=== PATIENT | female | born 1950 | race Caucasian/White ===

== ENCOUNTER 2023-12-16 08:09 | Emergency (ER) | payer OTHER, SELFPAY ==
[2023-12-16 08:20] VITALS: BP 137/61; PULSE 62; RESP 18; TEMP 36.6; O2SAT 98
[2023-12-16] MEDS: TETANUS,DIPHTHERIA,AC PERTUSSIS ADULT (0.5 ML) BOOSTRIX IM (08:31)
--- NOTE | 2023-12-16 08:37 | ED.SKABFB ---
HPI - Skin/Abscess/Foreign Bdy General Chief complaint: Wound/Laceration Stated complaint: Head Injury Time Seen by Provider: 12/16/23 08:28 Source: patient and RN notes reviewed Mode of arrival: ambulatory Limitations: no limitations History of Present Illness HPI narrative: Presents today with a laceration to her scalp that was sustained just prior to arrival while working at [employer]. States a leaf blower fall on her head. Denies loss of consciousness, neck pain, dizziness, lightheadedness. Reports that she does have a headache, concentrated in the area of her wound that she currently rates 5/10. She takes a baby aspirin daily but no additional anticoagulants. Patient not up-to-date on her tetanus vaccine Related Data Home Medications Medication Instructions Recorded Confirmed albuterol sulfate 90 mcg/actuation 2 inh inhalation DIRECTED 12/16/23 12/16/23 aerosol inhaler aspirin 81 mg tablet 81 mg PO DAILY 12/16/23 12/16/23 atorvastatin 20 mg tablet 20 mg PO DAILY 12/16/23 12/16/23 irbesartan 150 mg tablet 150 mg PO DAILY 12/16/23 12/16/23 lorazepam 1 mg tablet 1 mg PO DIRECTED 12/16/23 12/16/23 metoprolol tartrate 50 mg tablet 50 mg PO DAILY 12/16/23 12/16/23 pantoprazole 40 mg tablet,delayed 40 mg PO DAILY 12/16/23 12/16/23 release rizatriptan 10 mg tablet 10 mg PO DIRECTED 12/16/23 12/16/23 Allergies Allergy/AdvReac Type Severity Reaction Status Date / Time No Known Allergies Allergy Verified 12/16/23 08:13 Review of Systems Review of Systems: CONSTITUTIONAL: Denies body aches, fever, chills, or sweats. EYES: Denies visual changes, redness, or discharge. ENT: Denies rhinorrhea, congestion, sore throat, or otalgia. CARDIOVASCULAR: Denies chest pain, palpitations, or edema. RESPIRATORY: Denies cough or dyspnea. GASTROINTESTINAL: Denies abdominal pain, nausea, vomiting, or diarrhea. GENITOURINARY: Denies dysuria or hematuria. SKIN: Denies rash, itching.+ scalp laceration MUSCULOSKELETAL: Denies back pain, joint pain, or myalgia. NEUROLOGIC: Denies numbness, tingling, or weakness.+ headache PSYCH: Denies depression or anxiety. [facility] Past Medical History Medical History (Updated 12/16/23 @ 08:45 by Mis Dias, [facility], ) GERD (gastroesophageal reflux disease) High cholesterol Hypertension Migraine Comments At time of signature, I have reviewed and agree with nursing past medical, surgical, social and family history unless otherwise noted. Please see nursing chart for further information. There is no relevant family history pertinent to the presenting complaint Exam Narrative: GENERAL: Well-appearing, well-nourished, and in no acute distress. HEAD: Normocephalic, atraumatic. EYES: EOMI. PERRL. No redness or drainage. Conjunctivae normal. ENT: Mucous membranes pink and moist. NECK: Normal AROM without pain. Supple. No lymphadenopathy. Neck is nontender. CHEST: No respiratory distress. EXTREMITIES: Normal range of motion. No edema. SKIN: Warm, dry, no rash. Capillary refill normal. Normal skin turgor. 1cm partial thickness linear laceration with scant active bleeding to the midline frontal scalp area into the hairline approximately 4-5 cm NEURO: No focal deficits. Alert and oriented x3. Gait steady. PSYCH: Normal affect. No signs of depression or anxiety. Course Course Level of Care: Express Care Visit Vital Signs Vital signs: Vital Signs Temperature 97.9 F 12/16/23 08:20 Pulse Rate 62 12/16/23 08:20 Respiratory Rate 18 12/16/23 08:20 Blood Pressure 137/61 12/16/23 08:20 Pulse Oximetry 98 12/16/23 08:20 Oxygen Delivery Room Air 12/16/23 08:20 Temperature 97.9 F 12/16/23 08:20 Pulse Rate 62 12/16/23 08:20 Respiratory Rate 18 12/16/23 08:20 Blood Pressure 137/61 12/16/23 08:20 Pulse Oximetry 98 12/16/23 08:20 Oxygen Delivery Room Air 12/16/23 08:20 Reviewed Procedures Laceration Laceration 1: D
== END 2023-12-16 08:50 | disposition home or self-care (01) ==
PROVIDERS: Emergency Provider Nurse Practitioner
DX: S01.01XA Laceration without foreign body of scalp, initial encounter (principal); W22.8XXA Striking against or struck by other objects, initial encounter; Z79.82 Long term (current) use of aspirin; K21.9 Gastro-esophageal reflux disease without esophagitis; I10 Essential (primary) hypertension; E78.00 Pure hypercholesterolemia, unspecified; Z23 Encounter for immunization
CPT/HCPCS: 12001; 90471; 90715; 99212; G0463

== ENCOUNTER 2023-12-22 08:24 | Emergency (ER) | payer OTHER, SELFPAY ==
[2023-12-22 08:33] VITALS: BP 136/66; PULSE 64; RESP 16; TEMP 36.4; O2SAT 99
--- NOTE | 2023-12-22 08:49 | ED.SKABFB ---
HPI - Skin/Abscess/Foreign Bdy General Stated complaint: staple removal Time Seen by Provider: 12/22/23 08:49 Source: patient Mode of arrival: ambulatory Limitations: no limitations History of Present Illness HPI narrative: 73-year-old female here for staple removal. Had 2 barbara paste to laceration of scalp. Healing well, no signs of infection. All systems reviewed and negative except as noted above. Related Data Home Medications Medication Instructions Recorded Confirmed albuterol sulfate 90 mcg/actuation 2 inh inhalation DIRECTED 12/16/23 12/22/23 aerosol inhaler aspirin 81 mg tablet 81 mg PO DAILY 12/16/23 12/22/23 atorvastatin 20 mg tablet 20 mg PO DAILY 12/16/23 12/22/23 irbesartan 150 mg tablet 150 mg PO DAILY 12/16/23 12/22/23 lorazepam 1 mg tablet 1 mg PO DIRECTED 12/16/23 12/22/23 metoprolol tartrate 50 mg tablet 50 mg PO DAILY 12/16/23 12/22/23 pantoprazole 40 mg tablet,delayed 40 mg PO DAILY 12/16/23 12/22/23 release rizatriptan 10 mg tablet 10 mg PO DIRECTED 12/16/23 12/22/23 Allergies Allergy/AdvReac Type Severity Reaction Status Date / Time No Known Allergies Allergy Verified 12/22/23 08:49 Review of Systems Review of Systems: CONSTITUTIONAL: Denies fever, chills, or sweats. EYES: Denies visual changes, redness, or discharge. ENT: Denies rhinorrhea, congestion, sore throat, or otalgia. CARDIOVASCULAR: Denies chest pain, palpitations, or edema. RESPIRATORY: Denies cough or dyspnea. GASTROINTESTINAL: Denies abdominal pain, nausea, vomiting, or diarrhea. GENITOURINARY: Denies dysuria or hematuria. SKIN: Denies rash or itching. Here for staple removal. MUSCULOSKELETAL: Denies back pain, joint pain, or myalgia. NEUROLOGIC: Denies headache, numbness, or weakness. PSYCHIATRIC: Denies anxiety or depression. All other systems reviewed are negative, except as documented in HPI. [facility] Past Medical History Medical History (Updated 12/22/23 @ 08:53 by Aislinn Parra NP) GERD (gastroesophageal reflux disease) High cholesterol Hypertension Migraine Comments At time of signature, agree with nursing past medical, surgical, social and family history. There is no relevant family history pertinent to the presenting complaint. Exam Narrative: GENERAL: This is a well-nourished, well-developed patient, in no apparent distress. HEAD: normocephalic. healed wound to top of scalp. Two barbara in place. No signs of infection. EYES: PERRL. Sclera clear/white. Vision is grossly intact. EARS: External ears normal NOSE: External nose normal NECK: Neck supple, non-tender without lymphadenopathy, masses or thyromegaly. CARDIOVASCULAR: Regular rate and rhythm without murmurs, gallops, or rubs. RESPIRATORY: Clear to auscultation. Breath sounds equal bilaterally. No wheezes, rales, or rhonchi. SKIN: warm, Dry, intact with no suspicious lesions or rash, good texture and turgor. NEURO: awake, alert, and oriented to person, place and time. There were no obvious focal neurologic abnormalities. EXTREMITIES: No joint tenderness, effusion, or edema noted. Course Course Level of Care: Express Care Visit Vital Signs Vital signs: Vital Signs Temperature 36.4 C L 12/22/23 08:33 Pulse Rate 64 12/22/23 08:33 Respiratory Rate 16 12/22/23 08:33 Blood Pressure 136/66 12/22/23 08:33 Pulse Oximetry 99 12/22/23 08:33 Oxygen Delivery Room Air 12/22/23 08:33 Temperature 36.4 C L 12/22/23 08:33 Pulse Rate 64 12/22/23 08:33 Respiratory Rate 16 12/22/23 08:33 Blood Pressure 136/66 12/22/23 08:33 Pulse Oximetry 99 12/22/23 08:33 Oxygen Delivery Room Air 12/22/23 08:33 Reviewed Procedures Other Procedure Procedure 1: Other Procedure: Two barbara removed from top of scalp usin staple removal MDM - Skin/Abscess/Foreign Bdy MDM Narrative Medical decision making narrative: Patient is aware of diagnosis, understands and agrees to
== END 2023-12-22 08:56 | disposition home or self-care (01) ==
PROVIDERS: Emergency Provider Nurse Practitioner Family
DX: S01.01XD Laceration without foreign body of scalp, subsequent encounter (principal); X58.XXXD Exposure to other specified factors, subsequent encounter; E78.00 Pure hypercholesterolemia, unspecified; I10 Essential (primary) hypertension; K21.9 Gastro-esophageal reflux disease without esophagitis; Z79.82 Long term (current) use of aspirin
CPT/HCPCS: 99211; G0463

== ENCOUNTER 2024-03-17 14:18 | Outpatient (CLI) | payer MEDICARE, SELFPAY ==
--- NOTE | ~2024-03-17 | MR_ITS ---
MRI of the right knee Clinical history: Pain, arthritis Technique: Coronal proton density and proton density-weighted images, sagittal proton-density and T2 fat-sat images, and axial proton-density fat-saturated images were acquired. Findings: Anterior and posterior cruciate ligaments are intact. Medial collateral ligament and the la teral collateral ligament complex are intact. Popliteus tendon is intact. There is complex tearing of the posterior horn and body of the medial meniscus. No lateral meniscal t ear seen. There is mild chondromalacia patella at the patellar apex. There is extensive high-grade chondral mal acia on both sides of the medial compartment. Articular cartilage in the lateral compartment is well preserved. There is mild amorphous reactive marrow edema in the medial tibial plateau and medial femo ral condyle. Extensor mechanism is intact. Small joint effusion present. No Hylton's cyst. Impression: Complex tearing of the posterior horn and body medial meniscus. 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 Mild chondromalacia patella. Small joint effusion. Reviewed, dictated and finalized at location . [employer] Impression: Complex tearing of the posterior horn and body medial meniscus. 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 Mild chondromalacia patella. Small joint effusion.
== END 2024-03-17 14:19 | disposition home or self-care (01) ==
LOC: GOSHIMG 14:19
PROVIDERS: PCP Internal Medicine; Visit Provider Orthopaedic Surgery
DX: S83.231A Complex tear of medial meniscus, current injury, right knee, initial encounter (principal); X58.XXXA Exposure to other specified factors, initial encounter; M25.461 Effusion, right knee
CPT/HCPCS: 73721

== ENCOUNTER 2024-04-27 11:34 | Outpatient (CLI) | payer MEDICARE, SELFPAY ==
[2024-04-27 13:32] LABS: Basophils Absolute Auto 0.1 K/mm3 (0.0-0.1); Basophils Percent Auto 1.2 % (0.2-1.2); Eosinophils Absolute Auto 0.3 K/mm3 (0-0.3); Eosinophils Percent Auto 4.8 % (0-4.4); Hematocrit 39.2 % (37.0-47.0); Hemoglobin 12.6 g/dL (12.0-15.0); Immature Granulocyte Absolute 0.01 K/mm3 (0.00-0.031); Immature Granulocyte Percent A 0.2 % (0-0.5); Lymphocytes Absolute Auto 1.85 K/mm3 (0.9-3.2); Lymphocytes Percent Auto 30.5 % (18.3-44.2); Mean Corpuscular HGB Conc 32.1 g/dl (32-36); Mean Corpuscular Volume 93.3 fl (80-100); Mean Platelet Volume 11.6 fl (7.4-10.4); Monocytes Absolute Auto 0.5 K/mm3 (0.1-0.6); Monocytes Percent Auto 8.4 % (2.6-8.5); Neutrophils Absolute Auto 3.3 K/mm3 (1.3-6.7); Neutrophils Percent Auto 54.9 % (45.5-73.1); Platelet Count Result 220 k/mm3 (150-375); Red Cell Distribution Width 12.9 % (11.5-14.5); White Blood Count 6.1 K/mm3 (4.5-10.0)
[2024-04-27 13:45] LABS: Albumin Level 4.4 g/dL (3.5-5.1); Anion Gap 11 mmol/L (4-12); Blood Urea Nitrogen 11 mg/dL (7-17); Calcium 9.6 mg/dL (8.4-10.2); Carbon Dioxide 28 mmol/L (22-30); Chloride 102 mmol/L (98-107); Estimated Glomerular Filt Rate > 60; Glucose 97 mg/dL (65-110); Potassium 4.1 mmol/L (3.4-5.0); Sodium 141 mmol/L (137-145)
[2024-04-27 13:50] LABS: Hemoglobin A1C 5.6 % (<5.7)
[2024-04-27 17:00] LABS: Urine Cotinine NEGATIVE
== END 2024-04-27 11:35 | disposition home or self-care (01) ==
LOC: ANHSURGERY 11:45
PROVIDERS: PCP Internal Medicine; Visit Provider Orthopaedic Surgery
DX: Z01.812 Encounter for preprocedural laboratory examination (principal); M17.11 Unilateral primary osteoarthritis, right knee
CPT/HCPCS: 80048; 80307; 82040; 83036; 85025; 87081; 87181

== ENCOUNTER 2024-05-10 08:18 | Outpatient (CLI) | payer MEDICARE, SELFPAY ==
--- NOTE | ~2024-05-10 | NM_ITS ---
EXAMINATION: NM david stress w perfusion DATE: 05/10/2024 11:03 INDICATION: Abnormal electrocardiogram. Encounter for preprocedural cardiovascular exam. TECHNIQUE: Rest images were obtained following intravenous administration of 10.21 mCi Tc99m tetrofos min (Myoview). The patient was infused intravenously with Lexiscan (regadenoson). Then, 34.5 mCi Tc99 m tetrofosmin (Myoview) was administered intravenously, and stress images were obtained. Data was rec onstructed into short axis and horizontal and vertical long axis SPECT images. Gated SPECT images wer e also obtained. COMPARISON: None. FINDINGS: There is no definite reversible or fixed perfusion abnormality to suggest ischemia or infar ction. There is no segmental wall motion abnormality. Left ventricular ejection fraction measures > 70%. IMPRESSION: 1. No definite ischemia or infarct. 2. Normal left ventricular ejection fraction measuring >70%. Reviewed, dictated and finalized at location A. AN PROFESSOR
--- OUTSIDE RECORDS SUMMARY | 2024-05-10 08:32 | XMS_ITS | Patient Health Summary ---
Author Organization [facility] Address [address] [place] [address] Care Team Providers Care On Site Soil Evaluator Name Role Phone Romero Negrete MD Primary Care Provider [phone] Note from [facility],non-owned Affiliates and Associated Physician Practices is amultiple site organization consisting of ambulatory clinics and hospital sitesin [place], [place], [place] and [place]. This disclosure is being madepursuant to the Care Everywhere program and may not contain all information available regarding this patient. Last updated 17.[facility] Allergies * Pitavastatin Calcium(Myalgias) * Simvastatin(Myalgias) Medications * Be aware that medications may not be up to date on this document. Alwaysverify current medications with the patient. * aspirin EC (ECOTRIN) 81 MG tablet Take 1 (one) tablet by mouth once daily * cetirizine (ZYRTEC) 10 MG tablet(Started 08/15/2010) Take 1 Tab by mouth daily. 4 refills left * albuterol HFA (PROVENTIL;VENTOLIN;PROAIR) 108 (90 BASE) MCG/ACT inhaler (Started 02/16/2014) 2 Puffs every 4 hours as needed. For shortness of breath. 3 refills left * albuterol (PROVENTIL;VENTOLIN) (5 MG/ML) 0.5% nebulizer solution(Started 07/09/2014) 1 vial every 6 hours as needed with nebulizer machine 3 refills left * metoprolol tartrate (LOPRESSOR) 25 MG tablet(Started 10/01/2014) 1 Tab 2 times daily 3 refills left * omeprazole (PRILOSEC) 40 MG capsule(Started 10/01/2014) 1 Cap daily before breakfast 3 refills left * traMADol (ULTRAM) 50 MG tablet(Started 10/05/2014) TAKE 1 TABLET BY MOUTH EVERY 6 HOURS NEEDED FOR PAIN * multivitamin daily (THERAGRAN) tablet Take 1 (one) tablet by mouth daily with food * LORazepam (ATIVAN) 0.5 MG tablet Take 1 (one) tablet by mouth at bedtime * fluticasone-salmeterol (ADVAIR) 250-50 MCG/DOSE inhaler Inhale 1 (one) puff by mouth 2 times daily * acetaminophen CR (Tylenol Arthritis Pain) 650 MG tablet TAKE 1 TABLET BY MOUTH FOUR TIMES A DAY WITH TRAMADOL * celecoxib (CeleBREX) 200 MG capsule(Started 06/21/2023) Take 1 (one) capsule by mouth 2 times daily as needed * ciprofloxacin (Cipro) 500 MG tablet * rizatriptan (Maxalt) 10 MG tablet(Started 08/16/2023) * Creon 6000-61451 units capsule(Started 06/25/2023) * methylPREDNISolone (Medrol Dosepak) 4 MG tablet(Started 10/08/2022) * irbesartan (Avapro) 150 MG tablet(Started 07/02/2023) Take 1 (one) tablet by mouth * HYDROcodone-acetaminophen (Henderson) 5-325 MG tablet(Started 05/04/2023) * etodolac (Lodine) 400 MG tablet(Started 06/30/2023) * diphenoxylate-atropine (Lomotil) 2.5-0.025 MG tablet(Started 09/29/2022) Take 1 (one) tablet by mouth 4 times daily as needed * cyclobenzaprine (Flexeril) 10 MG tablet(Started 01/07/2023) Take 1 (one) tablet by mouth 3 times daily as needed for Muscle Spasms * atorvastatin (Lipitor) 20 MG tablet(Started 06/12/2023) Take 1 (one) tablet by mouth once daily * valACYclovir (Valtrex) 1 GM tablet Take 2 (two) tablets by mouth 2 times daily Active Problems Problem Noted Date Diagnosed Date Gastroesophageal reflux disease 08/16/2023 Osteoarthritis of knee 08/16/2023 Atrial arrhythmia 08/16/2023 Pain in joint of left shoulder 08/20/2022 Arthralgia of right knee 12/29/2021 Epigastric abdominal pain 09/17/2021 Tendinitis of wrist 09/17/2021 Right wrist pain 06/10/2021 Extensor carpi ulnaris tendinitis 06/10/2021 Anxiety 03/01/2015 Atopic rhinitis 03/01/2015 Post-menopausal bleeding 01/17/2015 DAVID (generalized anxiety disorder) 09/03/2011 Pure hypercholesterolemia 10/11/2009 S/P cholecystectomy 09/26/2009 Asthma 09/26/2009 Arrhythmia 01/19/2009 Supraventricular tachycardia 01/19/2009 Resolved Problems Problem Noted Date Diagnosed Date Resolved Date Diarrhea 09/17/2021 09/13/2023 Essential hypertension, benign 01/19/2009 01/19/2009 Immunizations * INFLUENZA VACCINE, TRIV. (AFLURIA, FLUZONE TRIVALENT; 6MO+) (IIV3)(Given 11/10/2011) * FLU VACCINE QUAD IIV4 PF ID(Given 01/01/2016, 01/07/2015) * FLU VACCINE QUAD IIV4 SPLIT 0.25 ML IM(Given 12/13/2022) * INFLUENZA VACCINE(Given 12/13/2020, 11/24/2019, 12/15/2014, 11/10/2013, 11/10/2012, 11/10/2011) * INFLUENZA VACCINE, HIGH-DOSE, QUADR. (FLUZONE HIGH-DOSE QUADRIVALENT; 65Y+), 0.7 ML (HD-IIV4)(Given 12/30/2018, 12/31/2017) * INFLUENZA VACCINE, QUADR. (FLUZONE; FLULAVAL; FLUARIX; AFLURIA QUADRIVALENT; 6MO+), 0.5 ML (IIV4)(Given 12/04/2016) * PNEUMOCOCCAL PPSV23(Given 12/13/2022, 06/30/2017, 10/14/2011) * Pneumococcal Pcv13 Conj(Given 09/14/2014) * TDAP (7yrs+)(Given 11/02/2013) * ZOSTER VACCINE, LIVE(Given 01/02/2016) * Zoster Hzv Vacc Recombinant Inj Im(Given 08/29/2018, 08/16/2017) Social History Tobacco Use Types Packs/Day Years Used Date Smoking Tobacco: Former Cigarettes Q uit: 02/16/1993 Smokeless Tobacco: Never Tobacco Cessation:Counseling Given: Not Answered Alcohol Use Standard Drinks/Week Comments No 0 (1 standard drink = 0.6 oz pur e alcohol) PHQ-2 Answer Date Recorded Patient Health Questionnaire-2 Score 2 12/22/2023 Sex and Gender Information Value Date Recorded Sex Assigned at Not on file Gender Identity Not on file Sexual Orientation Not on file Last Filed Vital Signs Vital Sign Reading Time Taken Comments Blood Pressure 152/84 05/19/2015 2:51 PM GLASSWARE DEFECT REPAIRER Pulse 85 05/19/2015 2:51 PM GLASSWARE DEFECT REPAIRER Temperature 36.8 C (98.3 F) 05/19/2015 2:51 PM GLASSWARE DEFECT REPAIRER Respiratory Rate 18 05/19/2015 2:51 PM GLASSWARE DEFECT REPAIRER Oxygen Saturation 96% 05/19/2015 2:51 PM GLASSWARE DEFECT REPAIRER Inhaled Oxygen Concentration - - Weight 64.9 kg (143 lb) 03/29/2024 10:59 AM GLASSWARE DEFECT REPAIRER Height 160 cm (5' 3 ) 03/29/2024 10:59 AM GLASSWARE DEFECT REPAIRER Body Mass Index 25.33 03/29/2024 10:59 AM GLASSWARE DEFECT REPAIRER Procedures * NE DRAIN/INJECT LARGE JOINT/BURSA(Performed 12/27/2023) Performed for Tear of left rotator cuff, unspecified tear extent, unspecified whether traumatic * NE DRAIN/INJECT LARGE JOINT/BURSA(Performed 09/27/2023) Performed for Left shoulder tendinitis * XR SHOULDER LEFT 2VW OR MORE(Performed 08/18/2023) Performed for Left shoulder pain, unspecified chronicity * DEXA BONE DENSITY AXIAL SKELETON(Performed 10/22/2020) Performed for Encounter for screening for osteoporosis, Asymptomatic age-related postmenopausal state * MAMMO BILAT SCREENING(Performed 10/22/2020) Performed for Visit for screening mammogram * MAMMO BILAT SCREENING(Performed 10/21/2019) Performed for Visit for screening mammogram * MAMMO BILAT SCREENING(Performed 09/10/2018) Performed for Visit for screening mammogram * MAMMO BILAT SCREENING(Performed 11/29/2015) Performed for Visit for screening mammogram * PULMONARY/RESPIRATORY REPORT ORDER(Performed 05/23/2015) * XR CHEST 1VW PORTABLE(Performed 05/19/2015) Performed for Pneumonia of left lower lobe due to infectious organism * COMPREHENSIVE METABOLIC PANEL(Performed 05/18/2015) * CULTURE SPUTUM+GRAM STAIN(Performed 05/17/2015) * DIFFERENTIAL MANUAL(Performed 05/17/2015) * CBC W AUTO DIFFERENTIAL(Performed 05/17/2015) * COMPREHENSIVE METABOLIC PANEL(Performed 05/17/2015) * STREP PNEUMONIAE ANTIGEN URINE(Performed 05/17/2015) * LEGIONELLA ANTIGEN URINE(Performed 05/17/2015) * RESPIRATORY PATHOGEN PANEL BY PCR(Performed 05/16/2015) * INITIATE RT BRONCHODILATOR PROTOCOL(Performed 05/16/2015) * CULTURE URINE(Performed 05/16/2015) * URINALYSIS REFLEX TO MICROSCOPIC NO CULTURE(Performed 05/16/2015) * START ED RT BRONCHODILATOR PROTOCOL(Performed 05/16/2015) * START ED RT BRONCHODILATOR PROTOCOL(Performed 05/16/2015) * XR CHEST 2VW(Performed 05/16/2015) Performed for Productive cough * LACTIC ACID BLOOD POC VENOUS(Performed 05/16/2015) * CULTURE STREP GROUP A(Performed 05/16/2015) * CULTURE BLOOD(Performed 05/16/2015) * CULTURE BLOOD(Performed 05/16/2015) * STREP A SCREEN DIRECT W RFLX STREP A CULTURE(Performed 05/16/2015) * ACETAMINOPHEN LEVEL(Performed 05/16/2015) * LIPASE BLOOD(Performed 05/16/2015) * DIFFERENTIAL MANUAL(Performed 05/16/2015) * B-TYPE NATRIURETIC PEPTIDE(Performed 05/16/2015) * PT-INR(Performed 05/16/2015) * MONONUCLEOSIS SCREEN(Performed 05/16/2015) * COMPREHENSIVE METABOLIC PANEL(Performed 05/16/2015) * CBC W AUTO DIFFERENTIAL(Performed 05/16/2015) * INFLUENZA A+B ANTIGEN RAPID(Performed 05/16/2015) * CARDIAC RHYTHM STRIP ORDER(Performed 01/23/2015) * PATHOLOGY TISSUE EXAM (STL)(Performed 01/18/2015) Performed for Uterine leiomyoma, unspecified location * DILATION AND CURETTAGE INCOMPLETE , ANY TRIMESTER(Performed 01/18/2015) Performed for Uterine leiomyoma, unspecified location * HYSTEROSCOPY ABLATION WITH MYOSURE(Performed 01/18/2015) Performed for Uterine leiomyoma, unspecified location * MAMMO BILAT SCREENING(Performed 11/15/2014) Performed for Other screening mammogram * ENDOSCOPY, COLON, SCREENING(Performed 05/30/2014) * VITAMIN D 25-HYDROXY(Performed 05/14/2014) Performed for Screening for unspecified condition * LIPID PROFILE W LDL/HDL RATIO(Performed 05/14/2014) Performed for Pure hypercholesterolemia * THYROID PANEL W TSH (TSH,T4,T3 UPTAKE,FTI)(Performed 05/14/2014) Performed for Arrhythmia * COMPREHENSIVE METABOLIC PANEL(Performed 05/14/2014) Performed for Arrhythmia * CBC W AUTO DIFFERENTIAL(Performed 05/14/2014) Performed for Arrhythmia * XR WRIST LEFT 3VW OR MORE(Performed 11/02/2013) Performed for Left wrist pain * MAMMO BILAT SCREENING(Performed 11/02/2013) Performed for Other screening mammogram * XR WRIST LEFT 3VW OR MORE(Performed 10/26/2013) * HEPATITIS C ANTIBODY(Performed 12/06/2012) Performed for Need for hepatitis C screening test * LIPID PROFILE(Performed 12/06/2012) Performed for Pure hypercholesterolemia * THYROID PANEL W TSH (TSH,T4,T3 UPTAKE,FTI)(Performed 12/06/2012) Performed for Arrhythmia * COMPREHENSIVE METABOLIC PANEL(Performed 12/06/2012) Performed for Arrhythmia * CBC W AUTO DIFFERENTIAL(Performed 12/06/2012) Performed for Arrhythmia * MAMMO BILAT SCREENING(Performed 12/05/2012) Performed for Other screening mammogram * CT ABDOMEN PELVIS WO CONTRAST(Performed 11/04/2012) Performed for Right flank pain * URINALYSIS AUTO - POINT OF CARE(Performed 11/03/2012) Performed for Right flank pain * CARDIAC EKG ORDER(Performed 07/11/2012) * LIPID PROFILE(Performed 06/08/2012) Performed for Pure hypercholesterolemia * LAB RESULTS ORDER(Performed 01/14/2012) * VITAMIN D 25-HYDROXY(Performed 01/08/2012) Performed for Screening for unspecified condition * LIPID PROFILE(Performed 01/08/2012) Performed for Pure hypercholesterolemia * THYROID PANEL W TSH (TSH,T4,T3 UPTAKE,FTI)(Performed 01/08/2012) Performed for Screening for unspecified condition * COMPREHENSIVE METABOLIC PANEL(Performed 01/08/2012) Performed for Screening for unspecified condition * CBC W AUTO DIFFERENTIAL(Performed 01/08/2012) Performed for Screening for unspecified condition * MAMMO BILAT SCREENING(Performed 01/04/2012) Performed for Other screening mammogram * CARDIAC HOLTER MONITOR ORDER(Performed 08/24/2011) * HOLTER MONITOR(Performed 08/15/2011) Performed for Palpitations * VITAMIN D 25-HYDROXY(Performed 11/04/2010) Performed for Arrhythmia * LIPID PROFILE(Performed 11/04/2010) Performed for Pure hypercholesterolemia * THYROID PANEL W TSH (TSH,T4,T3 UPTAKE,FTI)(Performed 11/04/2010) Performed for Arrhythmia * COMPREHENSIVE METABOLIC PANEL(Performed 11/04/2010) Performed for Arrhythmia * CBC W AUTO DIFFERENTIAL(Performed 11/04/2010) Performed for Arrhythmia * MAMMO BILAT SCREENING(Performed 10/18/2010) Performed for Other screening mammogram * LIPID PROFILE(Performed 02/26/2010) Performed for Pure hypercholesterolemia * ECHOCARDIOGRAM STRESS(Performed 10/01/2009) Performed for Atypical Chest Pain * MAMMO BILAT SCREENING(Performed 09/28/2009) Performed for Other Screening Mammogram * HELICOBACTER PYLORI ANTIBODY IGG(Performed 09/27/2009) Performed for Atypical Chest Pain * LIPID PROFILE(Performed 09/27/2009) Performed for Atypical Chest Pain * THYROID PANEL W TSH (TSH,T4,T3 UPTAKE,FTI)(Performed 09/27/2009) Performed for Atypical Chest Pain * COMPREHENSIVE METABOLIC PANEL(Performed 09/27/2009) Performed for Atypical Chest Pain * CBC W AUTO DIFFERENTIAL(Performed 09/27/2009) Performed for Atypical Chest Pain * CULTURE STOOL PANEL(Performed 01/22/2009) Performed for Diarrhea * C DIFFICILE TOXIN A+B(Performed 01/22/2009) Performed for Diarrhea * HYDROXYINDOLACETIC ACID 5 URINE RANDOM(Performed 01/21/2009) Performed for Diarrhea * CBC W AUTO DIFFERENTIAL(Performed 01/21/2009) Performed for Diarrhea * COMPREHENSIVE METABOLIC PANEL(Performed 01/21/2009) Performed for Diarrhea * US BREAST LEFT COMPLETE(Performed 09/05/2008) Performed for Abnormal Mammogram, Unspecified * MAMMO LEFT DIAGNOSTIC(Performed 09/05/2008) Performed for Abnormal Mammogram, Unspecified * MAMMO BILAT SCREENING(Performed 08/25/2008) Performed for Other Screening Mammogram * TSH(Performed 04/05/2008) * T4 TOTAL(Performed 04/05/2008) * CBC W AUTO DIFFERENTIAL(Performed 04/05/2008) * COMPREHENSIVE METABOLIC PANEL(Performed 04/05/2008) * LIPID PROFILE(Performed 04/05/2008) * GROSS + MICRO EXAM(Performed 11/05/2003) * GROSS + MICRO EXAM(Performed 12/05/2001) Results * NE DRAIN/INJECT LARGE JOINT/BURSA (12/27/2023 8:45 AM CDT) Stephon Brown MD - 12/27/2023 8:45 AM CDT Stephon Mix MD 12/27/2023 9:56 AM The site was marked and consent signed. A time-out was called to confirm the appropriate site. Under sterile conditions using ChloraPrep, the left shoulder was injected using a mixture of 4 mL lidocaine, 4 mL marcaine, and 2mL (80mg) Kenalog. This was injected into the subacromial space through a standard posterior approach with a 22g needle. The patient tolerated the procedure well. No complications occurred. A bandaid was applied. Appropriate post-injection instructions were given and questions answered. Stephon Mix MD PROCEDURE/MINOR ES GICAL ORDERABLES * NE DRAIN/INJECT LARGE JOINT/BURSA (09/27/2023 9:21 AM CDT) Stephon Brown MD - 09/27/2023 9:21 AM CDT Stephon Mix MD 09/27/2023 10:17 AM The site was marked and consent signed. A time-out was called to confirm the appropriate site. Under sterile conditions using ChloraPrep, the left shoulder was injected using a mixture of 4 mL lidocaine, 4 mL marcaine, and 2mL (80mg) Kenalog. This was injected into the subacromial space through a standard posterior approach with a 22g needle. The patient tolerated the procedure well. No complications occurred. A bandaid was applied. Appropriate post-injection instructions were given and questions answered. Stephon Mix MD PROCEDURE/MINOR ES GICAL ORDERABLES * XR SHOULDER LEFT 2VW OR MORE (08/18/2023 1:16 PM CDT) Anatomical Region Laterality Modality Upper Extremity Computed Radiogr aphy 08/18/2023 2:17 PM CDT Impressions 08/18/2023 2:38 PM CDT IMPRESSION: Degenerative changes. Edited by Radha Issa on 08/18/2023 2:18 PM > Interpreting Provider: Rashid Velasquez MD on 08/18/2023 2:38 PM Narrative 08/18/2023 2:38 PM CDT PROCEDURE: XR SHOULDER LEFT 2VW OR MORE DATE/TIME OF EXAM: 08/18/2023 1:16 PM CLINICAL INFORMATION: None relevant/not provided if blank. Indication: M25.512: Pain in left shoulder Additional History: COMPARISON: None. FINDINGS: Four views of the left shoulder show glenohumeral joint space narrowing. There are degenerative changes of the acromioclavicular joint. No displaced fracture is present. Procedure Note Rashid Velasquez MD - 08/18/2023 PROCEDURE: XR SHOULDER LEFT 2VW OR MORE DATE/TIME OF EXAM: 08/18/2023 1:16 PM CLINICAL INFORMATION: None relevant/not provided if blank. Indication: M25.512: Pain in left shoulder Additional History: COMPARISON: None. FINDINGS: Four views of the left shoulder show glenohumeral joint space narrowing. There are degenerative changes of the acromioclavicular joint. Nodisplaced fracture is present. IMPRESSION: Degenerative changes. Edited by Radha Issa on 08/18/2023 2:18 PM > Interpreting Provider: Rashid Velasquez MD on 08/18/2023 2:38 PM Stephon Mix MD DIAGNOSTIC IMAGING ORDERABLES * DEXA BONE DENSITY AXIAL SKELETON (10/22/2020 1:59 PM CDT) Anatomical Region Laterality Modality Nuclear Medicine 10/22/2020 4:25 PM CDT Impressions 10/22/2020 4:25 PM CDT Normal bone mineral density of the lumbar spine and hips. WORLD HEALTH ORGANIZATION DEFINITIONS NORMAL= T-Score at or above -1.0 SD OSTEOPENIA = T-Score between -1 and -2.5 SD OSTEOPOROSIS = T-Score at or below -2.5 SD *Reading Radiologist: Harry Hernandez on 10/22/2020 at 4:25 PM Narrative 10/22/2020 4:25 PM CDT BONE MINERAL DENSITY STUDY: INDICATION: 70-year-old for osteoporosis screening. FINDINGS: The mean bone mineral content of the lumbar spine is 1.538 g/cm2. The T-score is 3.0 consistent with normal bone mineral density. The mean bone mineral content of the left femoral neck is 1.237 g/cm2. The T-score is 1.4 consistent with normal bone mineral density. The mean bone mineral content of the left total hip is 1.369 g/cm2. The T-score is 2.9 consistent with normal bone mineral density. The mean bone mineral content of the right femoral neck is 1.224 g/cm2. The T-score is 1.3 consistent with normal bone mineral density. The mean bone mineral content of the right total hip is 1.363 g/cm2. The T-score is 2.8 consistent with normal bone mineral density. FRAX 10 year fracture risk Major osteoporotic fracture: 5.2% Hip fracture: 0.1% Procedure Note Harry Hernandez DO - 10/22/2020 BONE MINERAL DENSITY STUDY: INDICATION: 70-year-old for osteoporosis screening. FINDINGS: The mean bone mineral content of the lumbar spine is 1.538 g/cm2. The T-score is 3.0 consistent with normal bone mineral density. The mean bone mineral content of the left femoral neck is 1.237 g/cm2. The T-score is 1.4 consistent with normal bone mineral density. The mean bone mineral content of the left total hip is 1.369 g/cm2. The T-score is 2.9 consistent with normal bone mineral density. The mean bone mineral content of the right femoral neck is 1.224 g/cm2. The T-score is 1.3 consistent with normal bone mineral density. The mean bone mineral content of the right total hip is 1.363 g/cm2. The T-score is 2.8 consistent with normal bone mineral density. FRAX 10 year fracture risk Major osteoporotic fracture: 5.2% Hip fracture: 0.1% IMPRESSION Normal bone mineral density of the lumbar spine and hips. WORLD HEALTH ORGANIZATION DEFINITIONS NORMAL= T-Score at or above -1.0 SD OSTEOPENIA = T-Score between -1 and -2.5 SD OSTEOPOROSIS = T-Score at or below -2.5 SD *Reading Radiologist: Harry Hernandez on 10/22/2020 at 4:25 PM Romero Negrete MD DEXA ORDERABLES * MAMMO BILAT SCREENING (10/22/2020 1:12 PM CDT) Only the most recent of11 resultswithin the time period is included. Anatomical Region Laterality Modality Breast Bilateral Mammography 10/22/2020 2:47 PM CDT Impressions 10/22/2020 2:48 PM CDT There is no mammographic evidence of malignancy. OVERALL FINAL ASSESSMENT: BI-RADS CATEGORY 1: NEGATIVE. Annual screening mammography is recommended. *Reading Radiologist: Isabel Ramos on 10/22/2020 at 2:48 PM Narrative 10/22/2020 2:48 PM CDT EXAMINATION: BILATERAL DIGITAL SCREENING MAMMOGRAM AND BILATERAL BREAST TOMOSYNTHESIS HISTORY: Screening. COMPARISON: Serial examinations dating back to 11/29/2015. TECHNIQUE: BILATERAL digital breast tomosynthesis (DBT) and synthetic 2D digital mammogram images were obtained (bilateral craniocaudal and mediolateral oblique projections) including computer aided detection (CAD.) BREAST PARENCHYMAL COMPOSITION:Category B: There are scattered areas of fibroglandular density. MAMMOGRAM FINDINGS: There is no suspicious finding in either breast. Romero Negrete MD MAMMO ORDERABLES * PULMONARY/RESPIRATORY REPORT ORDER (05/23/2015 11:12 AM GLASSWARE DEFECT REPAIRER) Narrative 05/23/2015 11:12 AM GLASSWARE DEFECT REPAIRER Ordered by an unspecified provider. Scanned Document RESPIRATORY THERAPY ORDERABLES * XR CHEST 1VW PORTABLE (05/19/2015 9:35 AM GLASSWARE DEFECT REPAIRER) Anatomical Region Laterality Modality Chest Radiographic Marbella ging 05/19/2015 9:40 AM GLASSWARE DEFECT REPAIRER Impressions 05/19/2015 9:41 AM GLASSWARE DEFECT REPAIRER No acute disease. Narrative 05/19/2015 9:41 AM GLASSWARE DEFECT REPAIRER AP Portable Chest Indication: Pneumonia shortness of breath Findings: A single portable view of the chest shows the lungs are clear. Mediastinal contour and heart size are within normal limits. Pulmonary vascularity is unremarkable. Procedure Note Mis Mathew MD - 05/19/2015 AP Portable Chest Indication: Pneumonia shortness of breath Findings: A single portable view of the chest shows the lungs are clear. Mediastinal contour and heart size are within normal limits. Pulmonary vascularity is unremarkable. IMPRESSION No acute disease. Melina Rodriguez DO DIAGNOSTIC IMAGING O RDERABLES * (ABNORMAL) COMPREHENSIVE METABOLIC PANEL (05/18/2015 6:52 AM [facility]) Only the most recent of10 resultswithin the time period is included. Glucose 104 74 - 106 mg/dL 05/18/2015 7:31 AM [facility] Sodium 141 136 - 145 mmol/L 05/18/2015 7:31 AM [facility] Potassium 3.5 3.5 - 5.1 mmol/L 05/18/2015 7:31 AM [facility] Chloride 110(H) 98 - 107 mmol/L 05/18/2015 7:31 AM [facility] CO2 24 22 - 31 mmol/L 05/18/2015 7:31 AM [facility] Calcium 8.0(L) 8.5 - 10.1 mg/dL 05/18/2015 7:31 AM [facility] Anion Gap 7 5 - 20 mmol/L 05/18/2015 7:31 AM [facility] BUN 5(L) 7 - 21 mg/dL 05/18/2015 7:31 AM [facility] Creatinine 0.50 0.50 - 1.30 mg/dL 05/18/2015 7:31 AM [facility] Alkaline Phosphatase 116 38 - 126 U/L 05/18/2015 7:31 AM [facility] ALT 142(H) 12 - 78 U/L 05/18/2015 7:31 AM [facility] AST 70(H) 5 - 40 U/L 05/18/2015 7:31 AM [facility] Protein Total 6.5 6.4 - 8.2 gm/dL 05/18/2015 7:31 AM [facility] Albumin 2.6(L) 3.4 - 5.0 gm/dL 05/18/2015 7:31 AM [facility] Bilirubin Total 0.8 0.2 - 1.0 mg/dL 05/18/2015 7:31 AM [facility] eGFR by MDRD >60 >60 mL/min/1.7 3m2 05/18/2015 7:31 AM [facility] eGFR by MDRD >60 >60 mL/min/1.7 3m2 05/18/2015 7:31 AM [facility] Blood BLOOD SPECIMEN / Unknown Lab Venipuncture / Unknown 05/18/2015 6:52 AM GLASSWARE DEFECT REPAIRER 05/18/2015 7:07 AM GLASSWARE DEFECT REPAIRER Melina Rodriguez DO LAB - CHEMISTRY [facility] [address] [place] [address] * CULTURE SPUTUM+GRAM STAIN (05/17/2015 8:32 PM GLASSWARE DEFECT REPAIRER) Culture Moderate Growth normal oropharyngeal tej NATALI 05/20/2015 10:10 AM GLASSWARE DEFECT REPAIRER [facility] MICROBIOLOGY Gram Stain <10 per low power field Squamous epithelial cells 05/20/2015 10:10 AM [facility] Gram Stain >=100 per low power field White blood cells 05/20/2015 10:10 AM [facility] Gram Stain Light Red blood cells 05/20/2015 10:10 AM [facility] Gram Stain Moderate Gram positive cocci 05/20/2015 10:10 AM [facility] Microbiology SPUTUM / Unknown 05/17/2015 8:32 PM GLASSWARE DEFECT REPAIRER 05/17/2015 8:56 PM GLASSWARE DEFECT REPAIRER Oriana Orlando MD LAB - MICROBIOLOGY O RDERABLES [facility]CRO[facility] [address] [place] [address] [phone] * (ABNORMAL) DIFFERENTIAL MANUAL (05/17/2015 8:05 AM GLASSWARE DEFECT REPAIRER) Only the most recent of2 resultswithin the time period is included. WBC Auto 10.1 x10^9/L 05/17/2015 10:11 AM GLASSWARE DEFECT REPAIRER [facility] WBC Corrected 4.4 - 10.7 x10^9/L 05/17/2015 10:11 AM [facility] nRBC /100 WBC 05/17/2015 10:11 AM [facility] Neutrophil % Manual 69 44 - 73 % 05/17/2015 10:11 AM [facility] Lymphocytes % Manual 10(L) 20 - 43 % 05/17/2015 10:11 AM [facility] Band % Manual 21(H) 0 - 11 % 05/17/2015 10:11 AM [facility] Cells Counted 100 # cells 05/17/2015 10:11 AM [facility] RBC Morphology Normal 05/17/2015 10:11 AM [facility] WBC Morph Normal 05/17/2015 10:11 AM [facility] Platelet Estimation Normal 05/17/2015 10:11 AM [facility] Blood BLOOD SPECIMEN / Unknown Lab Venipuncture / Unknown 05/17/2015 8:05 AM [facility] 05/17/2015 8:24 AM [employer] DEFECT REPAIRER Zohra Cruz MD LAB - HEMATOLOGY ORDERABLES [facility] [address] [place] [address] * (ABNORMAL) CBC W AUTO DIFFERENTIAL (05/17/2015 8:05 AM [facility]) Only the most recent of9 resultswithin the time period is included. WBC 10.1 4.4 - 10.7 x10^9/L 05/17/2015 8:45 AM [facility] WBC Corrected x10^9/L 05/17/2015 8:45 AM [facility] RBC 3.97 3.80 - 5.20 x10^12/L 05/17/2015 8:45 AM [facility] Hemoglobin 11.8(L) 12.0 - 15.6 gm/dL 05/17/2015 8:45 AM [facility] Hematocrit 34.5(L) 35.9 - 45.5 % 05/17/2015 8:45 AM [facility] MCV 86.9 80.7 - 98.3 fl 05/17/2015 8:45 AM [facility] MCH 29.7 26.7 - 34.0 pg 05/17/2015 8:45 AM [facility] MCHC 34.2 30.8 - 35.9 gm/dL 05/17/2015 8:45 AM [facility] Platelet Count 141(L) 153 - 416 x10^9/L 05/17/2015 8:45 AM [facility] RDW-CV 12.7 12.1 - 14.9 % 05/17/2015 8:45 AM [facility] MPV 11.8 9.4 - 12.9 fl 05/17/2015 8:45 AM [facility] nRBC Auto 0 /100 WBC 05/17/2015 8:45 AM [facility] Hematology Reflex Status Manual Diff to follow 05/17/2015 8:45 AM [facility] Blood BLOOD SPECIMEN / Unknown Lab Venipuncture / Unknown 05/17/2015 8:05 AM [facility] [employer] REPAIR[facility] 05/17/2015 8:24 AM [employer] DEFECT REPAIRER Zohra Cruz MD LAB - HEMATOLOGY ORDERABLES [facility] [address] [address] * STREP PNEUMO ANTIGEN URINE (05/17/2015 7:50 AM GLASS[employer] DEFECT REPAIRER) Streptococcus pneumoniae Antigen Urine Negative Negative 05/18/2015 10:52 AM [facility] Urine URINE / Unknown 05/17/2015 7 :50 AM [employer] DEFECT REPAIRER 05/17/2015 8:11 AM [employer] DEFECT REPAIRER Narrative [facility] - 05/18/2015 10:52 AM [employer] DEFECT REPAIRER Patients who have received the Streptococcus pneumoniae vaccines may test positive in the 48 hours following vaccination. It is recommended to avoid testing within five days of receiving vaccination. Testing pediatric patients is discouraged because of their high rates of nasal colonization with Streptococcus pneumoniae leading to false positive results. Samples from patients taking antibiotics for more than 24 hours may cause false negatives. Zohra Cruz MD LAB - MICROBIOLO GY ORDERABLES [facility] [address] [place] [address] [phone] * LEGIONELLA ANTIGEN URINE (05/17/2015 7:50 AM GLASS[employer] DEFECT REPAIRER) Legionella Antigen Urine Negative Negative 05/18/2015 10:51 AM [facility] Urine URINE / Unknown 05/17/2015 7 :50 AM [employer] DEFECT REPAIRER 05/17/2015 8:11 AM [employer] DEFECT REPAIRER Narrative [facility] - 05/18/2015 10:51 AM [employer] DEFECT REPAIRER This assay detects Legionella pneumophila serogroup one (1) antigen. A negative test result does not rule out the possibility of Legionella infection due to other serogroups or species of Legionella. A positive result may indicate a recent or remote infection with serogroup 1. Zohra Cruz MD LAB - MICROBIOLO GY ORDERABLES [facility] [address] [place] [address], [facility] [phone] * (ABNORMAL) RESPIRATORY PATHOGEN PANEL BY PCR (05/16/2015 6:29 PM [employer]ASS[employer] DEFECT REPAIRER) Adenovirus PCR Not detected Not detected, Invalid, Indeterminate 05/16/2015 11:29 PM [facility] Human Metapneumovirus PCR Detected(A ) Not detected, Invalid, Indeterminate 05/16/2015 11:29 PM [facility] Human Rhinovirus/Entero virus PCR Not detected Not detected, Invalid, Indeterminate 05/16/2015 11:29 PM [facility] Influenza A Non Subtyped PCR Not detected Not detected, Invalid, Indeterminate 05/16/2015 11:29 PM [facility] Influenza A H1 PCR Not detected Not detected, Invalid, Indeterminate 05/16/2015 11:29 PM [facility] Influenza A H3 PCR Not detected Not detected, Invalid, Indeterminate 05/16/2015 11:29 PM [facility] Influenza A H1 2009 PCR Not detected Not detected, Invalid, Indeterminate 05/16/2015 11:29 PM [facility] Influenza B PCR Not detected Not detected, Invalid, Indeterminate 05/16/2015 11:29 PM [facility] Mycoplasma pneumoniae PCR Not detected Not detected, Invalid, Indeterminate 05/16/2015 11:29 PM [facility] Parainfluenza Virus 1 PCR Not detected Not detected, Invalid, Indeterminate 05/16/2015 11:29 PM [facility] Parainfluenza Virus 2 PCR Not detected Not detected, Invalid, Indeterminate 05/16/2015 11:29 PM [facility] Parainfluenza Virus 3 PCR Not detected Not detected, Invalid, Indeterminate 05/16/2015 11:29 PM [facility] Parainfluenza Virus 4 PCR Not detected Not detected, Invalid, Indeterminate 05/16/2015 11:29 PM [facility] Respiratory Syncytial Virus PCR Not detected Not detected, Invalid, Indeterminate 05/16/2015 11:29 PM [facility] Bordetella pertussis PCR Not detected Not detected, Invalid 05/16/2015 11:29 PM [facility] Microbiology NASOPHARYNGEAL SWAB / Unknown Collection / Unknown 05/16/2015 6:29 PM [employer] DEFECT REPAIRER 05/16/2015 6:36 PM [employer] DEFECT REPAIRER Zohra Cruz MD LAB - MICROBIOLO GY ORDERABLES Performing Organization Address [facility]/ZIP Co de Phone Number [facility] [address] [place] [address], [facility] [phone] * CULTURE URINE (05/16/2015 4:39 PM GLASS[employer] DEFECT REPAIRER) Culture 10,000-50,000 CFU/mL urogenital tej NATALI 05/18/2015 9:44 AM [facility] Urine URINE SPECIMEN OBTAINED BY CLEAN CATCH PROCEDURE / Unknown 05/16/2015 4:39 PM [employer]ASS[employer] DEFECT REPAIRER 05/16/2015 4:43 PM [employer]ASS[employer] DEFECT REPAIRER Oriana Orlando MD LAB - MICROBIOLOGY O RDERABLES Performing Organization Address [facility] Co de Phone Number [facility] [address] [place] [address], [facility] [phone] * (ABNORMAL) URINALYSIS ROUTINE AUTO (05/16/2015 4:38 PM [employer]ASS[employer] DEFECT REPAIRER) Color UA Yellow Straw, Yellow, Dark Yellow 05/16/2015 4:52 PM [facility] Clarity UA Clear 05/16/2015 4:52 PM [facility] Specific [place] UA 1.018 1.005 - 1.030 05/16/2015 4:52 PM [facility] pH UA 6.0 5.0 - 8.0 pH 05/16/2015 4:52 PM [facility] Protein UA Negative Negative 05/16/2015 4:52 PM [facility] Blood UA Negative Negative 05/16/2015 4:52 PM [facility] Leukocyte UA 1+(A) Negative 05/16/2015 4:52 PM [facility] Nitrite UA Negative Negative 05/16/2015 4:52 PM [facility] Glucose UA Negative Negative 05/16/2015 4:52 PM [facility] Ketone UA 2+(A) Negative 05/16/2015 4:52 PM [facility] Bilirubin UA Negative Negative 05/16/2015 4:52 PM [facility] Urobilinogen UA 1.0 0.1 - 1.0 EU/dL 05/16/2015 4:52 PM [facility] WBC UA Auto 0-2 0-2, 2-5 # /hpf 05/16/2015 4:52 PM [facility] RBC UA Auto 2-5 0-2, 2-5 # /hpf 05/16/2015 4:52 PM [facility] Epithelial Cell UA Auto 0-2 0-2, 2-5 # /hpf 05/16/2015 4:52 PM [facility] Urine URINE SPECIMEN OBTAINED BY CLEAN CATCH PROCEDURE / Unknown 05/16/2015 4:38 PM [employer] DEFECT REPAIRER 05/16/2015 4:43 PM [employer] DEFECT REPAIRER Oriana Orlando MD LAB - URINALYSIS ORD ERABLES [facility] [address] [place] [address] * XR CHEST PA AND LATERAL (05/16/2015 3:18 PM [employer] DEFECT REPAIRER) Anatomical Region Laterality Modality Chest Radiographic Marbella ging 05/16/2015 3:23 PM [employer] DEFECT REPAIRER Narrative 05/16/2015 3:24 PM [employer] DEFECT REPAIRER 2 views chest Indication: Shortness of breath and fever Comparison: Chest x-ray 07/26/2006 Findings: There is a consolidative infiltrate within the posterior left lower lobe. This is consistent with pneumonia. The right lung is clear. Heart size is normal. There is no pneumothorax. Recommend radiographic followup until clear. Procedure Note Maria Alejandra Riggs MD - 05/16/2015 2 views chest Indication: Shortness of breath and fever Comparison: Chest x-ray 07/26/2006 Findings: There is a consolidative infiltrate within the posterior left lower lobe. This is consistent with pneumonia. The right lung is clear. Heart size is normal. There is no pneumothorax. Recommend radiographic followup until clear. Oriana Orlando MD DIAGNOSTIC IMAGING O RDTOMA * LACTIC ACID BLOOD POC VENOUS (05/16/2015 2:51 PM [employer]ASS[employer] DEFECT REPAIRER) Pathologist [facility] Lactate iSTAT Venous POCT 1.14 0.90 - 1.70 mmol/L 05/16/2015 2:58 PM [employer] DEFECT REPAIRER [facility] Sample iSTAT VENOUS 05/16/2015 2:58 PM [employer] DEFECT REPAIRER [facility] Blood BLOOD SPECIMEN / Unknown 05/16/2015 2:51 PM [employer] DEFECT REPAIRER 05/16/2015 2:58 PM [employer] DEFECT REPAIRER Oriana Orlando MD LAB - POINT OF CARE ORDERABLES Performing Organization Address City/[facility] Co de Phone Number [facility] [address] [place] [address] * STREP A SCREEN DIRECT W RFLX STREP A CULTURE (05/16/2015 2:44 PM GLASS[employer] DEFECT REPAIRER) [facility] Strep A Rapid Negative Negative 05/16/2015 3:20 PM [employer] DEFECT REPAIRER [facility] Microbiology ENTIRE THROAT (SURFACE REGION OF NECK) / Unknown Collection / Unknown 05/16/2015 2:44 PM GL[employer] DEFECT REPAIRER 05/16/2015 3:00 PM [employer] DEFECT REPAIRER Narrative [facility] - 05/16/2015 3:20 PM [employer] DEFECT REPAIRER Test has reflexed to a Strep A culture. Oriana Orlando MD LAB - MICROBIOLOGY O JENNIFER Performing Organization Address City/[facility]/ZIP Co de Phone Number [facility] [address], [place] [id number] * CULTURE BLOOD (05/16/2015 2:44 PM [employer]ASSWARE DEFECT REPAIRER) Only the most recent of2 resultswithin the time period is included. Pathologist [facility] Culture No Growth Day 5 NATALI 05/21/2015 6:00 PM [employer] DEFECT REPAIRER [facility] Blood PERIPHERAL BLOOD / Unknown 05/16/2015 2:44 PM GLASSWARE DEFECT REPAIRER 05/16/2015 2:59 PM [employer] DEFECT REPAIRER Oriana Orlando MD LAB - MICROBIOLOGY O JENNIFER Performing Organization Address [facility] Co de Phone Number [facility] [address] [place] [address], [facility] [phone] * CULTURE STREP GROUP A (05/16/2015 2:44 PM GLASSWARE DEFECT REPAIRER) Culture Negative for Beta Hemolytic Streptococcus Group A NATALI 05/18/2015 6:53 AM [employer] DEFECT REPAIRER [facility] Microbiology ENTIRE THROAT (SURFACE REGION OF NECK) / Unknown Collection / Unknown 05/16/2015 2:44 PM GLASSWARE DEFECT REPAIRER 05/16/2015 3:00 PM [employer] DEFECT REPAIRER Oriana Orlando MD LAB - MICROBIOLOGY O JENNIFER Performing Organization Address [facility] Co de Phone Number [facility] [address] [place] [address], [facility] [phone] * INFLUENZA A+B ANTIGEN RAPID (05/16/2015 2:43 PM GLASSWARE DEFECT REPAIRER) Influenza A Antigen Negative Negative 05/16/2015 3:13 PM [employer]WARE DEFECT REPAIRER [facility] Influenza B Antigen Negative Negative 05/16/2015 3:13 PM [employer] DEFECT REPAIRER [facility] Microbiology NASOPHARYNGEAL SWAB / Unknown Collection / Unknown 05/16/2015 2:43 PM GLASSWARE DEFECT REPAIRER 05/16/2015 3:00 PM GLASSWARE DEFECT REPAIRER Narrative [facility] - 05/16/2015 3:13 PM GLASSWARE DEFECT REPAIRER The sensitivity of rapid tests for influenza A and B antigens, according to the published reports , ranges from 30-70% when compared to PCR and viral culture. For H1N1 influenza A, the sensitivity varies from 30-50%. For other influenza A strains, the sensitivity ranges from 50-70%. For influenza B virus, the sensitivity is approximately 30%. A negative result does not exclude influenza infection. False-positive (and true-negative) influenza test results are more likely to occur when disease prevalence is low, which is generally at the beginning and end of the influenza season. False-negative (and true-positive) influenza test results are more likely to occur when disease prevalence is high, which is typically at the height of the influenza season. Oriana Orlando MD LAB - MICROBIOLOGY O RDERABLES Performing Organization Address City/[facility]/ZIP Co de Phone Number [facility] [address] [place] [phone] * (ABNORMAL) MONONUCLEOSIS SCREEN (05/16/2015 2:43 PM GLASSWARE DEFECT REPAIRER) Pathologist [facility] Mononucleosis Screen Positive( A) Negative 05/16/2015 3:19 PM [employer] DEFECT REPAIRER [facility] Blood BLOOD SPECIMEN / Unknown Venipuncture / Unknown 05/16/2015 2:43 PM GLASSWARE DEFECT REPAIRER 05/16/2015 2:58 PM GL[employer] DEFECT REPAIRER Oriana Orlando MD LAB - CHEMISTRY ORDE RABLES Performing Organization Address [facility] Co de Phone Number [facility] [address] [place] [address] * (ABNORMAL) PT-INR (05/16/2015 2:43 PM GLASSWARE DEFECT REPAIRER) Pathologist [facility] PT 11.9(H) 9.5 - 11.6 sec 05/16/2015 3:12 PM [employer] DEFECT REPAIRER [facility] INR 1.2(H) 0.9 - 1.1 05/16/2015 3:12 PM [employer]WARE DEFECT REPAIRER [facility] Blood BLOOD SPECIMEN / Unknown Venipuncture / Unknown 05/16/2015 2:43 PM GLASSWARE DEFECT REPAIRER 05/16/2015 2:58 PM GLASSWARE DEFECT REPAIRER Narrative [facility] - 05/16/2015 3:12 PM GLASSWARE DEFECT REPAIRER Conventional Warfarin Anticoagulant Therapy: INR Reference Range: 2.0-3.0 Intensive Warfarin Anticoagulant Therapy: INR Reference Range: 2.5-3.5 Oriana Orlando MD LAB - COAGULATION OR DERABLES Performing Organization Address City/[facility]/ZIP Co de Phone Number [facility] [address] [place] [address] * B-TYPE NATRIURETIC PEPTIDE (05/16/2015 2:43 PM GLASSWARE DEFECT REPAIRER) Pathologist [facility] BNP 45 0 - 100 pg/mL 05/16/2015 3:25 PM GLASSWARE DEFECT REPAIRER [facility] Blood BLOOD SPECIMEN / Unknown Venipuncture / Unknown 05/16/2015 2:43 PM GLASSWARE DEFECT REPAIRER 05/16/2015 2:58 PM GLASSWARE DEFECT REPAIRER Narrative [facility] - 05/16/2015 3:25 PM GLASSWARE DEFECT REPAIRER A cutoff of 100 pg/mL has been demonstrated to provide the maximal combination of sensitivity, specificity, and negative predictive value for contributing to the diagnosis of congestive heart failure (CHF) only. A B-Type Natriuretic Peptide (BNP) value greater than or equal to 100 pg/mL is consistent with a diagnosis of CHF in the appropriate clinical setting. False positive results are more common in females greater than 75 years of age. Blood concentrations of natriuretic peptides may also be elevated in patients with myocardial infarction and in patients who are candidates for or are undergoing renal dialysis. Oriana Orlando MD LAB - CHEMISTRY FEDERICO ADAME Performing Organization Address City/[facility]/ZIP Co de Phone Number [facility] [address] [place] [phone] * LIPASE BLOOD (05/16/2015 2:43 PM GLASSWARE DEFECT REPAIRER) Lipase 61 10 - 220 U/L 05/16/2015 3:32 PM GLASSWARE DEFECT REPAIRER [facility] Blood BLOOD SPECIMEN / Unknown Venipuncture / Unknown 05/16/2015 2:43 PM GLASSWARE DEFECT REPAIRER 05/16/2015 2:58 PM GLASSWARE DEFECT REPAIRER Oriana Orlando MD LAB - CHEMISTRY FEDERICO ADAME Performing Organization Address [facility]/ZIP Co de Phone Number [facility] [address] [phone] * ACETAMINOPHEN LEVEL (05/16/2015 2:43 PM GLASSWARE DEFECT REPAIRER) Acetaminophen 12.3 10.0 - 30.0 ug/mL 05/16/2015 4:16 PM GLASSWARE DEFECT REPAIRER [facility] Blood BLOOD SPECIMEN / Unknown Venipuncture / Unknown 05/16/2015 2:43 PM GLASSWARE DEFECT REPAIRER 05/16/2015 2:58 PM GLASSWARE DEFECT REPAIRER Narrative [facility] - 05/16/2015 4:16 PM GLASSWARE DEFECT REPAIRER [facility] ACETAMINOPHEN COMMENT Critical values: 4 Hours Post Ingestion: Critical value > 200 g/mL 12 Hours Post Ingestion: Critical value > 50 g/mL For acute ingestion, please refer to Acetaminophen nomogram to determine the risk of toxicity based on time since ingestion and acetaminophen level (see link provided). Note the nomogram disclaimer. WARNING: Assessing the potential toxicity of an acetaminophen level on a standard risk nomogram must take into consideration many factors including any uncertainty of the time since ingestion or the possibility of other medications that may alter the peak level. Contact the [facility] at or reserved for healthcare professionals to assist you in evaluating potentially toxic acetaminophen levels. Oriana Orlando MD LAB - CHEMISTRY FEDER[place] ADAME [facility] [address] [place] [id number] * CARDIAC RHYTHM STRIP ORDER (01/23/2015 1:48 PM GLASSWARE DEFECT REPAIRER) Narrative 01/23/2015 1:48 PM GLASSWARE DEFECT REPAIRER Ordered by an unspecified provider. Scanned Document CARDIAC SERVICES ORD ERABLES * GROSS + MICRO EXAM (STL) (01/18/2015 11:16 AM GLASSWARE DEFECT REPAIRER) Case Report Surgical Pathology Report Case: [id number] Authorizing Provider: Bernie Rod MD Collected: 01/18/2015 11:16 AM Ordering Location: [facility] Received: 01/18/2015 12:19 PM Pathologist: Asiya Jansen MD Specimens: A) - Mass, uterine mass B) - Endometrium Curettings C) - Endocervix Curettings 01/21/2015 11:58 AM GLASSWARE DEFECT REPAIRER [facility] Final Diagnosis 1. Mass, uterine, biopsy: -- Negative for malignancy -- Endocervical nabothian cysts -- Proliferative endometrium -- Fragments of myometrium, small 2. Endometrium, curettings: -- Proliferative pattern 3. Endocervix, curettings: -- No pathologic changes GM/rajesh 01/21/2015 11:58 AM GLASSWARE DEFECT REPAIRER [facility] Gross Description Received are three containers each labeled Santos, Andria E. Container one is labeled uterine mass. The container holds a white cloth suction device containing multiple pink-terrell and red tissue fragments measuring 3 x 2.5 x 0.4 cm in aggregate. The specimen is placed in a tea bag and entirely submitted in cassette labeled A1. Container two is labeled endometrium curettings. The container holds multiple pink-terrell tissue fragments measuring 1.5 x 1 x 0.2 cm in aggregate. The specimen is entirely submitted in a cassette labeled B1. Container three is labeled endocervix curettings. The container holds multiple pink-terrell and red tissue fragments measuring 2 x 1 x ,0.1 cm in aggregate. The specimen is placed in a tea bag and entirely submitted in a cassette labeled C1. DYT/lv 01/21/2015 11:58 AM GLASSWARE DEFECT REPAIRER [facility] Microscopic Description Section A shows multiple fragments of benign endometrial and endocervical tissue. The endocervical tissue contains numerous cystically dilated, benign ducts but no evidence of atypia or malignancy. There is no evidence of polyp formation. Separate fragments of proliferative endometrium are noted, as well. Small area with underlying myometrium is present, as well. Section B reveals small fragments of proliferative endometrium and no evidence of atypia or malignancy. Section C reveals a minute fragment of endocervical tissue with no pathologic changes. GM/rajesh 01/21/2015 11:[address] [facility] Pathology/Cytology MASS / Unknown 015 11:16 AM GLASSWARE DEFECT REPAIRER 01/18/2015 12:19 PM GLASSWARE DEFECT REPAIRER Miscellaneous samples (specimen) SPECIMEN FROM ENDOMETRIUM OBTAINED BY CURETTAGE / Unknown 01/18/2015 11:17 AM GLASSWARE DEFECT REPAIRER 01/18/2015 12:19 PM GLASSWARE DEFECT REPAIRER Miscellaneous samples (specimen) CURETTINGS / Unknown 01/18/2015 11:17 AM GLASSWARE DEFECT REPAIRER 01/18/2015 12:19 PM GLASSWARE DEFECT REPAIRER Bernie Rod MD LAB - PATHOLOGY/CYTO LOGY ORDERABLES [facility] [address] [place] [address] * ENDOSCOPY, COLON, SCREENING (05/30/2014) Provider Unknown GI PROCEDURE ORDERAB LES * (ABNORMAL) LIPID PROFILE W LDL/HDL (PO REF LAB) (05/14/2014 10:25 AM GLASSWARE DEFECT REPAIRER) Cholesterol 214(H) 125 - 200 mg/dL [facility] Comment: Test Performed at: [facility] [address] [place] [address] RICO DELVALLE DO,MPH HDL Cholesterol 49 > OR = 46 mg/dL [facility] Triglycerides 142 <150 mg/dL [facility] LDL Direct 138(H) <130 mg/dL [facility] Comment: Desirable range <100 mg/dL for patients with CHD or diabetes and <70 mg/dL for diabetic patients with known heart disease. CHOL/HDLC RATIO 4.4 < OR = 5.0 (calc) [facility] Non HDL Cholesterol 165(H) mg/dL (calc) [facility] Comment: Target for non-HDL cholesterol is 30 mg/dL higher than LDL cholesterol target. Blood specimen (specimen) BLOOD SPECIMEN / Unknown 05/14/2014 10:25 AM GLASSWARE DEFECT REPAIRER 05/14/2014 10:26 AM GLASSWARE DEFECT REPAIRER Romero Negrete MD LAB - CHEMISTRY O JENNIFER Performing Organization Address [facility] [place] [address] * THYROID PANEL W TSH (05/14/2014 10:25 AM GLASSWARE DEFECT REPAIRER) Only the most recent of5 resultswithin the time period is included. T3 Uptake 27 22 - 35 % [facility] T4 Total 6.4 4.5 - 12.0 mcg/dL [facility] Thyroxine Free Index 1.7 1.4 - 3.8 [facility] Comment: Test Performed at: [facility] [address] [place] [address] RICO DELVALLE DO,MPH TSH 2.69 0.40 - 4.50 mIU/L [facility] Blood specimen (specimen) BLOOD SPECIMEN / Unknown 05/14/2014 10:25 AM GLASSWARE DEFECT REPAIRER 05/14/2014 10:26 AM GLASSWARE DEFECT REPAIRER Romero Negrete MD LAB - CHEMISTRY O JENNIFER Performing Organization Address [facility] [place] [address] * VITAMIN D 25-HYDROXY (05/14/2014 10:25 AM GLASSWARE DEFECT REPAIRER) Only the most recent of3 resultswithin the time period is included. Vitamin D, 25 Hydroxy 37 30 - 100 ng/mL [facility] Comment: 25-OHD3 indicates both endogenous production and supplementation. 25-OHD2 is an indicator of exogenous sources, such as diet or supplementation. Therapy is based on measurement of Total 25-OHD, with levels <20 ng/mL indicative of Vitamin D deficiency, while levels between 20 ng/mL and 30 ng/mL suggest insufficiency. Optimal levels are > or = 30 ng/mL. Vitamin D, 25 Hydroxy D3 37 See Below ng/mL [facility] Comment:Reference Range: Not established Vitamin D, 25 Hydroxy D2 <4 See Below ng/mL [facility] Comment: Reference Range: Not established REPORT COMMENT: FASTING:YES Test Performed at: [facility] [address] [address] SEUN STEWART MD,FCAP Blood specimen (specimen) BLOOD SPECIMEN / Unknown 05/14/2014 10:25 AM GLASSWARE DEFECT REPAIRER 05/14/2014 10:26 AM GLASSWARE DEFECT REPAIRER Romero Negrete MD LAB - CHEMISTRY O RDERABLES [facility] [address] [place] [address] * XR WRIST 3+ VW LEFT (11/02/2013 3:09 PM CDT) Only the most recent of2 resultswithin the time period is included. Anatomical Region Laterality Modality Wrist / Hand Radiographic [place] ging 11/02/2013 3:37 PM CDT Impressions 11/02/2013 4:26 PM CDT Unremarkable study. Edited by Crista Brower on 11/02/2013 3:47 PM Narrative 11/02/2013 4:26 PM CDT Left wrist multiple views. HISTORY: Wrist pain. Four views of the wrist demonstrate no fracture or dislocation or lytic or blastic lesion. Procedure Note Sal Estrada MD - 11/02/2013 Left wrist multiple views. HISTORY: Wrist pain. Four views of the wrist demonstrate no fracture or dislocation or lytic or blastic lesion. IMPRESSION Unremarkable study. Edited by Crista Brower on 11/02/2013 3:47 PM Romero Negrete MD DIAGNOSTIC IMAGIN G ORDERABLES * HEPATITIS C ANTIBODY (12/06/2012 10:06 AM CDT) [facility] Hepatitis C Antibody NON-REACTI VE NON-REACT ELIOT [facility] Signal to Cut-Off 0.02 <1.00 [facility] Comment: REPORT COMMENT: FASTING Test Performed at: [facility] [address] [place] [address] RICO DELVALLE DO,MPH Blood specimen (specimen) BLOOD SPECIMEN / Unknown 12/06/2012 10:06 AM CDT 12/06/2012 10:07 AM CDT Romero Negrete MD LAB - CHEMISTRY O JENNIFER Performing Organization Address [facility] de Phone Number [facility] [address] [place] [address] * (ABNORMAL) LIPID PROFILE (12/06/2012 10:06 AM CDT) Only the most recent of7 resultswithin the time period is included. [facility] Cholesterol 221(H) 125 - 200 mg/dL [facility] Comment: Test Performed at: [place] [address] RICO DELVALLE DO,MPH HDL Cholesterol 51 > OR = 46 mg/dL [facility] Triglycerides 98 <150 mg/dL [facility] LDL Calculated 150(H) <130 mg/dL (calc) [facility] Comment: Desirable range <100 mg/dL for patients with CHD or diabetes and <70 mg/dL for diabetic patients with known heart disease. CHOL/HDLC RATIO 4.3 < OR = 5.0 (calc) [facility] Non HDL Cholesterol 170(H) mg/dL (calc) [facility] Comment: Target for non-HDL cholesterol is 30 mg/dL higher than LDL cholesterol target. Blood specimen (specimen) BLOOD SPECIMEN / Unknown 12/06/2012 10:06 AM CDT 12/06/2012 10:07 AM CDT Romero Negrete MD LAB - CHEMISTRY O JENNIFER Performing Organization Address [facility] Co de Phone Number [facility] [address] [place] [address] * CT ABDOMEN AND PELVIS NON IV CONTRAST (11/04/2012 1:23 PM CDT) Anatomical Region Laterality Modality Abdomen, Pelvis Computed Tomogra phy 11/04/2012 1:41 PM CDT Impressions 11/04/2012 1:[address] evidence of obstructive uropathy although right kidney is mildly enlarged. Narrative 11/04/2012 1:[address] abdomen and pelvis without contrast INDICATION: Right flank pain. COMPARISON:None Technique: Multidetector CT images were obtained through the abdomen and pelvis with axial and coronal reformations without contrast. FINDINGS: Lung bases are clear. Patient is status post cholecystectomy. The liver, adrenal glands, spleen, pancreas and intra-abdominal bowel are normal. The right kidney is asymmetrically enlarged in comparison to the left. There is no hydronephrosis or hydroureter. There is no visualized stones within either kidney. No stone within the bladder or at the ureteral mound. The bowel within the pelvis demonstrates scattered diverticuli of the sigmoid colon without signs of diverticulitis. The appendix is normal in appearance. Uterus demonstrates a calcified fundal fibroid. There is no free air, free fluid or lymphadenopathy. The osseous structures are unremarkable. Procedure Note Clarence Murray MD - 11/04/2012 CT abdomen and pelvis without contrast INDICATION: Right flank pain. COMPARISON:None Technique: Multidetector CT images were obtained through the abdomen and pelvis with axial and coronal reformations without contrast. FINDINGS: Lung bases are clear. Patient is status post cholecystectomy. The liver, adrenal glands, spleen, pancreas and intra-abdominal bowel are normal. The right kidney is asymmetrically enlarged in comparison to the left. There is no hydronephrosis or hydroureter. There is no visualized stones within either kidney. No stone within the bladder or at the ureteral mound. The bowel within the pelvis demonstrates scattered diverticuli of the sigmoid colon without signs of diverticulitis. The appendix is normal in appearance. Uterus demonstrates a calcified fundal fibroid. There is no free air, free fluid or lymphadenopathy. The osseous structures are unremarkable. IMPRESSION No CT evidence of obstructive uropathy although right kidney is mildly enlarged. Romero Negrete MD CT ORDERABLES * URINALYSIS AUTO - POINT OF CARE (11/03/2012 4:17 PM CDT) Clarity UA POCT clear Color UA POCT light yellow Leukocyte UA neg Negative Nitrite UA POCT neg Negative Urobilinogen UA POCT 0.1 - 1.0 EU/dL Protein UA POCT neg Negative pH UA 6.0 5.0 - 8.0 pH units Blood UA neg Negative Specific [place] UA POCT 1.010 1.002 - 1.030 Ketone UA neg Negative Bilirubin UA POCT Negative Glucose UA neg Negative Urine specimen (specimen) URINE / Unknown Romero Negrete MD LAB - POINT OF CA RE ORDERABLES * CARDIAC EKG ORDER (07/11/2012) Provider Unknown CARDIAC SERVICES ORD ERABLES * LAB RESULTS ORDER (01/14/2012 7:19 AM CDT) Narrative Transcriptions Document, Scanned - 01/14/2012 7:19 AM CDT Scanned Document LAB - THERAPEUTIC DR UG MONITORING ORDERABLES * CARDIAC HOLTER MONITOR ORDER (08/24/2011 6:21 AM CDT) Narrative Transcriptions Document, Scanned - 08/24/2011 6:21 AM CDT Scanned Document CARDIAC SERVICES ORD ERABLES * HOLTER MONITOR (08/15/2011) 08/15/2011 Narrative Transcriptions Chace Morales MD - 08/16/2011 4:47 PM CDT [facility] Department of Cardiology [address] [place] [address] 24 Hour Holter Monitor PATIENT NAME: ANDRIA SANTOS MR#: [id number] AGE: : 1950 DATE OF ADMISSION: 08/15/2011 ROOM#: CLINICAL HISTORY: A 61-year-old woman with palpitations. A 24-hour Holter was placed onAugust 15, 2011. FINDINGS: 1. A 24-hour Holter demonstrates sinus rhythm with an average rate of 68bpm. Minimum heart rate was 45 bpm at 4 a.m. and the maximum was 112 bpmat 4:03 p.m. 2. There were rare isolated atrial and ventricular premature complexes. 3. There were no significant tachycardic or bradycardic episodes. 4. There were no episodes of atrial fibrillation. 5. The patient did not record any symptomatic episodes. NAME: ANDRIA SANTOS DICTATOR: CHACE MORALES M.D. DICTATED FOR: <USERINITIALS:>/[id number] JOB ID: [id number] 24 Hour Holter Monitor Romero Negrete MD CARDIAC SERVICES ORDERABLES [facility] * ECHOCARDIOGRAM STRESS (10/01/2009 9:45 AM CDT) 10/01/2009 9:45 AM CDT Narrative [facility] CARDIOLOGY - 10/01/2009 11:42 AM CDT [address] [id number] Exercise Stress Echocardiography Name: ANDRIA SANTOS MR #: [id number] Study date: 01-Oct-2009 : 1950 Age: 59 years Gender: Female Height: Weight: BSA: Allergies: NKA Referring Physician: Romero Negrete MD Superintendent Operations Division: Megan Cordova RDCS Nurse Practitioner: Matteo Kemp RN, ANP- Reading Physician: Chace Morales MD Clinical question: Detection of coronary artery disease. History: The patient is a 59 year old female. Rest ECG: Normal baseline ECG. Procedure: Treadmill exercise testing was performed, using the Holger protocol. Stress and rest echocardiographic evaluation with 2D imaging was performed from multiple acoustic windows for evaluation of ventricular function. Holger protocol: Symptoms ST change Rhythm/conduct Baseline none none NSR, no ectopy No medications or fluids given. Stress summary: Duration of exercise was 4 min. Functional capacity was decreased (greater than 40%). Maximal heart rate during stress was 157 bpm ( 96 % of maximal predicted heart rate). The heart rate response to stress was normal. There was normal resting blood pressure with an appropriate response to stress. There was no chest pain during stress. The stress test was terminated due to achievement of target heart rate and severe fatigue. The stress ECG was normal. There were no stress arrhythmias or conduction abnormalities. Stress 2D echocardiographic results: Baseline: There were no regional wall motion abnormalities. Left ventricular size was normal. Overall left ventricular systolic function was normal. Estimated left ventricular ejection fraction was in the range of 55 % to 65 %. Peak stress: There were no regional wall motion abnormalities. There was an appropriate reduction in left ventricular size. There was an appropriate augmentation in LV function. Summary: - Stress results: Duration of exercise was 4 min. Functional capacity was decreased (greater than 40%). Target heart rate was achieved. There was no chest pain during stress. - ECG conclusions: The stress ECG was normal. - Baseline: There were no regional wall motion abnormalities. Estimated left ventricular ejection fraction was in the range of 55 % to 65 %. - Peak stress: There were no regional wall motion abnormalities. Impressions: Normal study after maximal exercise. Left ventricular systolic function was normal. Prepared and signed by Chace Morales MD Signed 01-Oct-2009 11:49:39 Procedure Note 10/01/2009 [place] [id number] Exercise Stress Echocardiography Name: ANDRIA SANTOS MR #: [id number] Study date: 01-Oct-2009 : 1950 Age: 59 years Gender: Female Height: Weight: BSA: Allergies: NKA Referring Physician: Romero Negrete MD Superintendent Operations Division: Megan Cordova MAR Nurse Practitioner: Matteo Kemp RN, ANP-BC Reading Physician: Chace Morales MD Clinical question: Detection of coronary artery disease. History: The patient is a 59 year old female. Rest ECG: Normal baseline ECG. Procedure: Treadmill exercise testing was performed, using the Holger protocol. Stress and rest echocardiographic evaluation with 2D imaging was performed from multiple acoustic windows for evaluation of ventricular function. Holger protocol: Symptoms ST change Rhythm/conduct Baseline none none NSR, no ectopy No medications or fluids given. Stress summary: Duration of exercise was 4 min. Functional capacity was decreased (greater than 40%). Maximal heart rate during stress was 157 bpm ( 96 % of maximal predicted heart rate). The heart rate response to stress was normal. There was normal resting blood pressure with an appropriate response to stress. There was no chest pain during stress. The stress test was terminated due to achievement of target heart rate and severe fatigue. The stress ECG was normal. There were no stress arrhythmias or conduction abnormalities. Stress 2D echocardiographic results: Baseline: There were no regional wall motion abnormalities. Left ventricular size was normal. Overall left ventricular systolic function was normal. Estimated left ventricular ejection fraction was in the range of 55 % to 65 %. Peak stress: There were no regional wall motion abnormalities. There was an appropriate reduction in left ventricular size. There was an appropriate augmentation in LV function. Summary: - Stress results: Duration of exercise was 4 min. Functional capacity was decreased (greater than 40%). Target heart rate was achieved. There was no chest pain during stress. - ECG conclusions: The stress ECG was normal. - Baseline: There were no regional wall motion abnormalities. Estimated left ventricular ejection fraction was in the range of 55 % to 65 %. - Peak stress: There were no regional wall motion abnormalities. Impressions: Normal study after maximal exercise. Left ventricular systolic function was normal. Prepared and signed by Chace Morales MD Signed 01-Oct-2009 11:49:39 Romero Negrete MD ECHO ORDERABLES [facility] [address] [place] [address] * HELICOBACTER PYLORI ANTIBODY IGG (09/27/2009 7:17 AM CDT) Helicobacter pylori Antibody IgG NEGATIVE NEGATIVE [facility] Comment: H. pylori serology testing measures antibodies to H. pylori and is not recommended for the diagnosis of active infection. The [employer] and the [place] [employer] recommend either the Urea Breath Test (test code #84783) or Helicobacter pylori Antigen, EIA, Stool (test code #10466) for diagnosis and confirmation of eradication in cases of suspected or proven H. pylori infection. Test Performed at: [facility] [address] [place] [address] RICO DELVALLE DO,MPH BLOOD SPECIMEN / Unknown 09/27/2009 7:17 AM CDT 09/27/2009 9:58 PM CDT Romero Negrete MD LAB - CHEMISTRY O RDERABLES Performing Organization Address [facility] [place] [address] * CLOSTRIDIUM DIFFICILE TOXIN (01/22/2009 7:00 AM GLASSWARE DEFECT REPAIRER) Result [facility] Comment: CLOSTRIDIUM DIFFICILE TOXIN A AND B, EIA MICRO NUMBER: [id number] TEST STATUS: FINAL SPECIMEN SOURCE: STOOL SPECIMEN COMMENTS: ADEQUATE RESULT: NOT DETECTED Test Performed at: [employer] [facility] [address] [place] [address] STEPHON TESFAYE MD STOOL SPECIMEN / Unknown 01/22/2009 7:00 AM GLASSWARE DEFECT REPAIRER 01/23/2009 2:53 AM GLASSWARE DEFECT REPAIRER Romero Negrete MD LAB - MICROBIOLOG Y ORDERABLES Performing Organization Address [facility] [place] [address] * CULTURE STOOL PANEL (01/22/2009 7:00 AM GLASSWARE DEFECT REPAIRER) Culture [facility] Comment: CULTURE, CAMPYLOBACTER MICRO NUMBER: [id number] TEST STATUS: FINAL SPECIMEN SOURCE: STOOL SPECIMEN COMMENTS: ADEQUATE RESULT: NO ENTERIC CAMPYLOBACTER ISOLATED Test Performed at: [employer] [facility] [address] [place] [address] STEPHON TESFAYE MD Culture [facility] Comment: CULTURE, SALMONELLA AND SHIGELLA MICRO NUMBER: [id number] TEST STATUS: FINAL SPECIMEN SOURCE: STOOL SPECIMEN COMMENTS: ADEQUATE RESULT: NO SALMONELLA OR SHIGELLA ISOLATED STOOL SPECIMEN / Unknown 01/22/2009 7:00 AM GLASSWARE DEFECT REPAIRER 01/22/2009 3:44 PM GLASSWARE DEFECT REPAIRER Romero Negrete MD LAB - MICROBIOLOG Y ORDERABLES Performing Organization Address [facility] de Phone Number [address] [address] * HYDROXYINDOLACETIC ACID URINE RANDOM (01/21/2009 7:00 AM GLASSWARE DEFECT REPAIRER) 5-HIAA Urine 2.7 <=10.0 mg/g creat [facility] Creatinine Urine 145.8 20 - 320 mg/dL [facility] Comment: Test Performed at: [facility]/[address] [address] KELY BEAR MD URINE / Unknown 01/21/2009 7 :00 AM GLASSWARE DEFECT REPAIRER 01/21/2009 10:20 PM GLASSWARE DEFECT REPAIRER Romero Negrete MD LAB - URINE CHEMI STRY ORDERABLES [facility] [address] [place] [address] * US BREAST UNILATERAL LEFT (09/05/2008 8:18 AM CDT) Anatomical Region Laterality Modality Breast Left Other 09/05/2008 8:18 AM CDT Narrative 09/05/2008 8:12 PM CDT EXAMINATION- Left digital diagnostic mammogram and ultrasound on 09/05/2008 INDICATION- Questionable nodule [facility]- May Driscoll RT, RM FINDINGS- Computer assisted detection was not utilized. The tissue density is average. Spot compression views of the left breast demonstrate no persistent abnormality. Ultrasound of the left breast demonstrates mildly dilated ducts behind the nipple. There is a septated 7 mm cyst in the 12-00 position. A 5 mm simple cyst lies above the nipple. ASSESSMENT- BIRADS Category 2- Benign finding(s).. RECOMMENDATION- Followup mammogram in one year [facility] staff will contact and schedule patients with BIRADS categories 0, 4, and 5. Reading Radiologist- ALISA SENA M.D. Releasing Radiologist- ALISA SENA M.D. Released Date Time- 09/05/08903 Weight Recorder- POLLY Roberts BERNIE SCHULTZ,BERNIE REFKaila ROD,BERNIE CHAVEZ- ROMERO NEGRETE DEBORAH Procedure Note StaciekristineAlisa hagan - 10/25/2008 EXAMINATION- Left digital diagnostic mammogram and ultrasound on 09/05/2008 INDICATION- Questionable nodule [facility]- May Driscoll RT, RM FINDINGS- Computer assisted detection was not utilized. The tissue density is average. Spot compression views of the left breast demonstrate no persistent abnormality. Ultrasound of the left breast demonstrates mildly dilated ducts behind the nipple. There is a septated 7 mm cyst in the 12-00 position. A 5 mm simple cyst lies above the nipple. ASSESSMENT- BIRADS Category 2- Benign finding(s).. RECOMMENDATION- Followup mammogram in one year [facility] staff will contact and schedule patients with BIRADS categories 0, 4, and 5. Reading Radiologist- ALISA SENA M.D. Releasing Radiologist- ALISA SENA M.D. Released Date Time- 09/05/08 0904 Weight Recorder- POLLY Roberts BERNIE SCHULTZ,BERNIE ROD,BERNIE CHAVEZ- ROMERO NEGRETE DEBORAH Bernie Rod MD ORDERABLES * MAMMO DIAG DIRECT DIGITAL IMAGE UNIL LEFT (09/05/2008 7:40 AM CDT) Anatomical Region Laterality Modality Left Other 09/05/2008 7:40 AM CDT Narrative 09/05/2008 8:12 PM CDT EXAMINATION- Left digital diagnostic mammogram and ultrasound on 09/05/2008 INDICATION- Questionable nodule [facility]- RT Trotter RM FINDINGS- Computer assisted detection was not utilized. The tissue density is average. Spot compression views of the left breast demonstrate no persistent abnormality. Ultrasound of the left breast demonstrates mildly dilated ducts behind the nipple. There is a septated 7 mm cyst in the 12-00 position. A 5 mm simple cyst lies above the nipple. ASSESSMENT- BIRADS Category 2- Benign finding(s).. RECOMMENDATION- Followup mammogram in one year [facility] staff will contact and schedule patients with BIRADS categories 0, 4, and 5. Reading Radiologist- ALISA SENA M.D. Releasing Radiologist- ALISA SENA M.D. Released Date Time- 09/05/08 0904 Weight Recorder- POLLY Roberts ADM- BERNIE ROD ATT- BERNIE ROD REF- BERNIE ROD CON- PCP- ROMERO NEGRETE- BERNIE ROD Procedure Note Alisa Sena - 09/05/2008 EXAMINATION- Left digital diagnostic mammogram and ultrasound on 09/05/2008 INDICATION- Questionable nodule [facility]- RT Trotter RM FINDINGS- Computer assisted detection was not utilized. The tissue density is average. Spot compression views of the left breast demonstrate no persistent abnormality. Ultrasound of the left breast demonstrates mildly dilated ducts behind the nipple. There is a septated 7 mm cyst in the 12-00 position. A 5 mm simple cyst lies above the nipple. ASSESSMENT- BIRADS Category 2- Benign finding(s).. RECOMMENDATION- Followup mammogram in one year [facility] staff will contact and schedule patients with BIRADS categories 0, 4, and 5. Reading Yesenia SENA M.D. Releasing Yesenia SENA M.D. Released Date Time- 09/05/08903 Weight RecorderKaila MATIAS M.D. - BERNIE ROD- PAOLA,BERNIE REF- PAOLA,BERNIE NEGRETE,ROMERO ROD,BERNIE Bernie Rod MD MAMMO ORDERABLES * TSH (04/05/2008 7:16 AM GLASSWARE DEFECT REPAIRER) TSH 1.79 mIU/L [facility] Comment: REFERENCE RANGE: > OR = 20 YEARS: 0.40-4.50 RANGES FIRST TRIMESTER 0.20-4.70 SECOND TRIMESTER 0.30-4.10 THIRD TRIMESTER 0.40-2.70 Test Performed at: [facility] [address] [place] [address] RICO SCHWARTZ MD 04/05/2008 7:16 AM GLASSWARE DEFECT REPAIRER 04/05/2008 10:08 AM GLASSWARE DEFECT REPAIRER Romero Negrete MD LAB - CHEMISTRY O RDERABLES [facility] [address] [place] [address] * T4 TOTAL (04/05/2008 7:16 AM GLASSWARE DEFECT REPAIRER) T4 Total 7.4 4.5 - 12.5 mcg/dL [facility] Comment: Test Performed at: [facility] [address] [place] [address] RICO SCHWARTZ MD 04/05/2008 7:16 AM GLASSWARE DEFECT REPAIRER 04/05/2008 10:08 AM GLASSWARE DEFECT REPAIRER Romero Negrete MD LAB - CHEMISTRY O RDERABLES [facility] [address] [place] [address] * GROSS + MICRO EXAM (11/05/2003 2:38 PM CDT) Only the most recent of2 resultswithin the time period is included. Result CASE NUMBER [id number] Comment: ORDERING PHYSICIAN OG MEJIA SPECIMEN TYPE Colon Biopsy-random Date 11/05/2003 Physician Kenia Gross Description 2 specimens are received labeled with the patient's name. 1-specimen is identified as 'random colon biopsy' and consists of four yellow soft tissue fragments ranging in size from .2 x .1 x .1 cm to .6 x .2 x .2 cm. The specimen is submitted entirely in cassette A. 2-specimen is identified as 'duodenum biopsy' and consists of four terrell soft tissue fragments ranging in size from .2 x .2 x .2 cm to .3 x .2 x .2 cm. The specimen is submitted entirely in cassette B. tk/c Microscopic Exam Micro section A reveals multiple fragments of colonic mucosa with normal columnar lining epithelium and unremarkable subepithelial layer. The pits show no pathologic changes. Section B reveals multiple fragments of duodenum with tall, thin, delicate villous projections and underlying unremarkable crypts. The lamina propria shows a slight degree of edema and mild increase in lymphocytes. Active inflammation is not identified. GM/bk Diagnosis I. Random colon, biopsy -- No pathologic diagnosis. II. Duodenum, biopsy -- Chronic inflammation and edema, mild. GM/bk Weight Recorder bk Pathologist Asiya Jansen M.D. [place]. 11/06/2003 0936 <3> CPT code 73908 x2 MISCELLANEOUS SAMPLES / Unknown 11/05/2003 2:38 PM CDT 11/05/2003 2:38 PM CDT Historical Provider LAB - PATHOLOGY/C YTOLOGY ORDERABLES Care Teams On Site Soil Evaluator Relationship Specialty Start Date End Date Romero Negrete MD [address] [facility] [address] [address] PCP - General Internal Medicine 08/18/23
--- OUTSIDE RECORDS SUMMARY | 2024-05-10 08:32 | XMS_ITS | CONTINUITY OF CARE DOCUMENT ---
Author Name odalys morrow Address Unknown Organization [facility] Address [address] [place] [address] Phone [phone] Care Team Providers Care Hand Bender Name Role Phone Celestino Harrington MD Unavailable [phone] LISA SALAS DPM Unavailable INSURANCE PROVIDERS Payer name Policy type / Coverage type [place] [employer] party ID [facility] health [facility] [id number]
--- OUTSIDE RECORDS SUMMARY | 2024-05-10 08:32 | XMS_ITS | Referral Summary ---
[facility] Organization [facility] Building C Address [address] [place] [id number] Care Team Providers Care Pharmacy Retail Support Specialist Name Role Phone Romero Meier MD Primary Care Provider + Encounters Date Type Department Care Team Description 05/08/2024 Telephone [facility] Primary Care at [address] [phone] Romero Meier MD 04/25/2024 9:30 AM DAYLIGHT DRILLER Office Visit [facility] Medical [facility] Primary Care at [address] [phone] Sayra Edwards NP Rash (Primary Dx) 04/24/2024 Nurse Triage [facility] Medical [facility] Primary Care at [address] [phone] Romero Meier MD 04/03/2024 Telephone [facility] Medical [facility] Primary Care at [address] [phone] Romero Meier MD Recommendation Request 03/29/2024 9:45 AM DAYLIGHT DRILLER Office Visit [facility] Medical [facility] Primary Care at [address] [phone] Romero Meier MD Essential hypertension (Primary Dx); Supraventricular tachycardia (HCC) 03/27/2024 Telephone [facility] Primary Care at [address] [place] [phone] Romero Meier MD Appointment Request 03/21/2024 Telephone [facility] Primary Care at [address] [place] [phone] Romero Meier MD 02/24/2024 1:00 PM DAYLIGHT DRILLER Office Visit [facility] Primary Care at [address] [place] [phone] Romero Meier MD Essential hypertension (Primary Dx); Pure hypercholesterolemia; Chronic pain of right knee from Last 3 Months Allergies Active Allergy Reactions Criticality Noted Date Comments Pitavastatin Calcium Muscle pain Medium 10/12/2012 Medications aspirin (ASPIRIN LOW DOSE) 81 mg tablet take 1 tablet by oral route every day 0 0 015 Active multivitamin with minerals tablet Take 1 tablet by mouth Active ipratropium-albu teroL (DUO-NEB) 0.5-2.5 mg/3 mL nebulizer solutionIndicati ons:Chronic Obstructive Pulmonary Disease with Bronchospasms Take 3 mL by nebulization 4 (four) times a day as needed for wheezing or shortness of breath 90 mL 11 022 Active calcium citrate malate-vit D3 250 mg-2.5 mcg (100 unit) tablet Take by mouth Active coenzyme Q10 100 mg capsule Take 1 capsule (100 mg total) by mouth daily Active cetirizine (ZyrTEC) 10 mg tablet Take 1 tablet (10 mg total) by mouth daily Active dicyclomine (BENTYL) 10 mg capsule Take 1 capsule (10 mg total) by mouth 2 (two) times a day before breakfast and dinner 60 capsule 11 022 Active diphenoxylate-at ropine (LOMOTIL) 2.5-0.025 mg per tablet TAKE 1 TABLET BY MOUTH 4 TIMES A DAY NEEDED FOR DIARRHEA. 30 tablet 3 023 Active traMADoL (ULTRAM) 50 mg tablet Take 1 tablet (50 mg total) by mouth every 6 (six) hours as needed Active rizatriptan (MAXALT) 10 mg tablet Take 1 tablet (10 mg total) by mouth once as needed for migraine for up to 1 dose May repeat in 2 hours if unresolved. Do not exceed 30 mg in 24 hours. 12 tablet 11 Active irbesartan (AVAPRO) 150 mg tablet Take 1 tablet (150 mg total) by mouth nightly 90 tablet 3 Active metoprolol tartrate (LOPRESSOR) 50 mg immediate release tablet TAKE 1 TABLET BY MOUTH TWICE DAILY 200 [address] (PROTONIX) 40 mg EC tablet Take 1 tablet (40 mg total) by mouth daily 30 tablet 11 024 2024 Active albuterol HFA (PROVENTIL HFA,VENTOLIN HFA,PROAIR HFA) 90 mcg/actuation inhaler Inhale 2 puffs every 6 (six) hours as needed for wheezing 8.5 g 4 024 2024 Active atorvastatin (LIPITOR) 20 mg tablet TAKE 1 TABLET BY MOUTH EVERY DAY 100 tablet 1 Active valACYclovir (VALTREX) 1 gram tablet TAKE 2 TABLETS BY MOUTH TWICE A DAY 4 tablet 3 Active LORazepam (ATIVAN) 1 mg tablet Take 1 tablet (1 mg total) by mouth every 6 (six) hours as needed for anxiety 60 tablet Active ALPRAZolam (XANAX) 0.5 mg tablet Take 1 tablet (0.5 mg total) by mouth nightly as needed for anxiety 30 tablet 025 2024 Active valACYclovir (VALTREX) 1 gram tablet TAKE 2 TABLETS BY MOUTH TWICE A DAY 4 tablet 1 024 2024 Discontinued LORazepam (ATIVAN) 1 mg tablet TAKE 1 TABLET BY MOUTH EVERY 6 HOURS NEEDED FOR ANXIETY. 60 tablet 025 2024 Discontinued(R eorder) valACYclovir (VALTREX) 1 gram tablet Take 1 tablet (1,000 mg total) by mouth 3 (three) times a day for 7 days 21 tablet 025 2024 Active Problems Problem Noted Date Diagnosed Date Rash 04/25/2024 Assessment & Plan (04/25/2024 9:23 AM DAYLIGHT DRILLER): New onset rash on the arm with vesicles, pain, and pruritus. No spread or systemic symptoms. Patient has a history of recurrent herpes simplex virus (HSV) infections and is on intermittent Valtrex therapy. -Prescribe Valtrex 1g TID for 7 days to cover both HSV and zoster. -Follow up if symptoms worsen or fail to improve Chronic pain of right knee 01/12/2024 Rectal bleeding 11/02/2023 Assessment & Plan (11/02/2023 2:33 PM CDT): Will check her labs. Discussed this is likely from a hemorrhoid. Follow up/next steps pending results. Osteoarthritis of right knee 08/03/202203/2022 Diarrhea 09/17/2021 Overview (09/17/2021): Added automatically from request for surgery [id number] Epigastric abdominal pain 09/17/2021 Overview (09/17/2021): Added automatically from request for surgery [id number] Essential hypertension 03/01/2015 Overview (06/18/2016): Essential hypertension Atopic rhinitis 03/01/2015 Overview (06/18/2016): Allergic rhinitis Asthma 03/01/2015 Overview (06/18/2016): Asthma Anxiety 03/01/2015 Overview (06/18/2016): Anxiety Pure hypercholesterolemia 10/11/2009 S/P cholecystectomy 09/26/2009 Supraventricular tachycardia 01/19/2009 Immunizations Immunization Administration Dates Next Due COVID-19 mRNA (Cylex) 0.3 m L (30 mcg) vaccine (12 years and up) 12/05/2022 Influenza, Quad, Adjuvantate d, Intramuscular 12/05/2022 Influenza, Quadrivalent, Hig h Dose, Preservative Free, Intrr 12/05/2021,12/13/2020,11/24/2019 Influenza, Quadrivalent, Rec ombinant, Egg Free, Preservative Free, Intramuscular 01/01/2016,01/07/2015 Influenza, Quadrivalent, Spl it, Intramuscular 12/13/2022 Influenza, Quadrivalent, Spl it, Preservative Free, Intradermal 01/01/2016,01/07/2015 Influenza, Quadrivalent, Spl it, Preservative Free, Intramuscular 12/04/2016 Influenza, Trivalent, High D ose, Split, Preservative Free, Intramuscular 11/12/2023,12/30/2018,12/31/2017 Influenza, Trivalent, IM (MDV) 11/10/2011 Influenza, Unspecified 12/13/2020,2019,12/30/2018,12/31 Pfizer SARS-CoV-2 Monovalent Vaccination (12+ Yrs) ARORA-READY TO USE 09/24/2021 Pfizer SARS-CoV-2 Monovalent Vaccination (12+ Yrs) PURPLE 07/15/2022,06/15/2022,12/23/2020,05/18,04/25/2020 Pfizer Sars-Cov-2 Bivalent V accination (12+ YRS) 07/15/2022,12/05/2021,12/04/2021 Pneumococcal Conjugate PCV 13 09/14/2014 Pneumococcal Conjugate Pcv20 06/12/2023,06/12/19 24 Pneumococcal Polysaccharide PPV23 12/13/2022,,10/14/2011 RSV Vaccine, Pref, Recombina nt, Subunit, Adjuvanted, PF, IM (Arexvy) 12/05/2022 Tdap 11/02/2013 ZOSTER LIVE 01/02/2016 ZOSTER Recombinant 08/29/2018,08/16/2017 Social History Tobacco Use Types Packs/Day Years Used Date Smoking Tobacco: Former Cigarettes Q uit: 02/13/1979 Smokeless Tobacco: Never Tobacco Cessation:Counseling Given: Not Answered Alcohol Use Standard Drinks/Week Comments Yes 0 (1 standard drink = 0.6 oz pur e alcohol) very rarely AUDIT-C Answer Date Recorded Q1: How often do you have a drink containing alcohol? Never 12/09/2023 Q2: How many drinks containi ng alcohol do you have on a typical day when you are drinking? Patient does not drink Q3: How often do you have si x or more drinks on one occasion? 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 Not on file Last Filed Vital Signs Vital Sign Reading Time Taken Comments Blood Pressure 142/70 04/25/2024 9:07 AM DAYLIGHT DRILLER Pulse 78 04/25/2024 9:07 AM DAYLIGHT DRILLER Temperature 36.8 C (98.3 F) 11/02/2023 2:00 PM CDT Respiratory Rate 16 12/09/2023 12:20 PM CDT Oxygen Saturation 98% 04/25/2024 9:07 AM DAYLIGHT DRILLER Inhaled Oxygen Concentration - - Weight 70.3 kg (155 lb) 04/25/2024 9:07 AM DAYLIGHT DRILLER Height 160 cm (5' 3 ) 04/25/2024 9:07 AM DAYLIGHT DRILLER Body Mass Index 27.46 04/25/2024 9:07 AM DAYLIGHT DRILLER Plan of Treatment Not on file Procedures Procedure Name Priority Date/Time Associated Diagnosis Comments MRI HIP RIGHT WO CONTRAST Schedule Routine, Read Routine (OP Routine) 03/17/2024 8:06 AM DAYLIGHT DRILLER SCREENING MAMMOGRAM 2D BILATERAL Schedule Routine, Read Routine (OP Routine) 12/31/2022 DEXA AXIAL SKELETON BONE DENSITY 1 OR MORE SITES Schedule Routine, Read Routine (OP Routine) 08/25/2022 COLONOSCOPY 11/06/2021 1:15 PM CDT HEPATITIS C ANTIBODY Routine 07/01/2017 11:16 AM CDT from Last 3 Months or Most Recently Relevant to Health Maintenance Results * MRI Hip Right WO Contrast (03/17/2024 8:06 AM DAYLIGHT DRILLER) Anatomical Region Laterality Modality Lower Extremities Right Magnetic Reson ance Historical Provider MD [facility] MRI PROCEDURES Final Result * Screening Mammogram 2D Bilateral (12/31/2022) Anatomical Region Laterality Modality Breast Bilateral Mammography Historical Provider MD [facility] MAMMO PROCEDURES Jenn l Result * Dexa Axial Skeleton Bone Density 1 or 2 Site (08/25/2022) SCRIBED DXA T-SCORE 2.4 Anatomical Region Laterality Modality Body N/A Radiographic Marbella ging Historical Provider MD [facility] DXA PROCEDURES Final Result * COLONOSCOPY (11/06/2021 1:15 PM CDT) Anatomical Region Laterality Modality Other Narrative Procedure Note RootEduard MD - 11/06/2021 1:15 PM CDT ENDOSCOPY LAB Patient Name: Andria Combs Procedure Date: 11/06/2021 1:15 PM Admit Type: Outpatient Room: [facility] 3 Date of : 1950 Instrument Name: [id number] Gender: Female Note Status: Finalized Procedure: Colonoscopy Indications: Clinically significant diarrhea of unexplainedorigin, Weight loss Providers: Eduard Godfrey M.D. Referring MD: Romero Meier M.D. Medicines: Propofol per Anesthesia Complications: No immediate complications. Estimated Blood Loss: Estimated blood loss: none. Procedure: Pre-Anesthesia Assessment: - Prior to the procedure, a History and Physicalwas performed, and patient medications and allergieswere reviewed. The patient's tolerance of previous anesthesia was also reviewed. The risks andbenefits of the procedure and the sedation options and risks were discussed with the patient. All questions were answered, and informed consent was obtained. Prior Anticoagulants: The patient has taken noanticoagulant or antiplatelet agents except for aspirin. ASAGrade Assessment: II - A patient with mild systemicdisease. After reviewing the risks and benefits, the patient was deemed in satisfactory condition to undergo the procedure. - The risks and benefits of the procedure and the sedation options and risks were discussed with the patient. All questions were answered and informed consent was obtained. The benefits, risks and alternatives of theprocedure and sedation were discussed and informed consentwas obtained. All questions were answered. Please referto the signed informed consent document in the medical record. The scope was passed under direct vision.The Colonoscope was introduced through the anus and advanced to the the terminal ileum. The colonoscopy was performed without difficulty. The patient tolerated the procedure well. The quality of thebowel preparation was evaluated using the BBPS (BostonBowel Preparation Scale) with scores of: Right Colon = 2 (minor amount of residual staining, small fragmentsof stool and/or opaque liquid, but mucosa seen well), Transverse Colon = 3 (entire mucosa seen well withno residual staining, small fragments of stool oropaque liquid) and Left Colon = 2 (minor amount ofresidual staining, small fragments of stool and/or opaque liquid, but mucosa seen well). The total BBPS score equals 7. The quality of the bowel preparation was good. The bowel preparation used was Plenvu viasplit dose instruction. Findings: The perianal and digital rectal examinations were normal. The terminal ileum appeared normal. A 4 mm polyp was found in the cecum. The polyp was sessile. The polyp was removed with a cold snare. Resection and retrieval werecomplete. A 3 mm polyp was found in the transverse colon. The polyp wassessile. The polyp was removed with a cold snare. Resection and retrieval were complete. Internal hemorrhoids were found during retroflexion. The hemorrhoids were medium-sized and Grade I (internal hemorrhoids that do not prolapse). The exam was otherwise without abnormality on direct and retroflexion views. Biopsies for histology were taken with a cold forceps from the right colon, left colon and transverse colon for evaluation of microscopic colitis. Impression: - The examined portion of the ileum was normal. - One 4 mm polyp in the cecum, removed with a cold snare. Resected and retrieved. - One 3 mm polyp in the transverse colon, removedwith a cold snare. Resected and retrieved. - Internal hemorrhoids. - The examination was otherwise normal on directand retroflexion views. - Biopsies were taken with a cold forceps from the right colon, left colon and transverse colon for evaluation of microscopic colitis. Recommendation: - Patient has a contact number available for emergencies. The signs and symptoms of potential delayed complications were discussed with thepatient. Return to normal activities tomorrow. Written discharge instructions were provided to thepatient. - High fiber diet. - Await pathology results. - Repeat colonoscopy in 5 years for surveillancebased on pathology results. Attending Participation: I personally performed the entire procedure. Eduard Godfrey M.D. 11/06/2021 1:59:06 PM Number of Addenda: 0 Note Initiated On: 11/06/2021 1:15 PM Scope In: Scope Out: Eduard Godfrey MD ENDOSCOPY PROCEDURES Final Result * Hepatitis C antibody (07/01/2017 11:16 AM CDT) Hep C Ab <0.1 0.0 - 0.9 s/co ratio [facility] - 01 Comment: Negative: < 0.8 Indeterminate: 0.8 - 0.9 Positive: > 0.9 The CDC recommends that a positive HCV antibody result be followed up with a HCV Nucleic Acid Amplification test ([id number]). 07/01/2017 11:1 6 AM CDT 07/01/2017 Narrative [facility] - 07/02/2017 10:14 AM CDT Performed at: - [address] [id number] Enterprise Integration Developer: Wes Taylor PhD, Phone: [phone] us Romero Meier MD LAB MICROBIOLOGY - GENER AL ORDERABLES Final Result [facility] - from Last 3 Months or Most Recently Relevant to Health Maintenance Insurance MED[employer] [facility] MEDICARE Address: [facility] [address] [place] [address] MEDICARE SOLUTIONS MEDICARE SOLUTIONS Advance Directives For more information, please contact: [phone] * Full Code (Latest Code Status on File) Date Activated Date Inactivated Comments 11/06/2021 12:19 PM 11/06/2021 6:36 PM Care Teams Pharmacy Retail Support Specialist Relationship Specialty Start Date End Date Romero Meier MD [address] [address] PCP - General 06/12/16
--- OUTSIDE RECORDS SUMMARY | 2024-05-10 08:32 | XMS_ITS | Referral Summary ---
Author Organization [facility] Address [address] [place] [address] Care Team Providers Care Communications Attendant Name Role Phone Romero Meier MD Primary Care Provider [phone] Source Comments [facility],non-owned Affiliates and Associated Physician Practices is amultiple site organization consisting of ambulatory clinics and hospital sitesin [place], [place], [place] and [place]. This disclosure is being madepursuant to the Care Everywhere program and may not contain all information available regarding this patient. Last updated 17.[facility] Encounters Date Type Department Care Team Description 04/11/2024 Orders Only [facility] - Orthopedic Surgery [address] [phone] Stephon Mix MD 04/11/2024 Orders Only [facility] - Orthopedic Surgery [address] [phone] Stephon Mix MD Tear of left rotator cuff, unspecified tear extent, unspecified whether traumatic ; Bicipital tendinitis of left shoulder 03/29/2024 Travel 03/29/2024 11:45 AM VEHICLE WASHER Office Visit [facility] - [facility] Surgery [address] [phone] Stephon Mix MD Tear of left rotator cuff, unspecified tear extent, unspecified whether traumatic (Primary Dx); Bicipital tendinitis of left shoulder from Last 3 Months Allergies Active Allergy Reactions Criticality Noted Date Comments Pitavastatin Calcium Myalgias 10/12/2012 Simvastatin Myalgias 10/12/2012 Medications * Be aware that medications may not be up to date on this document. Alwaysverify current medications with the patient. Medication Sig Dispensed Refills Start Date End Date Status aspirin EC (ECOTRIN) 81 MG tablet Take 1 (one) tablet by mouth once daily Active cetirizine (ZYRTEC) 10 MG tablet Take 1 Tab by mouth daily. 30 Tab 4 08/15/2010 Active albuterol HFA (PROVENTIL;VENTOLIN; PROAIR) 108 (90 BASE) MCG/ACT inhaler 2 Puffs every 4 hours as needed. For shortness of breath. 3 Inhaler 3 02/16/2014 Active albuterol (PROVENTIL;VENTOLIN) (5 MG/ML) 0.5% nebulizer solution 1 vial every 6 hours as needed with nebulizer machine 120 Vial 3 07/09/2014 Active metoprolol tartrate (LOPRESSOR) 25 MG tabletIndications:Sapp praventricular tachycardia (HCC) 1 Tab 2 times daily 180 Tab 3 10/01/2014 Active omeprazole (PRILOSEC) 40 MG capsuleIndications:G astroesophageal reflux disease without esophagitis 1 Cap daily before breakfast 90 Cap 3 10/01/2014 Active traMADol (ULTRAM) 50 MG tablet TAKE 1 TABLET BY MOUTH EVERY 6 HOURS NEEDED FOR PAIN 50 Tab 0 10/05/2014 Active multivitamin daily (THERAGRAN) tablet Take 1 (one) tablet by mouth daily with food Active LORazepam (ATIVAN) 0.5 MG tablet Take 1 (one) tablet by mouth at bedtime Active fluticasone-salmeter ol (ADVAIR) 250-50 MCG/DOSE inhaler Inhale 1 (one) puff by mouth 2 times daily Active acetaminophen CR (Tylenol Arthritis Pain) 650 MG tablet TAKE 1 TABLET BY MOUTH FOUR TIMES A DAY WITH TRAMADOL Active celecoxib (CeleBREX) 200 MG capsule Take 1 (one) capsule by mouth 2 times daily as needed 06/21/2023 Active ciprofloxacin (Cipro) 500 MG tablet Active rizatriptan (Maxalt) 10 MG tablet 08/16/2023 Active Creon 6000-25265 units capsule 06/25/2023 Active methylPREDNISolone (Medrol Dosepak) 4 MG tablet 10/08/2022 Active irbesartan (Avapro) 150 MG tablet Take 1 (one) tablet by mouth 07/02/2023 Active HYDROcodone-acetamin ophen ([place]) 5-325 MG tablet 05/04/2023 Active etodolac (Lodine) 400 MG tablet 06/30/2023 Active diphenoxylate-atropi ne (Lomotil) 2.5-0.025 MG tablet Take 1 (one) tablet by mouth 4 times daily as needed 09/29/2022 Active cyclobenzaprine (Flexeril) 10 MG tablet Take 1 (one) tablet by mouth 3 times daily as needed for Muscle Spasms 01/07/2023 Active atorvastatin (Lipitor) 20 MG tablet Take 1 (one) tablet by mouth once daily 06/12/2023 Active valACYclovir (Valtrex) 1 GM tablet Take 2 (two) tablets by mouth 2 times daily Active Active Problems Problem Noted Date Diagnosed Date Gastroesophageal reflux disease 08/16/2023 Osteoarthritis of knee 08/16/2023 Atrial arrhythmia 08/16/2023 Pain in joint of left shoulder 08/20/2022 Arthralgia of right knee 12/29/2021 Epigastric abdominal pain 09/17/2021 Overview (08/16/2023): Added automatically from request for surgery [id number] Tendinitis of wrist 09/17/2021 Right wrist pain 06/10/2021 Extensor carpi ulnaris tendinitis 06/10/2021 Anxiety 03/01/2015 Overview (08/16/2023): Anxiety Anxiety Atopic rhinitis 03/01/2015 Overview (08/16/2023): Allergic rhinitis Allergic rhinitis Post-menopausal bleeding 01/17/2015 DAVID (generalized anxiety disorder) 09/03/2011 Pure hypercholesterolemia 10/11/2009 S/P cholecystectomy 09/26/2009 Asthma 09/26/2009 Arrhythmia 01/19/2009 Supraventricular tachycardia 01/19/2009 Resolved Problems Problem Noted Date Diagnosed Date Resolved Date Diarrhea 09/17/2021 09/13/2023 Overview (08/16/2023): Added automatically from request for surgery [id number] Essential hypertension, benign 01/19/2009 01/19/2009 Immunizations Name Administration Dates Next Due INFLUENZA VACCINE, TRIV. (AF LURIA, FLUZONE TRIVALENT; 6MO+) (IIV3) 11/10/2011 FLU VACCINE QUAD IIV4 PF ID 01/01/2016, 5 FLU VACCINE QUAD IIV4 SPLIT 0.25 ML IM 12/13/2022 INFLUENZA VACCINE 12/13/2020, 0,12/15/2014,2013,11/10/2012,11/10/2011 INFLUENZA VACCINE, HIGH-DOSE , QUADR. (FLUZONE HIGH-DOSE QUADRIVALENT; 65Y+), 0.7 ML (HD-IIV4) 12/30/2018,12/31/2017 INFLUENZA VACCINE, QUADR. (F LUZONE; FLULAVAL; FLUARIX; AFLURIA QUADRIVALENT; 6MO+), 0.5 ML (IIV4) 12/04/2016 PNEUMOCOCCAL PPSV23 12/13/2022,06/30/2017,2011 Pneumococcal Pcv13 Conj 09/14/2014 TDAP (7yrs+) 11/02/2013 ZOSTER VACCINE, LIVE 01/02/2016 Zoster Hzv Vacc Recombinant Inj Im 08/29/2018, Social History Tobacco Use Types Packs/Day Years [...] Comments Blood Pressure 152/84 05/19/2015 2:51 PM VEHICLE WASHER Pulse 85 05/19/2015 2:51 PM VEHICLE WASHER Temperature 36.8 C (98.3 F) 05/19/2015 2:51 PM VEHICLE WASHER Respiratory Rate 18 05/19/2015 2:51 PM VEHICLE WASHER Oxygen Saturation 96% 05/19/2015 2:51 PM VEHICLE WASHER Inhaled Oxygen Concentration - - Weight 64.9 kg (143 lb) 03/29/2024 10:59 AM VEHICLE WASHER Height 160 cm (5' 3 ) 03/29/2024 10:59 AM VEHICLE WASHER Body Mass Index 25.33 03/29/2024 10:59 AM VEHICLE WASHER Functional Status Functional Status Response Date of Assess ment Is person deaf or have serious hearing difficult y? No 05/19/2015 Is person blind or have serious difficulty seein g? No 05/19/2015 Does person have serious dif ficulty walking/climbing stairs? No 05/19/2015 Does person have difficulty dressing/bathing? No 05/19/2015 Does person have difficulty doing errands alone? No 05/19/2015 Cognitive Status Response Date of Assessm ent Does person have difficulty concentrating/remembering/making decisions? No 05/19/2015 Plan of Treatment Not on file Procedures Procedure Name Priority Date/Time Associated Diagnosis Comments DEXA BONE DENSITY AXIAL SKELETON Routine 10/22/2020 1:59 PM CDT Encounter for screening for osteoporosis Asymptomatic age-related postmenopausal state MAMMO BILAT SCREENING Routine 10/22/2020 1:12 PM CDT Visit for screening mammogram ENDOSCOPY, COLON, SCREENING Routine 05/30/2014 HEPATITIS C ANTIBODY Routine 12/06/2012 10:06 AM CDT Need for hepatitis C screening test from Last 3 Months or Most Recently Relevant to Health Maintenance Results * DEXA BONE DENSITY AXIAL SKELETON (10/22/2020 [...] Hernandez on 10/22/2020 at 4:25 PM Romero Meier MD DEXA ORDERABLES * MAMMO BILAT SCREENING (10/22/2020 1:12 PM CDT) Anatomical Region Laterality Modality Breast Bilateral Mammography [...] no suspicious finding in either breast. Romero Meier MD MAMMO ORDERABLES * ENDOSCOPY, COLON, SCREENING (05/30/2014) Provider Unknown GI PROCEDURE ORDERAB LES * HEPATITIS C ANTIBODY (12/06/2012 10:06 AM CDT) Hepatitis C Antibody NON-REACTI VE NON-REACT [facility] Signal to Cut-Off 0.02 <1.00 [facility] Comment: REPORT COMMENT: FASTING Test Performed at: [facility] [address] [place] [address] RICO DELVALLE DO,MPH Blood specimen (specimen) BLOOD SPECIMEN / Unknown 12/06/2012 10:06 AM CDT 12/06/2012 10:07 AM CDT Romero Meier MD LAB - CHEMISTRY O RDERABLES [facility] [address] [place] [address] from Last 3 Months or Most Recently Relevant to Health Maintenance Advance Directives * Full Code (Latest Code Status on File) Date Activated Date Inactivated Comments 05/16/2015 5:46 PM 05/19/2015 5:25 PM Care Teams Communications Attendant Relationship Specialty Start Date End Date Romero Meier MD [address] [id number] PCP - General Internal Medicine 08/18/23
--- OUTSIDE RECORDS SUMMARY | 2024-05-10 08:32 | XMS_ITS | Clinical Summary ---
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 Name Role Phone Unavailable Primary Care Provider Unavailabl e Social History Tobacco Use Types Packs/Day Years Used Date Smoking Tobacco: Never Assessed Comments Unknown Sex and Gender Information Value Date Recorded Sex Assigned at Not on file Legal Sex Female 7:20 PM CDT Gender Identity Not on file Sexual Orientation Not on file Plan of Treatment Health Maintenance Due Date Last Done Comments Colorectal Cancer Screening Colonoscopy (10 Years) 1952 Hepatitis C 1970 DTaP, Tdap and Td Vaccines ( 1 - Tdap) 1971 Mammogram Screening 1992 Zoster Vaccines (1 of 2) 2002 Dexa Scan (General) 2017 Pneumococcal Vaccine: 65+ Ye ars (1 of 1 - PCV) 2017 COVID-19 Vaccine (2023-2 5 season) 2023 Influenza Adult (#1) 2023 RSV Immunization or 60+ Years (1 - 1-dose 75+ series) 2027 Meningococcal B Vaccine Aged Out No l onger eligible based on patient's age to complete this topic Meningococcal Vaccine Aged Out No mariela nasir eligible based on patient's age to complete this topic RSV Immunizations Under 20 Months Aged Out No longer eligible based on patient's age to complete this topic
--- OUTSIDE RECORDS SUMMARY | 2024-05-10 08:32 | XMS_ITS | Clinical Summary ---
Author Organization 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,non-owned Affiliates and Associated Physician Practices is amultiple site organization consisting of ambulatory clinics and hospital sitesin [place], [place], [place] and [place]. This disclosure is being madepursuant to the Care Everywhere program and may not contain all information available regarding this patient. Last updated 17.[facility] Allergies Active Allergy Reactions Criticality Noted Date [...] (Maxalt) 10 MG tablet 08/16/2023 Active Creon 6000-24966 units capsule 06/25/2023 Active methylPREDNISolone (Medrol Dosepak) 4 MG tablet 10/08/2022 Active irbesartan (Avapro) 150 MG tablet Take 1 (one) tablet by mouth 07/02/2023 Active HYDROcodone-acetamin ophen ([place]) 5-325 MG tablet 05/04/2023 Active etodolac (Lodine) [...] (08/16/2023): Added automatically from request for surgery [id number] Tendinitis of wrist 09/17/2021 Right wrist pain [...] (08/16/2023): Added automatically from request for surgery [id number] Essential hypertension, benign 01/19/2009 01/19/2009 Encounters Date Type Department Care Team Description 04/11/2024 Orders Only [facility] - Orth[facility] Surgery [address] [phone] Stephon Mix MD 04/11/2024 Orders Only [facility] - Orthopedic Surgery [address] [phone] Stephon Mix MD Tear of left rotator cuff, unspecified tear extent, unspecified whether traumatic ; Bicipital tendinitis of left shoulder 03/29/2024 11:45 AM DATA SECURITY CONSULTANT Office Visit [facility] - Orthopedic Surgery [address] [place] [address] Stephon Mix MD Tear of left rotator cuff, unspecified tear extent, unspecified whether traumatic (Primary Dx); Bicipital tendinitis of left shoulder 03/29/2024 Travel from Last 3 Months Immunizations Name Administration Dates Next Due INFLUENZA [...] Zoster Hzv Vacc Recombinant Inj Im 08/29/2018, Family History Medical History Relation Name Comments Cancer - Breast Maternal Aunt CAD (Coronary Artery Disease) Mother Relation Name Status Comments Maternal Aunt Mother Social History Tobacco Use Types Packs/Day Years [...] Comments Blood Pressure 152/84 05/19/2015 2:51 PM DATA SECURITY CONSULTANT Pulse 85 05/19/2015 2:51 PM DATA SECURITY CONSULTANT Temperature 36.8 C (98.3 F) 05/19/2015 2:51 PM DATA SECURITY CONSULTANT Respiratory Rate 18 05/19/2015 2:51 PM DATA SECURITY CONSULTANT Oxygen Saturation 96% 05/19/2015 2:51 PM DATA SECURITY CONSULTANT Inhaled Oxygen Concentration - - Weight 64.9 kg (143 lb) 03/29/2024 10:59 AM DATA SECURITY CONSULTANT Height 160 cm (5' 3 ) 03/29/2024 10:59 AM DATA SECURITY CONSULTANT Body Mass Index 25.33 03/29/2024 10:59 AM DATA SECURITY CONSULTANT Plan of Treatment Health Maintenance Due Date Last Done Comments COLOGUARD (AGES 45-75) - COLON CA SCREENING 1950 CT COLONOGRAPHY - COLON CA SCREENING 1950 FIT - COLON CA SCREENING 1950 FLEX SIG - COLON CA SCREENING 1950 Respiratory Syncytial Virus (RSV) Vaccine Pt: or over 60 yrs (1 - Risk 60-74 years 1-dose series) 2012 MAMMOGRAM 10/22/2022 10/22/2020, 0810/2019, 09/10/2018, Additional history exists DTAP/TDAP/TD VACCINES (2 - Td or Tdap) 11/03/2023 11/02/2013 COVID-19 VACCINE (2023- season) 2023 07/15/2022, 06/15/2022, 12/05/2021, Additional history exists DEPRESSION SCREENING 03/15/2024 12/27/2023 MEDICARE AWV CALENDAR YEAR 2024 COLON MONITORING 05/30/2024 05/30/2014 COLONOSCOPY - COLON CA SCREENING 11/07/2031 11/06/2021, 05/30/2014, 05/30/2014, Additional history exists Colorectal Cancer Screening 11/07/2031 HEPATITIS C SCREENING Completed 12/06/2012 ZOSTER VACCINE Completed 08/29/2018, 060 06/2017, 01/02/2016 BONE DENSITY TESTING Completed 10/22/2020 PNEUMOCOCCAL VACCINE 50+ Completed 023, 06/30/2017, 09/14/2014, Additional history exists INFLUENZA VACCINE Completed 11/12/2023, , 12/13/2020, Additional history exists HEPATITIS B VACCINE Aged Out No longe r eligible based on patient's age to complete this topic HIB VACCINE Aged Out No longer eligi ble based on patient's age to complete this topic HPV VACCINE Aged Out No longer eligi ble based on patient's age to complete this topic MENINGOCOCCAL (Group B) VACCINE Aged Out No longer eligible based on patient's age to complete this topic MENINGOCOCCAL VACCINE Aged Out No mariela nasir eligible based on patient's age to complete this topic Procedures Procedure Name Priority Date/Time Associated Diagnosis [...] Comment: REPORT COMMENT: FASTING Test Performed at: [facility] [address] [place] [address] RICO DELVALLE DO,MPH Blood specimen (specimen) BLOOD SPECIMEN / Unknown 12/06/2012 10:06 AM CDT 12/06/2012 10:07 AM CDT Romero Meier MD LAB - CHEMISTRY O RDERABLES [facility] [address] [place] [address] from Last 3 Months or Most Recently Relevant to Health Maintenance Advance Directives * Full Code (Latest Code Status on File) Date Activated Date Inactivated Comments 05/16/2015 5:46 PM 05/19/2015 5:25 PM Care Teams Shovel Operator Relationship Specialty Start Date End Date Romero Meier MD [address] [phone] PCP - General Internal Medicine 08/18/23
--- OUTSIDE RECORDS SUMMARY | 2024-05-10 08:32 | XMS_ITS | Data Portability ---
Author Organization [place] [facility] [employer], Main Office Address [address] [place] [address] Care Team Providers Care Deputy County Clerk Name Role Phone EKATERINA NEGRETE Primary Care Provider EKATERINA NEGRETE Referring Provider HANK ALEXANDER Silversmith Apprentice Assessment Encounter Date Assessment Date Assessment LastModified by Organization Details LastModified Time 11/05/2022 11/05/2022 HPI: Patient ret urns. It has been 3 months since her last cortisone injection right knee. Shots worked well for her for about 2 months. She remains very active and I think this is contributing a lot to her symptoms. She is not able to take anti-inflammatories due to significant GI distress. She has been using tramadol on an as-needed basis and this is helping. She wished to have another injection today. Physical exam: 72-year-old female alert pleasant. She has mild effusion right knee. Range of motion is from 0-135 degrees. Mild tenderness over the medial joint line to palpation. No lateral joint line tenderness. No swelling in either lower extremity. After ChloraPrep was used on skin 20 mg Kenalog and 3 cc of 0.5% ropivacaine was injected into the right knee. Risk infection discussed. Impression: 72-year-old female who has moderate to moderately severe medial compartment osteoarthritis in the right knee. Injection continue to work well for her. We will see her back in 3 months repeat injection. I did refill her tramadol today per request. Not available 11/05/2022 12:39:03 02/11/2023 02/11/2023 Impression: Naz ent has moderate to moderately severe medial compartment osteoarthritis in the right knee. She has exquisite joint line pain. she is not getting relief from the cortisone shots. It is a little bit unusual that her knee is this painful for her since it is not severe arthritis and she is thin but her high level of activity may be the problem. Unfortunately she cannot tolerate nonsteroidal anti-inflammatory medications because of GI upset. I recommended obtaining an MRI scan of her right knee to evaluate this fully. She may have for example an insufficiency fracture were alternatively she may have a pronounced medial meniscus tear. I will see her back after the test. In the meantime I would recommend that she try tramadol 50 mg 1/2 tablet 4 times a day and try combining this with Tylenol 650 mg 4 times a day to see if this gives her optimal relief of her pain and she will try to modify her activities accordingly. If her symptoms worsen she may need to be off work. 30 minutes were spent total care this patient more than half the time spent in [id number] care. Not available 02/11/2023 14:14:16 02/25/2023 02/25/2023 impression: Naz gaytan has moderately severe medial compartment osteoarthritis right knee. It is not wnja-ig-ebku. She has not have an insufficiency fracture or bone marrow edema. I have discussed with her that I would expect that she would have potentially very little symptoms if she was not working at [employer]. Spending 8 hours walking on concrete every day is problematic. We talked about the option of knee replacement surgery which would seem a bit premature based on her single leg which bearing Stork view x-rays which show that she still has a fair amount of joint space remaining however, that would be the only surgery that would offer her the potential for relief of her symptoms. I am concerned, however, that were she to continue to work at [employer] walking on concrete entire shift after knee replacement, she would have complaints of significant pain with her knee replacement. I have discussed other treatment options. We talked about physical therapy. She does not feel that would be helpful and declines but if she changes her mind like to try I will be happy to order that for. She is taking Tylenol. She cannot take nonsteroidal anti-inflammatory medications. I have advised her to give strong consideration to getting a new job that is more sedentary. I would recommend she start working on that as soon as possible. We talked about glucosamine chondroitin sulfate and that may be helpful for some people. I have talked her about the option of using viscosupplementation injections. I have explained that they do not have the same predictability for improvement as corticosteroid injections for this reason is not usually my 1st line of treatment for injections in this situation. However, some patients do respond very well and she may be 1 of those patients. I explained the mechanism of action and potential benefit of physical supplementation I explained that some patients, it does not seem to help at all. I have given her handout to review and she would like us to try to get insurance approval for that option while she considers whether she wants to try that. She will call us in a week or so when she has decided. 30 minutes were spent total care this patient more than half the time spent in lbkz-[id number] care. Not available 02/25/2023 14:25:41 04/07/2023 04/07/2023 HPI: Patient ralph blandon. She is here for follow-up of her Right knee pain. last time we saw her we were working on getting Visco supplementation injections. Unfortunately this is becoming problematic due to her insurance. She has moderately severe medial compartment osteoarthritis. She has continued severe pain in the knee on a daily basis. She is not a candidate for anti-inflammatories. Id Patient is also complaining that her left shoulder has been painful for her. I saw her last August about this. She has had 2 arthroscopic surgeries on the shoulder. Neither of which was for tendon repair. Both of these were bony work. Physical exam: 72-year-old female alert pleasant. She walks relatively well without limp. She has trace effusion in the left knee. Range of motion is from 3-135. She has moderate tenderness over the medial joint line to palpation. Patient's left shoulder she has active elevation to 150 external rotation 80 internal rotation is to T12. She has good strength with external rotation as well as abduction. She has hiff-jj-jzwrsgmn discomfort with strength testing as well as range of motion. No effusion noted. After ChloraPrep was used on the skin 20 mg Kenalog and 3 cc of 0.5% ropivacaine was injected into the left subacromial space. Impression: Patient has moderately severe medial compartment osteoarthritis. She is still working at [employer] which is going to contribute to the symptoms in her knee as well as her shoulders. She understands that but is not able to stop working. She has decided not to pursue the viscosupplementation injection option. She is going to find a 2nd opinion about her knee and hopefully have it replaced and the future. We will see her back as needed. 20 minutes was spent in treatment patient with more than half of this in omvw-cq-[id number] conversation Not available 04/08/2023 13:20:17 09/24/2023 09/24/2023 The patient has moderate primary osteoarthritis in the medial compartment of the right knee not yet quite lqxc-[id number] does have significant narrowing. We talked about treatment options today in detail we talked about doing gel shots versus cortisone we have to get gel shots approved she would like some pain relief now she can not take nonsteroidal anti-inflammatory medications due to GI intolerance. She elected to proceed with cortisone therefore under sterile conditions I injected the patient's right knee joint in the office with 4 cc of 0.5% Marcaine and 20 mg of Kenalog. Patient tolerated the procedure well. She was inquiring about gel shots I can see her back in a couple of months if her knee pain returns, we could then try gel shots we will get these approved for her future use. The patient voiced understanding agrees above plan. She knows at some point if she fails shots and gel shots she is going to require total knee arthroplasty she would like to put this off as long as possible so she can keep working on a regular basis for now. The patient was given a limited supply of tramadol to use sparingly she has used this before and this has helped particularly after a long day at work when she is trying to get to sleep at night. She will call for any further problems difficulties or questions. [email or web address] Not available 09/24/2023 14:23:20 Plan of Treatment Reminders Order Date Submit Date Provider Last Modified By Organization Details Last Modified Time Details Appointments None recorded. Lab None recorded. Referral None recorded. Procedures injection/a spiration joint/bursa (PROC) 2023 024 [email or web address] In-Office Order, Internal Use Only DO Not Attach Compendium DO Not Attach Compendium, Do Not Delete/merge, [id number] 12:07:03 injection/a spiration joint/bursa (PROC) - in office procedure, administere d by provider 2023 024 [email or web address] In-Office Order, Internal Use Only DO Not Attach Compendium DO Not Attach Compendium, Do Not Delete/merge, [id number] 4 15:09:23 injection/a spiration joint/bursa (PROC) - in office procedure, administere d by provider 2022 023 In-Office Order, Internal Use Only DO Not Attach Compendium DO Not Attach Compendium, Do Not Delete/merge, [id number] 3 15:40:55 Surgeries None recorded. Imaging [facility] [address] [facility], [place], [address], 3 15:03:50 MRI, knee, w/o contrast 2022 023 [facility], [address] [place] [address], [place], [address], 3 18:38:10 XR, knee 2022 023 [facility], [facility] [facility], [place], [address], 3 15:40:55 Medication Orders Marcaine 0.5 % (5 mg/mL) injection solution 2023 024 [email or web address] [facility] #[id number], [address], [place], [address], 4 14:36:18 Kenalog 10 mg/mL suspension for injection 2023 024 [email or web address] [facility]/Pharmacy #[id number], [address], [place], [address], 4 14:36:18 tramadol 50 mg tablet 2023 024 [id number], [address], [place], [address], 4 14:24:04 Kenalog 10 mg/mL suspension for injection 2023 024 [email or web address] [id number], [address], [place], [address], 4 11:40:05 ropivacaine (PF) 5 mg/mL (0.5 %) injection solution 2023 024 [email or web address] [id number], [address], [place], [address], 4 11:40:11 Tylenol Arthritis Pain 650 mg tablet,exte nded release 2022 023 [facility] #[id number], [address], [place], [address], 3 15:03:50 Kenalog 10 mg/mL suspension for injection 2022 023 [email or web address] Not available 4 11:40:05 ropivacaine (PF) 5 mg/mL (0.5 %) injection solution 2022 023 [email or web address] Not available 4 11:40:11 Patient TargetsNo targets recorded. Patient Instructions Encounter Date Encounter Id Patient Instructions Last Modified By Organization Details Last Modified Time 09/24/2023 [id number] viscosupplementa tion treatment* [email or web address] Not available 09/29/2023 11:29:09 Reason for Referral None Reported. Results Created Date Observation Date Name Description Value Unit Range Abnormal Flag Note LastModifiedBy Organization Detail LastModifiedTime 11/06/19 23 XR, knee No observ ation record ed. [facility] [address], [place], [address], 11/05/2022 12:37:42 02/12/20 23 XR, knee No observ ation record ed. [facility] [address], [place], [address], 02/11/2023 14:02:28 02/17/20 23 MRI, knee, w/o contr ast [facility] [address], [place] [address] Patien t Name: ANDRIA CHEN Access ion #: [id number] Sex: F : 1950 6 7 Dictat ed By: Oniel kent Attend ing Physic patience: DONTRELL MONSALVE Physic patience: DONTRELL MONSALVE Exam Date: 2022 12:37 PM Exam Name: MRI KNEE RT WO Admitt ing Diagno sis(es ): CLINIC AL INFORM ATION: Right knee pain. No known injury . Sympto ms for 6 to 8 weeks. COMPAR AMANDA: None. TECHNI RAY INFORM ATION: Multis equenc e multip lanar MRI images of the right knee were obtain ed withou t contra st. FINDIN GS: Crucia te ligame nts: ACL and PCL are intact and otherw ise unrema rkable . Extens or mechan ism: Mariann ceps mechan ism and patell ar tendon are intact . Collat eral ligame nts: Medial and latera l collat eral ligame nts are intact and otherw ise unrema rkable . Menisc i: Latera l menisc us is intact . Thin radial tear involv ing zone 3 of the rn long term care ior horn of the medial menisc us Cartil age: Chondr al thinni ng, frayin g, and modera te fissur ing in the weight bearin g zone of the medial femora l condyl e. Chondr al frayin g and mild fissur ing at the median ridge of the patell a near the midpol e. Bones: No acute fractu re or focal marrow contus ion Joint fluid: Small joint effusi on. Other: No other signif icant findin gs. IMPRES DOMINGO: 1. Small thin radial tear at the rn long term care ior horn of the medial menisc us involv ing zone 3. 2. Chondr omalac ia in the medial and patell ofemor al compar tments as descri bed above. Electr onical ly Signed by: Oniel kent at 2022 17:36: 55 PM Page [email or web address] [facility] ([facility]) [address] [place], [address], 02/17/2023 13:01:04 Result Notes None recorded. Problems Name Problem SNOMED Code Status Onset Date Resolution Date Notes Provider Name and Address Organization Details Recorded Time Atrial arrhythmia 16688519 Active Not Available [facility] 3 16:40:19 Asthma 871479202 Active Not Available [facility] 3 16:40:19 Gastroesop hageal reflux disease 227153482 Active Not Available [facility] 3 16:40:19 Osteoarthr itis of knee 032610561 Active Not Available [facility] 3 16:40:19 Current tear of medial cartilage AND/OR meniscus of knee Active Not Available [facility] 3 16:40:19 Pain of right wrist 9862313817567 00 Active 2021 Not Available [facility] 3 16:40:19 Osteoarthr itis 875796593 Active Not Available [facility] 3 16:40:19 Tendinitis of wrist 822183454 Active 2021 Not Available [employer] 3 16:40:19 Tendinitis of extensor carpi ulnaris 680723206 Active 2021 Not Available [facility] 3 16:40:20 Pain of right knee joint 4572580133800 00 Active 2021 Not Available [facility] 3 16:40:20 Allergic rhinitis 89734513 Active Not Available [facility] 3 16:40:20 Postmenopa usal state 19525656 Active Not Available [facility] 3 16:40:20 Osteoarthr itis of right knee joint 1380647733528 00 Active 2022 ALEXUS Lorenzo, [place] - [facility] 3 14:01:56 Pain of left shoulder joint 3246189550990 9109 Active 2022 ALEXUS Lorenzo, [place] - [facility] 3 11:57:05 Problem Notes None recorded. Procedures Surgical History None recorded. Imaging Results Imaging Date Name Status LastModified by Organiz ation Details LastModified Time 11/05/2022 XR, knee completed [facility] [address] [facility], [place], [address], 11/05/2022 12:37:42 02/11/2023 XR, knee completed [facility] [address] [facility], [place], [address], 02/11/2023 14:02:28 02/16/2023 MRI, knee, w/o contrast completed [email or web address] [facility] (Imaging) [address] [facility], [place], [address], 02/17/2023 13:01:04 Procedure Notes None recorded. Medical Equipment None Reported. Allergies No known drug allergies Medications Name Sig Start Date Stop Date Status Note LastModified by Organization Details LastModified Time celecoxib 200 mg capsule TAKE 1 CAPSULE BY MOUTH TWICE A DAY NEEDED active Not Available Not Available No t Available cyclobenzap rine 10 mg tablet TAKE 1 TABLET BY MOUTH THREE TIMES A DAY NEEDED FOR MUSCLE SPASMS active Not Available Not Available No t Available amoxicillin 500 mg capsule 10/23 completed Not Available Not Available Not Available fluconazole 100 mg tablet 12/29 completed Not Available Not Available Not Available prednisone 10 mg tablet PLEASE SEE ATTACHED FOR DETAILED DIRECTION S 06/05 completed Not Available Not Available Not Available doxycycline hyclate 100 mg capsule 05/04 completed Not Available Not Available Not Available atorvastati n 20 mg tablet TAKE 1 TABLET BY MOUTH EVERY DAY active Not Available Not Available No t Available ipratropium 0.5 mg-albutero l 3 mg (2.5 mg base)/3 mL nebulizatio n soln Inhale THREE ML via nebulizer FOUR TIMES DAILY NEEDED FOR wheezing OR SHORTNESS OF BREATH 06/05 completed Not Available Not Available Not Available azithromyci n 250 mg tablet TAKE 2 TABLETS BY MOUTH TODAY, THEN TAKE 1 TABLET DAILY FOR 4 DAYS 05/04 completed Not Available Not Available Not Available acetaminoph en 120 mg-codeine 12 mg/5 mL oral solution TAKE 5 TO 7.5 ML BY MOUTH AT BEDTIME NEEDED FOR PAIN 12/29 completed Not Available Not Available Not Available valacyclovi r 1 gram tablet TAKE 2 TABLETS BY MOUTH TWICE A DAY active Not Available Not Available No t Available albuterol sulfate 1.25 mg/3 mL solution for nebulizatio n Inhale 3 mL 4 times a day by inhalatio n route as needed. 10/23 completed Not Available Not Available Not Available hydrocodone 5 mg-acetamin ophen 325 mg tablet TAKE 1 - 2 TABLET BY ORAL ROUTE EVERY 6 HOURS NEEDED FOR PAIN NEEDED 09/23 completed Not Available Not Available Not Available meloxicam 15 mg tablet 10/23 completed Not Available Not Available Not Available prednisone 20 mg tablet TAKE 2 TABLETS BY MOUTH DAILY 05/20 completed Not Available Not Available Not Available rizatriptan 10 mg tablet PLEASE SEE ATTACHED FOR DETAILED DIRECTION S active Not Available Not Available No t Available diphenoxyla te-atropine 2.5 mg-0.025 mg tablet TAKE 1 TABLET BY MOUTH 4 TIMES A DAY NEEDED FOR DIARRHEA active Not Available Not Available No t Available ciprofloxac in 500 mg tablet TK 1 T PO 2 TIMES D. active Not Available Not Available No t Available omeprazole 40 mg capsule,del ayed release TK ONE C PO DAILY BEFORE BREAKFAST 12/29 completed Not Available Not Available Not Available tramadol 50 mg tablet TAKE 1 TABLET BY MOUTH EVERY 6 TO 8 HOURS NEEDED active Not Available Not Available No t Available triamcinolo ne acetonide 0.1 % topical cream APPLY TOPICALLY TO THE AFFECTED AREA TWICE DAILY NEEDED. AVOID FACE AND GROIN 12/29 completed Not Available Not Available Not Available acetaminoph en ER 650 mg tablet,exte nded release TAKE 1 TABLET BY MOUTH FOUR TIMES A DAY WITH TRAMADOL active Not Available Not Available No t Available Marcaine 0.5 % (5 mg/mL) injection solution Take 20 mg by injection route. 2023 active Not Available Not Available Not Avai lable lorazepam 0.5 mg tablet TK 1 T PO Q 8 HOURS FOR ANXIETY 10/23 completed Not Available Not Available Not Available Kenalog 10 mg/mL suspension for injection Take 20 mg by injection route. 2023 active [facility]: [phone] Not Available Not Available Not Available amitriptyli ne 10 mg tablet 05/20 completed Not Available Not Available Not Available benzonatate 100 mg capsule 05/04 completed Not Available Not Available Not Available hydrocodone 7.5 mg-acetamin ophen 325 mg tablet TAKE 1 TABLET BY MOUTH EVERY 6 HOURS NEEDED FOR PAIN 12/29 completed Not Available Not Available Not Available cephalexin 500 mg capsule TK 1 C PO Q 8 H FOR 10 DAYS 10/23 completed Not Available Not Available Not Available nystatin 100,000 unit/gram topical cream APPLY TOPICALLY TO THE AFFECTED AREA TWICE DAILY 05/20 completed Not Available Not Available Not Available metoprolol tartrate 50 mg tablet active Not Available Not Available No t Available omeprazole 20 mg capsule,del ayed release 12/29 completed Not Available Not Available Not Available diclofenac sodium 75 mg tablet,yue yed release TK 1 T PO BID 10/23 completed Not Available Not Available Not Available etodolac 400 mg tablet TAKE 1 TABLET BY MOUTH EVERY 12 HOURS WITH FOOD 09/23 completed Not Available Not Available Not Available codeine 10 mg-guaifene sin 100 mg/5 mL oral liquid TAKE 5 TO 10 ML BY MOUTH EVERY 4 HOURS NEEDED FOR COUGH 05/04 completed Not Available Not Available Not Available Proventil HFA 90 mcg/actuati on aerosol inhaler 10/23 completed Not Available Not Available Not Available mupirocin 2 % topical ointment APPLY TOPICALLY TO THE AFFECTED AREA THREE TIMES DAILY 05/20 completed Not Available Not Available Not Available estradiol 0.5 mg tablet TK 1 T PO QD 10/23 completed Not Available Not Available Not Available irbesartan 150 mg tablet TAKE 1 TABLET BY MOUTH EVERY DAY AT NIGHT active Not Available Not Available No t Available lorazepam 1 mg tablet TAKE 1 TABLET BY MOUTH EVERY 6 HOURS NEEDED FOR ANXIETY active Not Available Not Available No t Available levofloxaci n 500 mg tablet TAKE 1 TABLET (500 MG) BY MOUTH EVERY DAY FOR 10 DAYS 06/05 completed Not Available Not Available Not Available levofloxaci n 750 mg tablet 10/23 completed Not Available Not Available Not Available methylpredn isolone 4 mg tablets in a dose pack TAKE 6 TABLETS ON DAY 1 DIRECTED ON PACKAGE AND DECREASE BY 1 TAB EACH DAY FOR A TOTAL OF 6 DAYS 11/05 completed Not Available Not Available Not Available ondansetron 4 mg disintegrat ing tablet DISSOLVE 1 TABLET ON THE TONGUE 30 MINS PRIOR TO EACH PREP, THEN EVERY 4-6 HOUR NEEDED FOR NAUSEA 12/29 completed Not Available Not Available Not Available dicyclomine 10 mg capsule TAKE 1 CAPSULE BY MOUTH TWICE A DAY BEFORE BREAKFAST AND DINNER active Not Available Not Available No t Available amoxicillin 875 mg-potassiu m clavulanate 125 mg tablet 10/23 completed Not Available Not Available Not Available metoprolol tartrate 25 mg tablet TK 1 T PO BID 10/23 completed Not Available Not Available Not Available omeprazole 05/20 completed Not Available Not Available Not Available Advair HFA 115 mcg-21 mcg/actuati on aerosol inhaler 10/23 completed Not Available Not Available Not Available Synvisc-One 48 mg/6 mL intra-artic ular syringe Take 6 mL by intraarti cular route as directed. active Not Available Not Available No t Available Creon 6,000-19,00 0-30,000 unit capsule,del ayed release TAKE 1 CAPSULE BY MOUTH 3 TIMES A DAY WITH MEALS. active Not Available Not Available No t Available Dulera 200 mcg-5 mcg/actuati on HFA aerosol inhaler 10/23 completed Not Available Not Available Not Available Suprep Bowel Prep Kit 17.5 gram-3.13 gram-1.6 gram oral solution 10/23 completed Not Available Not Available Not Available ropivacaine (PF) 5 mg/mL (0.5 %) injection solution Take 15 mg by injection route. 09/23 completed [facility] [phone] Not Available Not Available Not Available metoprolol succ 25 mg-hydrochl orothiazide 12.5 mg tablet,ext. rel 24 hr Take 1 tablet every day by oral route. 10/23 completed Not Available Not Available Not Available Nasacort 55 mcg nasal spray aerosol [place] 2 sprays every day by intranasa l route. 05/20 completed Not Available Not Available Not Available Fluvirin 45 mcg (15 mcg x 3)/0.5 mL intramuscul ar suspension active Not Available Not Available N ot Available Fluvirin 45 mcg (15 mcg x 3)/0.5 mL intramuscul ar suspension 10/23 completed Not Available Not Available Not Available metoprolol succinate ER 25 mg capsule sprinkle, ext. release 24 hr Take 1 capsule every day by oral route. 05/20 completed Not Available Not Available Not Available Plenvu 140 gram-9 gram-5.2 gram powder packs USE DIRECTED TAKE FIRST DOSE AT 6PM NIGHT BEFORE PROCEDURE AND 6 HOURS PRIOR TO PROCEDURE 12/29 completed Not Available Not Available Not Available Paxlovid 300 mg (150 mg x 2)-100 mg tablets in a dose pack TAKE DIRECTED ON PACKAGE 12/29 completed Not Available Not Available Not Available Vitals Date Recorded Body height Provider Name an d Address Organization Details Last Updated DateTime 11/05/2022 160.02 cm Heavenly Dickens [facility] [employer] [facility] 11/05/2022 11:57:02 Date Recorded Body height Provider Name an d Address Organization Details Last Updated DateTime 02/11/2023 160.02 cm Candis Hollis [facility] [employer] [facility] 02/11/2023 12:05:22 Date Recorded Body height Provider Name an d Address Organization Details Last Updated DateTime 02/25/2023 160.02 cm Candis Hollis [facility] [employer] [facility] 02/25/2023 12:02:52 Date Recorded Body height Provider Name an d Address Organization Details Last Updated DateTime 04/07/2023 160.02 cm Mady Ethel [facility] [employer] [facility] 04/07/2023 15:01:51 Date Recorded Body height Body mass index (BMI) Body weight Provider Name and Address Organization Details Last Updated DateTime 09/24/2023 160.02 cm 24.8 kg/m2 63341.93 g Beba Addisonlily, ATC L [employer] 09/24/2023 11:39:32 Social History Question Answer Notes LastModified by Organizat ion Details LastModified Time Tobacco Smoking Status Never Smoker Salima Chisholm null, [employer] [facility] - [email or web address] 04/07/2023 14:51:15 What Is Your Level Of Alcohol Consumption? None [email or web address] Information not available 09/24/2023 What Is Your Occupation? [employer] [email or web address] Information not available 04/07/2023 What Was The Date Of Your Most Recent Tobacco Screening? 05/20/2021 [email or web address] Information not available 04/07/2023 Sex: Unknown Functional Status None recorded. Mental Status None recorded. Family History Relationship Description Onset Age of this Age Resolved Age Notes LastModified by Organization Details LastModified Time Mother Family history of malignant neoplasm [email or web address] Not available 09/23 11:18:07 Mother Heart disease [email or web address] [id number] Not available 05/13/2022 16:39:40 Father Hypertensive disorder [email or web address] [id number] Not available 05/13/2022 16:39:40 Sister Hypertensive disorder [email or web address] Not available 2022 14:16:25 Medical History Condition Response HEART DISEASE/HEART PROBLEMS Y ANEMIA/BLOOD DISORDER Y HYPERTENSION Y Gynecological HistoryNo gynecological history recorded. Obstetrics History GPAL:G 0 P 0 0 0 0 Past Encounters Encounter ID Performer Location Encounter Start Date Encounter Closed Date Diagnosis/Indication Diagnosis SNOMED-CT Code Diagnosis ICD10 Code Diagnosis Note [id number] [facility] [place] [address] [place] [address] 07/02/2020 00:00:00 07/02/2020 17:03:45 [id number] [facility] [place] [address] [place] [address] 07/30/2020 00:00:00 07/30/2020 14:36:09 [id number] [facility] [place] [address] [place] [address] 09/17/2020 00:00:00 09/17/2020 16:31:40 [id number] [facility] [place] [address] [place] [address] 10/01/2020 00:00:00 10/01/2020 12:30:57 [id number] [facility] [place] [address] [place] [address] 10/08/2020 00:00:00 10/08/2020 09:00:41 [id number] [facility] [place] [address] [place] [address] 10/29/2020 00:00:00 10/29/2020 12:17:58 [id number] [facility] [place] [address] [place] [address] 11/26/2020 00:00:00 11/26/2020 13:06:01 [id number] [facility] [place] [address] [place] [address] 12/24/2020 00:00:00 12/24/2020 12:34:15 [id number] [facility] [place] [address] [place] [address] 05/20/2021 00:00:00 05/20/2021 15:52:07 [id number] [facility] [place] [address] [place] [address] 06/10/2021 00:00:00 06/10/2021 15:38:11 [id number] [facility] [place] [address] [place] [address] 07/01/2021 00:00:00 07/01/2021 14:35:28 [id number] [facility] [place] [address] [place] [address] 07/29/2021 00:00:00 07/29/2021 16:57:05 [id number] [facility] [place] [address] [place] [address] 09/17/2021 00:00:00 09/17/2021 17:49:42 [id number] [facility] [place] [address] [place] [address] 10/29/2021 00:00:00 10/29/2021 16:49:01 [id number] [facility] [place] [address] [place] [address] 11/25/2021 00:00:00 11/25/2021 16:27:59 [id number] [facility] [place] [address] [place] [address] 12/16/2021 00:00:00 12/16/2021 17:26:17 [id number] [facility] [place] [address] [place] [address] 12/29/2021 00:00:00 12/29/2021 15:40:59 [id number] [facility] [place] [address] [place] [address] 05/04/2022 00:00:00 05/04/2022 16:35:22 [id number] SAM Krishnamurthy [facility] [place] [address] [place] [address] 06/05/2022 14:01:09 06/05/2022 16:06:02 Osteoarthritis 203479741 M17.11 [id number] SAM Krishnamurthy [facility] [place] [address] [place] [address] 08/03/2022 13:57:45 08/03/2022 15:45:17 Osteoarthritis of right knee joint 3151791348 16352 M17.11 [id number] SAM Krishnamurthy [facility] [place] [address] [place] [address] 08/20/2022 11:46:22 08/20/2022 12:53:57 Pain of left shoulder joint 5250030836 [id number] M25.512 [id number] SAM Krishnamurthy [facility] [address] [address] 11/05/2022 11:41:15 11/05/2022 13:09:19 Pain of right knee joint 3815842458 34626 M25.092 [id number] Dontrell Elizabeth MD [facility] [address] [address] 02/11/2023 11:42:09 02/11/2023 14:15:21 Osteoarthritis of right knee joint 1214780136 53448 M17.11 [id number] Dontrell Elizabeth MD [facility] [address] [address] 02/25/2023 11:57:10 02/25/2023 14:26:11 Osteoarthritis of right knee joint 5239235123 [id number] M17.11 [id number] SAM Krishnamurthy [facility] [place] [address] [place] [address] 04/07/2023 14:47:52 04/08/2023 13:46:31 Pain of left shoulder joint 5588936527 [id number] M25.195 [id number] SAM Tompkins [facility] [place] [address] [place] [address] 09/24/2023 11:15:49 09/24/2023 12:13:10 Osteoarthritis of right knee joint 2047154159 30156 M17.11 Pain of ri ght knee joint 0213676126 51840 M25.561 Health Concerns Section Related Observation LastModified by Organization Detai ls LastModified Time None Recorded Concern Status LastModified by Organization Details LastModified Time None Recorded Advance Directives Directive None Recorded Payers Encounter Date Sequence Insurance Name Policy Number Policy Real Covered Member ID Real Member ID Guarantor Name 11/05/2022 1 [facility] (MEDICARE REPLACEMENT/A DVANTAGE - PPO) [id number] Andria Lopez [id number] Andria Lopez 02/11/2023 1 [facility] (MEDICARE REPLACEMENT/A DVANTAGE - PPO) [id number] Andria Lopez [id number] Andria Lopez 02/25/2023 1 [facility] (MEDICARE REPLACEMENT/A DVANTAGE - PPO) [id number] Andriajung Barriosick [id number] Andria Lopez 04/07/2023 1 [facility] (MEDICARE REPLACEMENT/A DVANTAGE - PPO) [id number] Andriajung Barriosick [id number] Andria Lopez 09/24/2023 1 [facility] (MEDICARE REPLACEMENT/A DVANTAGE - PPO) [id number] Andriajung Barriosick [id number] Andria Lopez Notes Date Note Type Note Provider Name and Address Organization Details Recorded Time 02/11/2023 text/html Patient is a 72-year-old female who presents for evaluation of her right knee. She had a cortisone shot 3 months ago which gave her about 1 month relief in the 1 before that gave her about 1 month relief 3 months earlier. Over the last 2 months she has had severe pain medial joint line daily. She cannot tolerate nonsteroidal anti-inflammatory medications. She gets severe stomach upset taking Aleve or Advil. She has tried Tylenol occasionally but does not help. She does take tramadol 1 tablet on most days occasionally 2 tablets in a day. She works at [employer] and ladders bother him particular. She had a bone density test done earlier this year which looked fine better than average bone density for age. Dontrell Elizabeth MD [address] [place] [address], [place] [address], [place], [address], [place] [facility] 02/11/2023 14:14:23 02/25/2023 text/html patient returns after MRI scan of her right knee. Her last cortisone shot was 3 and half months ago. She has been getting shots every 3 months for the last 9 months and they have been helping less and less. An MRI scan was ordered at last visit 2 weeks ago. She cannot take nonsteroidal anti-inflammatory medications because of GI intolerance. She continues working at [employer] is on her feet walking on concrete he entire shift. She cannot quit because she needs the income. 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 I reviewed the MRI images with her in detail as well as the radiologist's report. It shows high-grade cartilage loss throughout the medial compartment which seems much worse than I would have expected based on the MRI scan showing moderate medial compartment joint space narrowing on the Stork views. The medial meniscus does have a small radial tear mid portion the posterior horn that traverses approximately 50% through the meniscus. There is a mild effusion. Patient has been taking that the Tylenol. She tried the tramadol which she gave her migraine headaches which she has a history of in seem to bring these on more so she did not tolerate that. She continues to complain of severe start-up pain stiffness. Over the last 6 years she has lost 60 lb and she is talking to her primary care physician about that as it is unclear why she has lost so much weight. She has not been trying to lose weight. Dontrell Elizabeth MD [address] [place] [address], [place], [address], [facility] 02/25/2023 14:25:58 09/24/2023 text/html Patient returns with right knee pain. Pain is localized mostly medially. She saw Dr. Elizabeth in February of 2023, she was told at that time she had a medial meniscal tear but she also has significant narrowing in the medial compartment of the right knee. The patient was told that if she did go through knee arthroscopy this likely would not give her great relief he stated she should try conservative measures and get by until she is ready for total knee arthroplasty that was the only surgery that he would recommend for her condition as knee arthroscopy may not give her good relief and be a waste of time. The patient is on her feet all day on concrete at [employer] she states she can not give up her job she is trying to get by with conservative measures. Eventually she sought another opinion in [place] and on May 04 of this year she underwent a right knee arthroscopy partial medial meniscectomy. She went through a course of physical therapy gave it a month or so her pain did continue. She really did not get much relief she had a cortisone injection then in May of this year which gave her a couple of months for relief however her symptoms have started to come back once again. She denies any locking or catching no effusion or swelling most of her pain is localized medially pain is worse with activity somewhat relieved by rest she can not take oral anti-inflammatory medication, she will take Tylenol occasionally. She comes in today to talk about further treatment options she would like to try another shot of cortisone and talk about other options if there are any. SAM Tompkins [address] [place] [address], [place], [address], [place] [facility] 09/24/2023 14:24:45 OBGyn Episode No OBEpisode recorded.
--- OUTSIDE RECORDS SUMMARY | 2024-05-10 08:32 | XMS_ITS | Clinical Summary ---
Author Organization [facility] Address [address] [place] [address] Care Team Providers Care Log Deck Tender Name Role Phone Unavailable Primary Care Provider Unavailabl e Encounters Date Type Department Care Team Description 2024 External Device Data STL ABSTRACTION Provider, Abstract 04/06/2024 External Device Data [facility] ABSTRACTION Provider, Abstract from Last 3 Months Social History Tobacco Use Types Packs/Day Years Used Date Smoking Tobacco: Never Assessed Comments Unknown Sex and Gender Information Value Date Recorded Sex Assigned at Not on file Legal Sex Female 10:51 PM CDT Gender Identity Not on file Sexual Orientation Not on file Plan of Treatment Health Maintenance Due Date Last Done Comments DTAP/TDAP/TD VACCINES (1 - Tdap) 1971 BREAST CANCER SCREENING 1992 COLORECTAL SCREENING 1997 Colorectal Cancer Screening 1997 FIT-DNA Q 3 years 1997 FIT/FOBT Q 1 year 1997 Flex Sig/CT Colonography Q 5 years 1997 PNEUMOCOCCAL VACCINE 65+ YEARS (1 of 1 - PCV) 05/03/19 03 ZOSTER VACCINE (1 of 2) 2002 OSTEOPOROSIS SCREENING 2017 INFLUENZA VACCINE (#1) 2023 RSV VACCINE (60+ or ) (1 - 1-dose 75+ series) 2027 Insurance [employer]
--- OUTSIDE RECORDS SUMMARY | 2024-05-10 08:32 | XMS_ITS | Clinical Summary ---
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 Gender Identity Not on file Sexual Orientation Not on file Last Filed Vital Signs Vital Sign Reading Time Taken Comments Blood Pressure 116/50 04/23/2021 2:19 PM WAREHOUSE INSULATION WORKER Pulse 66 04/23/2021 12:14 PM WAREHOUSE INSULATION WORKER Temperature 36.4 C (97.6 F) 04/23/2021 12:14 PM WAREHOUSE INSULATION WORKER Respiratory Rate 18 04/23/2021 12:14 PM WAREHOUSE INSULATION WORKER Oxygen Saturation 100% 04/23/2021 12:14 PM WAREHOUSE INSULATION WORKER Inhaled Oxygen Concentration - - Weight 68 kg (150 lb) 04/23/2021 12:14 PM WAREHOUSE INSULATION WORKER Height 167.6 cm (5' 6 ) 04/23/2021 12:14 PM WAREHOUSE INSULATION WORKER Body Mass Index 24.21 04/23/2021 12:14 PM WAREHOUSE INSULATION WORKER Plan of Treatment Health Maintenance Due Date Last Done Comments DEXA Bone Density 1950 Hepatitis C Virus (HCV) Screening 1950 Mammogram 1950 Colonoscopy 1997 Colorectal Cancer Screening 1997 Cologuard 2002 Immunochemical Fecal Occult Blood 2002 Influenza Immunization (#1) 2023 10/0 03/2020, 12/13/2020, 11/24/2019, Additional history exists SARS-COV-2 Immunization ( season) 2023 12/23/2020, 05/18/2020, 04/25/2020 Respiratory Syncytial Virus (RSV) Immunization (Adult) (1 - 1-dose 75+ series) 2027 DTaP/Tdap/Td Immunization Discontinued 11/02/2013 TdaP Immunization Completed 11/02/2013 Pneumococcal Immunization (50+ years) Completed 06/30/2017, 09/14/2014, 10/14/2011 Zoster Immunization Completed 08/29/2018, 08/16/2017, 01/05/2016 Hepatitis B Immunization Aged Out No longer eligible based on patient's age to complete this topic Meningococcal Immunization (ACWY) Aged Out No longer eligible based on patient's age to complete this topic Rotavirus Immunization Aged Out No lo nger eligible based on patient's age to complete this topic Insurance MEDICARE C [facility] Care Teams Nursing Teacher Relationship Specialty Start Date End Date Romero Meier MD PCP - General Internal Medicine 04/23/21
--- OUTSIDE RECORDS SUMMARY | 2024-05-10 08:33 | XMS_ITS | Clinical Summary ---
Author Organization [facility] Address [address] [place] [address] Care Team Providers Care Unemployment Examiner Name Role Phone Romero Meier MD Primary Care Provider + Allergies Active Allergy Reactions Criticality Noted Date [...] total) by mouth nightly 90 tablet 3 024 Active metoprolol tartrate (LOPRESSOR) 50 mg immediate [...] 04/25/2024 Assessment & Plan (04/25/2024 9:23 AM JUSTOWRITER OPERATOR): New onset rash on the arm with [...] (09/17/2021): Added automatically from request for surgery [id number] Epigastric abdominal pain 09/17/2021 Overview (09/17/2021): Added automatically from request for surgery [id number] Essential hypertension 03/01/2015 Overview (06/18/2016): Essential hypertension Atopic rhinitis 03/01/2015 Overview (06/18/2016): Allergic rhinitis Asthma 03/01/2015 Overview (06/18/2016): Asthma Anxiety 03/01/2015 Overview (06/18/2016): Anxiety Pure hypercholesterolemia 10/11/2009 S/P cholecystectomy 09/26/2009 Supraventricular tachycardia 01/19/2009 Encounters Date Type Department Care Team Description 05/08/2024 Telephone [facility] Primary Care at [address] [address] Romero Meier MD 04/25/2024 9:30 AM JUSTOWRITER OPERATOR Office Visit [facility] Primary Care at [address] [phone] Sayra Edwards NP Rash (Primary Dx) 04/24/2024 Nurse Triage [facility] at [address] [phone] Romero Meier MD 04/03/2024 Telephone [facility] at [address] [phone] Romero Meier MD Recommendation Request 03/29/2024 9:45 AM JUSTOWRITER OPERATOR Office Visit [facility] Primary [facility] at [address] [phone] Romero Meier MD Essential hypertension (Primary Dx); Supraventricular tachycardia (HCC) 03/27/2024 Telephone [facility] at [address] [phone] Romero Meier MD Appointment Request 03/21/2024 Telephone [facility] at [address] [phone] Romero Meier MD 02/24/2024 1:00 PM JUSTOWRITER OPERATOR Office Visit [facility] Primary Care at [address] [phone] Romero Meier MD Essential hypertension (Primary Dx); Pure hypercholesterolemia; Chronic pain of right knee from Last 3 Months Immunizations Immunization Administration Dates Next Due COVID-19 mRNA (Altheos) 0.3 m L (30 mcg) vaccine (12 [...] 11/02/2013 ZOSTER LIVE 01/02/2016 ZOSTER Recombinant 08/29/2018,08/16/2017 Surgical History Surgery Date Site/Laterality Comments SHOULDER ARTHROSCOPY Arthroscopy shoulder OTHER SURGICAL HISTORY D&C CHOLECYSTECTOMY Cholecystectomy TUBAL LIGATION 03/15/1980 - 03/14/1981 COLONOSCOPY KNEE ARTHROSCOPY Right Medical History Medical History Date Comments Anxiety disorder Anxiety Hypertension Hypertension Hypercholesterolemia Asthma Migraines Family History Medical History Relation Name Comments Coronary artery disease Brother Emphysema Father Emphysema; Lung cancer Father Cancer, lung; Cancer Mother Ruthy Urbano Heart failure Mother Ruthy Urbano Congestive hea rt failure; Hyperlipidemia Mother Ruthy Urbano Hyperlipidemi a; Pancreatic cancer Mother Ruthy Urbano Cancer, pa ncreas; Relation Name Status Comments Brother Father Mother Ruthy Urbano Social History Tobacco Use Types Packs/Day Years [...] on file Legal Sex Female 8:57 AM JUSTOWRITER OPERATOR Gender Identity Female 01/13/2021 11:02 AM CDT Sexual Orientation Straight 01/13/2021 11 :02 AM CDT 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 Not on file Obstetrics History Last Filed Vital Signs Vital Sign Reading Time Taken Comments Blood Pressure 142/70 04/25/2024 9:07 AM JUSTOWRITER OPERATOR Pulse 78 04/25/2024 9:07 AM JUSTOWRITER OPERATOR Temperature 36.8 C (98.3 F) 11/02/2023 2:00 PM CDT Respiratory Rate 16 12/09/2023 12:20 PM CDT Oxygen Saturation 98% 04/25/2024 9:07 AM JUSTOWRITER OPERATOR Inhaled Oxygen Concentration - - Weight 70.3 kg (155 lb) 04/25/2024 9:07 AM JUSTOWRITER OPERATOR Height 160 cm (5' 3 ) 04/25/2024 9:07 AM JUSTOWRITER OPERATOR Body Mass Index 27.46 04/25/2024 9:07 AM JUSTOWRITER OPERATOR Plan of Treatment Health Maintenance Due Date Last Done Comments Breast Cancer Screening-Mammogram 01/01/2024 12/31/2022, 12/22/2021, 10/22/2020, Additional history exists Depression Screening 08/19/2024 08/20/2023, 08/13/2022, 08/20/2021, Additional history exists Fall Risk Assessment 08/19/2024 08/20/2023, 08/13/2022, 11/06/2021, Additional history exists Well Visit 65+ 08/19/2024 08/20/2023, 03/2022, 07/28/2021, Additional history exists Osteoporosis Screening-Bone Density Scan 08/25/2024 08/25/2022, 10/22/2020, 10/22/2020, Additional history exists Colon Cancer Screening-Colonoscopy 11/07/2031 11/06/2021, 05/30/2014 DTaP/Tdap/Td Vaccine (3 - Td or Tdap) 12/15/2033 12/16/2023, 11/02/2013 Hepatitis C Screening Completed 07/01/2017 Zoster Vaccine Completed 08/29/2018, 06/2017, 01/02/2016 Colon Cancer Screening-CT Colonography Discontinued 11/06/2021, 05/30/2014 Colon Cancer Screening-DNA Stool Discontinued 11/07/19, 05/30/2014 Colon Cancer Screening-FIT Discontinued 11/06/2021, Colon Cancer Screening-Sigmoidoscopy Discontinued 11/06/2021, 05/30/2014 Pneumococcal vaccine 65+ Completed 024, 06/12/2023, 12/13/2022, Additional history exists Hepatitis B Screening Completed 08/20/2023 Influenza Vaccine Completed 11/12/2023, , 12/05/2022, Additional history exists Covid-19 Vaccine Completed 05/05/2024, , 05/21/2023, Additional history exists Procedures Procedure Name Priority Date/Time Associated Diagnosis Comments MRI HIP RIGHT WO CONTRAST Schedule Routine, Read Routine (OP Routine) 03/17/2024 8:06 AM JUSTOWRITER OPERATOR SCREENING MAMMOGRAM 2D BILATERAL Schedule Routine, Read Routine (OP Routine) 12/31/2022 DEXA AXIAL SKELETON BONE DENSITY 1 OR MORE SITES Schedule Routine, Read Routine (OP Routine) 08/25/2022 COLONOSCOPY 11/06/2021 1:15 PM CDT HEPATITIS C ANTIBODY Routine 07/01/2017 11:16 AM CDT from Last 3 Months or Most Recently Relevant to Health Maintenance Results * MRI Hip Right WO Contrast (03/17/2024 8:06 AM JUSTOWRITER OPERATOR) Anatomical Region Laterality Modality Lower Extremities Right Magnetic Reson ance us Historical Provider IMReg MRI PROCEDURES Final Result * Screening Mammogram 2D Bilateral (12/31/2022) Anatomical Region Laterality Modality Breast Bilateral Mammography us Historical Provider MD [facility] MAMMO PROCEDURES Jenn l Result * Dexa Axial Skeleton Bone Density 1 or 2 Site (08/25/2022) SCRIBED DXA T-SCORE 2.4 Anatomical Region Laterality Modality Body N/A Radiographic Marbella ging Historical Provider IMG DXA PROCEDURES Final Result * COLONOSCOPY (11/06/2021 1:15 PM CDT) Anatomical Region Laterality Modality Other Narrative Procedure Note Eduard Godfrey MD - 11/06/2021 1:15 PM CDT ENDOSCOPY LAB Patient Name: Andria Combs Procedure Date: 11/06/2021 1:15 PM Admit Type: Outpatient Room: [facility] 3 Date of : 1950 Instrument Name: [...] 11/06/2021 1:15 PM Scope In: Scope Out: us Eduard Godfrey MD ENDOSCOPY PROCEDURES Final Result * Hepatitis C antibody (07/01/2017 11:16 AM CDT) Hep C Ab <0.1 0.0 - 0.9 s/co ratio [facility] - 01 Comment: Negative: < 0.8 Indeterminate: 0.8 - 0.9 Positive: > 0.9 The CDC recommends that a positive HCV antibody result be followed up with a HCV Nucleic Acid Amplification test ([id number]). 07/01/2017 11:1 6 AM CDT 07/01/2017 Narrative [facility] - 07/02/2017 10:14 AM CDT Performed at: - [address] [id number] [place]er: Wes Taylor PhD, Phone: [phone] us Romero Meier MD LAB MICROBIOLOGY - GENER AL ORDERABLES Final Result Performing Organization Address City/State/[facility] Co de Phone Number [facility] - 01 from Last 3 Months or Most Recently Relevant to Health Maintenance Insurance MEDICARE SOLUTIONS [facility] MEDIC[facility] Address: [facility] [address] [place] [address] MEDICARE SOLUTIONS MEDICARE SOLUTIONS Advance Directives For more information, please contact: [phone] * Full Code (Latest Code Status on File) Date Activated Date Inactivated Comments 11/06/2021 12:19 PM 11/06/2021 6:36 PM Care Teams Unemployment Examiner Relationship Specialty Start Date End Date Romero Meier MD [address] [address] PCP - General 06/12/16
--- NOTE | 2024-05-10 09:39 | EST_ITS ---
Patient Info Name: Juliet Lopez Age: 74 years : 1950 Gender: Female Ht: 63 in Wt: 157 lbs BSA: 1.80 m2 HR: 72 bpm BP: 139 / 61 mmHg Exam Date: 05/10/2024 9:54 AM Exam Location: [facility] Patient Status: Outpatient Admit Date: 05/10/2024 Staff Ordering Physician: Ron Roper DO Attending Provider: Ron Roper DO Exercise Technologist: Bryanna Castellanos RDCS Exercise Physician: Ron Roper DO Exam Type: CA stress david w NM Study Info A regadenoson stress test was performed. Summary 1. 1. Negative lexiscan stress test for ischemic ST changes by ECG criteria. 2. 2. Stable hemodynamics throughout the test. 3. 3. Nuclear scan to follow and will be reported separately. .Please correlate with it. 4. 4. Patient informed of the above results. Protocol: Lexiscan Stress ECG Details Stage: REST Duration (min): 1 min : 15 sec HR (bpm): 72 SBP (mmHg): 139 DBP (mmHg): 61 Stage: REST Duration (min): 4 min : 23 sec HR (bpm): 75 SBP (mmHg): 139 DBP (mmHg): 61 Stage: STAGE 1 Duration (min): 1 min : 0 sec HR (bpm): 99 SBP (mmHg): 119 DBP (mmHg): 55 Stage: RECOVERY Duration (min): 1 min : 0 sec HR (bpm): 107 SBP (mmHg): 119 DBP (mmHg): 55 Stage: RECOVERY Duration (min): 2 min : 0 sec HR (bpm): 100 SBP (mmHg): 119 DBP (mmHg): 55 Stage: RECOVERY Duration (min): 3 min : 0 sec HR (bpm): 100 SBP (mmHg): 121 DBP (mmHg): 55 Stage: RECOVERY Duration (min): 3 min : 44 sec HR (bpm): 98 SBP (mmHg): 121 DBP (mmHg): 55 Rest HR: 75 bpm Peak HR: 108 bpm Rest Sys BP: 139 mmHg Peak Sys BP: 121 mmHg Max Pred HR: 148 bpm % Max Pred HR: 73 % Target HR: 126 bpm Max RPP: 13,068 bpm*mmHg Termination Reason: Completed protocol Cardiac Symptoms: Shortness of breath Total Time: 1 min : 0 sec Rest Champion BP: 61 mmHg Peak Champion BP: 55 mmHg Total Dose: 0.4 mg Resting ECG Sinus rhythm, IRBBB, delayed precordial R/S transition. Stress ECG No ST changes. Arrhythmias None. Report Signatures
== END 2024-05-10 08:19 | disposition home or self-care (01) ==
PROVIDERS: PCP Internal Medicine; Visit Provider Internal Medicine Cardiovascular Disease
DX: Z01.810 Encounter for preprocedural cardiovascular examination (principal)
CPT/HCPCS: 78452; 93017; A9502; J2785

== ENCOUNTER 2024-05-18 00:32 | Day surgery (SDC) | payer MEDICARE, SELFPAY ==
--- NOTE | 2024-04-27 11:41 | PC.NURSE ---
Report to the Outpatient Waiting Room, entrance under the green pavilion located off [facility], at time _9:30 AM on date 05/18/24 . Planned Procedure Time: _11:30 AM .? Time changes happen often and if your time is changed the preop area will call you the afternoon before. - You and your visitor will be asked to self-screen and do not enter if you have any COVID symptoms. Please call surgeon if you need to reschedule. - A mask is optional within the hospital at this time. Patients may have clear liquids (water, carbonated beverages, clear teas, apple juice) until 3 hours prior to surgery(8:30 AM) with a maximum of 20 ounces. - No food from midnight until time of surgery and no smoking, or chewing tobacco (or any form of nicotine). No chewing gum, candy or mints. - Take only the following medications with a SIP of water on the morning of surgery: ___METOPROLOL___, INHALER IF NEEDED , DO NOT STOP ANY OF YOUR OTHER PRESCRIPTION MEDICATIONS PRIOR TO SURGERY EXCEPT THE FOLLOWING Hold all vitamins and supplements for 3 days per anesthesiologist.LAST DOSE Medications to discontinue per physician ____ASPIRIN HOLD 7 DAYS PRE OP PER DR BENNETT 05/10/24 Please no make-up, nail lebanese, hairspray, perfume, deodorant, or body powder the day of surgery.? No jewelry (including any body piercings) or valuables the day of surgery, leave them at home.? Please take a shower or bath the night before, or the morning of, surgery with an antibacterial soap.? Wear comfortable, loose fitting clothing.? Children are encouraged to wear pajamas. - Jewelry must be removed prior to entering the operating room.? Rings and piercings that are not removed may be cut off. - The hospital will not accept responsibility for valuables.? - Please leave all valuables, including medications, at home the day of surgery. If you are going home after surgery, a licensed pickup driver must drive you home.? - NO public transportation without another adult if you receive anesthesia. - We recommend that an adult stay with you for 24 hours following discharge. - We also recommend that you do not drive, make important decision, drink alcoholic beverages, or take any drugs that were not prescribed by your health care provider for at least 24 hours after your discharge time. Follow any additional instructions given to you from your surgeon. VERBAL AND WRITTEN instructions given to __PATIENT and asked if any additional questions and then verbalized understanding. Patient advised to call surgeon office or pre surgery nurse liaison [phone] if any additional questions.
[2024-04-27 11:48] VITALS: BMI 27.9
[2024-04-27 12:41] VITALS: BP 140/83; PULSE 67; RESP 18; TEMP 36.8; O2SAT 97
--- NOTE | 2024-05-17 08:49 | P.HP_ITS ---
H&P: HPI History of Present Illness Date/Time: 05/17/24 08:49 Chief Complaint: DJD right knee Narrative: 74-year-old female who presents today for right total knee arthroplasty. Patient is status spontaneous radial tear of the medial meniscus right knee and December 2022. Radial tear was diagnosed with MRI scan February of 2023 at that time she had ojyf-wc-lckhofgy medial. No arthroscopy was done at that time. Patient unfortunately has had progression of the medial compartment osteoarthritis. At this point she has less than a mm of joint space remaining in the medial compartment on the x-rays. Patient is unable to take anti- inflammatories due to GI intolerance. She has been trying to rest it and using a walker occasionally. She is having continued symptoms of rather severe pain in the knee. Symptoms are severe enough that is making it difficult for her to work. This point she feels she is ready proceed with total knee arthroplasty rather than continue nonsurgical treatment. She has had cortisone injections in the past, last 1 being more than 4 months ago Review of Systems Review of Systems: All systems reviewed & are unremarkable except as noted in HPI and below PMFSH Past Medical History Medical History Asthma Anemia GERD (gastroesophageal reflux disease) Migraine Hypertension High cholesterol Surgical History Surgical History History of knee surgery right Family History Family History Mother Hypertension Cancer Social History Social History Smoking packs per day: 0.5 Smoking cigarettes per day: 10.0 Years smoked: 20 Smoking pack-years: 10.00 Smoking status: Former smoker Tobacco type: cigarettes Smoking end date: 03/15/93 Additional smoking assessment comments: DENIES ANY FORM OF TOBACCO USE Alcohol intake: current Alcohol use details: ONE DRINK PER MONTH Substance use: never Current Housing: Decline to Answer Concerned About Future Housing: Decline to Answer Difficulty Paying Gas/Electric Bills: Decline to Answer Difficulty Paying for Meds: Decline to Answer Currently Unemployed: Decline to Answer Education: Decline to Answer Difficulty w/ Childcare or Family Care: Decline to Answer Living arrangements: alone Spiritual care concerns: No Meds Home Medications and Allergies Home Medications ?Medication ?Instructions ?Recorded ?Confirmed ?Type acetaminophen 120 mg-codeine 12 5 - 7.5 ml PO HS PRN pain #118 mL 11/21/20 04/27/24 Rx mg/5 mL oral solution rizatriptan 10 mg tablet 10 mg PO HS 11/21/20 04/27/24 History aspirin 81 mg tablet 81 mg PO QPM 12/16/23 04/27/24 History atorvastatin 20 mg tablet 20 mg PO DAILY 12/16/23 04/27/24 History irbesartan 150 mg tablet 150 mg PO QPM 12/16/23 04/27/24 History metoprolol tartrate 50 mg tablet 50 mg PO Q12H 12/16/23 04/27/24 History pantoprazole 40 mg tablet,delayed 40 mg PO DAILY 12/16/23 04/27/24 History release rizatriptan 10 mg tablet 10 mg PO DIRECTED 12/16/23 04/27/24 History coenzyme Q10 100 mg capsule 200 mg PO QPM 02/07/24 04/27/24 History lorazepam 1 mg tablet 2 mg PO HS 02/07/24 04/27/24 History magnesium 250 mg tablet 500 mg PO DAILY 02/07/24 04/27/24 History tramadol 50 mg tablet 50 mg PO Q6H PRN pain #40 tabs 03/09/24 04/27/24 Rx hydrocodone 5 mg-acetaminophen 325 1 tablet PO Q4H PRN pain #30 tabs 04/04/24 04/27/24 Rx mg tablet albuterol sulfate 90 mcg/actuation 1 inh inhalation PRN 04/27/24 04/27/24 History aerosol inhaler cetirizine 10 mg capsule (All Day 10 mg PO QPM 04/27/24 04/27/24 History Allergy (cetirizine)) cholecalciferol (vitamin D3) 25 25 mcg PO DAILY 04/27/24 04/27/24 History mcg (1,000 unit) capsule wxrkoazh-aus-mwlq-FA-Ca carb-vit K 1 tablet PO DAILY 04/27/24 04/27/24 History 18 mg iron-400 mcg-500 mg tablet triamcinolone acetonide 55 mcg 1 spray intranasal HS 04/27/24 04/27/24 History nasal spray aerosol (24 Hour Nasal Allergy) mupirocin 2 % topical ointment 1 applic topical BID #22 grams 05/01/24 Rx Allergies Allergy/AdvReac Type Severity Reaction Status Date / Time No Known Allergies Allergy Verified 04/27/24 11:49 Exam Narrative: 74-year-old female she is 5 ft 3 150 lb BMI is 26.5. Range of motion of the right knee is from 10-100 degrees. She walks with a prominent limp. Moderately severe tenderness around the patella and the medial joint line. Hip range of motion is full without discomfort. Negative Stinchfield maneuver. Normal station to the right lower extremity no edema to the right lower extremity. 2+ dorsalis pedis and posterior tibial artery pulse palpable. Resp: Auscultation: clear to auscultation bilaterally Cardio: Rate: regular rate Rhythm: regular rhythm Assessment and Plan Assessment and plan (1) Right knee DJD: Code(s): M17.11 - Unilateral primary osteoarthritis, right knee Status: Acute Plan 74-year-old female who has severe medial compartment osteoarthritis. She is having continued symptoms better times a very severe to her that is affecting her daily lifestyle. At this point she would like to proceed with total knee arthroplasty. Surgical procedures well as risks complications were discussed in detail all questions were answered and we will proceed. Patient will see her primary care doctor for pre-surgical clearance. She has seen cardiology and did have a stress test done. Ejection fraction was 70% and no abnormalities noted on the stress test. She has been cleared from cardiology. Hemoglobin preoperatively was 12.6 and platelets are 220. Chem panel was all within normal limits creatinine 0.73. Nasal swab did grow oxacillin sensitive Staph aureus and she has been Decolonizing
[2024-05-18] VITALS (15 sets, daily range): BP systolic 109–136; BP diastolic 41–69; PULSE 72–96; RESP 12–18; TEMP 36.1–37.6; O2SAT 94–100; BMI 28.6
--- NOTE | ~2024-05-18 | XR_ITS ---
[id number] Ordering provider: Dontrell Elizabeth MD History: . POST OP RIGHT TKA . Comparison: None. FINDINGS: BONES: No acute fracture or dislocation. JOINT SPACES: Total knee arthroplasty. SOFT TISSUES: Postoperative changes seen in the knee and subcutaneous tissues. IMPRESSION: No fractures seen. Total knee arthroplasty. Reviewed, dictated and finalized at location A. SLITERATOR
--- OUTSIDE RECORDS SUMMARY | 2024-05-18 00:35 | XMS_ITS | Encounter Summary ---
Author Organization [facility] Address [address] [place] [address] Care Team Providers Care International Marketing Manager Name Role Phone Unavailable Primary Care Provider Unavailabl e Encounter Details Date Type Department Care Team (Late st Contact Info) Description 05/17/2024 External Device Data [facility] ABSTRACTION Provider, Abstract NO ADDRESS ON FILE Social History Tobacco Use Types Packs/Day Years Used Date Smoking Tobacco: Never Assessed Comments Unknown Sex and Gender Information Value Date Recorded Sex Assigned at Not on file Legal Sex Female 10:51 PM CDT Gender Identity Not on file Sexual Orientation Not on file documented as of this encounter Plan of Treatment Not on file documented as of this encounter Visit Diagnoses Not on filedocumented in this encounter
--- OUTSIDE RECORDS SUMMARY | 2024-05-18 00:35 | XMS_ITS | CONTINUITY OF CARE DOCUMENT ---
Author Name odalys morrow Address Unknown Organization [facility] Address [address] [place] [address] Phone [phone] Care Team Providers Care Central Supply Clerk Name Role Phone Celestino Harrington MD Unavailable LISA SALAS DPM Unavailable [phone] INSURANCE PROVIDERS Payer name Policy type / Coverage type [place] red democrat ID [facility] [id number]
--- OUTSIDE RECORDS SUMMARY | 2024-05-18 00:35 | XMS_ITS | Patient Health Summary ---
Author Organization [facility] Address [address] [place] [address] Care Team Providers Care Pot Room Tapper Name Role Phone Romero Negrete MD Primary Care Provider [phone] Note from [facility],non-owned Affiliates and Associated Physician Practices is amultiple site organization consisting of ambulatory clinics and hospital sitesin [place], [place], [place] and [place]. This disclosure is being madepursuant to the Care Everywhere program and may not contain all information available regarding this patient. Last updated 17.[facility] Allergies * Pitavastatin Calcium(Myalgias) * Simvastatin(Myalgias) Medications [...] (Maxalt) 10 MG tablet(Started 08/16/2023) * Creon [id number] units capsule(Started 06/25/2023) * methylPREDNISolone (Medrol Dosepak) 4 MG tablet(Started 10/08/2022) * irbesartan (Avapro) 150 MG tablet(Started 07/02/2023) Take 1 (one) tablet by mouth * HYDROcodone-acetaminophen ([place]) 5-325 MG tablet(Started 05/04/2023) * etodolac (Lodine) [...] Comments Blood Pressure 152/84 05/19/2015 2:51 PM AUXILIARY EQUIPMENT OPERATOR Pulse 85 05/19/2015 2:51 PM AUXILIARY EQUIPMENT OPERATOR Temperature 36.8 C (98.3 F) 05/19/2015 2:51 PM AUXILIARY EQUIPMENT OPERATOR Respiratory Rate 18 05/19/2015 2:51 PM AUXILIARY EQUIPMENT OPERATOR Oxygen Saturation 96% 05/19/2015 2:51 PM AUXILIARY EQUIPMENT OPERATOR Inhaled Oxygen Concentration - - Weight 64.9 kg (143 lb) 03/29/2024 10:59 AM AUXILIARY EQUIPMENT OPERATOR Height 160 cm (5' 3 ) 03/29/2024 10:59 AM AUXILIARY EQUIPMENT OPERATOR Body Mass Index 25.33 03/29/2024 10:59 AM AUXILIARY EQUIPMENT OPERATOR Procedures * NC DRAIN/INJECT LARGE JOINT/BURSA(Performed 12/27/2023) Performed for Tear of left rotator cuff, unspecified tear extent, unspecified whether traumatic * NC DRAIN/INJECT LARGE JOINT/BURSA(Performed 09/27/2023) Performed for Left [...] GROSS + MICRO EXAM(Performed 12/05/2001) Results * NC DRAIN/INJECT LARGE JOINT/BURSA (12/27/2023 8:45 AM CDT) [...] Mix MD PROCEDURE/MINOR ES GICAL ORDERABLES * NC DRAIN/INJECT LARGE JOINT/BURSA (09/27/2023 9:21 AM CDT) [...] * PULMONARY/RESPIRATORY REPORT ORDER (05/23/2015 11:12 AM AUXILIARY EQUIPMENT OPERATOR) Narrative 05/23/2015 11:12 AM AUXILIARY EQUIPMENT OPERATOR Ordered by an unspecified provider. Scanned Document RESPIRATORY THERAPY ORDERABLES * XR CHEST 1VW PORTABLE (05/19/2015 9:35 AM AUXILIARY EQUIPMENT OPERATOR) Anatomical Region Laterality Modality Chest Radiographic Marbella ging 05/19/2015 9:40 AM AUXILIARY EQUIPMENT OPERATOR Impressions 05/19/2015 9:41 AM AUXILIARY EQUIPMENT OPERATOR No acute disease. Narrative 05/19/2015 9:41 AM AUXILIARY EQUIPMENT OPERATOR AP Portable Chest Indication: Pneumonia shortness of [...] (ABNORMAL) COMPREHENSIVE METABOLIC PANEL (05/18/2015 6:52 AM [facility]) Only the most recent of10 resultswithin the time period is included. Glucose 104 74 - 106 mg/dL 05/18/2015 7:31 AM [facility] Sodium 141 136 - 145 mmol/L 05/18/2015 7:31 AM [facility] Potassium 3.5 3.5 - 5.1 mmol/L 05/18/2015 7:31 AM [facility] Chloride 110(H) 98 - 107 mmol/L 05/18/2015 7:31 AM [facility] CO2 24 22 - 31 mmol/L 05/18/2015 7:31 AM [facility] Calcium 8.0(L) 8.5 - 10.1 mg/dL 05/18/2015 7:31 AM [facility] Anion Gap 7 5 - 20 mmol/L 05/18/2015 7:31 AM [facility] BUN 5(L) 7 - 21 mg/dL 05/18/2015 7:31 AM [facility] Creatinine 0.50 0.50 - 1.30 mg/dL 05/18/2015 7:31 AM [facility] Alkaline Phosphatase 116 38 - 126 U/L 05/18/2015 7:31 AM [facility] ALT 142(H) 12 - 78 U/L 05/18/2015 7:31 AM [facility] AST 70(H) 5 - 40 U/L 05/18/2015 7:31 AM [facility] Protein Total 6.5 6.4 - 8.2 gm/dL 05/18/2015 7:31 AM [facility] Albumin 2.6(L) 3.4 - 5.0 gm/dL 05/18/2015 7:31 AM [facility] Bilirubin Total 0.8 0.2 - 1.0 mg/dL 05/18/2015 7:31 AM [facility] eGFR by MDRD >60 >60 mL/min/1.7 3m2 05/18/2015 7:31 AM [facility] eGFR by MDRD >60 >60 mL/min/1.7 3m2 05/18/2015 7:31 AM [facility] Blood BLOOD SPECIMEN / Unknown Lab Venipuncture / Unknown 05/18/2015 6:52 AM AUXILIARY EQUIPMENT OPERATOR 05/18/2015 7:07 AM AUXILIARY EQUIPMENT OPERATOR Melina Rodriguez DO LAB - CHEMISTRY FEDER[place] ADAME [facility] [address] [place] [address] * CULTURE SPUTUM+GRAM STAIN (05/17/2015 8:32 PM AUXILIARY EQUIPMENT OPERATOR) Culture Moderate Growth normal oropharyngeal tej NATALI 05/20/2015 10:10 AM AUXILIARY EQUIPMENT OPERATOR [facility] Gram Stain <10 per low power field Squamous epithelial cells 05/20/2015 10:10 AM [facility] Gram Stain >=100 per low power field White blood cells 05/20/2015 10:10 AM [facility] Gram Stain Light Red blood cells 05/20/2015 10:10 AM [facility] Gram Stain Moderate Gram positive cocci 05/20/2015 10:10 AM [facility] Microbiology SPUTUM / Unknown 05/17/2015 8:32 PM AUXILIARY EQUIPMENT OPERATOR 05/17/2015 8:56 PM AUXILIARY EQUIPMENT OPERATOR Oriana Orlando MD LAB - MICROBIOLOGY O RDERABLES [facility] [address] [place] [address] [phone] * (ABNORMAL) DIFFERENTIAL MANUAL (05/17/2015 8:05 AM AUXILIARY EQUIPMENT OPERATOR) Only the most recent of2 resultswithin the time period is included. WBC Auto 10.1 x10^9/L 05/17/2015 10:11 AM AUXILIARY EQUIPMENT OPERATOR [facility] WBC Corrected 4.4 - 10.7 x10^9/L 05/17/2015 10:11 AM [facility] nRBC /100 WBC 05/17/2015 10:11 AM [facility] Neutrophil % Manual 69 44 - 73 % 05/17/2015 10:11 AM [facility] Lymphocytes % Manual 10(L) 20 - 43 % 05/17/2015 10:11 AM [facility] Band % Manual 21(H) 0 - 11 % 05/17/2015 10:11 AM [facility] Cells Counted 100 # cells 05/17/2015 10:11 AM [facility] RBC Morphology Normal 05/17/2015 10:11 AM [facility] WBC Morph Normal 05/17/2015 10:11 AM [facility] Platelet Estimation Normal 05/17/2015 10:11 AM [facility] Blood BLOOD SPECIMEN / Unknown Lab Venipuncture / Unknown 05/17/2015 8:05 AM [facility] 05/17/2015 8:24 AM AUXILIARY EQUIPMENT OPERATOR Zohra Cruz MD LAB - HEMATOLOGY ORDERABLES [facility] [address] [place] [address] * (ABNORMAL) CBC W AUTO DIFFERENTIAL (05/17/2015 8:05 AM [facility]) Only the most recent of9 resultswithin the time period is included. WBC 10.1 4.4 - 10.7 x10^9/L 05/17/2015 8:45 AM [facility] WBC Corrected x10^9/L 05/17/2015 8:45 AM [facility] RBC 3.97 3.80 - 5.20 x10^12/L 05/17/2015 8:45 AM [facility] Hemoglobin 11.8(L) 12.0 - 15.6 gm/dL 05/17/2015 8:45 AM [facility] Hematocrit 34.5(L) 35.9 - 45.5 % 05/17/2015 8:45 AM [facility] MCV 86.9 80.7 - 98.3 fl 05/17/2015 8:45 AM [facility] MCH 29.7 26.7 - 34.0 pg 05/17/2015 8:45 AM [facility] MCHC 34.2 30.8 - 35.9 gm/dL 05/17/2015 8:45 AM [facility] Platelet Count 141(L) 153 - 416 x10^9/L 05/17/2015 8:45 AM [facility] RDW-CV 12.7 12.1 - 14.9 % 05/17/2015 8:45 AM [facility] MPV 11.8 9.4 - 12.9 fl 05/17/2015 8:45 AM [facility] nRBC Auto 0 /100 WBC 05/17/2015 8:45 AM [facility] Hematology Reflex Status Manual Diff to follow 05/17/2015 8:45 AM [facility] Blood BLOOD SPECIMEN / Unknown Lab Venipuncture / Unknown 05/17/2015 8:05 AM AUXILIARY EQUIPMENT OPERATOR 05/17/2015 8:24 AM AUXILIARY EQUIPMENT OPERATOR Zohra Cruz MD LAB - HEMATOLOGY ORDERABLES [facility] [address] [address] * STREP PNEUMO ANTIGEN URINE (05/17/2015 7:50 AM AUXILIARY EQUIPMENT OPERATOR) Streptococcus pneumoniae Antigen Urine Negative Negative 05/18/2015 10:52 AM [facility] Urine URINE / Unknown 05/17/2015 7 :50 AM AUXILIARY EQUIPMENT OPERATOR 05/17/2015 8:11 AM AUXILIARY EQUIPMENT OPERATOR Narrative [facility] - 05/18/2015 10:52 AM AUXILIARY EQUIPMENT OPERATOR Patients who have received the Streptococcus pneumoniae [...] Cruz MD LAB - MICROBIOLO GY ORDERABLES [facility] [address] [place] [address] [phone] * LEGIONELLA ANTIGEN URINE (05/17/2015 7:50 AM AUXILIARY EQUIPMENT OPERATOR) Legionella Antigen Urine Negative Negative 05/18/2015 10:51 AM [facility] Urine URINE / Unknown 05/17/2015 7 :50 AM AUXILIARY EQUIPMENT OPERATOR 05/17/2015 8:11 AM AUXILIARY EQUIPMENT OPERATOR Narrative [facility] - 05/18/2015 10:51 AM AUXILIARY EQUIPMENT OPERATOR This assay detects Legionella pneumophila serogroup one (1) antigen. A negative test result does not rule out the possibility of Legionella infection due to other serogroups or species of Legionella. A positive result may indicate a recent or remote infection with serogroup 1. Zohra Cruz MD LAB - MICROBIOLO GY ORDERABLES [facility] [address] [place] [address], [facility] [phone] * (ABNORMAL) RESPIRATORY PATHOGEN PANEL BY PCR (05/16/2015 6:29 PM AUXILIARY EQUIPMENT OPERATOR) Adenovirus PCR Not detected Not detected, Invalid, Indeterminate 05/16/2015 11:29 PM [facility] Human Metapneumovirus PCR Detected(A ) Not detected, Invalid, Indeterminate 05/16/2015 11:29 PM [facility] Human Rhinovirus/Entero virus PCR Not detected Not detected, Invalid, Indeterminate 05/16/2015 11:29 PM [facility] Influenza A Non Subtyped PCR Not detected Not detected, Invalid, Indeterminate 05/16/2015 11:29 PM [facility] Influenza A H1 PCR Not detected Not detected, Invalid, Indeterminate 05/16/2015 11:29 PM [facility] Influenza A H3 PCR Not detected Not detected, Invalid, Indeterminate 05/16/2015 11:29 PM [facility] Influenza A H1 2009 PCR Not detected Not detected, Invalid, Indeterminate 05/16/2015 11:29 PM [facility] Influenza B PCR Not detected Not detected, Invalid, Indeterminate 05/16/2015 11:29 PM [facility] Mycoplasma pneumoniae PCR Not detected Not detected, Invalid, Indeterminate 05/16/2015 11:29 PM [facility] Parainfluenza Virus 1 PCR Not detected Not detected, Invalid, Indeterminate 05/16/2015 11:29 PM [facility] Parainfluenza Virus 2 PCR Not detected Not detected, Invalid, Indeterminate 05/16/2015 11:29 PM [facility] Parainfluenza Virus 3 PCR Not detected Not detected, Invalid, Indeterminate 05/16/2015 11:29 PM [facility] Parainfluenza Virus 4 PCR Not detected Not detected, Invalid, Indeterminate 05/16/2015 11:29 PM [facility] Respiratory Syncytial Virus PCR Not detected Not detected, Invalid, Indeterminate 05/16/2015 11:29 PM [facility] Bordetella pertussis PCR Not detected Not detected, Invalid 05/16/2015 11:29 PM [facility] Microbiology NASOPHARYNGEAL SWAB / Unknown Collection / Unknown 05/16/2015 6:29 PM AUXILIARY EQUIPMENT OPERATOR 05/16/2015 6:36 PM AUXILIARY EQUIPMENT OPERATOR Zohra Cruz MD LAB - MICROBIOLO GY ORDERABLES Performing Organization Address [facility]/ZIP Co de Phone Number [facility] [address] [place] [address], [facility] [phone] * CULTURE URINE (05/16/2015 4:39 PM AUXILIARY EQUIPMENT OPERATOR) Culture 10,000-50,000 CFU/mL urogenital tej NATALI 05/18/2015 9:44 AM [facility] Urine URINE SPECIMEN OBTAINED BY CLEAN CATCH PROCEDURE / Unknown 05/16/2015 4:39 PM AUXILIARY EQUIPMENT OPERATOR 05/16/2015 4:43 PM AUXILIARY EQUIPMENT OPERATOR Oriana Orlando MD LAB - MICROBIOLOGY O RDERABLES Performing Organization Address [facility] Co de Phone Number [facility] [address] [place] [address], [facility] [phone] * (ABNORMAL) URINALYSIS ROUTINE AUTO (05/16/2015 4:38 PM AUXILIARY EQUIPMENT OPERATOR) Color UA Yellow Straw, Yellow, Dark Yellow 05/16/2015 4:52 PM [facility] Clarity UA Clear 05/16/2015 4:52 PM [facility] Specific Aspers UA 1.018 1.005 - 1.030 05/16/2015 4:52 PM [facility] pH UA 6.0 5.0 - 8.0 pH 05/16/2015 4:52 PM [facility] Protein UA Negative Negative 05/16/2015 4:52 PM [facility] Blood UA Negative Negative 05/16/2015 4:52 PM [facility] Leukocyte UA 1+(A) Negative 05/16/2015 4:52 PM [facility] Nitrite UA Negative Negative 05/16/2015 4:52 PM [facility] Glucose UA Negative Negative 05/16/2015 4:52 PM [facility] Ketone UA 2+(A) Negative 05/16/2015 4:52 PM [facility] Bilirubin UA Negative Negative 05/16/2015 4:52 PM [facility] Urobilinogen UA 1.0 0.1 - 1.0 EU/dL 05/16/2015 4:52 PM [facility] WBC UA Auto 0-2 0-2, 2-5 # /hpf 05/16/2015 4:52 PM [facility] RBC UA Auto 2-5 0-2, 2-5 # /hpf 05/16/2015 4:52 PM [facility] Epithelial Cell UA Auto 0-2 0-2, 2-5 # /hpf 05/16/2015 4:52 PM [facility] Urine URINE SPECIMEN OBTAINED BY CLEAN CATCH PROCEDURE / Unknown 05/16/2015 4:38 PM AUXILIARY EQUIPMENT OPERATOR 05/16/2015 4:43 PM AUXILIARY EQUIPMENT OPERATOR Oriana Orlando MD LAB - URINALYSIS ORD ERABLES [facility] [address] [place] [address] * XR CHEST PA AND LATERAL (05/16/2015 3:18 PM AUXILIARY EQUIPMENT OPERATOR) Anatomical Region Laterality Modality Chest Radiographic Marbella ging 05/16/2015 3:23 PM AUXILIARY EQUIPMENT OPERATOR Narrative 05/16/2015 3:24 PM AUXILIARY EQUIPMENT OPERATOR 2 views chest Indication: Shortness of breath [...] ACID BLOOD POC VENOUS (05/16/2015 2:51 PM AUXILIARY EQUIPMENT OPERATOR) Pathologist [facility] Lactate iSTAT Venous POCT 1.14 0.90 - 1.70 mmol/L 05/16/2015 2:58 PM AUXILIARY EQUIPMENT OPERATOR [facility] Sample iSTAT VENOUS 05/16/2015 2:58 PM AUXILIARY EQUIPMENT OPERATOR [facility] Blood BLOOD SPECIMEN / Unknown 05/16/2015 2:51 PM AUXILIARY EQUIPMENT OPERATOR 05/16/2015 2:58 PM AUXILIARY EQUIPMENT OPERATOR Oriana Orlando MD LAB - POINT OF CARE ORDERABLES Performing Organization Address City/[facility] Co de Phone Number [facility] [address] [place] [address] * STREP A SCREEN DIRECT W RFLX STREP A CULTURE (05/16/2015 2:44 PM AUXILIARY EQUIPMENT OPERATOR) [facility] Strep A Rapid Negative Negative 05/16/2015 3:20 PM AUXILIARY EQUIPMENT OPERATOR [facility] Microbiology ENTIRE THROAT (SURFACE REGION OF NECK) / Unknown Collection / Unknown 05/16/2015 2:44 PM AUXILIARY EQUIPMENT OPERATOR 05/16/2015 3:00 PM AUXILIARY EQUIPMENT OPERATOR Narrative [facility] - 05/16/2015 3:20 PM AUXILIARY EQUIPMENT OPERATOR Test has reflexed to a Strep A culture. Oriana Orlando MD LAB - MICROBIOLOGY O JENNIFER Performing Organization Address City/[facility]/ZIP Co de Phone Number [facility] [address], [place] [address] * CULTURE BLOOD (05/16/2015 2:44 PM AUXILIARY EQUIPMENT OPERATOR) Only the most recent of2 resultswithin the time period is included. Pathologist [facility] Culture No Growth Day 5 NATALI 05/21/2015 6:00 PM AUXILIARY EQUIPMENT OPERATOR [facility] Blood PERIPHERAL BLOOD / Unknown 05/16/2015 2:44 PM AUXILIARY EQUIPMENT OPERATOR 05/16/2015 2:59 PM AUXILIARY EQUIPMENT OPERATOR Oriana Orlando MD LAB - MICROBIOLOGY O JENNIFER Performing Organization Address [facility] Co de Phone Number [facility] [address] [place] [address], [facility] [phone] * CULTURE STREP GROUP A (05/16/2015 2:44 PM AUXILIARY EQUIPMENT OPERATOR) Culture Negative for Beta Hemolytic Streptococcus Group A NATALI 05/18/2015 6:53 AM AUXILIARY EQUIPMENT OPERATOR [facility] Microbiology ENTIRE THROAT (SURFACE REGION OF NECK) / Unknown Collection / Unknown 05/16/2015 2:44 PM AUXILIARY EQUIPMENT OPERATOR 05/16/2015 3:00 PM AUXILIARY EQUIPMENT OPERATOR Oriana Orlando MD LAB - MICROBIOLOGY O JENNIFER Performing Organization Address [facility] Co de Phone Number [facility] [address] [place] [address], [facility] [phone] * INFLUENZA A+B ANTIGEN RAPID (05/16/2015 2:43 PM AUXILIARY EQUIPMENT OPERATOR) Influenza A Antigen Negative Negative 05/16/2015 3:13 PM AUXILIARY EQUIPMENT OPERATOR [facility] Influenza B Antigen Negative Negative 05/16/2015 3:13 PM AUXILIARY EQUIPMENT OPERATOR [facility] Microbiology NASOPHARYNGEAL SWAB / Unknown Collection / Unknown 05/16/2015 2:43 PM AUXILIARY EQUIPMENT OPERATOR 05/16/2015 3:00 PM AUXILIARY EQUIPMENT OPERATOR Narrative [facility] - 05/16/2015 3:13 PM AUXILIARY EQUIPMENT OPERATOR The sensitivity of rapid tests for influenza [...] - MICROBIOLOGY O RDERABLES Performing Organization Address City/[facility]/ZIP Co de Phone Number [facility] [address] [place] [id number] * (ABNORMAL) MONONUCLEOSIS SCREEN (05/16/2015 2:43 PM AUXILIARY EQUIPMENT OPERATOR) Pathologist [facility] Mononucleosis Screen Positive( A) Negative 05/16/2015 3:19 PM AUXILIARY EQUIPMENT OPERATOR [facility] Blood BLOOD SPECIMEN / Unknown Venipuncture / Unknown 05/16/2015 2:43 PM AUXILIARY EQUIPMENT OPERATOR 05/16/2015 2:58 PM AUXILIARY EQUIPMENT OPERATOR Oriana Orlando MD LAB - CHEMISTRY ORDE RABLES Performing Organization Address [facility] Co de Phone Number [facility] [address] [place] [address] * (ABNORMAL) PT-INR (05/16/2015 2:43 PM AUXILIARY EQUIPMENT OPERATOR) Pathologist [facility] PT 11.9(H) 9.5 - 11.6 sec 05/16/2015 3:12 PM AUXILIARY EQUIPMENT OPERATOR [facility] INR 1.2(H) 0.9 - 1.1 05/16/2015 3:12 PM AUXILIARY EQUIPMENT OPERATOR [facility] Blood BLOOD SPECIMEN / Unknown Venipuncture / Unknown 05/16/2015 2:43 PM AUXILIARY EQUIPMENT OPERATOR 05/16/2015 2:58 PM AUXILIARY EQUIPMENT OPERATOR Narrative [facility] - 05/16/2015 3:12 PM AUXILIARY EQUIPMENT OPERATOR Conventional Warfarin Anticoagulant Therapy: INR Reference Range: 2.0-3.0 Intensive Warfarin Anticoagulant Therapy: INR Reference Range: 2.5-3.5 Oriana Orlando MD LAB - COAGULATION OR DERABLES Performing Organization Address City/[facility]/ZIP Co de Phone Number [facility] [address] [place] [address] * B-TYPE NATRIURETIC PEPTIDE (05/16/2015 2:43 PM AUXILIARY EQUIPMENT OPERATOR) Pathologist [facility] BNP 45 0 - 100 pg/mL 05/16/2015 3:25 PM AUXILIARY EQUIPMENT OPERATOR [facility] Blood BLOOD SPECIMEN / Unknown Venipuncture / Unknown 05/16/2015 2:43 PM AUXILIARY EQUIPMENT OPERATOR 05/16/2015 2:58 PM AUXILIARY EQUIPMENT OPERATOR Narrative [facility] - 05/16/2015 3:25 PM AUXILIARY EQUIPMENT OPERATOR A cutoff of 100 pg/mL has been [...] - CHEMISTRY FEDER[place] ADAME Performing Organization Address City/[facility]/ZIP Co de Phone Number [facility] [address] [place] [id number] * LIPASE BLOOD (05/16/2015 2:43 PM AUXILIARY EQUIPMENT OPERATOR) Lipase 61 10 - 220 U/L 05/16/2015 3:32 PM AUXILIARY EQUIPMENT OPERATOR [facility] Blood BLOOD SPECIMEN / Unknown Venipuncture / Unknown 05/16/2015 2:43 PM AUXILIARY EQUIPMENT OPERATOR 05/16/2015 2:58 PM AUXILIARY EQUIPMENT OPERATOR Oriana Orlando MD LAB - CHEMISTRY FEDER[place] ADAME Performing Organization Address [facility]/ZIP Co de Phone Number [facility] [address] [id number] * ACETAMINOPHEN LEVEL (05/16/2015 2:43 PM AUXILIARY EQUIPMENT OPERATOR) Acetaminophen 12.3 10.0 - 30.0 ug/mL 05/16/2015 4:16 PM AUXILIARY EQUIPMENT OPERATOR [facility] Blood BLOOD SPECIMEN / Unknown Venipuncture / Unknown 05/16/2015 2:43 PM AUXILIARY EQUIPMENT OPERATOR 05/16/2015 2:58 PM AUXILIARY EQUIPMENT OPERATOR Narrative [facility] - 05/16/2015 4:16 PM AUXILIARY EQUIPMENT OPERATOR [facility] ACETAMINOPHEN COMMENT Critical values: 4 Hours Post [...] may alter the peak level. Contact the [facility] at or reserved for healthcare professionals to assist you in evaluating potentially toxic acetaminophen levels. Oriana Orlando MD LAB - CHEMISTRY [place] [facility] [address] [id number] * CARDIAC RHYTHM STRIP ORDER (01/23/2015 1:48 PM AUXILIARY EQUIPMENT OPERATOR) Narrative 01/23/2015 1:48 PM AUXILIARY EQUIPMENT OPERATOR Ordered by an unspecified provider. Scanned Document CARDIAC SERVICES ORD ERABLES * GROSS + MICRO EXAM (STL) (01/18/2015 11:16 AM AUXILIARY EQUIPMENT OPERATOR) Case Report Surgical Pathology Report Case: [id number] Authorizing Provider: Bernie Rod MD Collected: 01/18/2015 11:16 AM Ordering Location: [facility] Received: 01/18/2015 12:19 PM Pathologist: Asiya Jansen MD Specimens: A) - Mass, uterine mass B) - Endometrium Curettings C) - Endocervix Curettings 01/21/2015 11:58 AM AUXILIARY EQUIPMENT OPERATOR [facility] Final Diagnosis 1. Mass, uterine, biopsy: -- Negative for malignancy -- Endocervical nabothian cysts -- Proliferative endometrium -- Fragments of myometrium, small 2. Endometrium, curettings: -- Proliferative pattern 3. Endocervix, curettings: -- No pathologic changes GM/rajesh 01/21/2015 11:58 AM AUXILIARY EQUIPMENT OPERATOR [facility] Gross Description Received are three containers [...] cassette labeled C1. DYT/lv 01/21/2015 11:58 AM AUXILIARY EQUIPMENT OPERATOR [facility] Microscopic Description Section A shows multiple [...] pathologic changes. GM/rajesh 01/21/2015 11:[address] [facility] Pathology/Cytology MASS / Unknown 015 11:16 AM AUXILIARY EQUIPMENT OPERATOR 01/18/2015 12:19 PM AUXILIARY EQUIPMENT OPERATOR Miscellaneous samples (specimen) SPECIMEN FROM ENDOMETRIUM OBTAINED BY CURETTAGE / Unknown 01/18/2015 11:17 AM AUXILIARY EQUIPMENT OPERATOR 01/18/2015 12:19 PM AUXILIARY EQUIPMENT OPERATOR Miscellaneous samples (specimen) CURETTINGS / Unknown 01/18/2015 11:17 AM AUXILIARY EQUIPMENT OPERATOR 01/18/2015 12:19 PM AUXILIARY EQUIPMENT OPERATOR Bernie Rod MD LAB - PATHOLOGY/CYTO LOGY ORDERABLES [facility] [address] [place] [address] * ENDOSCOPY, COLON, SCREENING (05/30/2014) Provider Unknown GI PROCEDURE ORDERAB LES * (ABNORMAL) LIPID PROFILE W LDL/HDL (PO REF LAB) (05/14/2014 10:25 AM AUXILIARY EQUIPMENT OPERATOR) Cholesterol 214(H) 125 - 200 mg/dL [facility] Comment: Test Performed at: [employer] [address] [place] [address] RICO DELVALLE DO,MPH HDL Cholesterol 49 > [...] BLOOD SPECIMEN / Unknown 05/14/2014 10:25 AM AUXILIARY EQUIPMENT OPERATOR 05/14/2014 10:26 AM AUXILIARY EQUIPMENT OPERATOR Romero Negrete MD LAB - CHEMISTRY O JENNIFER Performing Organization Address [facility] [place] [address] * THYROID PANEL W TSH (05/14/2014 10:25 AM AUXILIARY EQUIPMENT OPERATOR) Only the most recent of5 resultswithin the time period is included. T3 Uptake 27 22 - 35 % [facility] T4 Total 6.4 4.5 - 12.0 mcg/dL [facility] Thyroxine Free Index 1.7 1.4 - 3.8 [facility] Comment: Test Performed at: [employer] [address] [place] [address] RICO DELVALLE DO,MPH TSH 2.69 0.40 - 4.50 mIU/L [facility] Blood specimen (specimen) BLOOD SPECIMEN / Unknown 05/14/2014 10:25 AM AUXILIARY EQUIPMENT OPERATOR 05/14/2014 10:26 AM AUXILIARY EQUIPMENT OPERATOR Romero Negrete MD LAB - CHEMISTRY O JENNIFER Performing Organization Address [facility] [place] [address] * VITAMIN D 25-HYDROXY (05/14/2014 10:25 AM AUXILIARY EQUIPMENT OPERATOR) Only the most recent of3 resultswithin the [...] established REPORT COMMENT: FASTING:YES Test Performed at: [facility] [address] [address] SEUN STEWART MD,FCAP Blood specimen (specimen) BLOOD SPECIMEN / Unknown 05/14/2014 10:25 AM AUXILIARY EQUIPMENT OPERATOR 05/14/2014 10:26 AM AUXILIARY EQUIPMENT OPERATOR Romero Negrete MD LAB - CHEMISTRY O RDERABLES [facility] [address] [place] [address] * XR WRIST 3+ VW LEFT (11/02/2013 [...] HEPATITIS C ANTIBODY (12/06/2012 10:06 AM CDT) [facility] Hepatitis C Antibody NON-REACTI VE NON-REACT ELIOT [facility] Signal to Cut-Off 0.02 <1.00 [facility] Comment: REPORT COMMENT: FASTING Test Performed at: [facility] [address] [place] [address] RICO DELVALLE DO,MPH Blood specimen (specimen) BLOOD SPECIMEN / Unknown 12/06/2012 10:06 AM CDT 12/06/2012 10:07 AM CDT Romero Negrete MD LAB - CHEMISTRY O JENNIFER Performing Organization Address [facility] de Phone Number [facility] [address] [place] [address] * (ABNORMAL) LIPID PROFILE (12/06/2012 10:06 AM CDT) Only the most recent of7 resultswithin the time period is included. [facility] Cholesterol 221(H) 125 - 200 mg/dL [facility] Comment: Test Performed at: [place] [address] RICO DELVALLE DO,MPH HDL Cholesterol 51 > [...] - CHEMISTRY O JENNIFER Performing Organization Address [facility] Co de Phone Number [facility] [address] [place] [address] * CT ABDOMEN AND PELVIS NON IV [...] pH units Blood UA neg Negative Specific Aspers UA POCT 1.010 1.002 - 1.030 Ketone [...] Morales MD - 08/16/2011 4:47 PM CDT [facility] Department of Cardiology [address] [place] [address] 24 Hour Holter Monitor PATIENT NAME: ANDRIA SANTOS MR#: [id number] AGE: : 1950 DATE OF ADMISSION: 08/15/2011 [...] SANTOS DICTATOR: CHACE MORALES M.D. DICTATED FOR: <USERINITIALS:[id number] JOB ID: [id number] 24 Hour Holter Monitor Romero Negrete MD CARDIAC SERVICES ORDERABLES [facility] * ECHOCARDIOGRAM STRESS (10/01/2009 9:45 AM CDT) 10/01/2009 9:45 AM CDT Narrative [facility] - 10/01/2009 11:42 AM CDT [address] [id number] Exercise Stress Echocardiography Name: ANDRIA SANTOS MR #: [id number] Study date: 01-Oct-2009 : 1950 Age: 59 years Gender: Female Height: Weight: BSA: Allergies: NKA Referring Physician: Romero Negrete MD Edger Liner: Megan Cordova RDCS Nurse Practitioner: Matteo Kemp [...] MD Signed 01-Oct-2009 11:49:39 Procedure Note 10/01/2009 [place] [id number] Exercise Stress Echocardiography Name: ANDRIA SANTOS MR #: [id number] Study date: 01-Oct-2009 : 1950 Age: 59 years Gender: Female Height: Weight: BSA: Allergies: NKA Referring Physician: Romero Negrete MD Edger Liner: Megan Cordova MAR Nurse Practitioner: Matteo Kemp [...] Romero Negrete MD ECHO ORDERABLES [facility] [address] [place] [address] * HELICOBACTER PYLORI ANTIBODY IGG (09/27/2009 7:17 AM CDT) Helicobacter pylori Antibody IgG NEGATIVE NEGATIVE [facility] Comment: H. pylori serology testing measures antibodies to H. pylori and is not recommended for the diagnosis of active infection. The [place] [employer] and the [place] [employer] recommend either the Urea Breath Test (test code #13662) or Helicobacter pylori Antigen, EIA, Stool (test code #74800) for diagnosis and confirmation of eradication in cases of suspected or proven H. pylori infection. Test Performed at: [facility] [address] [place] [address] RICO DELVALLE DO,MPH BLOOD SPECIMEN / Unknown 09/27/2009 7:17 AM CDT 09/27/2009 9:58 PM CDT Romero Negrete MD LAB - CHEMISTRY O RDERABLES Performing Organization Address [facility] [place] [address] * CLOSTRIDIUM DIFFICILE TOXIN (01/22/2009 7:00 AM AUXILIARY EQUIPMENT OPERATOR) Result [facility] Comment: CLOSTRIDIUM DIFFICILE TOXIN A AND B, EIA MICRO NUMBER: [id number] TEST STATUS: FINAL SPECIMEN SOURCE: STOOL SPECIMEN COMMENTS: ADEQUATE RESULT: NOT DETECTED Test Performed at: [employer] [facility] [address] [place] [address] STEPHON TESFAYE MD STOOL SPECIMEN / Unknown 01/22/2009 7:00 AM AUXILIARY EQUIPMENT OPERATOR 01/23/2009 2:53 AM AUXILIARY EQUIPMENT OPERATOR Romero Negrete MD LAB - MICROBIOLOG Y ORDERABLES Performing Organization Address [facility] [place] [address] * CULTURE STOOL PANEL (01/22/2009 7:00 AM AUXILIARY EQUIPMENT OPERATOR) Culture [facility] Comment: CULTURE, CAMPYLOBACTER MICRO NUMBER: [id number] TEST STATUS: FINAL SPECIMEN SOURCE: STOOL SPECIMEN COMMENTS: ADEQUATE RESULT: NO ENTERIC CAMPYLOBACTER ISOLATED Test Performed at: [employer] [facility] [address] [place] [address] STEPHON TESFAYE MD Culture [facility] Comment: CULTURE, SALMONELLA AND SHIGELLA MICRO NUMBER: [id number] TEST STATUS: FINAL SPECIMEN SOURCE: STOOL SPECIMEN COMMENTS: ADEQUATE RESULT: NO SALMONELLA OR SHIGELLA ISOLATED STOOL SPECIMEN / Unknown 01/22/2009 7:00 AM AUXILIARY EQUIPMENT OPERATOR 01/22/2009 3:44 PM AUXILIARY EQUIPMENT OPERATOR Romero Negrete MD LAB - MICROBIOLOG Y ORDERABLES Performing Organization Address [facility] de Phone Number [address] [address] * HYDROXYINDOLACETIC ACID URINE RANDOM (01/21/2009 7:00 AM AUXILIARY EQUIPMENT OPERATOR) 5-HIAA Urine 2.7 <=10.0 mg/g creat [facility] Creatinine Urine 145.8 20 - 320 mg/dL [facility] Comment: Test Performed at: [facility]/[address] [address] KELY BEAR MD URINE / Unknown 01/21/2009 7 :00 AM AUXILIARY EQUIPMENT OPERATOR 01/21/2009 10:20 PM AUXILIARY EQUIPMENT OPERATOR Romero Negrete MD LAB - URINE CHEMI STRY ORDERABLES [facility] [address] [place] [address] * US BREAST UNILATERAL LEFT (09/05/2008 8:18 AM CDT) Anatomical Region Laterality Modality Breast Left Other 09/05/2008 8:18 AM CDT Narrative 09/05/2008 8:12 PM CDT EXAMINATION- Left digital diagnostic mammogram and ultrasound on 09/05/2008 INDICATION- Questionable nodule ADVERTISING TRAFFIC MANAGER- May Driscoll RT, RM FINDINGS- Computer assisted [...] finding(s).. RECOMMENDATION- Followup mammogram in one year [facility] staff will contact and schedule patients with BIRADS categories 0, 4, and 5. Reading Radiologist- ALISA SENA M.D. Releasing Radiologist- ALISA SENA M.D. Released Date Time- 09/05/08903 Screw Down- POLLY Roberts BERNIE SCHULTZ,BERNIE REFKaila ROD,BERNIE CHAVEZ- ROMERO NEGRETE DEBORAH Procedure Note StaciekristineAlisa hagan - 10/25/2008 EXAMINATION- Left digital diagnostic mammogram and ultrasound on 09/05/2008 INDICATION- Questionable nodule ADVERTISING TRAFFIC MANAGER- May Driscoll RT, RM FINDINGS- Computer assisted [...] finding(s).. RECOMMENDATION- Followup mammogram in one year [facility] staff will contact and schedule patients with BIRADS categories 0, 4, and 5. Reading Radiologist- ALISA SENA M.D. Releasing Radiologist- ALISA SENA M.D. Released Date Time- 09/05/08 0904 Screw Down- POLLY Roberts BERNIE SCHULTZ,BERNIE ROD,BERNIE CHAVEZ- ROMERO NEGRETE DEBORAH Bernie Rod MD ORDERABLES * MAMMO DIAG DIRECT DIGITAL IMAGE UNIL LEFT (09/05/2008 7:40 AM CDT) Anatomical Region Laterality Modality Left Other 09/05/2008 7:40 AM CDT Narrative 09/05/2008 8:12 PM CDT EXAMINATION- Left digital diagnostic mammogram and ultrasound on 09/05/2008 INDICATION- Questionable nodule ADVERTISING TRAFFIC MANAGER- RT Trotter RM FINDINGS- Computer assisted detection [...] finding(s).. RECOMMENDATION- Followup mammogram in one year [facility] staff will contact and schedule patients with BIRADS categories 0, 4, and 5. Reading Radiologist- ALISA SENA M.D. Releasing Radiologist- ALISA SENA M.D. Released Date Time- 09/05/08 0904 Screw Down- POLLY Roberts ADM- BERNIE ROD ATT- BERNIE ROD REF- BERNIE ROD CON- PCP- ROMERO NEGRETE- BERNIE ROD Procedure Note Alisa Sena - 09/05/2008 EXAMINATION- Left digital diagnostic mammogram and ultrasound on 09/05/2008 INDICATION- Questionable nodule ADVERTISING TRAFFIC MANAGER- RT Trotter RM FINDINGS- Computer assisted detection [...] finding(s).. RECOMMENDATION- Followup mammogram in one year [facility] staff will contact and schedule patients with BIRADS categories 0, 4, and 5. Reading Yesenia SENA M.D. Releasing Yesenia SENA M.D. Released Date Time- 09/05/08903 Screw DownKaila MATIAS M.D. - BERNIE ROD- PAOLA,BERNIE REF- PAOLA,BERNIE NEGRETE,ROMERO ROD,BERNIE Bernie Rod MD MAMMO ORDERABLES * TSH (04/05/2008 7:16 AM AUXILIARY EQUIPMENT OPERATOR) TSH 1.79 mIU/L [facility] Comment: REFERENCE RANGE: > OR = 20 YEARS: 0.40-4.50 RANGES FIRST TRIMESTER 0.20-4.70 SECOND TRIMESTER 0.30-4.10 THIRD TRIMESTER 0.40-2.70 Test Performed at: [facility] [address] [place] [address] RICO SCHWARTZ MD 04/05/2008 7:16 AM AUXILIARY EQUIPMENT OPERATOR 04/05/2008 10:08 AM AUXILIARY EQUIPMENT OPERATOR Romero Negrete MD LAB - CHEMISTRY O RDERABLES [facility] [address] [place] [address] * T4 TOTAL (04/05/2008 7:16 AM AUXILIARY EQUIPMENT OPERATOR) T4 Total 7.4 4.5 - 12.5 mcg/dL [facility] Comment: Test Performed at: [facility] [address] [place] [address] RICO SCHWARTZ MD 04/05/2008 7:16 AM AUXILIARY EQUIPMENT OPERATOR 04/05/2008 10:08 AM AUXILIARY EQUIPMENT OPERATOR Romero Negrete MD LAB - CHEMISTRY O RDERABLES [facility] [address] [place] [address] * GROSS + MICRO EXAM (11/05/2003 2:38 [...] -- Chronic inflammation and edema, mild. GM/bk Screw Down bk Pathologist Asiya Jansen M.D. Snomed. 11/06/2003 0936 <3> CPT code 20333 x2 MISCELLANEOUS SAMPLES / Unknown 11/05/2003 2:38 PM CDT 11/05/2003 2:38 PM CDT Historical Provider LAB - PATHOLOGY/C YTOLOGY ORDERABLES Care Teams Pot Room Tapper Relationship Specialty Start Date End Date Romero Negrete MD [address] [facility] [address], [place] [address] PCP - General Internal Medicine 08/18/23
--- OUTSIDE RECORDS SUMMARY | 2024-05-18 00:35 | XMS_ITS | Continuity of Care Document ---
Author Organization [facility] [address] Address [address] [place] [address] Phone Care Team Providers Care Marketing Intelligence Manager Name Role Phone Unavailable Unavailable Unavailable Advance Directives Directive Yes / No Effective Date File Name No Information Encounters Encounter Description Practice Location Reason(s) For Visit Diagnoses Date Provider Providers Copied on Encounter [facility] [address], [place], [place], [id number], [place] tel:[phone] [facility] [employer] [facility] ROTATOR CUFF SYND NOSOTH ADV EFF MED/BIO SUB No Information Family History Family Member Type Diagnosis Age At Onset No Information Payers Payer name Insurance type Covered democrat ID Authoriza tion(s) No Information Social History Type Description Quantity Date Captured Comments Sex Female Smoking Status No Information Chief Complaint And Reason For Visit No Information Reason For Referral Reason For Referral No Information History Of Present Illness Encounter Date Complaint History Of Prese nt Illness No Information Functional Status Date Functional Assessmen t No Information Instructions Date Instruction Additional Infor mation No Information Assessments Type Assessment Date No Information Patient Care Teams Name Effective Dates (start - stop) Status Members No Information
--- OUTSIDE RECORDS SUMMARY | 2024-05-18 00:35 | XMS_ITS | Referral Summary ---
Author Organization [facility] Address [address] [facility] [place] [address] Care Team Providers Care Model Engine Mechanic Name Role Phone Romero Meier MD Primary Care Provider [phone] Source Comments [facility],non-owned Affiliates and Associated Physician Practices is amultiple site organization consisting of ambulatory clinics and hospital sitesin [place], [place], [place] and [place]. This disclosure is being madepursuant to the Care Everywhere program and may not contain all information available regarding this patient. Last updated 17.[facility] Encounters Date Type Department Care Team Description [...] left shoulder 03/29/2024 Travel 03/29/2024 11:45 AM PATIENT CARE SECRETARY Office Visit [facility] - Orthopedic Surgery [address] [place] [address] Stephon iMx MD Tear of left rotator cuff, unspecified [...] (Maxalt) 10 MG tablet 08/16/2023 Active Creon 6000-23591 units capsule 06/25/2023 Active methylPREDNISolone (Medrol Dosepak) 4 MG tablet 10/08/2022 Active irbesartan (Avapro) 150 MG tablet Take 1 (one) tablet by mouth 07/02/2023 Active HYDROcodone-acetamin ophen ([place]) 5-325 MG tablet 05/04/2023 Active etodolac (Lodine) [...] (08/16/2023): Added automatically from request for surgery [id number] Tendinitis of wrist 09/17/2021 Right wrist pain [...] (08/16/2023): Added automatically from request for surgery [id number] Essential hypertension, benign 01/19/2009 01/19/2009 Immunizations Name [...] Comments Blood Pressure 152/84 05/19/2015 2:51 PM PATIENT CARE SECRETARY Pulse 85 05/19/2015 2:51 PM PATIENT CARE SECRETARY Temperature 36.8 C (98.3 F) 05/19/2015 2:51 PM PATIENT CARE SECRETARY Respiratory Rate 18 05/19/2015 2:51 PM PATIENT CARE SECRETARY Oxygen Saturation 96% 05/19/2015 2:51 PM PATIENT CARE SECRETARY Inhaled Oxygen Concentration - - Weight 64.9 kg (143 lb) 03/29/2024 10:59 AM PATIENT CARE SECRETARY Height 160 cm (5' 3 ) 03/29/2024 10:59 AM PATIENT CARE SECRETARY Body Mass Index 25.33 03/29/2024 10:59 AM PATIENT CARE SECRETARY Functional Status Functional Status Response Date of [...] Comment: REPORT COMMENT: FASTING Test Performed at: [facility] [address] [place] [address] RICO DELVALLE DO,MPH Blood specimen (specimen) BLOOD SPECIMEN / Unknown 12/06/2012 10:06 AM CDT 12/06/2012 10:07 AM CDT Romero Meier MD LAB - CHEMISTRY O RDERABLES [facility] [address] [place] [address] from Last 3 Months or Most Recently Relevant to Health Maintenance Advance Directives * Full Code (Latest Code Status on File) Date Activated Date Inactivated Comments 05/16/2015 5:46 PM 05/19/2015 5:25 PM Care Teams Model Engine Mechanic Relationship Specialty Start Date End Date Romero Meier MD [address] [id number] PCP - General Internal Medicine 08/18/23
--- OUTSIDE RECORDS SUMMARY | 2024-05-18 00:35 | XMS_ITS | Clinical Summary ---
Author Organization [facility] Address [address] [place] [address] Care Team Providers Care Php Magento Developer Name Role Phone Unavailable Primary Care Provider [...]
--- OUTSIDE RECORDS SUMMARY | 2024-05-18 00:35 | XMS_ITS | Data Portability ---
Author Organization [place] [facility], Main Office Address [address] [place] [address] Care Team Providers Care Spotlight Operator Name Role Phone EKATERINA NEGRETE Primary Care Provider EKATERINA NEGRETE Referring Provider HANK ALEXANDER Tonnage Compilation Clerk Assessment Encounter Date Assessment Date Assessment LastModified [...] more than half the time spent in jyzp-zy-wlvd care. Not available 02/11/2023 14:14:16 02/25/2023 02/25/2023 impression: Naz gaytan has moderately severe medial compartment osteoarthritis right knee. It is not epyi-nm-lhfu. She has not have an insufficiency fracture [...] more than half the time spent in vxit-vi-qjvl care. Not available 02/25/2023 14:25:41 04/07/2023 04/07/2023 [...] rotation as well as abduction. She has ajkm-ly-hvyodyme discomfort with strength testing as well as [...] with more than half of this in jupd-xt-cvjm conversation Not available 04/08/2023 13:20:17 09/24/2023 09/24/2023 The patient has moderate primary osteoarthritis in the medial compartment of the right knee not yet quite ovjq-dd-cvjy does have significant narrowing. We talked about [...] DO Not Attach Compendium, Do Not Delete/merge, [id number] 12:07:03 injection/a spiration joint/bursa (PROC) - in office procedure, administere d by provider 2023 024 [email or web address] In-Office Order, Internal Use Only DO Not Attach Compendium DO Not Attach Compendium, Do Not Delete/merge, [id number] 4 15:09:23 injection/a spiration joint/bursa (PROC) - in office procedure, administere d by provider 2022 023 In-Office Order, Internal Use Only DO Not Attach Compendium DO Not Attach Compendium, Do Not Delete/merge, [id number] 3 15:40:55 Surgeries None recorded. Imaging [facility], [facility] [address] [facility], [place], [address], 3 15:03:50 MRI, knee, w/o contrast 2022 023 [facility], [address] [place] [address], [place], [address], 3 18:38:10 XR, knee 2022 023 [facility], [facility] [facility], [place], [address], 3 15:40:55 Medication Orders Marcaine 0.5 % (5 mg/mL) injection solution 2023 024 [email or web address] [facility]acy #[id number], [address], [place], [address], 4 14:36:18 Kenalog 10 mg/mL suspension for injection 2023 024 [email or web address] [facility]/Pharmacy #[id number], [address], [place], [address], 4 14:36:18 tramadol 50 mg tablet 2023 024 [facility][id number], [address], [place], [address], 4 14:24:04 Kenalog 10 mg/mL suspension for injection 2023 024 [email or web address] r1 [id number], [address], [place], [address], 4 11:40:05 ropivacaine (PF) 5 mg/mL (0.5 %) injection solution 2023 024 [email or web address] r1 [id number], [address], [place], [address], 4 11:40:11 Tylenol Arthritis Pain 650 mg tablet,exte nded release 2022 023 [facility] #[id number], [address], [place], [address], 3 15:03:50 Kenalog 10 mg/mL suspension for injection 2022 023 [email or web address] r1 Not available 4 11:40:05 ropivacaine (PF) 5 mg/mL (0.5 %) injection solution 2022 023 [email or web address] r1 Not available 4 11:40:11 Patient TargetsNo targets recorded. Patient Instructions Encounter Date Encounter Id Patient Instructions Last Modified By Organization Details Last Modified Time 09/24/2023 [id number] viscosupplementa tion treatment* [email or web address] Not available 09/29/2023 11:29:09 Reason for Referral None Reported. Results Created Date Observation Date Name Description Value Unit Range Abnormal Flag Note LastModifiedBy Organization Detail LastModifiedTime 11/06/19 23 XR, knee No observ ation record ed. [facility] [address], [place], [address], 11/05/2022 12:37:42 02/12/20 23 XR, knee No observ ation record ed. [facility] [address], [place], [address], 02/11/2023 14:02:28 02/17/20 23 MRI, knee, w/o contr ast [facility] [address], [place] [address] Patien t Name: ANDRIA CHEN Access ion #: [id number] Sex: F : 1950 6 7 [...] tear involv ing zone 3 of the sliver cutter ior horn of the medial menisc us [...] 1. Small thin radial tear at the sliver cutter ior horn of the medial menisc us involv ing zone 3. 2. Chondr omalac ia in the medial and patell ofemor al compar tments as descri bed above. Electr onical ly Signed by: Oniel kent at 2022 17:36: 55 PM Page 1 [email or web address] [facility] [address] [place], [address], 02/17/2023 13:01:04 Result Notes None recorded. Problems Name Problem SNOMED Code Status Onset Date Resolution Date Notes Provider Name and Address Organization Details Recorded Time Atrial arrhythmia 51939106 Active Not Available [facility] 3 16:40:19 Asthma 265195899 Active Not Available [facility] 3 16:40:19 Gastroesop hageal reflux disease 432925603 Active Not Available [facility] 3 16:40:19 Osteoarthr itis of knee 729705381 Active Not Available [facility] 3 16:40:19 Current tear of medial cartilage AND/OR meniscus of knee Active Not Available [facility] 3 16:40:19 Pain of right wrist 8435538911419 00 Active 2021 Not Available [facility] 3 16:40:19 Osteoarthr itis 868420143 Active Not Available [facility] 3 16:40:19 Tendinitis of wrist 869914900 Active 2021 Not Available [facility] 3 16:40:19 Tendinitis of extensor carpi ulnaris 186545517 Active 2021 Not Available [facility] 3 16:40:20 Pain of right knee joint 3290483410561 00 Active 2021 Not Available [facility] 3 16:40:20 Allergic rhinitis 82003451 Active Not Available [facility] 3 16:40:20 Postmenopa usal state 27253540 Active Not Available [facility] 3 16:40:20 Osteoarthr itis of right knee joint 6461375538713 00 Active 2022 ALEXUS Lorenzo, [place] - [facility] 3 14:01:56 Pain of left shoulder joint 9909181584238 9109 Active 2022 ALEXUS Lorenzo, [place] [facility] 3 11:57:05 Problem Notes None recorded. Procedures Surgical History None recorded. Imaging Results Imaging Date Name Status LastModified by Organiz ation Details LastModified Time 11/05/2022 XR, knee completed [facility] [address] [facility], [place], [address], 11/05/2022 12:37:42 02/11/2023 XR, knee completed [facility] [address] [facility], [place], [address], 02/11/2023 14:02:28 02/16/2023 MRI, knee, w/o contrast completed [email or web address] [facility] ([facility]) [address] [facility], [place], [address], 02/17/2023 13:01:04 Procedure Notes None recorded. Medical [...] 20 mg by injection route. 2023 active [facility]: 0003- 0494- 20 Not Available Not Available [...] 15 mg by injection route. 09/23 completed [facility] 22341 -[phone]- [phone] Not Available Not Available Not Available metoprolol succ 25 mg-hydrochl orothiazide 12.5 mg tablet,ext. rel 24 hr Take 1 tablet every day by oral route. 10/23 completed Not Available Not Available Not Available Nasacort 55 mcg nasal spray aerosol [place] 2 sprays every day by intranasa l [...] Updated DateTime 11/05/2022 [address] [facility] [employer] [facility] 11/05/2022 11:57:02 Date Recorded Body height Provider Name an d Address Organization Details Last Updated DateTime 02/11/2023 160.02 cm Candis Hollis Jung [facility] [employer] [facility] 02/11/2023 12:05:22 Date Recorded Body height Provider Name an d Address Organization Details Last Updated DateTime 02/25/2023 160.02 cm Candis Hollis [facility] [employer] [facility] 02/25/2023 12:02:52 Date Recorded Body height Provider Name an d Address Organization Details Last Updated DateTime 04/07/2023 160.02 cm Mady Ethel [facility] [employer] [facility] 04/07/2023 15:01:51 Date Recorded Body height Body mass index (BMI) Body weight Provider Name and Address Organization Details Last Updated DateTime 09/24/2023 160.02 cm 24.8 kg/m2 05569.93 g Beba Addisonlily, [employer] 09/24/2023 11:39:32 Social History Question Answer Notes LastModified by Organizat ion Details LastModified Time Tobacco Smoking Status Never Smoker Salima Chisholm null, [employer] 04/07/2023 14:51:15 What Is Your Level Of Alcohol Consumption? None [email or web address] Information not available 09/24/2023 What Is Your Occupation? [employer] [email or web address] Information not available 04/07/2023 What Was The Date Of Your Most Recent Tobacco Screening? 05/20/2021 [email or web address] Information not available 04/07/2023 Sex: Unknown Functional Status None recorded. Mental Status None recorded. Family History Relationship Description Onset Age of this Age Resolved Age Notes LastModified by Organization Details LastModified Time Mother Family history of malignant neoplasm [email or web address] Not available 09/23 11:18:07 Mother Heart disease [email or web address] [id number] Not available 05/13/2022 16:39:40 Father Hypertensive disorder [email or web address] [id number] Not available 05/13/2022 16:39:40 Sister Hypertensive disorder [email or web address] Not available 2022 14:16:25 Medical History Condition Response ANEMIA/BLOOD DISORDER Y HEART DISEASE/HEART PROBLEMS Y HYPERTENSION Y Gynecological HistoryNo gynecological history recorded. Obstetrics History GPAL:G 0 P 0 0 0 0 Past Encounters Encounter ID Performer Location Encounter Start Date Encounter Closed Date Diagnosis/Indication Diagnosis SNOMED-CT Code Diagnosis ICD10 Code Diagnosis Note [id number] [facility] [address] [place] [address] 07/02/2020 00:00:00 07/02/2020 17:03:45 [id number] [facility] [place] [address] [place] [address] 07/30/2020 00:00:00 07/30/2020 14:36:09 [id number] [facility] [place] [address] [place] [address] 09/17/2020 00:00:00 09/17/2020 16:31:40 [id number] [facility] [place] [address] [place] [address] 10/01/2020 00:00:00 10/01/2020 12:30:57 [id number] [facility] [place] [address] [place] [address] 10/08/2020 00:00:00 10/08/2020 09:00:41 [id number] [facility] [place] [address] [place] [address] 10/29/2020 00:00:00 10/29/2020 12:17:58 [id number] [facility] [place] [address] [place] [address] 11/26/2020 00:00:00 11/26/2020 13:06:01 [id number] [facility] [place] [address] [place] [address] 12/24/2020 00:00:00 12/24/2020 12:34:15 [id number] [facility] [place] [address] [place] [address] 05/20/2021 00:00:00 05/20/2021 15:52:07 [id number] [facility] [place] [address] [place] [address] 06/10/2021 00:00:00 06/10/2021 15:38:11 [id number] [facility] [place] [address] [place] [address] 07/01/2021 00:00:00 07/01/2021 14:35:28 [id number] [facility] [place] [address] [place] [address] 07/29/2021 00:00:00 07/29/2021 16:57:05 [id number] [facility] [place] [address] [place] [address] 09/17/2021 00:00:00 09/17/2021 17:49:42 [id number] [facility] [place] [address] [place] [address] 10/29/2021 00:00:00 10/29/2021 16:49:01 [id number] [facility] [place] [address] [place] [address] 11/25/2021 00:00:00 11/25/2021 16:27:59 [id number] [facility] [place] [address] [place] [address] 12/16/2021 00:00:00 12/16/2021 17:26:17 [id number] [facility] [place] [address] [place] [address] 12/29/2021 00:00:00 12/29/2021 15:40:59 [id number] [facility] [place] [address] [place] [address] 05/04/2022 00:00:00 05/04/2022 16:35:22 [id number] SAM Krishnamurthy [facility] [place] [address] [place] [address] 06/05/2022 14:01:09 06/05/2022 16:06:02 Osteoarthritis 245844723 M17.11 [id number] SAM Krishnamurthy [facility] [place] [address] [place] [address] 08/03/2022 13:57:45 08/03/2022 15:45:17 Osteoarthritis of right knee joint 1107730504 19417 M17.11 [id number] SAM Krishnamurthy [facility] [place] [address] [place] [address] 08/20/2022 11:46:22 08/20/2022 12:53:57 Pain of left shoulder joint 6283962670 [id number] M25.512 [id number] SAM Krishnamurthy [facility] [address] [address] 11/05/2022 11:41:15 11/05/2022 13:09:19 Pain of right knee joint 2112535064 26128 M25.624 [id number] Dontrell Elizabeth MD [facility] [address] [address] 02/11/2023 11:42:09 02/11/2023 14:15:21 Osteoarthritis of right knee joint 4595920410 52936 M17.11 [id number] Dontrell Elizabeth MD [facility] [address] [address] 02/25/2023 11:57:10 02/25/2023 14:26:11 Osteoarthritis of right knee joint 6172817386 44834 M17.11 [id number] SAM Krishnamurthy [facility] [place] [address] [place] [address] 04/07/2023 14:47:52 04/08/2023 13:46:31 Pain of left shoulder joint 8795307015 [id number] M25.493 [id number] SAM Tompkins [facility] [place] [address] [place] [address] 09/24/2023 11:15:49 09/24/2023 12:13:10 Osteoarthritis of right knee joint 8668937867 43105 M17.11 Pain of ri ght knee joint 2777334720 [id number] M25.561 Health Concerns Section Related Observation LastModified by Organization Detai ls LastModified Time None Recorded Concern Status LastModified by Organization Details LastModified Time None Recorded Advance Directives Directive None Recorded Payers Encounter Date Sequence Insurance Name Policy Number Policy Real Covered Member ID Real Member ID Guarantor Name 11/05/2022 1 [facility] (MEDICARE REPLACEMENT/A DVANTAGE - PPO) [id number] Andria Lopez [id number] Andria Lopez 02/11/2023 1 [facility] (MEDICARE REPLACEMENT/A DVANTAGE - PPO) [id number] Andria Lopez [id number] Andria Lopez 02/25/2023 1 [facility] (MEDICARE REPLACEMENT/A DVANTAGE - PPO) [id number] Andriajung Barriosick [id number] Andria Lopez 04/07/2023 1 [facility] (MEDICARE REPLACEMENT/A DVANTAGE - PPO) [id number] Andriajung Barriosick [id number] Andria Lopez 09/24/2023 1 [facility] (MEDICARE REPLACEMENT/A DVANTAGE - PPO) [id number] Andriajung Barriosick [id number] Andria Lopez Notes Date Note Type Note [...] than average bone density for age. 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 Dontrell Elizabeth MD [address] [place] [address], [place], [address], [facility] 02/25/2023 14:25:58 09/24/2023 text/html Patient [...] measures. Eventually she sought another opinion in [place] and on May 04 of this year [...] options if there are any. SAM Tompkins [address] [place] [address], [place], [address], [place] [facility] 09/24/2023 14:24:45 OBGyn Episode No OBEpisode recorded.
--- OUTSIDE RECORDS SUMMARY | 2024-05-18 00:35 | XMS_ITS | Clinical Summary ---
Author Organization [facility] Address [address] [place] [address] Care Team Providers Care Vascular Tech Name Role Phone Romero Meier MD Primary Care Provider [phone] Source Comments [facility],non-owned Affiliates and Associated Physician Practices is amultiple site organization consisting of ambulatory clinics and hospital sitesin [place], [place], [place] and [place]. This disclosure is being madepursuant to the Care Everywhere program and may not contain all information available regarding this patient. Last updated 17.[facility] Allergies Active Allergy Reactions Criticality Noted Date [...] (Maxalt) 10 MG tablet 08/16/2023 Active Creon 6000-78360 units capsule 06/25/2023 Active methylPREDNISolone (Medrol Dosepak) 4 MG tablet 10/08/2022 Active irbesartan (Avapro) 150 MG tablet Take 1 (one) tablet by mouth 07/02/2023 Active HYDROcodone-acetamin ophen ([place]) 5-325 MG tablet 05/04/2023 Active etodolac (Lodine) [...] (08/16/2023): Added automatically from request for surgery [id number] Tendinitis of wrist 09/17/2021 Right wrist pain [...] (08/16/2023): Added automatically from request for surgery [id number] Essential hypertension, benign 01/19/2009 01/19/2009 Encounters Date [...] tendinitis of left shoulder 03/29/2024 11:45 AM HEARING AID CONSULTANT Office Visit [facility] - Orthopedic Surgery [address] [...] Comments Blood Pressure 152/84 05/19/2015 2:51 PM HEARING AID CONSULTANT Pulse 85 05/19/2015 2:51 PM HEARING AID CONSULTANT Temperature 36.8 C (98.3 F) 05/19/2015 2:51 PM HEARING AID CONSULTANT Respiratory Rate 18 05/19/2015 2:51 PM HEARING AID CONSULTANT Oxygen Saturation 96% 05/19/2015 2:51 PM HEARING AID CONSULTANT Inhaled Oxygen Concentration - - Weight 64.9 kg (143 lb) 03/29/2024 10:59 AM HEARING AID CONSULTANT Height 160 cm (5' 3 ) 03/29/2024 10:59 AM HEARING AID CONSULTANT Body Mass Index 25.33 03/29/2024 10:59 AM HEARING AID CONSULTANT Plan of Treatment Health Maintenance Due [...] Comment: REPORT COMMENT: FASTING Test Performed at: [facility] [address] [place] [address] RICO DELVALLE DO,MPH Blood specimen (specimen) BLOOD SPECIMEN / Unknown 12/06/2012 10:06 AM CDT 12/06/2012 10:07 AM CDT Romero Meier MD LAB - CHEMISTRY O RDERABLES [facility] [address] [place] [address] from Last 3 Months or Most Recently Relevant to Health Maintenance Advance Directives * Full Code (Latest Code Status on File) Date Activated Date Inactivated Comments 05/16/2015 5:46 PM 05/19/2015 5:25 PM Care Teams Vascular Tech Relationship Specialty Start Date End Date Romero Meier MD [address] [id number] PCP - General Internal Medicine 08/18/23
--- OUTSIDE RECORDS SUMMARY | 2024-05-18 00:36 | XMS_ITS | Referral Summary ---
Author Organization [facility] Building C Address [address] [place] [address] Care Team Providers Care Crane Service Technician Name Role Phone Romero Meier MD Primary Care Provider + Encounters Date Type Department Care Team Description 05/11/2024 Telephone [facility] Primary Care at [address] [phone] Romero Meier MD 05/08/2024 Telephone [facility] Primary Care at [address] [phone] Romero Meier MD 04/25/2024 9:30 AM IT RISK ADVISOR Office Visit [facility] Medical [facility] Primary Care at [address] [phone] Sayra Edwards NP Rash (Primary Dx) 04/24/2024 Nurse Triage [facility] Medical [facility] Primary Care at [address] [phone] Romero Meier MD 04/03/2024 Telephone [facility] Medical [facility] Primary Care at [address] [phone] Romero Meier MD Recommendation Request 03/29/2024 9:45 AM IT RISK ADVISOR Office Visit [facility] Primary Care at [address] [phone] Romero Meier MD Essential hypertension (Primary Dx); Supraventricular tachycardia 03/27/2024 Telephone [facility] Primary Care at [address] [phone] Romero Meier MD Appointment Request 03/21/2024 Telephone [facility] Primary Care at [address] [phone] Romero Meier MD 02/24/2024 1:00 PM IT RISK ADVISOR Office Visit [facility] Primary Care at [address] [phone] Romero Meier MD Essential hypertension (Primary Dx); Pure hypercholesterolemia; Chronic pain of right knee from Last 3 Months Allergies Active Allergy Reactions Criticality Noted Date Comments Pitavastatin Calcium Muscle pain Medium 10/12/2012 Medications aspirin (ASPIRIN LOW DOSE) 81 mg tablet take 1 tablet by oral route every day 0 0 03/01/20 15 Active multivitamin with minerals tablet Take 1 tablet by mouth Active ipratropium-albut Stephen (DUO-NEB) 0.5-2.5 mg/3 mL nebulizer solutionIndicatio ns:Chronic Obstructive Pulmonary Disease with Bronchospasms Take 3 mL by nebulization 4 (four) times a day as needed for wheezing or shortness of breath 90 mL 11 08/06/19 22 Active calcium citrate malate-vit D3 250 mg-2.5 mcg (100 unit) tablet Take by mouth Act meredith coenzyme Q10 100 mg capsule Take 1 capsule (100 mg total) by mouth daily Active cetirizine (ZyrTEC) 10 mg tablet Take 1 tablet (10 mg total) by mouth daily Active dicyclomine (BENTYL) 10 mg capsule Take 1 capsule (10 mg total) by mouth 2 (two) times a day before breakfast and dinner 60 capsule 11 02/24/20 22 Active diphenoxylate-atr opine (LOMOTIL) 2.5-0.025 mg per tablet TAKE 1 TABLET BY MOUTH 4 TIMES A DAY NEEDED FOR DIARRHEA. 30 tablet 3 08/08/19 23 Active traMADoL (ULTRAM) 50 mg tablet Take 1 tablet (50 mg total) by mouth every 6 (six) hours as needed 02/12/20 23 Active rizatriptan (MAXALT) 10 mg tablet Take 1 tablet (10 mg total) by mouth once as needed for migraine for up to 1 dose May repeat in 2 hours if unresolved. Do not exceed 30 mg in 24 hours. 12 tablet 11 05/31/19 24 Active irbesartan (AVAPRO) 150 mg tablet Take 1 tablet (150 mg total) by mouth nightly 90 tablet 3 06/01/19 24 Active metoprolol tartrate (LOPRESSOR) 50 mg immediate release tablet TAKE 1 TABLET BY MOUTH TWICE DAILY 200 tablet 2 10/29/[address] (PROTONIX) 40 mg EC tablet Take 1 tablet (40 mg total) by mouth daily 30 tablet 11 11/29/19 24 025 Active albuterol HFA (PROVENTIL HFA,VENTOLIN HFA,PROAIR HFA) 90 mcg/actuation inhaler Inhale 2 puffs every 6 (six) hours as needed for wheezing 8.5 g 4 11/29/19 24 025 Active atorvastatin (LIPITOR) 20 mg tablet TAKE 1 TABLET BY MOUTH EVERY DAY 100 tablet 1 02/28/20 24 Active valACYclovir (VALTREX) 1 gram tablet TAKE 2 TABLETS BY MOUTH TWICE A DAY 4 tablet 3 04/13/19 25 Active LORazepam (ATIVAN) 1 mg tablet Take 1 tablet (1 mg total) by mouth every 6 (six) hours as needed for anxiety 60 tablet 05/08/19 25 Active ALPRAZolam (XANAX) 0.5 mg tablet Take 1 tablet (0.5 mg total) by mouth nightly as needed for anxiety 30 tablet 05/08/19 25 025 Active LORazepam (ATIVAN) 1 mg tablet TAKE 1 TABLET BY MOUTH EVERY 6 HOURS NEEDED FOR ANXIETY. 60 tablet 04/07/19 25 025 Discontinu ed(Reorder ) valACYclovir (VALTREX) 1 gram tablet Take 1 tablet (1,000 mg total) by mouth 3 (three) times a day for 7 days 21 tablet 04/25/19 25 025 Active Problems Problem Noted Date Diagnosed Date Rash 04/25/2024 Assessment & Plan (04/25/2024 9:23 AM IT RISK ADVISOR): New onset rash on the arm with [...] (09/17/2021): Added automatically from request for surgery [id number] Epigastric abdominal pain 09/17/2021 Overview (09/17/2021): Added automatically from request for surgery [id number] Essential hypertension 03/01/2015 Overview (06/18/2016): Essential hypertension Atopic rhinitis 03/01/2015 Overview (06/18/2016): Allergic rhinitis Asthma 03/01/2015 Overview (06/18/2016): Asthma Anxiety 03/01/2015 Overview (06/18/2016): Anxiety Pure hypercholesterolemia 10/11/2009 S/P cholecystectomy 09/26/2009 Supraventricular tachycardia 01/19/2009 Immunizations Immunization Administration Dates Next Due COVID-19 mRNA ([employer]) 0.3 m L (30 mcg) vaccine (12 [...] Trivalent, IM (MDV) 11/10/2011 Influenza, Unspecified 12/13/2020,2019,12/30/2018,12/31 [facility] SARS-CoV-2 Monovalent Vaccination (12+ Yrs) ARORA-READY TO USE 09/24/2021 Pfizer SARS-CoV-2 Monovalent Vaccination (12+ Yrs) PURPLE 07/15/2022,06/15/2022,12/23/2020,05/18,04/25/2020 [facility] Sars-Cov-2 Bivalent V accination (12+ YRS) 07/15/2022,12/05/2021,12/04/2021 [...] on file Legal Sex Female 8:57 AM IT RISK ADVISOR Gender Identity Female 01/13/2021 11:02 AM CDT Sexual Orientation Straight 01/13/2021 11 :02 AM CDT 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 Not on file Last Filed Vital Signs Vital Sign Reading Time Taken Comments Blood Pressure 142/70 04/25/2024 9:07 AM IT RISK ADVISOR Pulse 78 04/25/2024 9:07 AM IT RISK ADVISOR Temperature 36.8 C (98.3 F) 11/02/2023 2:00 PM CDT Respiratory Rate 16 12/09/2023 12:20 PM CDT Oxygen Saturation 98% 04/25/2024 9:07 AM IT RISK ADVISOR Inhaled Oxygen Concentration - - Weight 70.3 kg (155 lb) 04/25/2024 9:07 AM IT RISK ADVISOR Height 160 cm (5' 3 ) 04/25/2024 9:07 AM IT RISK ADVISOR Body Mass Index 27.46 04/25/2024 9:07 AM IT RISK ADVISOR Plan of Treatment Not on file Procedures Procedure Name Priority Date/Time Associated Diagnosis Comments MRI HIP RIGHT WO CONTRAST Schedule Routine, Read Routine (OP Routine) 03/17/2024 8:06 AM IT RISK ADVISOR SCREENING MAMMOGRAM 2D BILATERAL Schedule Routine, Read Routine (OP Routine) 12/31/2022 DEXA AXIAL SKELETON BONE DENSITY 1 OR MORE SITES Schedule Routine, Read Routine (OP Routine) 08/25/2022 COLONOSCOPY 11/06/2021 1:15 PM CDT HEPATITIS C ANTIBODY Routine 07/01/2017 11:16 AM CDT from Last 3 Months or Most Recently Relevant to Health Maintenance Results * MRI Hip Right WO Contrast (03/17/2024 8:06 AM IT RISK ADVISOR) Anatomical Region Laterality Modality Lower Extremities Right Magnetic Reson ance us Historical Provider MD [facility] MRI PROCEDURES Final [...] 11/06/2021 1:15 PM Admit Type: Outpatient Room: [facility] 3 Date of : 1950 Instrument Name: [...] with a HCV Nucleic Acid Amplification test ([id number]). 07/01/2017 11:1 6 AM CDT 07/01/2017 Narrative [facility] - 07/02/2017 10:14 AM CDT Performed at: - [facility] [address] [id number] Station Installation Supervisor: Wes Taylor PhD, Phone: [phone] Romero Meier MD LAB MICROBIOLOGY - GENER AL ORDERABLES Final Result [facility] - 01 from Last 3 Months or Most Recently Relevant to Health Maintenance Insurance MEDICARE SOLUTIONS MEDICARE SOLUTIONS MEDICARE SOLUTIONS Advance Directives For more information, please contact: [phone] * Full Code (Latest Code Status on File) Date Activated Date Inactivated Comments 11/06/2021 12:19 PM 11/06/2021 6:36 PM Care Teams Crane Service Technician Relationship Specialty Start Date End Date Romero Meier MD [address] [address] PCP - General 06/12/16
--- OUTSIDE RECORDS SUMMARY | 2024-05-18 00:36 | XMS_ITS | Clinical Summary ---
Author Organization [employer] [facility] Address [address] [place] [address] Care Team Providers Care Garage Manager Name Role Phone Unavailable Primary Care Provider Unavailabl e Encounters Date Type Department Care Team Description 05/17/2024 External Device Data ST[facility] ABSTRACTION Provider, Abstract 2024 External Device Data [facility] ABSTRACTION Provider, [...] Colonography Q 5 years 1997 PNEUMOCOCCAL VACCINE 50+ YEARS (1 of 1 - PCV) 05/03/19 03 ZOSTER VACCINE (1 of 2) 2002 OSTEOPOROSIS SCREENING 2017 INFLUENZA VACCINE (#1) 2023 RSV VACCINE (60+ or ) (1 - 1-dose 75+ series) 2027 Insurance [employer]
--- OUTSIDE RECORDS SUMMARY | 2024-05-18 00:36 | XMS_ITS | Continuity of Care Document ---
Author Organization [facility] Address [address] [place] [address] Phone Care Team Providers Care An/Syq 13 Nav/C2 Operator Name Role Phone Akbar MENDEZ, Clarence Unavailable Unavailable Allergies, Adverse Reactions, Alerts Substance Reaction Status Criticality No Known Allergies Active No Inform ation Medications Medication Instructions Dosage Effective Dates (start - stop) Status Comments etodolac 400 mg tablet take 1 tablet by oral route every 12 hours with food 400 MG - Active CELECOXIB 200 MG CAPSULE TAKE 1 CAPSULE BY MOUTH TWICE A DAY NEEDED - Active [place] 5 mg-325 mg tablet take 1 - 2 tablet by oral route every 6 hours as needed for pain as needed 1-2 tablet - Active irbesartan 75 mg tablet take 1 tablet by oral route every day 75 MG - Active atorvastatin 10 mg tablet take 1 tablet by oral route every day 10 MG - Active Nasacort 55 mcg nasal spray aerosol spray 2 spray by intranasal route every day in each nostril 110 MCG - Active tramadol 50 mg tablet take 1 - 2 (50MG) by oral route every 6 hours as needed 50 MG - Active diphenoxylate-atropi ne 2.5 mg-0.025 mg tablet take 2 tablet by oral route 4 times every day as needed 5 MG - Active multivitamin tablet - Active rizatriptan 5 mg tablet take 1 tablet by oral route once, may repeat at 2 hour intervals; do not exceed 30 mg in 24 hours 5 MG - Active omeprazole 40 mg capsule,delayed release - Active metoprolol tartrate 25 mg tablet - Active CETIRIZINE HCL (unknown strength) Not Available - Active aspirin 81 mg tablet,delayed release - Active lorazepam 1 mg tablet - Active rosuvastatin 10 mg tablet - Active NASACORT (unknown strength) Not Available - Active Procedures Procedure Date Global/Postop followup visit Asp/inject major joint or bursa w/o US g uidance Kenalog 10mg/mL Global/Postop followup visit Global/Postop followup visit Meniscectomy Med OR Lat Disability Form Office/outpatient visit,new, mod 2023 X-ray exam knee, 3 views Office/outpatient visit,est, low 2019 Supplemental Report Global/Postop followup visit Supplemental Report [place] Wrist With Spica Global/Postop followup visit Supplemental Report Office/outpatient visit,est, low 2019 Supplemental Report Office/outpatient visit,est, low 2018 Supplemental Report X-ray exam wrist, complete, 3+ views Jun Kenalog Triamcinolone acetonide inj Inject tndn sheath/lgmnt/gangl cyst Ultrasonic guide needle plcmnt S/I Office consultation, moderate 9 [facility] Splint [facility] [employer] [place] Advance Directives Directive Yes / No Effective Date File Name No Information Encounters Encounter Description Practice Location Reason(s) For Visit Diagnoses Date Provider Providers Copied on Encounter [facility], [address], [place], [place], [id number], [place] tel:[phone] [facility] Encounter for other orthopedic aftercare 4 Akbar Lima. [address] [facility], [place], [place], [id number], [place]. tel:[phone] Referring Provider: Clarence Quinones, [address] [facility] [address], [place], [address] . tel:[phone] [facility], [address] [facility] [facility] [address], [place], [place], [id number], [place] tel:[phone] [facility] No Information 4 Akbar Lima. [address] [facility], [address], [place], [place], [id number], [place]. tel:[phone] [facility], [address], [place], [place], [id number], [place] tel:[phone] [facility] Encounter for other orthopedic aftercare 4 Akbar Lima. [address] [facility], [address], [place], [place], [address], [place]. tel:[phone] Referring Provider: Clarence Quinones, [address] [facility] [address], [place], [address] . tel:[phone] [facility], [address] [facility] [facility] [facility], [place], [place], [id number], [place] tel:[phone] [facility] Encounter for other orthopedic aftercare 4 Akbar Lima. [address] [facility], [address], [place], [place], [address], [place]. tel:[phone] Referring Provider: Clarence Quinones, [address] [facility] [address], [place], [address] . tel:[phone] [facility], [address] [facility] [facility] [facility], [place], [place], [id number], [place] tel:[phone] [facility] No Information 4 Akbar Lima. [address] [facility], [address], [place], [place], [address], [place]. tel:[phone] Referring Provider: Clarence Quinones, [address] [facility] [address], [place], [address] . tel:[phone] [facility], [address], [id number], [place] tel:[phone] [facility] No Information 4 Akbar Lima. [address] [facility], [address] [facility], [place], [place], [address], [place]. tel:[phone] [facility], [address] [address], [place], [place], [id number], [place] tel:[phone] [facility] Pain in right kneeOth tear of medial meniscus, current injury, r knee, init 4 Akbar Lima. [address] [facility] [address], [place], [place], [id number], [place]. tel:[phone] Office/outpat ient visit,[facility], [facility], [address], [id number], [place] tel:[phone] [facility] Very bad pain in right knee (chief complaint) Pain in right kneeOth tear of medial meniscus, current injury, r knee, init 4 Akbar Lima. [address] [facility], [address] [address], [place], [place], [address], [place]. tel:[phone] Referring Provider: Clarence Quinones, [address] [place] [address] [address] [facility], [place], [address] . tel:[phone] Office/outpat ient visit,[facility], [facility], [address], [id number], [place] tel:[phone] [facility] Right wrist (chief complaint) Radial styloid tenosynovitis [de Quervain] 0 Aracelyshelly Craft. [address] [facility], [address], [id number], [place]. tel:[phone] [facility], [address], [id number], [place] tel:[phone] [facility] Right wrist (chief complaint) Radial styloid tenosynovitis [de Quervain] 0 Aracley Venancio. [address] [facility], [address] [address], [place], [place], [id number], [place]. tel:[phone] [facility], [address] [address], [place], [place], [id number], [place] tel:[phone] [facility] Right wrist (chief complaint) Radial styloid tenosynovitis [de Quervain] 0 Aracelyezio Craft. [address] [facility], [address], [id number], [place]. tel:[phone] Office/outpat ient visit,est, [facility], [address], [id number], [place] tel:[phone] [facility] right wrist (chief complaint) Radial styloid tenosynovitis [de Quervain] 0 Aracely Craft. [address] [facility], [address] [address], [place], [place], [address], [place]. tel:[phone] Office/outpat ient visit,est, [facility], [address], [id number], [place] tel:[phone] [facility] right wrist (chief complaint) Radial styloid tenosynovitis [de Quervain] 9 Aracelyshelly Craft. [address] [facility], [facility], [place], [place], [id number], [place]. tel:[phone] Office consultation, moderate [facility], [address] [address], [place], [place], [id number], [place] tel:[phone] [facility] right wrist (chief complaint) Radial styloid tenosynovitis [de Quervain]Pain in right wrist 9 Aracelyezio Craft. [address] [facility], [address], [place], [place], [address], [place]. tel:[phone] Family History Family Member Type Diagnosis Age At Onset Mother Problem (finding) Cancer, unknown Mother Problem (finding) Heart Disease Immunizations Vaccine Date Status Comments Pneumo (2 yrs or older) (PPV23) administe red Source: Other Provider influenza, injectable, quadr ivalent, (3 years or older) administered Source: Other Provid er Payers Payer name Insurance type Covered democrat ID Authoriza tion(s) [facility] Medicare Advantage HMO PPO CI [id number] Social History Type Description Quantity Date Captured Comments Alcohol Use Details No Caffeine Use Details Tobacco Use Status Ex-smoker Smoking Status Former smoker Non-Smoking Tobacco Use Details : No Details Available : No Details Available Sex Female Vital Signs Date / Time: Height Weight BMI Pulse Rate Blood Pressure Temperature Respiratory Rate Body Surface Area Head Circumference Head Circ. Percentile Wt./Rai. Percentile BMI percentile Pulse Ox Inhaled Ox 11:04 AM 63.00 in 58.967 kg (130.00 lbs) 23.0 3 kg/m eter (2) Chief Complaint And Reason For Visit No Information Reason For Referral Reason For Referral No Information Plan Of Treatment Date Type Action Status Referral Ordered: X-ray exam knee, 1 or 2 views RT ordered Referral Ordered: X-ray exam both knees, standing ordered Referral Ordered: X-ray exam wrist, complete, 3+ views RT ordered History Of Present Illness Encounter Date Complaint History Of Prese nt Illness Very bad pain in right knee Juliet presents to the office for right knee complaints. Right wrist Juliet returns to the office today on July 28, 2019. She is over 3 months out from a first dorsal extensor compartment release of the right wrist for de Quervain's tenosynovitis on April 25, 2019. Juliet was last seen in the office 9 weeks ago on May 24, 2019. At that time, she was progressing well with hand therapy. Juliet reports that her right wrist is much improved in response to surgery, although she does still experience some discomfort when lifting more than 30 pounds. Right wrist Juliet returns to the office today on May 24, 2019. She is now 4 weeks out from a first dorsal extensor compartment release of the right wrist for de Quervain's tenosynovitis on April 25, 2019. Juliet was last seen in the office 2 weeks ago on May 10, 2019. At that time, I provided her with a thumb spica splint. I also referred her to Hand Therapy to help with range of motion exercises and modalities as indicated. Juliet has been working with Hand Therapy, and she is pleased with her progress. She returns for followup today. Right wrist Juliet returns to the office today on May 10, 2019. She is 2 weeks out from a first dorsal extensor compartment release of the right wrist for de Quervain's tenosynovitis on April 25, 2019. Juliet's pain has been well-controlled. She returns for followup today. right wrist Juliet returns to the office today on April 14, 2019. She is here for follow up of de Quervain's tenosynovitis of the right wrist. Juliet was last seen in the office 8 months ago on July 25, 2018. At that time she was doing well with her right wrist in response to a cortisone injection given on July 11, 2018 and a [place] thumb spica splint. Juliet was discharged from care on July 25, 2018. However, she reports today that the right wrist pain came back a few months later, and the pain has been getting worse ever since then. Juliet returns for re-evaluation of her right wrist today. right wrist Juliet returns to the office today on July 25, 2018. She is here for follow up of de Quervain's tenosynovitis of the right wrist. Juliet was last seen in the office 2 weeks ago on July 11, 2018. At that time I injected the first dorsal extensor compartment of the right wrist with lidocaine and Kenalog for the right wrist de Quervain's tenosynovitis. I also provided Juliet with a [place] Thumb Spica Splint to use as needed. Juliet reports today that the injection helped tremendously, and she no longer has pain in the right hand or wrist. She uses the splint as needed at work. Juliet is very pleased with her response to treatment. She returns for follow up today. right wrist Juliet presents to the office today on July 11, 2018. She is here because of right wrist pain. 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 She works Wednesday through Wednesday from 5 AM to 10 AM. Juliet explains that there are 50 pound bags of soil that are placed over the sprinklers overnight to hold them in place. On June 30, 2018, Juliet went to move one of these heavy bags which was even heavier because it was saturated with water. She could not move the heavy bag, and she felt a sudden pain in her right forearm. Over the next several days, the pain radiated from the forearm down into the radial aspect of the right wrist. Juliet reported the injury, and she was referred here today for further evaluation and treatment of her right wrist. Juliet explains that she has tried heat and ice for her right wrist pain. She has tried [id number] Aleve. However, the pain persists. Functional Status Date Functional Assessmen t No Information Instructions Date Instruction Additional Infor mation No Information Assessments Type Assessment Date No Information Patient Care Teams Name Effective Dates (start - stop) Status Members No Information
--- OUTSIDE RECORDS SUMMARY | 2024-05-18 00:36 | XMS_ITS | Clinical Summary ---
Author Organization [facility] Address [address] [place] [address] Phone Care Team Providers Care Diabetes Specialist Name Role Phone Romero Meier MD [...] on file Legal Sex Female 11:52 AM PARISH VISITOR Gender Identity Not on file Sexual Orientation Not on file Last Filed Vital Signs Vital Sign Reading Time Taken Comments Blood Pressure 116/50 04/23/2021 2:19 PM PARISH VISITOR Pulse 66 04/23/2021 12:14 PM PARISH VISITOR Temperature 36.4 C (97.6 F) 04/23/2021 12:14 PM PARISH VISITOR Respiratory Rate 18 04/23/2021 12:14 PM PARISH VISITOR Oxygen Saturation 100% 04/23/2021 12:14 PM PARISH VISITOR Inhaled Oxygen Concentration - - Weight 68 kg (150 lb) 04/23/2021 12:14 PM PARISH VISITOR Height 167.6 cm (5' 6 ) 04/23/2021 12:14 PM PARISH VISITOR Body Mass Index 24.21 04/23/2021 12:14 PM PARISH VISITOR Plan of Treatment Health Maintenance Due Date [...] to complete this topic Insurance MEDICARE C [facility] Care Teams Diabetes Specialist Relationship Specialty Start Date End Date Romero Meier MD PCP - General Internal Medicine 04/23/21
--- OUTSIDE RECORDS SUMMARY | 2024-05-18 00:36 | XMS_ITS | Continuity of Care Document ---
Author Organization [employer] [place] Address [address] [facility] [address] [place] [address] Phone Care Team Providers Care Search Engine Optimization Manager Name Role Phone Lonnie James Unavailable Unavailable Procedures Procedure Date Progress Note Therapeutic Activities Neuromuscular Re-Ed Therapeutic Exercise Therapeutic Activities Neuromuscular Re-Ed Therapeutic Exercise Therapeutic Activities Neuromuscular Re-Ed Therapeutic Exercise Manual Therapy Therapeutic Activities Neuromuscular Re-Ed Therapeutic Exercise Manual Therapy Progress Note Neuromuscular Re-Ed Therapeutic Activities Manual Therapy Therapeutic Exercise Hot or Cold Pack Therapeutic Activities Neuromuscular Re-Ed Therapeutic Exercise Manual Therapy Hot or Cold Pack Therapeutic Activities Neuromuscular Re-Ed Therapeutic Exercise Manual Therapy Hot or Cold Pack Therapeutic Activities Therapeutic Exercise Neuromuscular Re-Ed Manual Therapy Hot or Cold Pack Therapeutic Activities Neuromuscular Re-Ed Therapeutic Activities Hot or Cold Pack Neuromuscular Re-Ed Doc neg elder mal no plan PRES/ABSN URINE INCON ASSESS PT Evaluation Low Complexity Neuromuscular Re-Ed Therapeutic Exercise Progress Note Therapeutic Activities Therapeutic Exercise Neuromuscular Re-Ed Therapeutic Activities Neuromuscular Re-Ed Therapeutic Exercise Therapeutic Activities Neuromuscular Re-Ed Therapeutic Exercise Therapeutic Activities Neuromuscular Re-Ed Therapeutic Exercise OT Re-Evaluation Therapeutic Activities Therapeutic Exercise Neuromuscular Re-Ed Manual Therapy Hot or Cold Pack Ultrasound Progress Note Therapeutic Activities Neuromuscular Re-Ed Therapeutic Exercise Hot or Cold Pack Manual Therapy Theraputty Progress Note Therapeutic Activities Neuromuscular Re-Ed Therapeutic Exercise Manual Therapy Hot or Cold Pack Therapeutic Activities Neuromuscular Re-Ed Manual Therapy Therapeutic Exercise Hot or Cold Pack Ultrasound Therapeutic Activities Neuromuscular Re-Ed Therapeutic Exercise Manual Therapy Hot or Cold Pack OT Evaluation Low Complexity Therapeutic Activities Therapeutic Exercise Elastic [place] Hot or Cold Pack Advance Directives Directive Yes / No Effective Date File Name No Information Encounters Encounter Description Practice Location Reason(s) For Visit Diagnoses Date Provider Providers Copied on Encounter [facility] [address] [facility] [address], [place], [place], [id number], tel:[phone] [place] No Information July-0 8- 4 Muehl Lonnie. [address] [facility], [address], [place], [place], [facility], . tel:[phone], [place], [place], [id number], tel:[phone] [place] No Information 6 4 Muehl Lonnie. [address] [facility], [address], [place], [place], [facility], [place]. tel: [phone] Referring Provider: Clarence Webber, [facility] Suite [facility], [place], [address]. tel:[phone] [address], [place], [place], [id number], [place] tel:[phone] [place] No Information Jun-0 4-202 4 Lurtz Mady. . Referring Provider: Clarence Webber [facility]0 [facility] [address], [place], [address]. tel:[phone], [place], [place], [id number], tel:[phone] [place] No Information Jun-0 2-202 4 Lurtz Mady. . Referring Provider: Clarence Webber [address] [facility] [address], [place], [address]. tel:[phone], [place], [place], [id number], tel:[phone] [place] No Information May-2 8-202 4 Lurtz Mady. . Referring Provider: Clarence Webber [address] [facility] [address], [place], [address]. tel:[phone] [facility], [address] [place] [address], [id number], tel:[phone] [place] No Information Mar-1 5-202 4 Muehl Lonnie. [address] [place] [address], [address], [facility], . tel: [phone] Referring Provider: Clarence Webber, [address] [place] [address] Suite [facility], [place], [address]. tel:[phone], [id number], tel:[phone] [place] No Information Mar-1 2-202 4 Muehl Lonnie. [address] [place] [address], [address], [facility], . tel: [phone] Referring Provider: Clarence Webber, [address] [place] [address] Suite [facility], [place], [place], [facility]. tel:[phone], [id number], tel:[phone] [place] No Information Mar-0 8-202 4 Muehl Lonnie. [address] [place] [address], [address], [facility], . tel: [phone] Referring Provider: Clarence Webber, [address] [place] [address] Suite [facility], [place], [address]. tel:[phone], [id number], tel:[phone] [place] No Information Mar-0 6-202 4 Muehl Lonnie. [address] [place] [address], [address], [facility], . tel: [phone] Referring Provider: Clarence Webber, [address] [place] [address] Suite [facility], [place], [address]. tel:[phone], [id number], [place] tel:[phone] [place] No Information May-0 4 Modglin Roshan. . Referring Provider: Clarence Webber, [address] [facility] [address], [place], [address]. tel:[phone] [facility], [address] [facility] [address], [place], [place], [id number], tel:[phone] [place] No Information May-0 4 Waqarmateol Lonnie. [address] [facility], [address], [place], [facility], . tel:[phone] Referring Provider: Clarence Webber, [address] [facility] [address], [place], [address]. tel:[phone] [place] [address] [place] [address], [id number], [phone] [place] No Information 4 Megha Lonnie. [address] [place] [address], [address], [place], [facility], . tel:[phone] Referring Provider: Clarence Webber, [address] [facility] [address], [place], [address]. tel:[phone] [place] [address] [address] [address], [place], [id number], [place] [phone] [place] No Information Jun-2 0 Agustin Maddison. . Referring Provider: Venancio Jessica, [address] [facility] [address], [place], [address]. tel:[phone] [facility] [address] [place] [address] [address], [place], [place], [id number], [place] tel:[phone] [place] No Information Jun- 0 Agustin Maddison. . Referring Provider: Venancio Jessica, [address] [facility] [address], [place], [address]. tel:[phone] [facility] [address] [facility] [address], [place], [place], [id number], tel:[phone] [place] No Information Apr-1 4-202 0 Agustin Maddison. . Referring Provider: Venancio Jessica, [address] [facility] [address], [place], [address]. tel:[phone] [facility], [address] [place], [place] [address], [place], [place], [id number], tel:[phone] [place] No Information Apr-0 9-202 0 Agustin Maddison. . Referring Provider: Venancio Jessica, [address] [facility] [address], [place], [address]. tel:[phone] [address] [address], [place], [place], [id number], tel:[phone] [place] No Information Apr-0 7-202 0 Agustin Maddison. . Referring Provider: Venancio Jessica, [place] [facility] [address], [place], [address]. tel:[phone] [facility], [address] [place], [place] [address], [place], [place], [id number], [place] tel:[phone] [place] No Information Mar-1 7-202 0 Agustin Maddison. . Referring Provider: Venancio Jessica, [address] [facility] [address], [place], [address]. tel:[phone], [place], [place], [id number], [place] tel:[phone] [place] No Information Mar-1 0-202 0 Agustin Maddison. . Referring Provider: Venancio Jessica, [address] [facility] [address], [place], [address]. tel:[phone] [facility], [address] [place], [place] [address], [place], [place], [id number], [place] tel:[phone] [place] No Information Mar-0 5-202 0 Agustin Maddison. . Referring Provider: Venancio Jessica, [address] [facility] [address], [place], [address]. tel:[phone] [facility], [address] [facility] [address], [place], [place], [id number], tel:[phone] [place] No Information Mar-0 3-202 0 Agustin Maddison. . Referring Provider: Venancio Jessica, [address] [facility] [address], [place], [address]. tel:[phone] [facility], [address] [facility] [address], [place], [place], [id number], tel:[phone] [place] No Information b-2 0 Agustin Maddison. . Referring Provider: Venancio Jessica, [address] [facility] [address], [place], [address]. tel:[phone] Family History Family Member Type Diagnosis Age At Onset No Information Payers Payer name Insurance type Covered libertarian ID Leslie moe(s) [facility] [employer] [id number] Social History Type Description Quantity Date Captured Comments Sex Female Smoking Status No Information Chief Complaint And Reason For Visit No Information Reason For Referral Reason For Referral No Information Plan Of Treatment Date Type Action Status Referral Ordered: PCP timeframe: 1 week. (related to Overweight) ordered Referral Ordered: PCP timeframe: 1 week. (related to Overweight) ordered Referral Ordered: PCP timeframe: 1 week. (related to Overweight) ordered Referral Ordered: Weight management: Referral to physician timeframe: 1 Month (related to Overweight) ordered History Of Present Illness Encounter Date Complaint History Of Prese nt Illness No Information Functional Status Date Functional Assessmen t No Information Instructions Date Instruction Additional Infor mation No Information Assessments Type Assessment Date No Information Patient Care Teams Name Effective Dates (start - stop) Status Members No Information
--- OUTSIDE RECORDS SUMMARY | 2024-05-18 00:36 | XMS_ITS | Continuity of Care Document ---
Author Organization [facility] Address [address] [place] [address] Phone Care Team Providers Care Battery Vent Plug Inserter Name Role Phone De Leon OD, Adolfo Unavailable Unavailable Advance Directives Directive Yes / No Effective Date File Name No Information Encounters Encounter Description Practice Location Reason(s) For Visit Diagnoses Date Provider Providers Copied on Encounter [facility], [id number] [place] [address] [address], [place], [place], [id number], [place] tel:[phone] SEC [facility] [place] No Information Apr-0 7-200 4 De Leon OD Adolfo. [address] [facility] [place] , [address], [place], [address], [place]. tel:[phone] Family History Family Member Type Diagnosis Age At Onset No Information Payers Payer name Insurance type Covered republican ID Authoriza tion(s) No Information Social History [...]
--- OUTSIDE RECORDS SUMMARY | 2024-05-18 00:36 | XMS_ITS | Clinical Summary ---
Author Organization [facility] Address [address] [facility] [place] [address] Care Team Providers Care Reception Agent Name Role Phone Romero Meier MD Primary [...] 04/25/2024 Assessment & Plan (04/25/2024 9:23 AM BIOLOGICAL SCIENCES INSTRUCTOR): New onset rash on the arm with [...] (09/17/2021): Added automatically from request for surgery [id number] Epigastric abdominal pain 09/17/2021 Overview (09/17/2021): Added automatically from request for surgery [id number] Essential hypertension 03/01/2015 Overview (06/18/2016): Essential hypertension Atopic rhinitis 03/01/2015 Overview (06/18/2016): Allergic rhinitis Asthma 03/01/2015 Overview (06/18/2016): Asthma Anxiety 03/01/2015 Overview (06/18/2016): Anxiety Pure hypercholesterolemia 10/11/2009 S/P cholecystectomy 09/26/2009 Supraventricular tachycardia 01/19/2009 Encounters Date Type Department Care Team Description 05/11/2024 Telephone [facility] Primary Care at [place] [address] [address] Romero Meier MD 05/08/2024 Telephone [facility] Primary Care at [address] [place] [address] [phone] Romero Meier MD 04/25/2024 9:30 AM BIOLOGICAL SCIENCES INSTRUCTOR Office Visit [facility] Primary Care at [address] [place] [address] [phone] Sayra Edwards NP Rash (Primary Dx) 04/24/2024 Nurse Triage [facility] Primary Care at [address] [place] [address] [phone] Romero Meier MD 04/03/2024 Telephone [facility] Primary Care at [address] [place] [address] [phone] Romero Meier MD Recommendation Request 03/29/2024 9:45 AM BIOLOGICAL SCIENCES INSTRUCTOR Office Visit [facility] Primary Care at [address] [place] [address] [phone] Romero Meier MD Essential hypertension (Primary Dx); Supraventricular tachycardia 03/27/2024 Telephone [facility] Primary Care at [address] [phone] Romero Meier MD Appointment Request 03/21/2024 Telephone [facility] Primary Care at [address] [place] [address] [phone] Romero Meier MD 02/24/2024 1:00 PM BIOLOGICAL SCIENCES INSTRUCTOR Office Visit [facility] Primary Care at [address] [place] [address] [phone] Romero Meier MD Essential hypertension (Primary Dx); Pure hypercholesterolemia; Chronic pain of right knee from Last 3 Months Immunizations Immunization Administration Dates Next Due COVID-19 mRNA ([email or web address]) 0.3 m L (30 mcg) vaccine (12 [...] Trivalent, IM (MDV) 11/10/2011 Influenza, Unspecified 12/13/2020,2019,12/30/2018,12/31 [employer] SARS-CoV-2 Monovalent Vaccination (12+ Yrs) ARORA-READY TO USE 09/24/2021 Pfizer SARS-CoV-2 Monovalent Vaccination (12+ Yrs) PURPLE 07/15/2022,06/15/2022,12/23/2020,05/18,04/25/2020 [employer] Sars-Cov-2 Bivalent V accination (12+ YRS) 07/15/2022,12/05/2021,12/04/2021 [...] on file Legal Sex Female 8:57 AM BIOLOGICAL SCIENCES INSTRUCTOR Gender Identity Female 01/13/2021 11:02 AM CDT Sexual Orientation Straight 01/13/2021 11 :02 AM CDT 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 Not on file Obstetrics History Last Filed Vital Signs Vital Sign Reading Time Taken Comments Blood Pressure 142/70 04/25/2024 9:07 AM BIOLOGICAL SCIENCES INSTRUCTOR Pulse 78 04/25/2024 9:07 AM BIOLOGICAL SCIENCES INSTRUCTOR Temperature 36.8 C (98.3 F) 11/02/2023 2:00 PM CDT Respiratory Rate 16 12/09/2023 12:20 PM CDT Oxygen Saturation 98% 04/25/2024 9:07 AM BIOLOGICAL SCIENCES INSTRUCTOR Inhaled Oxygen Concentration - - Weight 70.3 kg (155 lb) 04/25/2024 9:07 AM BIOLOGICAL SCIENCES INSTRUCTOR Height 160 cm (5' 3 ) 04/25/2024 9:07 AM BIOLOGICAL SCIENCES INSTRUCTOR Body Mass Index 27.46 04/25/2024 9:07 AM BIOLOGICAL SCIENCES INSTRUCTOR Plan of Treatment Health Maintenance Due Date [...] 11/06/2021, 05/30/2014 Colon Cancer Screening-DNA Stool Discontinued 11/07/19 22, 05/30/2014 Colon Cancer Screening-FIT Discontinued 11/06/2021, Colon [...] Read Routine (OP Routine) 03/17/2024 8:06 AM BIOLOGICAL SCIENCES INSTRUCTOR SCREENING MAMMOGRAM 2D BILATERAL Schedule Routine, Read Routine (OP Routine) 12/31/2022 DEXA AXIAL SKELETON BONE DENSITY 1 OR MORE SITES Schedule Routine, Read Routine (OP Routine) 08/25/2022 COLONOSCOPY 11/06/2021 1:15 PM CDT HEPATITIS C ANTIBODY Routine 07/01/2017 11:16 AM CDT from Last 3 Months or Most Recently Relevant to Health Maintenance Results * MRI Hip Right WO Contrast (03/17/2024 8:06 AM BIOLOGICAL SCIENCES INSTRUCTOR) Anatomical Region Laterality Modality Lower Extremities Right [...] Laterality Modality Body N/A Radiographic Marbella ging us Historical Provider MD [facility] DXA PROCEDURES Final Result * COLONOSCOPY (11/06/2021 1:15 PM CDT) Anatomical Region Laterality Modality Other Narrative Procedure Note RootEduard MD - 11/06/2021 1:15 PM CDT ENDOSCOPY LAB Patient Name: Andria Combs Procedure Date: 11/06/2021 1:15 PM Admit Type: Outpatient Room: Endo 3 Date of : 1950 Instrument Name: -[id number] Gender: Female Note Status: Finalized Procedure: Colonoscopy [...] with a HCV Nucleic Acid Amplification test ([id number]). 07/01/2017 11:1 6 AM CDT 07/01/2017 Narrative [facility] - 07/02/2017 10:14 AM CDT Performed at: [facility] [address] [id number] Field Assembly Supervisor: Wes Taylor PhD, Phone: [phone] us Romero Meier MD LAB MICROBIOLOGY - GENER AL ORDERABLES Final Result Performing Organization Address City/State/[facility] Co de Phone Number [facility] - 01 from Last 3 Months or Most Recently Relevant to Health Maintenance Insurance [employer] Advance Directives For more information, please contact: [phone] * Full Code (Latest Code Status on File) Date Activated Date Inactivated Comments 11/06/2021 12:19 PM 11/06/2021 6:36 PM Care Teams Reception Agent Relationship Specialty Start Date End Date Romero Meier MD [address] [facility] [address] [address] PCP - General 06/12/16
[2024-05-18] MEDS: LACTATED RINGERS 1,000 ML 30 ML IV CONT ×3 (10:30→15:19)
[2024-05-18] MEDS: ACETAMINOPHEN 500 MG TABLET 1000 MG PO (10:55)
[2024-05-18] MEDS: VANCOMYCIN 1,000 MG/NS 250 ML BAG 250 MG IVPB (10:56)
[2024-05-18] MEDS: TRANEXAMIC ACID 1,000MG/ISO100 1,000 MG/100 ML BAG 200 MG IVPB (10:57)
--- NOTE | 2024-05-18 11:06 | P.PNAN_ITS ---
Anes - Initial Pre Proc Eval Procedure: Operation Date: 05/18/24 11:30 Proposed Procedures p Right Total Knee Arthroplasty - Dontrell Elizabeth MD Date/Time: 05/18/24 11:06 Surgeon: Dontrell Elizabeth MD Pre Op Diagnosis: oa right knee Patient Data Age: 74 Gender: F Height: 1.6 m Weight: 71.5 kg Last Vital Signs Temp 36.8 C 04/27/24 12:41 Pulse 67 04/27/24 12:41 Resp 18 04/27/24 12:41 BP 140/83 04/27/24 12:41 Pulse Ox 97 04/27/24 12:41 O2 Del Method Room Air 04/27/24 12:41 Allergies Allergy/AdvReac Type Severity Reaction Status Date / Time No Known Allergies Allergy Verified 04/27/24 11:49 Home Medications ?Medication ?Instructions ?Recorded ?Confirmed ?Type acetaminophen 120 mg-codeine 12 5 - 7.5 ml PO HS PRN pain #118 mL 11/21/20 04/27/24 Rx mg/5 mL oral solution rizatriptan 10 mg tablet 10 mg PO HS 11/21/20 04/27/24 History aspirin 81 mg tablet 81 mg PO QPM 12/16/23 04/27/24 History atorvastatin 20 mg tablet 20 mg PO DAILY 12/16/23 04/27/24 History irbesartan 150 mg tablet 150 mg PO QPM 12/16/23 04/27/24 History metoprolol tartrate 50 mg tablet 50 mg PO Q12H 12/16/23 04/27/24 History pantoprazole 40 mg tablet,delayed 40 mg PO DAILY 12/16/23 04/27/24 History release rizatriptan 10 mg tablet 10 mg PO DIRECTED 12/16/23 04/27/24 History coenzyme Q10 100 mg capsule 200 mg PO QPM 02/07/24 04/27/24 History lorazepam 1 mg tablet 2 mg PO HS 02/07/24 04/27/24 History magnesium 250 mg tablet 500 mg PO DAILY 02/07/24 04/27/24 History tramadol 50 mg tablet 50 mg PO Q6H PRN pain #40 tabs 03/09/24 04/27/24 Rx hydrocodone 5 mg-acetaminophen 325 1 tablet PO Q4H PRN pain #30 tabs 04/04/24 04/27/24 Rx mg tablet albuterol sulfate 90 mcg/actuation 1 inh inhalation PRN 04/27/24 04/27/24 History aerosol inhaler cetirizine 10 mg capsule (All Day 10 mg PO QPM 04/27/24 04/27/24 History Allergy (cetirizine)) cholecalciferol (vitamin D3) 25 25 mcg PO DAILY 04/27/24 04/27/24 History mcg (1,000 unit) capsule bfsydwou-atk-bjpv-FA-Ca carb-vit K 1 tablet PO DAILY 04/27/24 04/27/24 History 18 mg iron-400 mcg-500 mg tablet triamcinolone acetonide 55 mcg 1 spray intranasal HS 04/27/24 04/27/24 History nasal spray aerosol (24 Hour Nasal Allergy) mupirocin 2 % topical ointment 1 applic topical BID #22 grams 05/01/24 Rx Patient hx anesthesia problems: none Family hx anesthesia problems: none Results Review: All pre-operative results and documents have been reviewed as part of the pre- operative evaluation. [facility] Past Medical History Medical History (Updated 05/18/24 @ 11:06 by Charlie Price MD) Palpitations Asthma Anemia GERD (gastroesophageal reflux disease) Migraine Hypertension High cholesterol Surgical History Surgical History History of knee surgery right Family History Family History Mother Hypertension Cancer Social History Social History Smoking packs per day: 0.5 Smoking cigarettes per day: 10.0 Years smoked: 20 Smoking pack-years: 10.00 Smoking status: Former smoker Tobacco type: cigarettes Smoking end date: 03/15/93 Additional smoking assessment comments: DENIES ANY FORM OF TOBACCO USE Alcohol intake: current Alcohol use details: ONE DRINK PER MONTH Substance use: never Current Housing: Decline to Answer Concerned About Future Housing: Decline to Answer Difficulty Paying Gas/Electric Bills: Decline to Answer Difficulty Paying for Meds: Decline to Answer Currently Unemployed: Decline to Answer Education: Decline to Answer Difficulty w/ Childcare or Family Care: Decline to Answer Living arrangements: alone Spiritual care concerns: No Anes - Eval Final PreProcedure Day of Procedure 05/18/24 11:06 Patient weight: overweight Heart: regular rate and rhythm Lungs: clear to auscultation Airway: Mallampati scale class II Neurological: alert and oriented Last oral intake: >/= 8 hours ASA classification: III Emergent: no Anesthetic plan: proceed Anesthesia type and monitoring: general ETT and standard monitoring Results Review: All pre-operative results and documents have been reviewed as part of the pre- operative evaluation. Informed Consent: The patient's anesthetic plan and its attendant risks and benefits were discussed with the patient/family/POA. Questions were solicited and answers provided to the satisfaction of the patient/family/POA.
--- NOTE | 2024-05-18 11:20 | WPDHPUPDATE1 ---
History and Physical Update Update Date/Time: 05/18/24 11:20 History and Physical has been reviewed, including an updated exam of the patient. There are NO changes in the patient's condition. Risks, benefits, and alternatives have been discussed and questions answered. Patient agrees to proceed with procedure.
[2024-05-18] MEDS: ceFAZolin 2 GM/D5W 50 ML 2 GM/50 ML BAG IVPB ×2 (12:12→20:56)
[2024-05-18] MEDS: SODIUM CHLORIDE 0.9% IV 37.7 ML, MORPHINE SULFATE INJ (*CRX) 2 MG, ROPivacaine HCL 1% 2... INFILTRATE (12:48)
[2024-05-18] MEDS: ceFAZolin SODIUM 1 GM VIAL 3 GM (12:49)
[2024-05-18] MEDS: KETOROLAC 15 MG/ML VIAL (*BKC) IV PUSH (14:25)
[2024-05-18] MEDS: ceFAZolin SODIUM 1 GM VIAL (14:26)
[2024-05-18] MEDS: TRANEXAMIC ACID 1,000 MG/10 ML AMPUL 1000 MG IV PUSH (14:26)
--- NOTE | 2024-05-18 15:11 | P.OP_ITS ---
Procedure Note - Detailed Date of Procedure 05/18/24 Pre-op Diagnosis oa right knee Post-op Diagnosis Same Procedure Performed Right total knee arthroplasty Surgeon Dontrell Elizabeth MD Career Development Consultant sarah Anesthesia General Description of Procedure Patient was brought to the operating room and general anesthesia was administered. She received 2 g of Ancef weight based vancomycin 1 g of TXA preoperatively. The right knee was prepped draped usual fashion. Limb was exsanguinated tourniquet elevated to 300 mmHg. A 7 in longitudinal midline incision was used and a vastus medialis splitting approach utilized. Infrapatellar and fat pad partially excised suprapatellar fat pad excised and a quadriceps synovectomy carried out. The patella had normal articular cartilage. I felt was most appropriate for non resurfacing. There was exposed bone on the anterior aspect of the medial tibial plateau and anterior aspect of weight- bearing portion of medial femoral condyle. A guide elmo was inserted on femoral canal after aspiration of canal contents using the 5 degree valgus cutting bushing, 8 mm of bone removed the distal femur. Next the tibial plateau was cut removing 9.5 mm of bone from the lateral plateau which removed about 2 mm from the low point of medial tibial plateau. Meniscal remnants were excised and the PCL recessed. Flexion gap measured 8 mm medially at 90? and 12 mm laterally. The femoral sizing guide was applied to the distal femur set at 5? of external rotation which matched Whitesides line and posterior referencing pinholes were placed. The size 57.5 vanguard cutting block applied to the distal femur and this gave a nice anterior cut flush with the anterior cortex. Posterior and chamfer cuts were made and the 57.5 fit line to line medial to lateral. The bone quality was very good. The tibia was sized to a size 63 which fit line to line anteromedial to posterolateral at the proper rotation this was punched. We trialed with the size 10 insert which had appropriate stability at 90? of flexion. The knee came out to very close to full extension but had a positive bounce with barely 0.5 mm of play to valgus stress medially. 1-2 mm of play laterally. We did trial and 11 insert that and at 90? there was no play has was too tight in flexion. Therefore an additional 1 mm bone was removed the distal femur. Posterior femoral condylar bone proximal to the trial femoral component was removed. He did not perform a posterior capsular release. On read trialing with the 10 insert the knee came out to full extension with negative bounce 1 mm of medial opening and 2 mm of lateral opening appropriate stability anterior posterior beading sawyer all positions. The at 90? medial side open 1 mm lateral side 2 mm. Lug holes were drilled for the femoral component bony surfaces prepared with a step drill. Bony surfaces were irrigated and dri ed. Two batches of methylmethacrylate 1 the gentamicin powder were mixed and cement applied to the size 63 vanguard tibial component in the size 57.5 right CR femoral component. Cement applied the tibial plateau pressurized tibial component fully seated cement applied the femur the femoral component fully seated the knee brought into full extension with an 11 mm 5 1 insert for pressurization the tourniquet released total tourniquet time 90 demonstrate additional 1 g of Ancef and 1 g of TXA given at time wound closure. After cement hardening excess cement was sought for removed and hemostasis was achieved. We trialed with the 10 mm insert which gave the same stability range of motion findings as above. Central patellar tracking throughout range of motion. The real 10 was placed locked with a locking pin range of motion stability and patellar tracking reconfirmed. Arthrotomy was closed with 2. Vicryl and 1. Unidirectional barbed Stratafix suture the split closed with 1. Vicryl. Skin closed with 2 subcu Vicryl 3-0 subcuticular Monocryl and glue. EBL was 200 cc. There were no complications he was transferred postop recovery room in stable condition. [facility] [place] Surgery - Charge Forward: Surgery Billing (Right total knee replacement)
--- NOTE | 2024-05-18 15:36 | PM.OP ---
Procedure Note - Brief Procedure Note - Brief Date of procedure: 05/18/24 oa right knee Procedure performed: Right total knee arthroplasty Surgeon: SAM Chen Findings: 74-year-old female who underwent right total knee arthroplasty on 05/18. I was involved in the procedure including positioning the patient on the OR table in 1st assisting through the time surgery. Total time spent was 3-1/2 hours
[2024-05-18] MEDS: fentaNYL CITRATE INJ (*CRX) 100 MCG/2 ML VIAL 25 MCG IV PUSH ×3 (16:19→16:26)
[2024-05-18] MEDS: oxyCODONE HCL (*CRX) 5 MG TAB IR PO ×2 (17:08→20:52)
[2024-05-18] MEDS: IRBESARTAN 150 MG TABLET PO (17:08)
[2024-05-18] MEDS: SENNA/DOCUSATE SODIUM TABLET 2 TAB PO (17:08)
[2024-05-18] MEDS: LORATADINE 10 MG TABLET PO (17:09)
[2024-05-18] MEDS: SODIUM CHLORIDE 0.9% IV 1,000 ML 125 ML IV CONT (17:09)
[2024-05-18] MEDS: ACETAMINOPHEN 325 MG TABLET 650 MG PO ×2 (17:09→20:51)
--- NOTE | 2024-05-18 17:24 | ADMGEN ---
This patient, Juliet Collins, was admitted to 3 [facility] Surg Room 316-02. Patient/family oriented to hospital policies and general routines including ID bracelet, bed and alarms, visiting hours, pain management, procedures, bathroom and other care routines, personal items, smoking policy, room service/diet, and visiting hours. Information on how to activate the Rapid Response Team has been discussed. Patient/Family are encouraged to report perceived risks to care and to ask questions if they do not understand what they are told or what they should do.
--- NOTE | 2024-05-18 18:42 | PM.IMCN ---
Assessment and Plan Assessment and plan (1) Right knee DJD: Qualifiers: Osteoarthritis type: primary Qualified Code(s): M17.11 - Unilateral primary osteoarthritis, right knee Code(s): M17.11 - Unilateral primary osteoarthritis, right knee Status: Acute Assessment and Plan: - ambulate with assistance and up to chair - use IS - neurovasc checks - see order for intervals - SCDs - analgesics and antiemetics p.r.n. - monitor labs in AM - CBC and BMP - bowel regimen: docusate/senna, polyethylene glycol - PT/OT (2) Hypertension: Qualifiers: Hypertension type: primary hypertension Qualified Code(s): I10 - Essential (primary) hypertension Code(s): I10 - Essential (primary) hypertension Status: Chronic Assessment and Plan: - chronic, currently 111/41 - continue home medications: Irbesartan 150 mg HS, Metoprolol 50 mg b.i.d. - monitor Plan Diet: Regular GI Prophylaxis: Famotidine p.o. DVT Prophylaxis: SCDs, starting Eliquis Lines: Peripheral Code Status: Full code HPI Date of Consult Consult date: 05/18/24 Requesting Physician: Dontrell Elizabeth MD Primary Care Provider: Romero Meier, Consult Narrative Reason for consult: Medical Management Narrative: 74 y/o F presents here for a right total knee arthroplasty with PMH of asthma, anemia, GERD, migraine, hypertension, and high cholesterol. The patient previously had a spontaneous radial tear of the medial meniscus of the right knee in December of 2022. She underwent an MRI in February of 2023 which showed znee-ay-cyctrula medial compartment osteoarthritis. No arthroscopy was done at that time. Since then, the patient has unfortunately had progression of her medial compartment osteoarthritis. Last imaging showed less than a mm of joint space remaining. She has been unable to take NSAIDs due to GI intolerance. Last cortisone injection was more than 4 months ago. Severity of symptoms are now interfering with her ability to work. Given these factors, the patient elected to move forward with surgical management of her right knee pain. She underwent a total right knee arthroplasty with Glenn MENDEZ today, 05/18. Postoperatively the patient reports mild nausea and a headache. Denies significant pain in her right knee or numbness/tingling to the effected extremity. She denies any recent changes to her medical history or changes to her home medications. Preop VS: 98.2? F, HR 67, R 18, 140/83, and 97% on RA. Preop workup: No leukocytosis, no anemia, no significant electrolyte derangements, creatinine 0.73 and GFR >60, A1c 5.6%. Review of Systems Review of Systems: All systems reviewed & are unremarkable except as noted in HPI and below PMFSH Past Medical History Medical History Depression Anxiety Arthritis SVT (supraventricular tachycardia) Palpitations Asthma Anemia GERD (gastroesophageal reflux disease) Migraine Hypertension High cholesterol Surgical History Surgical History History of bilateral cataract extraction History of cholecystectomy History of knee surgery right Family History Family History Mother Hypertension Cancer Social History Social History Smoking packs per day: 0.5 Smoking cigarettes per day: 10.0 Years smoked: 20 Smoking pack-years: 10.00 Smoking status: Former smoker Additional smoking assessment comments: DENIES ANY FORM OF TOBACCO USE Alcohol intake: current Alcohol use details: ONE DRINK PER MONTH Substance use: never Do You Feel Safe in your Home?: Yes Lack of Transportation: No Lack of Food: Never True Current Housing: I Have Housing Concerned About Future Housing: No Difficulty Paying Gas/Electric Bills: No Difficulty Paying for Meds: No Currently Unemployed: No Education: High School Diploma/GED Difficulty w/ Childcare or Family Care: No Living arrangements: alone Spiritual care concerns: No Meds Home Medications and Allergies Home Medications ?Medication ?Instructions ?Recorded ?Confirmed ?Type aspirin 81 mg tablet 81 mg PO QPM 12/16/23 05/18/24 History atorvastatin 20 mg tablet 20 mg PO DAILY 12/16/23 05/18/24 History irbesartan 150 mg tablet 150 mg PO QPM 12/16/23 05/18/24 History metoprolol tartrate 50 mg tablet 50 mg PO Q12H 12/16/23 05/18/24 History pantoprazole 40 mg tablet,delayed 40 mg PO DAILY 12/16/23 05/18/24 History release rizatriptan 10 mg tablet 10 mg PO DIRECTED 12/16/23 05/18/24 History coenzyme Q10 100 mg capsule 200 mg PO QPM 02/07/24 05/18/24 History lorazepam 1 mg tablet 2 mg PO HS PRN anxiety 02/07/24 05/18/24 History tramadol 50 mg tablet 50 mg PO Q6H PRN pain #40 tabs 03/09/24 05/18/24 Rx albuterol sulfate 90 mcg/actuation 1 inh inhalation PRN 04/27/24 04/27/24 History aerosol inhaler cetirizine 10 mg capsule (All Day 10 mg PO QPM 04/27/24 05/18/24 History Allergy (cetirizine)) cholecalciferol (vitamin D3) 25 25 mcg PO DAILY 04/27/24 05/18/24 History mcg (1,000 unit) capsule [id number]-[id number] carb-vit K 1 tablet PO DAILY 04/27/24 05/18/24 History 18 mg iron-400 mcg-500 mg tablet triamcinolone acetonide 55 mcg 1 spray intranasal HS 04/27/24 05/18/24 History nasal spray aerosol (24 Hour Nasal Allergy) Allergies Allergy/AdvReac Type Severity Reaction Status Date / Time No Known Allergies Allergy Verified 05/18/24 11:58 Vital Signs Vital Signs - 24 hr 05/18/24 10:00 05/18/24 15:19 05/18/24 15:30 Temperature 97.7 F 99.6 F Pulse Rate 72 96 83 Respiratory Rate 14 14 14 Blood Pressure 124/69 109/50 L 115/58 L Pulse Oximetry 100 99 100 Oxygen Delivery Simple Face Mask Simple Face Mask Oxygen Flow Rate 8 8 05/18/24 15:40 05/18/24 15:45 05/18/24 16:00 Temperature Pulse Rate 84 78 Respiratory Rate 14 12 Blood Pressure 118/54 L 124/56 L Pulse Oximetry 96 100 Oxygen Delivery Room Air Room Air Room Air Oxygen Flow Rate 05/18/24 16:15 05/18/24 16:30 05/18/24 16:44 Temperature 98.9 F Pulse Rate 76 78 80 Respiratory Rate 15 18 17 Blood Pressure 127/57 L 110/51 L 118/52 L Pulse Oximetry 94 99 100 Oxygen Delivery Room Air Nasal Cannula Nasal Cannula Oxygen Flow Rate 2 2 05/18/24 17:00 05/18/24 17:15 05/18/24 17:31 Temperature 97.4 F L 97.0 F L Pulse Rate 85 78 Respiratory Rate 16 16 Blood Pressure 135/53 L 136/51 L Pulse Oximetry 100 100 Oxygen Delivery Room Air Oxygen Flow Rate 05/18/24 17:45 Temperature 97.1 F L Pulse Rate 80 Respiratory Rate 16 Blood Pressure 116/49 L Pulse Oximetry 97 Oxygen Delivery Oxygen Flow Rate Exam Const: Other: , female, mildly uncomfortable (reporting headache as source). No acute distress. HENMT: Face/Nose/Sinus: Normal nares present Mouth: Yes moist mucous membranes Eyes: General: appearance normal, both eyes and all related structures Sclera: sclerae normal Pupils: Equal, round and reactive pupils present EOM: EOMs intact bilaterally Resp: Effort & Inspection: normal respiratory effort Auscultation: clear to auscultation bilaterally Cardio: Rate: regular rate Rhythm: regular rhythm Other: S1-S2 present without murmur, rub, ectopy GI: Other: Abdomen soft, nondistended, nontender. Normoactive bowel sounds in all quadrants. Skin: General skin exam: normal color and no rashes or lesions noted Other: Postoperative incision to right knee. Moderate edema. Dressing CDI. Neuro: Speech: normal speech Motor exam (neuro): 5/5 motor strength present throughout Sensory Exam: normal sensation Other: A&O x4 Extrem: General: normal exam except as noted Psych: Mental Status: mental status grossly normal Affect: normal affect Other: Good insight and judgment, pleasant Quality VTE Prophylaxis VTE prophylaxis: mechanical ordered and pharmacologic ordered Hospitalist [facility] Advance Care Plan I have confirmed that the patient's Advanced Care Plan is present, code status is documented, or surrogate decision maker is listed in patient medical record.: Yes Medication Reconciliation I have utilized all available resources to obtain, update and review the patients current medications (includes all prescriptions, OTC, herbals, cannabis, and nutritional supplements).: Yes
[2024-05-18] MEDS: METOPROLOL TARTRATE 50 MG TAB PO (20:51)
[2024-05-18] MEDS: FAMOTIDINE 20 MG TABLET PO (20:52)
[2024-05-18] MEDS: KETOROLAC 15 MG/ML VIAL (*BKC) 7.5 MG IV PUSH (20:53)
[2024-05-18] MEDS: RIZATRIPTAN BENZOATE 10 MG ODT PO (21:55)
[2024-05-18] MEDS: VANCOMYCIN 1,000 MG/NS 250 ML 1,000 MG/250 ML BAG 250 MG IVPB (23:37)
[2024-05-19 01:11] VITALS: BP 112/52; PULSE 67; RESP 18; TEMP 36.9; O2SAT 97
[2024-05-19] MEDS: oxyCODONE HCL (*CRX) 5 MG TAB IR PO ×3 (01:24→12:10)
[2024-05-19] MEDS: ACETAMINOPHEN 325 MG TABLET 650 MG PO ×3 (01:24→12:10)
[2024-05-19] MEDS: KETOROLAC 15 MG/ML VIAL (*BKC) 7.5 MG IV PUSH (03:46)
[2024-05-19] MEDS: ceFAZolin 2 GM/D5W 50 ML 2 GM/50 ML BAG IVPB ×2 (03:46→12:04)
[2024-05-19 04:21] VITALS: BP 111/56; PULSE 68; RESP 16; TEMP 36.9; O2SAT 98
[2024-05-19 06:42] LABS: Basophils Percent Auto 0.1 % (0.2-1.2); Hematocrit 31.8 % (37.0-47.0); Hemoglobin 10.1 g/dL (12.0-15.0); Immature Granulocyte Absolute 0.06 K/mm3 (0.00-0.031); Immature Granulocyte Percent A 0.6 % (0-0.5); Lymphocytes Absolute Auto 0.24 K/mm3 (0.9-3.2); Lymphocytes Percent Auto 2.4 % (18.3-44.2); Mean Corpuscular HGB Conc 31.8 g/dl (32-36); Mean Corpuscular Volume 94.4 fl (80-100); Mean Platelet Volume 11.5 fl (7.4-10.4); Monocytes Absolute Auto 0.3 K/mm3 (0.1-0.6); Monocytes Percent Auto 2.9 % (2.6-8.5); Neutrophils Absolute Auto 9.5 K/mm3 (1.3-6.7); Platelet Count Result 154 k/mm3 (150-375); Red Blood Count 3.37 M/mm3 (4.2-5.4); Red Cell Distribution Width 12.8 % (11.5-14.5); White Blood Count 10.1 K/mm3 (4.5-10.0)
[2024-05-19 06:55] LABS: Anion Gap 6 mmol/L (4-12); Blood Urea Nitrogen 8 mg/dL (7-17); Calcium 8.2 mg/dL (8.4-10.2); Carbon Dioxide 26 mmol/L (22-30); Chloride 108 mmol/L (98-107); Estimated CRCL calculation 62 ml/min; Estimated Glomerular Filt Rate > 60; Glucose 158 mg/dL (65-110); Potassium 3.9 mmol/L (3.4-5.0); Sodium 140 mmol/L (137-145)
--- NOTE | 2024-05-19 07:48 | P.PNIM_ITS ---
Progress Note: A&P Assessment and Plan (1) Right knee DJD: Qualifiers: Osteoarthritis type: primary Qualified Code(s): M17.11 - Unilateral primary osteoarthritis, right knee Code(s): M17.11 - Unilateral primary osteoarthritis, right knee Status: Acute Assessment and Plan: Patient is s/p Right total knee arthroplasty on 05/[address] Elizabeth - neurovasc checks - remain intact - IS - DVT ppx per ortho: eliquis 2.5 mg BID - analgesics and antiemetics p.r.n. - bowel regimen: docusate/senna, polyethylene glycol - PT/OT per ortho: full weight bearing (2) Hypertension: Qualifiers: Hypertension type: primary hypertension Qualified Code(s): I10 - Essential (primary) hypertension Code(s): I10 - Essential (primary) hypertension Status: Chronic Assessment and Plan: - chronic, well controlled on home regimen - continue home medications: Irbesartan 150 mg HS, Metoprolol 50 mg b.i.d. - blood pressures remain stable, continue to monitor Plan Diet: Regular GI Prophylaxis: Famotidine p.o. DVT Prophylaxis: SCDs and Eliquis Lines: Peripheral Code Status: Full code Time Spent With Patient Time with patient: 25 - 35 minutes Subjective Date/time seen: 05/19/24 07:48 Interval history: Patient is pleasant lying comfortably in bed. She endorses a slight headache and nauesa which are likely related to patients anethesia. She has no other complaints denying chest pain, palpitations, vomiting, abdominal pain and shortness of breath. She states that therapy went well, her pain is well controlled and she plans to get discharged today. Review of Systems Review of Systems: All systems reviewed & are unremarkable except as noted in HPI and below Exam Narrative: AF HR 65 RR 16 Spo2 99 BP 120/52 General: female in no acute respiratory distress who is nontoxic appearing, lying semi recumbent in bed. HEENT: Normocephalic. Atraumatic. Extraocular movement intact. Sclera clear and anicteric. Chest: Lungs are clear to auscultation bilaterally. No wheezes or crackles. CV: Heart was regular rate and rhythm. S1-S2. No murmurs, gallops, or rubs. Abd: Abdomen was soft. Nontender. Nondistended. Positive bowel sounds. Ext: No clubbing, cyanosis. 2+ DP pulses bilaterally. Slight edema to the right knee. Dressing clean/dry/intact. Objective Data Vital Signs Vital Signs: Vital Signs - 24 hr 05/18/24 10:00 05/18/24 15:19 05/18/24 15:30 Temperature 97.7 F 99.6 F Pulse Rate 72 96 83 Respiratory Rate 14 14 14 Blood Pressure 124/69 109/50 L 115/58 L Pulse Oximetry 100 99 100 Oxygen Delivery Simple Face Mask Simple Face Mask Oxygen Flow Rate 8 8 05/18/24 15:40 05/18/24 15:45 05/18/24 16:00 Temperature Pulse Rate 84 78 Respiratory Rate 14 12 Blood Pressure 118/54 L 124/56 L Pulse Oximetry 96 100 Oxygen Delivery Room Air Room Air Room Air Oxygen Flow Rate 05/18/24 16:15 05/18/24 16:30 05/18/24 16:44 Temperature 98.9 F Pulse Rate 76 78 80 Respiratory Rate 15 18 17 Blood Pressure 127/57 L 110/51 L 118/52 L Pulse Oximetry 94 99 100 Oxygen Delivery Room Air Nasal Cannula Nasal Cannula Oxygen Flow Rate 2 2 05/18/24 17:00 05/18/24 17:15 05/18/24 17:31 Temperature 97.4 F L 97.0 F L Pulse Rate 85 78 Respiratory Rate 16 16 Blood Pressure 135/53 L 136/51 L Pulse Oximetry 100 100 Oxygen Delivery Room Air Oxygen Flow Rate 05/18/24 17:45 05/18/24 18:45 05/18/24 20:00 Temperature 97.1 F L 97.0 F L Pulse Rate 80 77 Respiratory Rate 16 16 Blood Pressure 116/49 L 111/41 L Pulse Oximetry 97 97 Oxygen Delivery Room Air Oxygen Flow Rate 05/18/24 20:19 05/18/24 20:51 05/18/24 21:37 Temperature 97.5 F L Pulse Rate 78 78 Respiratory Rate 16 Blood Pressure 114/44 L Pulse Oximetry 98 97 Oxygen Delivery Room Air Oxygen Flow Rate 05/19/24 01:11 05/19/24 04:21 Temperature 98.4 F 98.4 F Pulse Rate 67 68 Respiratory Rate 18 16 Blood Pressure 112/52 L 111/56 L Pulse Oximetry 97 98 Oxygen Delivery Oxygen Flow Rate Intake/Output Intake/Output: Intake & Output 05/16/24 05/17/24 05/18/24 05/19/24 23:59 23:59 23:59 23:59 Intake Total 795.8 250 Balance 795.8 250 Meds/Results Medications: Active Medications Generic Name Dose Route Start Last Admin Trade Name Frezhao PRN Reason Stop Dose Admin Acetaminophen 650 mg 05/18/24 17:00 05/19/24 04:44 Acetaminophen 325 Mg Tablet PO Not Given Q4H KVNG Apixaban 2.5 mg 05/19/24 09:00 Apixaban 2.5 Mg Tablet PO 05/30/24 21:01 Q12HR KVNG Atorvastatin Calcium 20 mg 05/19/24 09:00 Atorvastatin 20 Mg Tablet PO DAILY KVNG Celecoxib 100 mg 05/19/24 08:00 Celecoxib 100 Mg Capsule PO DAILY@0800 VKNG Cephalexin HCl 500 mg 05/19/24 18:00 Cephalexin 500 Mg Capsule PO Q6HR KVNG Diphenhydramine HCl 25 mg 05/18/24 16:48 Diphenhydramine Hcl Inj 50 Mg/Ml Vial IV PUSH Q6H PRN Itching Famotidine 20 mg 05/18/24 21:00 05/18/24 20:52 Famotidine 20 Mg Tablet PO 20 mg Q12HR KVNG Administration Cefazolin Sodium 2 gm in 50 mls @ 100 mls/hr 05/18/24 20:00 05/19/24 03:46 Ancef 2 Gm/D5w 50 Ml IVPB 05/19/24 12:29 100 mls/hr Q8H KVNG Administration Vancomycin HCl 1,000 mg in 250 mls @ 250 mls/hr 05/18/24 23:00 05/19/24 00:37 Vancomycin 1,000 Mg/Ns 250 Ml IVPB 05/19/24 11:59 Infused Q12H KVNG Infusion Irbesartan 150 mg 05/18/24 18:00 05/18/24 17:08 Irbesartan 150 Mg Tablet PO 150 mg QPM KVNG Administration Loratadine 10 mg 05/18/24 18:00 05/18/24 17:09 Loratadine 10 Mg Tablet PO 10 mg QPM KVNG Administration Metoprolol Tartrate 50 mg 05/18/24 21:00 05/18/24 20:51 Metoprolol Tartrate 50 Mg Tab PO 50 mg Q12HR KVNG Administration Morphine Sulfate 2 mg 05/18/24 16:48 Morphine Sulfate (*Crx) 2 Mg/Ml Inj IV PUSH Q2H PRN Breakthrough Pain Rated 4-6 or NPO Naloxone HCl 0.1 mg 05/18/24 16:48 Naloxone Hcl 0.4 Mg/Ml Vial IV PUSH Q2M PRN Opiate Reversal Ondansetron HCl 4 mg 05/18/24 16:48 Ondansetron Inj 4 Mg/2 Ml Vial IV PUSH Q4H PRN Nausea And Vomiting Oxycodone HCl 5 mg 05/18/24 17:00 05/19/24 04:45 Oxycodone Hcl (*Crx) 5 Mg Tab Ir PO Not Given Q4H KVNG Oxycodone HCl 5 mg 05/18/24 16:48 Oxycodone Hcl (*Crx) 5 Mg Tab Ir PO Q4H PRN Pain Rated 7-10 Polyethylene Glycol 17 gm 05/19/24 09:00 Polyethylene Glycol 3350 17 Gm Powd.Pack PO QAM KVNG Rizatriptan Benzoate 10 mg 05/18/24 21:20 05/18/24 21:55 Rizatriptan Benzoate 10 Mg Odt PO 10 mg Q2H PRN Administration migraine Senna/Docusate Sodium 2 tab 05/18/24 17:00 05/18/24 17:08 Senna/Docusate Sodium Tablet PO 2 tab BID [facility] Administration Vitamin D 1,000 units 05/19/24 09:00 Cholecalciferol 1,000 Units Tablet PO DAILY [facility] Radiology Results: ITS Impressions Knee X-Ray 05/18/24 15:24 IMPRESSION: No fractures seen. Total knee arthroplasty. Labs Labs: Laboratory Results - last 24 hr 05/18/24 05/19/24 10:21 06:23 WBC 10.1 H RBC 3.37 L Hgb 10.1 L Hct 31.8 L MCV 94.4 MCH 30.0 MCHC 31.8 L RDW 12.8 Plt Count 154 MPV 11.5 H Immature Gran % (Auto) 0.6 H Neut % (Auto) 94.0 H Lymph % (Auto) 2.4 L [place] % (Auto) 2.9 Eos % (Auto) 0.0 Baso % (Auto) 0.1 L Lymph # (Auto) 0.24 L Roosevelt # (Auto) 0.3 Eos # (Auto) 0.0 Baso # (Auto) 0.0 Abs Immat Gran (auto) 0.06 H Absolute Neuts (auto) 9.5 H Absolute Nucleated RBC 0.000 Nucleated RBC % 0.0 Sodium 140 Potassium 3.9 Chloride 108 H Carbon Dioxide 26 Anion Gap 6 BUN 8 Creatinine 0.68 L Estim Creat Clear Calc 62 Estimated GFR > 60 Glucose 158 H Calcium 8.2 L Blood Type O Positive Antibody Screen Negative Quality VTE Prophylaxis VTE prophylaxis: mechanical ordered and pharmacologic ordered
[2024-05-19 08:07] VITALS: BP 125/59; PULSE 63; RESP 16; TEMP 35.8; O2SAT 98
[2024-05-19] MEDS: CHOLECALCIFEROL 1,000 UNITS TABLET 1000 UNITS PO (08:07)
[2024-05-19] MEDS: ONDANSETRON INJ 4 MG/2 ML VIAL IV PUSH (08:07)
[2024-05-19 08:08] VITALS: BP 106/54; PULSE 64; O2SAT 97
[2024-05-19] MEDS: CELECOXIB 100 MG CAPSULE PO (08:08)
[2024-05-19] MEDS: APIXABAN 2.5 MG TABLET PO (08:08)
[2024-05-19] MEDS: SENNA/DOCUSATE SODIUM TABLET 2 TAB PO (08:12)
[2024-05-19] MEDS: FAMOTIDINE 20 MG TABLET PO (08:12)
[2024-05-19] MEDS: polyethylene glycoL 3350 17 GM POWD.PACK PO (08:13)
[2024-05-19 08:20] VITALS: PULSE 64
--- NOTE | 2024-05-19 08:37 | P.PNOP_ITS ---
Subjective Subjective Date/Time Seen: 05/19/24 08:37 Interval history: Postop day 1 patient is alert. She has been afebrile vital signs are stable. Morning labs are noted. Dressing is dry and intact. Overall pain is well controlled. Patient is been up multiple times to the restroom and urinating well. Neurovascularly she is intact. Will plan have the patient work with Physical therapy this morning and again this afternoon. Once IV antibiotics been completed and if she is continuing to do very well she will be discharged home early this afternoon. Objective Data Vital Signs Vital Signs: Vital Signs - 24 hr 05/18/24 10:00 05/18/24 15:19 05/18/24 15:30 Temperature 97.7 F 99.6 F Pulse Rate 72 96 83 Respiratory Rate 14 14 14 Blood Pressure 124/69 109/50 L 115/58 L Pulse Oximetry 100 99 100 Oxygen Delivery Simple Face Mask Simple Face Mask Oxygen Flow Rate 8 8 05/18/24 15:40 05/18/24 15:45 05/18/24 16:00 Temperature Pulse Rate 84 78 Respiratory Rate 14 12 Blood Pressure 118/54 L 124/56 L Pulse Oximetry 96 100 Oxygen Delivery Room Air Room Air Room Air Oxygen Flow Rate 05/18/24 16:15 05/18/24 16:30 05/18/24 16:44 Temperature 98.9 F Pulse Rate 76 78 80 Respiratory Rate 15 18 17 Blood Pressure 127/57 L 110/51 L 118/52 L Pulse Oximetry 94 99 100 Oxygen Delivery Room Air Nasal Cannula Nasal Cannula Oxygen Flow Rate 2 2 05/18/24 17:00 05/18/24 17:15 05/18/24 17:31 Temperature 97.4 F L 97.0 F L Pulse Rate 85 78 Respiratory Rate 16 16 Blood Pressure 135/53 L 136/51 L Pulse Oximetry 100 100 Oxygen Delivery Room Air Oxygen Flow Rate 05/18/24 17:45 05/18/24 18:45 05/18/24 20:00 Temperature 97.1 F L 97.0 F L Pulse Rate 80 77 Respiratory Rate 16 16 Blood Pressure 116/49 L 111/41 L Pulse Oximetry 97 97 Oxygen Delivery Room Air Oxygen Flow Rate 05/18/24 20:19 05/18/24 20:51 05/18/24 21:37 Temperature 97.5 F L Pulse Rate 78 78 Respiratory Rate 16 Blood Pressure 114/44 L Pulse Oximetry 98 97 Oxygen Delivery Room Air Oxygen Flow Rate 05/19/24 01:11 05/19/24 04:21 05/19/24 08:07 Temperature 98.4 F 98.4 F 96.5 F L Pulse Rate 67 68 63 Respiratory Rate 18 16 16 Blood Pressure 112/52 L 111/56 L 125/59 L Pulse Oximetry 97 98 98 Oxygen Delivery Oxygen Flow Rate 05/19/24 08:20 Temperature Pulse Rate 64 Respiratory Rate Blood Pressure Pulse Oximetry Oxygen Delivery Oxygen Flow Rate Intake/Output Intake/Output: Intake & Output 05/16/24 05/17/24 05/18/24 05/19/24 23:59 23:59 23:59 23:59 Intake Total 795.8 250 Balance 795.8 250 Meds/Results Medications: Active Medications Generic Name Dose Route Start Last Admin Trade Name Freq PRN Reason Stop Dose Admin Acetaminophen 650 mg 05/18/24 17:00 05/19/24 08:17 Acetaminophen 325 Mg Tablet PO 650 mg Q4H KVNG Administration Apixaban 2.5 mg 05/19/24 09:00 05/19/24 08:08 Apixaban 2.5 Mg Tablet PO 05/30/24 21:01 2.5 mg Q12HR KVNG Administration Atorvastatin Calcium 20 mg 05/19/24 09:00 Atorvastatin 20 Mg Tablet PO DAILY KVNG Celecoxib 100 mg 05/19/24 08:00 05/19/24 08:08 Celecoxib 100 Mg Capsule PO 100 mg DAILY@0800 KVNG Administration Cephalexin HCl 500 mg 05/19/24 18:00 Cephalexin 500 Mg Capsule PO Q6HR KVNG Diphenhydramine HCl 25 mg 05/18/24 16:48 Diphenhydramine Hcl Inj 50 Mg/Ml Vial IV PUSH Q6H PRN Itching Famotidine 20 mg 05/18/24 21:00 05/19/24 08:12 Famotidine 20 Mg Tablet PO 20 mg Q12HR KVNG Administration Cefazolin Sodium 2 gm in 50 mls @ 100 mls/hr 05/18/24 20:00 05/19/24 03:46 Ancef 2 Gm/D5w 50 Ml IVPB 05/19/24 12:29 100 mls/hr Q8H KVNG Administration Vancomycin HCl 1,000 mg in 250 mls @ 250 mls/hr 05/18/24 23:00 05/19/24 00:37 Vancomycin 1,000 Mg/Ns 250 Ml IVPB 05/19/24 11:59 Infused Q12H KVNG Infusion Irbesartan 150 mg 05/18/24 18:00 05/18/24 17:08 Irbesartan 150 Mg Tablet PO 150 mg QPM KVNG Administration Loratadine 10 mg 05/18/24 18:00 05/18/24 17:09 Loratadine 10 Mg Tablet PO 10 mg QPM KVNG Administration Metoprolol Tartrate 50 mg 05/18/24 21:00 05/19/24 08:20 Metoprolol Tartrate 50 Mg Tab PO Not Given Q12HR [facility] Morphine Sulfate 2 mg 05/18/24 16:48 Morphine Sulfate (*Crx) 2 Mg/Ml Inj IV PUSH Q2H PRN Breakthrough Pain Rated 4-6 or NPO Naloxone HCl 0.1 mg 05/18/24 16:48 Naloxone Hcl 0.4 Mg/Ml Vial IV PUSH Q2M PRN Opiate Reversal Ondansetron HCl 4 mg 05/18/24 16:48 05/19/24 08:07 Ondansetron Inj 4 Mg/2 Ml Vial IV PUSH 4 mg Q4H PRN Administration Nausea And Vomiting Oxycodone HCl 5 mg 05/18/24 17:00 05/19/24 08:17 Oxycodone Hcl (*Crx) 5 Mg Tab Ir PO 5 mg Q4H KVNG Administration Oxycodone HCl 5 mg 05/18/24 16:48 Oxycodone Hcl (*Crx) 5 Mg Tab Ir PO Q4H PRN Pain Rated 7-10 Polyethylene Glycol 17 gm 05/19/24 09:00 05/19/24 08:13 Polyethylene Glycol 3350 17 Gm Powd.Pack PO 17 gm QAM [facility] Administration Rizatriptan Benzoate 10 mg 05/18/24 21:20 05/18/24 21:55 Rizatriptan Benzoate 10 Mg Odt PO 10 mg Q2H PRN Administration migraine Senna/Docusate Sodium 2 tab 05/18/24 17:00 05/19/24 08:12 Senna/Docusate Sodium Tablet PO 2 tab BID [facility] Administration Vitamin D 1,000 units 05/19/24 09:00 05/19/24 08:07 Cholecalciferol 1,000 Units Tablet PO 1,000 units DAILY KVNG Administration Radiology Results: ITS Impressions Knee X-Ray 05/18/24 15:24 IMPRESSION: No fractures seen. Total knee arthroplasty. Labs Labs: Laboratory Results - last 24 hr 05/18/24 05/19/24 10:21 06:23 WBC 10.1 H RBC 3.37 L Hgb 10.1 L Hct 31.8 L MCV 94.4 MCH 30.0 MCHC 31.8 L RDW 12.8 Plt Count 154 MPV 11.5 H Immature Gran % (Auto) 0.6 H Neut % (Auto) 94.0 H Lymph % (Auto) 2.4 L [place] % (Auto) 2.9 Eos % (Auto) 0.0 Baso % (Auto) 0.1 L Lymph # (Auto) 0.24 L [place] # (Auto) 0.3 Eos # (Auto) 0.0 Baso # (Auto) 0.0 Abs Immat Gran (auto) 0.06 H Absolute Neuts (auto) 9.5 H Absolute Nucleated RBC 0.000 Nucleated RBC % 0.0 Sodium 140 Potassium 3.9 Chloride 108 H Carbon Dioxide 26 Anion Gap 6 BUN 8 Creatinine 0.68 L Estim Creat Clear Calc 62 Estimated GFR > 60 Glucose 158 H Calcium 8.2 L Blood Type O Positive Antibody Screen Negative
--- NOTE | 2024-05-19 08:54 | WPDANESPN ---
Anes - Prog Note Post-Op Date/Time: 05/19/24 08:54 Cardiovascular status: normal Respiratory status: normal Airway patency: baseline Mental status: baseline Post-Op hydration status: normal Vital Signs: Last Vital Signs Temp 35.8 C L 05/19/24 08:07 Pulse 64 05/19/24 08:20 Resp 16 05/19/24 08:07 BP 125/59 L 05/19/24 08:07 Pulse Ox 98 05/19/24 08:07 O2 Del Method Room Air 05/18/24 21:37 O2 Flow Rate 2 05/18/24 16:44 Pain Score (VAS): 2 I/O: Intake & Output 05/18/24 05/19/24 05/19/24 23:59 07:59 15:59 Intake Total 745.8 250 Balance 745.8 250 Laboratory Tests 05/19/24 06:23 05/19/24 06:23 05/18/24 05/19/24 10:21 06:23 WBC 10.1 H RBC 3.37 L Hgb 10.1 L Hct 31.8 L MCV 94.4 MCH 30.0 MCHC 31.8 L RDW 12.8 Plt Count 154 MPV 11.5 H Immature Gran % (Auto) 0.6 H Neut % (Auto) 94.0 H Lymph % (Auto) 2.4 L [place] % (Auto) 2.9 Eos % (Auto) 0.0 Baso % (Auto) 0.1 L Lymph # (Auto) 0.24 L [place] # (Auto) 0.3 Eos # (Auto) 0.0 Baso # (Auto) 0.0 Abs Immat Gran (auto) 0.06 H Absolute Neuts (auto) 9.5 H Absolute Nucleated RBC 0.000 Nucleated RBC % 0.0 Sodium 140 Potassium 3.9 Chloride 108 H Carbon Dioxide 26 Anion Gap 6 BUN 8 Creatinine 0.68 L Estim Creat Clear Calc 62 Estimated GFR > 60 Glucose 158 H Calcium 8.2 L Blood Type O Positive Antibody Screen Negative Post-procedural complaints: none Patient Feedback: Patient satisfied with anesthetic care.
[2024-05-19] MEDS: VANCOMYCIN 1,000 MG/NS 250 ML 1,000 MG/250 ML BAG 250 MG IVPB (10:03)
[2024-05-19 12:12] VITALS: BP 120/52; PULSE 65; RESP 16; TEMP 35.9; O2SAT 99
== END 2024-05-19 14:30 | disposition home or self-care (01) ==
LOC: ANHSURGERY 00:33 → ANH3MEDSUR 16:50
PROVIDERS: Physician Assistant Surgical; PCP Internal Medicine; Visit Provider Orthopaedic Surgery
PROC: (CPT 27447; principal; 2024-05-18 11:30)
DX: M17.11 Unilateral primary osteoarthritis, right knee (principal); J45.909 Unspecified asthma, uncomplicated; D64.9 Anemia, unspecified; K21.9 Gastro-esophageal reflux disease without esophagitis; I10 Essential (primary) hypertension; E78.00 Pure hypercholesterolemia, unspecified; R00.2 Palpitations; F32.A Depression, unspecified; F41.9 Anxiety disorder, unspecified; I47.10 Supraventricular tachycardia, unspecified; Z79.82 Long term (current) use of aspirin; Z79.891 Long term (current) use of opiate analgesic; Z79.51 Long term (current) use of inhaled steroids; Z98.890 Other specified postprocedural states; Z90.49 Acquired absence of other specified parts of digestive tract; Z87.891 Personal history of nicotine dependence; Z80.9 Family history of malignant neoplasm, unspecified
CPT/HCPCS: 27447; 36415; 73560; 80048; 85025; 86850; 86900; 86901; 97110; 97161; 97165; 97530; A9270; C1713; C1776; J0171; J0690; J1100; J1171; J1885; J2003; J2250; J2270; J2371; J2405; J2704; J2795; J3010; J3370; J7030; J7120

== ENCOUNTER 2024-07-07 03:21 | Day surgery (SDC) | payer MEDICARE, SELFPAY ==
[2024-07-04 08:57] VITALS: BMI 26.9
--- NOTE | 2024-07-04 09:04 | PC.NURSE ---
Report to the Outpatient Waiting Room, entrance under the green pavilion located off [facility], at time __1130am on date __07/07/24 . Planned Procedure Time: _130pm .? Time changes happen often and if your time is changed the preop area will call you the afternoon before. - You and your visitor will be asked to self-screen and do not enter if you have any COVID symptoms. Please call surgeon if you need to reschedule. - A mask is optional within the hospital at this time. Patients may have clear liquids (water, carbonated beverages, clear teas, apple juice) until 3 hours prior to surgery with a maximum of 20 ounces. - No food from midnight until time of surgery and no smoking, or chewing tobacco (or any form of nicotine). No chewing gum, candy or mints. (1030am) Take only the following medications with a SIP of water on the morning of surgery: Metoprolol, Prednisone, Albuteral if needed, Oxycodone if needed, Alprazolam if needed DO NOT STOP ANY OF YOUR OTHER PRESCRIPTION MEDICATIONS PRIOR TO SURGERY EXCEPT THE FOLLOWING Hold all vitamins and supplements for 3 days per anesthesiologist.None till post op pt aware. Medications to discontinue per physician Aspirin per Dr Yeung ( they are aware pt took last night and is on it daily, they will call her w further instructions) Date to take last dose___Per Gamal Please no make-up, nail stateless, hairspray, perfume, deodorant, or body powder the day of surgery.? No jewelry (including any body piercings) or valuables the day of surgery, leave them at home.? Please take a shower or bath the night before, or the morning of, surgery with an antibacterial soap.? Wear comfortable, loose fitting clothing.? - Jewelry must be removed prior to entering the operating room.? Rings and piercings that are not removed may be cut off. - The hospital will not accept responsibility for valuables.? - Please leave all valuables, including medications, at home the day of surgery. If you are going home after surgery, a licensed pickup driver must drive you home.? - NO public transportation without another adult if you receive anesthesia. - We recommend that an adult stay with you for 24 hours following discharge. - We also recommend that you do not drive, make important decision, drink alcoholic beverages, or take any drugs that were not prescribed by your health care provider for at least 24 hours after your discharge time. Follow any additional instructions given to you from your surgeon. Telephone instructions given to __Patient and asked if any additional questions and then verbalized understanding. Patient advised to call surgeon office or pre surgery nurse liaison [phone] if any additional questions.
--- NOTE | 2024-07-05 16:09 | PM.IMHP ---
H&P: HPI History of Present Illness Date/Time: 07/05/24 16:09 Chief Complaint: Stiffness after her right total knee arthroplasty Narrative: 74-year-old female presents today for manipulation of her right total knee arthroplasty. She is approximately 7 weeks out. Patient has been having a difficult recovery from her right total knee arthroplasty. She has not made significant progression of her range of motion in the 1st 6 weeks. The option of manipulation was discussed with the patient she would like to proceed with that. She presents today for that. Review of Systems Review of Systems: All systems reviewed & are unremarkable except as noted in HPI and below PMFSH Past Medical History Medical History Depression Anxiety Arthritis SVT (supraventricular tachycardia) Palpitations Asthma Anemia GERD (gastroesophageal reflux disease) Migraine Hypertension High cholesterol Surgical History Surgical History History of bilateral cataract extraction History of cholecystectomy History of knee surgery right Family History Family History Mother Hypertension Cancer Social History Social History Smoking packs per day: 0.5 Smoking cigarettes per day: 10.0 Years smoked: 15 Smoking pack-years: 7.50 Smoking status: Former smoker Tobacco type: cigarettes Smoking end date: 03/15/93 Additional smoking assessment comments: DENIES ANY FORM OF TOBACCO USE Alcohol intake: current Alcohol use details: 1 per month Substance use: never Substance use type: painkillers Other substance usage details: Oxycodone as needed Current Housing: Decline to Answer Concerned About Future Housing: Decline to Answer Difficulty Paying Gas/Electric Bills: Decline to Answer Difficulty Paying for Meds: Decline to Answer Currently Unemployed: Decline to Answer Education: Decline to Answer Difficulty w/ Childcare or Family Care: Decline to Answer Living arrangements: with friend(s) Spiritual care concerns: No Meds Home Medications and Allergies Home Medications ?Medication ?Instructions ?Recorded ?Confirmed ?Type atorvastatin 20 mg tablet 20 mg PO DAILY 12/16/23 07/05/24 History irbesartan 150 mg tablet 150 mg PO QPM 12/16/23 07/05/24 History metoprolol tartrate 50 mg tablet 50 mg PO Q12H 12/16/23 07/05/24 History pantoprazole 40 mg tablet,delayed 40 mg PO DAILY 12/16/23 07/05/24 History release rizatriptan 10 mg tablet 10 mg PO Q2H PRN migraine headache 12/16/23 07/05/24 History coenzyme Q10 100 mg capsule 200 mg PO QPM 02/07/24 07/05/24 History albuterol sulfate 90 mcg/actuation 1 inh inhalation PRN 04/27/24 07/05/24 History aerosol inhaler cetirizine 10 mg capsule (All Day 10 mg PO QPM 04/27/24 07/05/24 History Allergy (cetirizine)) cholecalciferol (vitamin D3) 25 25 mcg PO DAILY 04/27/24 07/05/24 History mcg (1,000 unit) capsule [id number] carb-vit K 1 tablet PO DAILY 04/27/24 07/05/24 History 18 mg iron-400 mcg-500 mg tablet triamcinolone acetonide 55 mcg 1 spray intranasal HS 04/27/24 07/05/24 History nasal spray aerosol (24 Hour Nasal Allergy) acetaminophen 325 mg tablet 650 mg (2 x 325 mg) PO Q4H #90 tabs 05/19/24 07/05/24 Rx polyethylene glycol 3350 17 gram 17 g PO QAM #30 ea 05/19/24 07/05/24 Rx oral powder packet (Miralax) oxycodone 5 mg tablet 5 mg PO Q4H PRN pain #40 tabs 06/28/24 07/05/24 Rx prednisone 10 mg tablet 10 mg PO DAILY #60 tabs 06/28/24 07/05/24 Rx alprazolam 0.5 mg tablet 1 mg PO QID PRN anxiety 07/04/24 07/05/24 History Allergies Allergy/AdvReac Type Severity Reaction Status Date / Time No Known Allergies Allergy Verified 07/05/24 11:03 Exam Narrative: 74-year-old female alert pleasant. She is 5 ft 3 150 lb. Her right knee she has a trace effusion. Range of motion is from 15-70 degrees. She has normal stability in the knee. Hip range of motion is full without discomfort. Incision is well healed the anterior aspect of the knee. Resp: Auscultation: clear to auscultation bilaterally Cardio: Rate: regular rate Rhythm: regular rhythm Assessment and Plan Assessment and plan (1) History of total right knee replacement (TKR): Code(s): Z96.651 - Presence of right artificial knee joint Status: Acute Assessment and Plan: 74-year-old female who has had very poor progression of her range of motion now 7 weeks out from right total knee arthroplasty. The option of manipulation under anesthesia was discussed with the patient and she would like to proceed with that. Procedure as well as the risks complications were discussed in detail all questions were answered and we will proceed.
[2024-07-07] VITALS (7 sets, daily range): BP systolic 122–154; BP diastolic 53–88; PULSE 58–69; RESP 10–19; TEMP 36.3–36.4; O2SAT 98–100
--- OUTSIDE RECORDS SUMMARY | 2024-07-07 03:25 | XMS_ITS | Clinical Summary ---
Author Organization [facility] Address [address] [place] [id number] Care Team Providers Care Business Initiatives Manager Name Role Phone Unavailable Primary Care [...] 1 - Tdap) 1971 Mammogram Screening 1992 Pneumococcal Vaccine: 50+ Ye ars (1 of 1 - PCV) 2002 Zoster Vaccines (1 of 2) 2002 Dexa Scan (General) 2017 COVID-19 Vaccine (2023-2 5 season) 2023 RSV Immunization or 60+ Years (1 [...]
--- OUTSIDE RECORDS SUMMARY | 2024-07-07 03:25 | XMS_ITS | Clinical Summary ---
Author Organization [facility] Building C Address [address] [place] [address] Care Team Providers Care Family Consumer Scientist Name Role Phone Romero Meier MD Primary [...] mouth every 6 (six) hours as needed [address] (PROTONIX) 40 mg EC [...] BY MOUTH EVERY DAY 100 tablet 1 024 Active valACYclovir (VALTREX) 1 gram tablet TAKE 2 TABLETS BY MOUTH TWICE A DAY 4 tablet 3 025 Active triamcinolone (KENALOG) 0.1 % cream Apply topically 2 (two) times a day 45 g 3 025 Active metoprolol tartrate (LOPRESSOR) 50 mg immediate release tablet TAKE 1 TABLET BY MOUTH TWICE DAILY 200 tablet 1 025 Active irbesartan (AVAPRO) 150 mg tablet TAKE 1 TABLET BY MOUTH EVERY DAY AT NIGHT 100 tablet 025 Active ALPRAZolam (XANAX) 0.5 mg tablet TAKE 1 TABLET BY MOUTH NIGHTLY NEEDED FOR ANXIETY 30 tablet 025 Active rizatriptan (MAXALT) 10 mg tablet TAKE 1 TABLET BY MOUTH ONCE NEEDED FOR MIGRAINE FOR UP TO 1 DOSE MAY REPEAT IN 2 HOURS IF UNRESOLVED. DO NOT EXCEED 30 MG IN 24 HOURS. 12 tablet 1 025 Active LORazepam (ATIVAN) 1 mg tablet Take 1 tablet (1 mg total) by mouth every 6 (six) hours as needed for anxiety 60 tablet 025 Active rizatriptan (MAXALT) 10 mg tablet Take 1 tablet (10 mg total) by mouth once as needed for migraine for up to 1 dose May repeat in 2 hours if unresolved. Do not exceed 30 mg in 24 hours. 12 tablet 11 024 2024 Discontinued irbesartan (AVAPRO) 150 mg tablet Take 1 tablet (150 mg total) by mouth nightly 90 tablet 3 024 2024 Discontinued metoprolol tartrate (LOPRESSOR) 50 mg immediate release tablet TAKE 1 TABLET BY MOUTH TWICE DAILY 200 tablet 2 024 2024 Discontinued LORazepam (ATIVAN) 1 mg tablet Take 1 tablet (1 mg total) by mouth every 6 (six) hours as needed for anxiety 60 tablet 025 2024 Discontinued(R eorder) ALPRAZolam (XANAX) 0.5 mg tablet Take 1 tablet (0.5 mg total) by mouth nightly as needed for anxiety 30 tablet 025 2024 Discontinued LORazepam (ATIVAN) 1 mg tablet Take 1 tablet (1 mg total) by mouth every 6 (six) hours as needed for anxiety 60 tablet 025 2024 Discontinued(R eorder) Active Problems Problem Noted Date Diagnosed Date Rash 04/25/2024 Assessment & Plan (04/25/2024 9:23 AM IT COMMUNICATIONS MANAGER): New onset rash on the arm with [...] (09/17/2021): Added automatically from request for surgery [id number] Epigastric abdominal pain 09/17/2021 Overview (09/17/2021): Added automatically from request for surgery [id number] Essential hypertension 03/01/2015 Overview (06/18/2016): Essential hypertension Atopic rhinitis 03/01/2015 Overview (06/18/2016): Allergic rhinitis Asthma 03/01/2015 Overview (06/18/2016): Asthma Anxiety 03/01/2015 Overview (06/18/2016): Anxiety Pure hypercholesterolemia 10/11/2009 S/P cholecystectomy 09/26/2009 Supraventricular tachycardia 01/19/2009 Encounters Date Type Department Care Team Description 05/30/2024 Orders Only [facility] Primary Care at [address] [phone] Sayra Edwards NP 05/29/2024 3:15 PM CDT Telemedicine [facility] Care [address] [place] [phone] Aislinn Quarles NP Viral upper respiratory infection (Primary Dx) 05/29/2024 Nurse Triage [facility] Primary Care at [address] [phone] Rmoero Meier MD 05/26/2024 Telephone [facility] Primary Care at [address] [phone] Romero Meier MD 05/19/2024 Telephone [facility] Primary Care at [address] [phone] Romero Meier MD 05/18/2024 Orders Only [facility] Health Information Management [address] [place] [address] Scanning, Provider 05/11/2024 Telephone [facility] Primary Care at [address] [phone] Romero Meier MD 05/08/2024 Telephone [facility] Primary Care at [address] [place] [phone] Romero Meier MD 04/25/2024 9:30 AM IT COMMUNICATIONS MANAGER Office Visit [facility] Primary Care at [address] [place] [phone] Sayra Edwards NP Rash (Primary Dx) 04/24/2024 Nurse Triage [facility] Primary Care at [address] [place] [phone] Romero Meier MD from Last 3 Months Immunizations Immunization Administration Dates Next Due COVID-19 mRNA (gAuto) 0.3 m L (30 mcg) vaccine (12 [...] SARS-CoV-2 Monovalent Vaccination (12+ Yrs) PURPLE 07/15/2022,06/15/2022,12/23/2020,05/18,04/25/2020 Lipperhey Sars-Cov-2 Bivalent V accination (12+ YRS) 07/15/2022,12/05/2021,12/04/2021 [...] file Legal Sex Female 8:57 AM IT COMMUNICATIONS MANAGER Gender Identity Female 01/13/2021 11:02 AM CDT Sexual Orientation Straight 01/13/2021 11 :02 AM CDT 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 Not on file Obstetrics History Last Filed Vital Signs Vital Sign Reading Time Taken Comments Blood Pressure 142/70 04/25/2024 9:07 AM IT COMMUNICATIONS MANAGER Pulse 78 04/25/2024 9:07 AM IT COMMUNICATIONS MANAGER Temperature 36.8 C (98.3 F) 11/02/2023 2:00 PM CDT Respiratory Rate 16 12/09/2023 12:20 PM CDT Oxygen Saturation 98% 04/25/2024 9:07 AM IT COMMUNICATIONS MANAGER Inhaled Oxygen Concentration - - Weight 70.3 kg (155 lb) 04/25/2024 9:07 AM IT COMMUNICATIONS MANAGER Height 160 cm (5' 3 ) 04/25/2024 9:07 AM IT COMMUNICATIONS MANAGER Body Mass Index 27.46 04/25/2024 9:07 AM IT COMMUNICATIONS MANAGER Plan of Treatment Health Maintenance Due Date Last Done Comments Breast Cancer Screening-Mammogram 01/01/2024 12/31/2022, 12/22/2021, 10/22/2020, Additional history exists Depression Screening 08/19/2024 08/20/2023, 08/13/2022, 08/20/2021, Additional history exists Fall Risk Assessment 08/19/2024 08/20/2023, 08/13/2022, 11/06/2021, Additional history exists Well Visit 65+ 08/19/2024 08/20/2023, 0603/2022, 07/28/2021, Additional history exists Osteoporosis Screening-Bone Density Scan 08/25/2024 08/25/2022, 10/22/2020, 10/22/2020, Additional history exists Colon Cancer Screening-Colonoscopy 11/07/2031 11/06/2021, 05/30/2014 DTaP/Tdap/Td Vaccine (3 - Td or Tdap) 12/15/2033 12/16/2023, 11/02/2013 Hepatitis C Screening Completed 07/01/2017 Zoster Vaccine Completed 08/29/2018, 06/0 06/2017, 01/02/2016 Colon Cancer Screening-CT Colonography Discontinued [...] Procedure Name Priority Date/Time Associated Diagnosis Comments SCAN - RADIOLOGY/IMAGING 05/18/2024 STRESS TEST FOR DUAL READ Routine 05/10/2024 2:50 PM IT COMMUNICATIONS MANAGER SCREENING MAMMOGRAM 2D BILATERAL Schedule Routine, Read Routine (OP Routine) 12/31/2022 DEXA AXIAL SKELETON BONE DENSITY 1 OR MORE SITES Schedule Routine, Read Routine (OP Routine) 08/25/2022 COLONOSCOPY 11/06/2021 1:15 PM CDT HEPATITIS C ANTIBODY Routine 07/01/2017 11:16 AM CDT from Last 3 Months or Most Recently Relevant to Health Maintenance Results * SCAN - RADIOLOGY/IMAGING (05/18/2024) Anatomical Region Laterality Modality Other us Provider Scanning Final Result * Stress Test for Myocardial Perfusion (05/10/2024 2:50 PM IT COMMUNICATIONS MANAGER) Anatomical Region Laterality Modality Other Historical Provider CV STRESS PROCEDURES Jenn l Result * Screening Mammogram 2D Bilateral (12/31/2022) Anatomical Region Laterality Modality Breast Bilateral Mammography Historical Provider IMG MAMMO PROCEDURES Jenn l Result * Dexa [...] 11/06/2021 1:15 PM Admit Type: Outpatient Room: [facility] Date of : 1950 Instrument Name: [id number] [...] with a HCV Nucleic Acid Amplification test ([id number]). 07/01/2017 11:1 6 AM CDT 07/01/2017 Narrative [facility] - 07/02/2017 10:14 AM CDT Performed at: [address] [place] [id number] Stone Engraver: Wes Taylor PhD, Phone: [phone] Romero Meier MD LAB MICROBIOLOGY - [facility] AL ORDERABLES Final Result [facility] - 01 from Last 3 Months or Most Recently Relevant to Health Maintenance Insurance [place] [id number] UHC MEDICARE ADVANTAGE [place] [id number] MEDICARE ADVANTAGE Advance Directives For more information, please contact: [phone] * Full Code (Latest Code Status on File) Date Activated Date Inactivated Comments 11/06/2021 12:19 PM 11/06/2021 6:36 PM Care Teams Family Consumer Scientist Relationship Specialty Start Date End Date Romero Meier MD [address] [address] PCP - General 06/12/16
--- OUTSIDE RECORDS SUMMARY | 2024-07-07 03:25 | XMS_ITS | Clinical Summary ---
Author Organization [facility] Address [address] [place] [address] Care Team Providers Care Police Lieutenant Patrol Name Role Phone Romero Meier MD Primary Care Provider [phone] Source Comments [facility],non-owned Affiliates and Associated Physician Practices is amultiple site organization consisting of ambulatory clinics and hospital sitesin [place] and [place]. This disclosure is being madepursuant to the Care Everywhere program and may not contain all information available regarding this patient. Last updated 17.[facility] Allergies Active Allergy Reactions Criticality Noted Date Comments Pitavastatin Calcium Myalgias 10/12/2012 Simvastatin Myalgias 10/12/2012 Medications * Be aware that medications may not be up to date on this document. Alwaysverify current medications with the patient. aspirin EC (ECOTRIN) 81 MG tablet Take 1 (one) tablet by mouth once daily Active cetirizine (ZYRTEC) 10 MG tablet Take 1 Tab by mouth daily. 30 Tab 4 1 Active albuterol HFA (PROVENTIL;WILBER PATRICIA;PROAIR) 108 (90 BASE) MCG/ACT inhaler 2 Puffs every 4 hours as needed. For shortness of breath. 3 Inhaler 3 4 Active albuterol (PROVENTIL;WILBER PATRICIA) (5 MG/ML) 0.5% nebulizer solution 1 vial every 6 hours as needed with nebulizer machine 120 Vial 3 5 Active metoprolol tartrate (LOPRESSOR) 25 MG tabletIndication s:Supraventricul ar tachycardia (HCC) 1 Tab 2 times daily 180 Tab 3 5 Active omeprazole (PRILOSEC) 40 MG capsuleIndicatio ns:Gastroesophag eal reflux disease without esophagitis 1 Cap daily before breakfast 90 Cap 3 5 Active traMADol (ULTRAM) 50 MG tablet TAKE 1 TABLET BY MOUTH EVERY 6 HOURS NEEDED FOR PAIN 50 Tab 0 5 Active multivitamin daily (THERAGRAN) tablet Take 1 (one) tablet by mouth daily with food Active LORazepam (ATIVAN) 0.5 MG tablet Take 1 (one) tablet by mouth at bedtime Active fluticasone-salm eterol (ADVAIR) 250-50 MCG/DOSE inhaler Inhale 1 (one) puff by mouth 2 times daily Active acetaminophen CR (Tylenol Arthritis Pain) 650 MG tablet TAKE 1 TABLET BY MOUTH FOUR TIMES A DAY WITH TRAMADOL Active celecoxib (CeleBREX) 200 MG capsule Take 1 (one) capsule by mouth 2 times daily as needed 4 Active ciprofloxacin (Cipro) 500 MG tablet Active rizatriptan (Maxalt) 10 MG tablet 4 Active Creon 6000-54351 units capsule 4 Active methylPREDNISolo ne (Medrol Dosepak) 4 MG tablet 3 Active irbesartan (Avapro) 150 MG tablet Take 1 (one) tablet by mouth 4 Active HYDROcodone-acet aminophen ([place]) 5-325 MG tablet 4 Active etodolac (Lodine) 400 MG tablet 4 Active diphenoxylate-at ropine (Lomotil) 2.5-0.025 MG tablet Take 1 (one) tablet by mouth 4 times daily as needed 3 Active cyclobenzaprine (Flexeril) 10 MG tablet Take 1 (one) tablet by mouth 3 times daily as needed for Muscle Spasms 3 Active atorvastatin (Lipitor) 20 MG tablet Take 1 (one) tablet by mouth once daily 4 Active valACYclovir (Valtrex) 1 GM tablet Take 2 (two) tablets by mouth 2 times daily Active Active Problems Problem Noted Date Diagnosed Date Gastroesophageal reflux disease 08/16/2023 Osteoarthritis of knee 08/16/2023 Atrial arrhythmia 08/16/2023 Pain in joint of left shoulder 08/20/2022 Arthralgia of right knee 12/29/2021 Epigastric abdominal pain 09/17/2021 Overview (08/16/2023): Added automatically from request for surgery [id number] Tendinitis of wrist 09/17/2021 Right wrist pain [...] (08/16/2023): Added automatically from request for surgery [id number] Essential hypertension, benign 01/19/2009 01/19/2009 Encounters Date [...] traumatic ; Bicipital tendinitis of left shoulder from Last 3 Months Immunizations Immunization Administration Dates Next Due INFLUENZA VACCINE, TRIV. [...] Recorded Patient Health Questionnaire-2 Score 2 12/22/2023 Comments No Sex and Gender Information Value Date Recorded Sex Assigned at Not on file Legal Sex Female 6:49 AM ORTHOPEDIC CAST SPECIALIST Gender Identity Not on file Sexual Orientation Not on file Last Filed Vital Signs Vital Sign Reading Time Taken Comments Blood Pressure 152/84 05/19/2015 2:51 PM ORTHOPEDIC CAST SPECIALIST Pulse 85 05/19/2015 2:51 PM ORTHOPEDIC CAST SPECIALIST Temperature 36.8 C (98.3 F) 05/19/2015 2:51 PM ORTHOPEDIC CAST SPECIALIST Respiratory Rate 18 05/19/2015 2:51 PM ORTHOPEDIC CAST SPECIALIST Oxygen Saturation 96% 05/19/2015 2:51 PM ORTHOPEDIC CAST SPECIALIST Inhaled Oxygen Concentration - - Weight 64.9 kg (143 lb) 03/29/2024 10:59 AM ORTHOPEDIC CAST SPECIALIST Height 160 cm (5' 3 ) 03/29/2024 10:59 AM ORTHOPEDIC CAST SPECIALIST Body Mass Index 25.33 03/29/2024 10:59 AM ORTHOPEDIC CAST SPECIALIST Plan of Treatment Health Maintenance Due Date Last Done Comments COLOGUARD (AGES 45-75) - COLON CA SCREENING 1950 CT COLONOGRAPHY - COLON CA SCREENING 1950 FIT - COLON CA SCREENING 1950 FLEX SIG - COLON CA SCREENING 1950 Respiratory Syncytial Virus (RSV) Vaccine Pt: or over 60 yrs (1 - Risk 60-74 years 1-dose series) 2012 MAMMOGRAM 10/22/2022 10/22/2020, 10/2019, 09/10/2018, Additional history exists DTAP/TDAP/TD VACCINES (2 - Td or Tdap) 11/03/2023 11/02/2013 COVID-19 VACCINE ( season) 2023 07/15/2022, 06/15/2022, 12/05/2021, Additional history exists DEPRESSION SCREENING 03/15/2024 12/27/2023 MEDICARE AWV CALENDAR YEAR 2024 COLON MONITORING 05/30/2024 05/30/2014 COLONOSCOPY - COLON CA SCREENING 11/07/2031 11/06/2021, 05/30/2014, 05/30/2014, Additional history exists Colorectal Cancer Screening 11/07/2031 ZOSTER VACCINE Completed 08/29/2018, 06/2017, 01/02/2016 BONE DENSITY TESTING Completed 10/22/2020 PNEUMOCOCCAL VACCINE 50+ Completed 023, 06/30/2017, 09/14/2014, Additional history exists HEPATITIS C SCREENING Completed 08/20/2023 , 08/20/2023, 12/06/2012 INFLUENZA VACCINE Completed 11/12/2023, , 12/13/2020, Additional history exists HEPATITIS B VACCINE Aged Out No longe r eligible based on patient's age to complete this topic HIB VACCINE Aged Out No longer eligi ble based on patient's age to complete this topic HPV VACCINE Aged Out No longer eligi ble based on patient's age to complete this topic MENINGOCOCCAL (Group B) VACCINE SHARED DECISION-MAKING Aged Out No longer eligible based on patient's age to complete this topic MENINGOCOCCAL GROUPS A/C/Y/W VACCINE Aged Out No longer eligible based [...] Harry Hernandez on 10/22/2020 at 4:25 PM us Romero Meier MD DEXA ORDERABLES Final Res ult * MAMMO BILAT SCREENING (10/22/2020 1:12 PM [...] either breast. Romero Meier MD MAMMO ORDERABLES Final Re sult * ENDOSCOPY, COLON, SCREENING (05/30/2014) Provider Unknown GI PROCEDURE ORDERABLES Final R esult * HEPATITIS C ANTIBODY (12/06/2012 10:06 AM CDT) Hepatitis C Antibody NON-REACTI VE NON-REACT ELIOT Plyce Signal to Cut-Off 0.02 <1.00 [facility] Comment: REPORT COMMENT: FASTING Test Performed at: [facility] [address] [place] [address] RICO DELVALLE DO,MPH Blood specimen (specimen) BLOOD SPECIMEN / Unknown 12/06/2012 10:06 AM CDT 12/06/2012 10:07 AM CDT Romero Meier MD LAB - CHEMISTRY ORDERABLE S Final Result [facility] [address] [place] [address] from Last 3 Months or Most Recently Relevant to Health Maintenance Insurance MANAGED MEDICARE ADV MANAGED MEDICARE ADV PAYOR GENERIC PAYOR GENERIC Advance Directives * Full Code (Latest Code Status on File) Date Activated Date Inactivated Comments 05/16/2015 5:46 PM 05/19/2015 5:25 PM Care Teams Police Lieutenant Patrol Relationship Specialty Start Date End Date Romero Meier MD [address] [phone] PCP - General Internal Medicine 08/18/23
--- OUTSIDE RECORDS SUMMARY | 2024-07-07 03:25 | XMS_ITS | CONTINUITY OF CARE DOCUMENT ---
Author Name odalys morrow Address Unknown Organization [facility] [address] Address [address] [place] [address] Phone [phone] Care Team Providers Care Boiler Technician Name Role Phone Celestino Harrington MD Unavailable [phone] LISA SALAS DPM Unavailable INSURANCE PROVIDERS Payer name Policy type / Coverage type Mitchell red libertarian ID [facility] [id number]
--- OUTSIDE RECORDS SUMMARY | 2024-07-07 03:25 | XMS_ITS | Clinical Summary ---
Author Organization [facility] Address [address] [place] [address] Phone Care Team Providers Care Sales Representative Publications Name Role Phone Romero Meier MD Primary [...] on file Legal Sex Female 11:52 AM LIBRARY SCIENCE INSTRUCTOR Gender Identity Not on file Sexual Orientation Not on file Last Filed Vital Signs Vital Sign Reading Time Taken Comments Blood Pressure 116/50 04/23/2021 2:19 PM LIBRARY SCIENCE INSTRUCTOR Pulse 66 04/23/2021 12:14 PM LIBRARY SCIENCE INSTRUCTOR Temperature 36.4 C (97.6 F) 04/23/2021 12:14 PM LIBRARY SCIENCE INSTRUCTOR Respiratory Rate 18 04/23/2021 12:14 PM LIBRARY SCIENCE INSTRUCTOR Oxygen Saturation 100% 04/23/2021 12:14 PM LIBRARY SCIENCE INSTRUCTOR Inhaled Oxygen Concentration - - Weight 68 kg (150 lb) 04/23/2021 12:14 PM LIBRARY SCIENCE INSTRUCTOR Height 167.6 cm (5' 6 ) 04/23/2021 12:14 PM LIBRARY SCIENCE INSTRUCTOR Body Mass Index 24.21 04/23/2021 12:14 PM LIBRARY SCIENCE INSTRUCTOR Plan of Treatment Health Maintenance Due Date Last Done Comments Hepatitis C Virus (HCV) Screening 1950 Colonoscopy 1997 Colorectal Cancer Screening 1997 Cologuard 2002 Immunochemical Fecal Occult Blood 2002 Influenza Immunization (#1) 2023 03/2020, 12/13/2020, 11/24/2019, Additional history exists SARS-COV-2 [...] to complete this topic Insurance MEDICARE C [facility] Care Teams Sales Representative Publications Relationship Specialty Start Date End Date Romero Meier MD PCP - General Internal Medicine 04/23/21
--- OUTSIDE RECORDS SUMMARY | 2024-07-07 03:25 | XMS_ITS | Referral Summary ---
[facility] Organization [facility] Building C Address [address] [place] [address] Care Team Providers Care Medical Clerical Assistant Name Role Phone Romero Meier MD Primary Care Provider + Encounters Date Type Department Care Team Description 05/30/2024 Orders Only [facility] Medical Group Primary Care at [address] [place] [phone] Sayra Edwards NP 05/29/2024 3:15 PM CDT Telemedicine [facility] Medical [address] [address] Aislinn Quarles NP Viral upper respiratory infection (Primary Dx) 05/29/2024 Nurse Triage [facility] Medical [facility] Primary Care at [address] [place] [address] Romero Meier MD 05/26/2024 Telephone [facility] Medical Group Primary Care at [address] [place] [address] Romero Meier MD 05/19/2024 Telephone [facility] Medical Group Primary Care at [address] [place] [address] Romero Meier MD 05/18/2024 Orders Only [facility] Health Information Management [address] [place] [address] Scanning, Provider 05/11/2024 Telephone [facility] Primary Care at [address], [place] [address] Romero Meier MD 05/08/2024 Telephone [facility] Primary Care at [facility] [address] [place] [address] [place] [address] Romero Meier MD 04/25/2024 9:30 AM MICROBIOLOGY LAB ASSISTANT Office Visit [facility] Primary Care at [address] [place] [phone] Sayra Edwards NP Rash (Primary Dx) 04/24/2024 Nurse Triage [facility] Primary Care at [address] [place] [phone] Romero Meier MD from Last 3 Months Allergies Active Allergy [...] 04/25/2024 Assessment & Plan (04/25/2024 9:23 AM MICROBIOLOGY LAB ASSISTANT): New onset rash on the arm with [...] (09/17/2021): Added automatically from request for surgery [id number] Epigastric abdominal pain 09/17/2021 Overview (09/17/2021): Added automatically from request for surgery [id number] Essential hypertension 03/01/2015 Overview (06/18/2016): Essential hypertension Atopic rhinitis 03/01/2015 Overview (06/18/2016): Allergic rhinitis Asthma 03/01/2015 Overview (06/18/2016): Asthma Anxiety 03/01/2015 Overview (06/18/2016): Anxiety Pure hypercholesterolemia 10/11/2009 S/P cholecystectomy 09/26/2009 Supraventricular tachycardia 01/19/2009 Immunizations Immunization Administration Dates Next Due COVID-19 mRNA (Revolver) 0.3 m L (30 mcg) vaccine (12 [...] SARS-CoV-2 Monovalent Vaccination (12+ Yrs) PURPLE 07/15/2022,06/15/2022,12/23/2020,05/18,04/25/2020 yeppt Sars-Cov-2 Bivalent V accination (12+ YRS) 07/15/2022,12/05/2021,12/04/2021 [...] on file Legal Sex Female 8:57 AM MICROBIOLOGY LAB ASSISTANT Gender Identity Female 01/13/2021 11:02 AM CDT Sexual Orientation Straight 01/13/2021 11 :02 AM CDT 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 Not on file Last Filed Vital Signs Vital Sign Reading Time Taken Comments Blood Pressure 142/70 04/25/2024 9:07 AM MICROBIOLOGY LAB ASSISTANT Pulse 78 04/25/2024 9:07 AM MICROBIOLOGY LAB ASSISTANT Temperature 36.8 C (98.3 F) 11/02/2023 2:00 PM CDT Respiratory Rate 16 12/09/2023 12:20 PM CDT Oxygen Saturation 98% 04/25/2024 9:07 AM MICROBIOLOGY LAB ASSISTANT Inhaled Oxygen Concentration - - Weight 70.3 kg (155 lb) 04/25/2024 9:07 AM MICROBIOLOGY LAB ASSISTANT Height 160 cm (5' 3 ) 04/25/2024 9:07 AM MICROBIOLOGY LAB ASSISTANT Body Mass Index 27.46 04/25/2024 9:07 AM MICROBIOLOGY LAB ASSISTANT Plan of Treatment Not on file Procedures Procedure Name Priority Date/Time Associated Diagnosis Comments SCAN - RADIOLOGY/IMAGING 05/18/2024 STRESS TEST FOR DUAL READ Routine 05/10/2024 2:50 PM MICROBIOLOGY LAB ASSISTANT SCREENING MAMMOGRAM 2D BILATERAL Schedule Routine, Read Routine (OP Routine) 12/31/2022 DEXA AXIAL SKELETON BONE DENSITY 1 OR MORE SITES Schedule Routine, Read Routine (OP Routine) 08/25/2022 COLONOSCOPY 11/06/2021 1:15 PM CDT HEPATITIS C ANTIBODY Routine 07/01/2017 11:16 AM CDT from Last 3 Months or Most Recently Relevant to Health Maintenance Results * SCAN - RADIOLOGY/IMAGING (05/18/2024) Anatomical Region Laterality Modality Other Provider Scanning Final Result * Stress Test for Myocardial Perfusion (05/10/2024 2:50 PM MICROBIOLOGY LAB ASSISTANT) Anatomical Region Laterality Modality Other Historical Provider CV STRESS PROCEDURES Jenn l Result * Screening Mammogram 2D Bilateral (12/31/2022) Anatomical Region Laterality Modality Breast Bilateral Mammography Historical Provider MD SAAB MAMMO PROCEDURES Jenn l Result * Dexa Axial Skeleton Bone Density 1 or 2 Site (08/25/2022) SCRIBED DXA T-SCORE 2.4 Anatomical Region Laterality Modality Body N/A Radiographic Marbella ging [facility] Provider MD SAAB DXA PROCEDURES Final Result * COLONOSCOPY (11/06/2021 1:15 PM CDT) Anatomical Region Laterality Modality Other Narrative Procedure Note Eduard Godfrey MD - 11/06/2021 1:15 PM CDT ENDOSCOPY LAB Patient Name: Andria Combs Procedure Date: 11/06/2021 1:15 PM Admit Type: Outpatient Room: [facility] Date of : 1950 Instrument Name: [id number] [...] with a HCV Nucleic Acid Amplification test ([id number]). 07/01/2017 11:1 6 AM CDT 07/01/2017 Narrative [facility] - 07/02/2017 10:14 AM CDT Performed at: 01 - [facility] [id number] Tank Builder And Erector: Wes Taylor PhD, Phone: [phone] us Romero Meier MD LAB MICROBIOLOGY - GENER AL ORDERABLES Final Result [facility] - 01 from Last 3 Months or Most Recently Relevant to Health Maintenance Insurance MEDICARE ADVANTAGE MEDICARE ADVANTAGE MEDICARE ADVANTAGE Advance Directives For more information, please contact: [phone] * Full Code (Latest Code Status on File) Date Activated Date Inactivated Comments 11/06/2021 12:19 PM 11/06/2021 6:36 PM Care Teams Medical Clerical Assistant Relationship Specialty Start Date End Date Romero Meier MD [address] [address] PCP - General 06/12/16
--- OUTSIDE RECORDS SUMMARY | 2024-07-07 03:25 | XMS_ITS | Clinical Summary ---
Author Organization [facility] Address [address] [place] [address] Care Team Providers Care Laboratory Associate Name Role Phone Unavailable Primary Care Provider Unavailabl e Encounters Date Type Department Care Team Description 05/31/2024 External Device Data STL ABSTRACTION Provider, Abstract 05/20/2024 External Device Data STL ABSTRACTION Provider, Abstract 05/19/2024 External Device Data STL ABSTRACTION Provider, Abstract 05/17/2024 External Device Data STL ABSTRACTION Provider, [...] 75+ series) 2027 Insurance [employer] Member Subscriber Plan / Payer (Ef fective 2021-Present) Name:Andria Lopez Relation to Subscriber:Employee Name:ANDRIA DENSON Address: [place] [address] Payer ID:Not on file Group ID:Not on file Type:Other Address: [address] [address] [place] [id number]
--- OUTSIDE RECORDS SUMMARY | 2024-07-07 03:25 | XMS_ITS | Data Portability ---
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 Not available 02/11/2023 14:14:16 02/25/2023 02/25/2023 impression: Naz gaytan has moderately severe medial compartment osteoarthritis right knee. It is not ezyr-nv-mkui. She has not have an insufficiency fracture [...] more than half the time spent in ibgv-uv-hipn care. Not available 02/25/2023 14:25:41 04/07/2023 04/07/2023 [...] rotation as well as abduction. She has qhyq-tf-zihcmhjo discomfort with strength testing as well as [...] with more than half of this in skqf-gp-xckd conversation Not available 04/08/2023 13:20:17 09/24/2023 09/24/2023 The patient has moderate primary osteoarthritis in the medial compartment of the right knee not yet quite aiit-xd-fhtn does have significant narrowing. We talked about [...] DO Not Attach Compendium, Do Not Delete/merge, [id number] 12:07:03 injection/a spiration joint/bursa (PROC) - in office procedure, administere d by provider 2023 024 [email or web address] In-Office Order, Internal Use Only DO Not Attach Compendium DO Not Attach Compendium, Do Not Delete/merge, [id number] 4 15:09:23 injection/a spiration joint/bursa (PROC) - in office procedure, administere d by provider 2022 023 In-Office Order, Internal Use Only DO Not Attach Compendium DO Not Attach Compendium, Do Not Delete/merge, [id number] 3 15:40:55 Surgeries None recorded. Imaging [facility], [facility] [address], [place], [address], 3 15:03:50 MRI, knee, w/o contrast 2022 023 Replaced by [facility], [address] [place] [address], [place], [address], 3 18:38:10 XR, knee 2022 023 [facility], [facility] [facility], [place], [address], 3 15:40:55 Medication Orders Marcaine 0.5 % (5 mg/mL) injection solution 2023 024 [email or web address] [facility] #[id number], [address], [place], [address], 4 14:36:18 Kenalog 10 mg/mL suspension for injection 2023 024 [email or web address] [facility]/Pharmacy #[id number], [address], [place], [address], 4 14:36:18 tramadol 50 mg tablet 2023 024 T[facility][id number], [address], [place], [address], 4 14:24:04 Kenalog 10 mg/mL suspension for injection 2023 024 [email or web address] [email or web address] [id number], [address], [place], [address], 4 11:40:05 ropivacaine (PF) 5 mg/mL (0.5 %) injection solution 2023 024 [email or web address] r1 [facility][id number], [address], [place], [address], 4 11:40:11 Tylenol Arthritis Pain 650 mg tablet,exte nded release 2022 023 [facility] #[id number], [address], [place], [address], 3 15:03:50 Kenalog 10 mg/mL suspension for injection 2022 023 [email or web address] Not available 4 11:40:05 ropivacaine (PF) 5 mg/mL (0.5 %) injection solution 2022 023 [email or web address] [email or web address] Not available 4 11:40:11 Patient TargetsNo targets recorded. Patient Instructions Encounter Date Encounter Id Patient Instructions Last Modified By Organization Details Last Modified Time 09/24/2023 [id number] viscosupplementa tion treatment* [email or web address] Not available 09/29/2023 11:29:09 Reason for Referral None Reported. Results Created Date Observation Date Name Description Value Unit Range Abnormal Flag Note LastModifiedBy Organization Detail LastModifiedTime 11/06/19 23 XR, knee No observ ation record ed. [facility] [address], [place], [address], 11/05/2022 12:37:42 02/12/20 23 XR, knee No observ ation record ed. [facility] [address], [place], [address], 02/11/2023 14:02:28 02/17/20 23 MRI, knee, w/o contr ast [facility] [address], [place] [address] Patien t Name: ANDIRA CHEN Access ion #: [id number] Sex: F : 1950 6 7 [...] tear involv ing zone 3 of the supervisor trust accounts ior horn of the medial menisc us [...] 1. Small thin radial tear at the supervisor trust accounts ior horn of the medial menisc us involv ing zone 3. 2. Chondr omalac ia in the medial and patell ofemor al compar tments as descri bed above. Electr onical ly Signed by: Oniel kent at 2022 17:36: 55 PM Page 1 [email or web address] [facility] ([facility]) [address] [place], [address], 02/17/2023 13:01:04 Result Notes None recorded. Problems Name Problem SNOMED Code Status Onset Date Resolution Date Notes Provider Name and Address Organization Details Recorded Time Atrial arrhythmia 95395347 Active Not Available [facility] 3 16:40:19 Asthma 308371194 Active Not Available [facility] 3 16:40:19 Gastroesop hageal reflux disease 600180961 Active Not Available [facility] 3 16:40:19 Osteoarthr itis of knee 133854662 Active Not Available [facility] 3 16:40:19 Current tear of medial cartilage AND/OR meniscus of knee Active Not Available [facility] 3 16:40:19 Pain of right wrist 4434309733326 00 Active 2021 Not Available [facility] 3 16:40:19 Osteoarthr itis 322968717 Active Not Available [facility] 3 16:40:19 Tendinitis of wrist 253645243 Active 2021 Not Available [facility] 3 16:40:19 Tendinitis of extensor carpi ulnaris 085356355 Active 2021 Not Available [facility] 3 16:40:20 Pain of right knee joint 3151711089086 00 Active 2021 Not Available [facility] 3 16:40:20 Allergic rhinitis 08462561 Active Not Available [facility] 3 16:40:20 Postmenopa usal state 10048979 Active Not Available [facility] 3 16:40:20 Osteoarthr itis of right knee joint 8500326966549 00 Active 2022 ALEXUS Lorenzo, [place] - [facility] 3 14:01:56 Pain of left shoulder joint 1120114078299 9109 Active 2022 ALEXUS [place], [place] [facility] 3 11:57:05 Problem Notes None recorded. Procedures Surgical History None recorded. Imaging Results Imaging Date Name Status LastModified by Organiz ation Details LastModified Time 11/05/2022 XR, knee completed [facility] [address], [place], [address], 11/05/2022 12:37:42 02/11/2023 XR, knee completed [facility] [address], [place], [address], 02/11/2023 14:02:28 02/16/2023 MRI, knee, w/o contrast completed [email or web address] [facility] (Imaging) [address], [place], [address], 02/17/2023 13:01:04 Procedure Notes None recorded. Medical [...] 20 mg by injection route. 2023 active [facility]: 0003- 0494- 20 Not Available Not Available [...] 15 mg by injection route. 09/23 completed [facility] [phone] -[phone] Not Available Not Available Not Available metoprolol succ 25 mg-hydrochl orothiazide 12.5 mg tablet,ext. rel 24 hr Take 1 tablet every day by oral route. 10/23 completed Not Available Not Available Not Available Nasacort 55 mcg nasal spray aerosol [place] 2 sprays every day by intranasa l [...] Updated DateTime 11/05/2022 160.02 cm [facility] [employer] [facility] 11/05/2022 11:57:02 Date Recorded Body height Provider Name an d Address Organization Details Last Updated DateTime 02/11/2023 160.02 cm Candis Hollis Jung [facility] [employer] [facility] 02/11/2023 12:05:22 Date Recorded Body height Provider Name an d Address Organization Details Last Updated DateTime 02/25/2023 160.02 cm Candis Hollis [facility] [employer] [facility] 02/25/2023 12:02:52 Date Recorded Body height Provider Name an d Address Organization Details Last Updated DateTime 04/07/2023 160.02 cm Mady Ethel [facility] [employer] [facility] 04/07/2023 15:01:51 Date Recorded Body height Body mass index (BMI) Body weight Provider Name and Address Organization Details Last Updated DateTime 09/24/2023 160.02 cm 24.8 kg/m2 39997.93 g Beba Addisonlily, [employer] [employer] 09/24/2023 11:39:32 Social History Question Answer Notes LastModified by Organizat ion Details LastModified Time Tobacco Smoking Status Never Smoker Salima Chisholm null, [employer] 04/07/2023 14:51:15 What Is Your Level Of Alcohol Consumption? None [email or web address] Information not available 09/24/2023 What Is Your Occupation? [employer] [email or web address] Information not available 04/07/2023 What Was The Date Of Your Most Recent Tobacco Screening? 05/20/2021 [email or web address] Information not available 04/07/2023 Sex: Unknown Functional Status None recorded. Mental Status None recorded. Family History Relationship Description Onset Age of this Age Resolved Age Notes LastModified by Organization Details LastModified Time Mother Family history of malignant neoplasm [email or web address] Not available 09/23 11:18:07 Mother Heart disease [email or web address] [id number] Not available 05/13/2022 16:39:40 Father Hypertensive disorder [email or web address] [id number] Not available 05/13/2022 16:39:40 Sister Hypertensive disorder [email or web address] Not available 2022 14:16:25 Medical History Condition Response HEART DISEASE/HEART PROBLEMS Y HYPERTENSION Y ANEMIA/BLOOD DISORDER Y Gynecological HistoryNo gynecological history recorded. Obstetrics History GPAL:G 0 P 0 0 0 0 Past Encounters Encounter ID Performer Location Encounter Start Date Encounter Closed Date Diagnosis/Indication Diagnosis SNOMED-CT Code Diagnosis ICD10 Code Diagnosis Note [id number] [facility] [address] [place] [address] 07/02/2020 00:00:00 07/02/2020 17:03:45 [id number] [facility] [address] [place] [address] 07/30/2020 00:00:00 07/30/2020 14:36:09 [id number] [facility] [address] [place] [address] 09/17/2020 00:00:00 09/17/2020 16:31:40 [id number] [facility] [address] [place] [address] 10/01/2020 00:00:00 10/01/2020 12:30:57 [id number] [facility] [address] [place] [address] 10/08/2020 00:00:00 10/08/2020 09:00:41 [id number] [facility] [address] [place] [address] 10/29/2020 00:00:00 10/29/2020 12:17:58 [id number] [facility] [address] [place] [address] 11/26/2020 00:00:00 11/26/2020 13:06:01 [id number] [facility] [address] [place] [address] 12/24/2020 00:00:00 12/24/2020 12:34:15 [id number] [facility] [address] [place] [address] 05/20/2021 00:00:00 05/20/2021 15:52:07 [id number] [facility] [address] [place] [address] 06/10/2021 00:00:00 06/10/2021 15:38:11 [id number] [facility] [address] [place] [address] 07/01/2021 00:00:00 07/01/2021 14:35:28 [id number] [facility] [address] [place] [address] 07/29/2021 00:00:00 07/29/2021 16:57:05 [id number] [facility] [address] [place] [address] 09/17/2021 00:00:00 09/17/2021 17:49:42 [id number] [facility] [address] [place] [address] 10/29/2021 00:00:00 10/29/2021 16:49:01 [id number] [facility] [address] [place] [address] 11/25/2021 00:00:00 11/25/2021 16:27:59 [id number] [facility] [address] [place] [address] 12/16/2021 00:00:00 12/16/2021 17:26:17 [id number] [facility] [address] [place] [address] 12/29/2021 00:00:00 12/29/2021 15:40:59 [id number] [facility] [address] [place] [address] 05/04/2022 00:00:00 05/04/2022 16:35:22 [id number] SAM Krishnamurthy [facility] [address] [place] [address] 06/05/2022 14:01:09 06/05/2022 16:06:02 Osteoarthritis 758728593 M17.11 [id number] SAM Krishnamurthy [facility] [address] [place] [address] 08/03/2022 13:57:45 08/03/2022 15:45:17 Osteoarthritis of right knee joint 9336140688 76405 M17.11 [id number] SAM Krishnamurthy [facility] [place] [address] [place] [address] 08/20/2022 11:46:22 08/20/2022 12:53:57 Pain of left shoulder joint 4221529213 [id number] M25.512 [id number] SAM Krishnamurthy [facility] [address] [address] 11/05/2022 11:41:15 11/05/2022 13:09:19 Pain of right knee joint 8964210014 59012 M25.646 [id number] Dontrell Elizabeth MD [facility] [address] [address] 02/11/2023 11:42:09 02/11/2023 14:15:21 Osteoarthritis of right knee joint 0830216365 47393 M17.11 [id number] Dontrell Elizabeth MD [facility] [address] [address] 02/25/2023 11:57:10 02/25/2023 14:26:11 Osteoarthritis of right knee joint 1391833385 24431 M17.11 [id number] SAM Krishnamurthy [facility] [address] [place] [address] 04/07/2023 14:47:52 04/08/2023 13:46:31 Pain of left shoulder joint 3859596090 [id number] M25.940 [id number] SAM Tompkins [facility] [address] [place] [address] 09/24/2023 11:15:49 09/24/2023 12:13:10 Osteoarthritis of right knee joint 9318148357 19928 M17.11 Pain of ri ght knee joint 1838693457 83728 M25.561 Health Concerns Section Related Observation LastModified by Organization Detai ls LastModified Time None Recorded Concern Status LastModified by Organization Details LastModified Time None Recorded Advance Directives Directive None Recorded Payers Encounter Date Sequence Insurance Name Policy Number Policy Real Covered Member ID Real Member ID Guarantor Name 11/05/2022 1 [facility] (MEDICARE REPLACEMENT/A DVANTAGE - PPO) [id number] Andria Lopez [id number] Andria Lopez 02/11/2023 1 [facility] (MEDICARE REPLACEMENT/A DVANTAGE - PPO) [id number] Andria Lopez [id number] Andria Lopez 02/25/2023 1 [facility] (MEDICARE REPLACEMENT/A DVANTAGE - PPO) [id number] Andriajung Barriosick [id number] Andria Lopez 04/07/2023 1 [facility] (MEDICARE REPLACEMENT/A DVANTAGE - PPO) [id number] Andriajung Barriosick [id number] Andria Lopez 09/24/2023 1 [facility] (MEDICARE REPLACEMENT/A DVANTAGE - PPO) [id number] Andriajung Barriosick [id number] Andria Lopez Notes Date Note Type Note [...] bone density for age. 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 Dontrell Eilzabeth MD [address] [place] [address], [place], [address], [facility] 02/25/2023 14:25:58 09/24/2023 text/html Patient returns with [...] measures. Eventually she sought another opinion in [place] and on May 04 of this year [...] options if there are any. SAM Tompkins [address] [place] [address], [place], [address], [place] [facility] 09/24/2023 14:24:45 OBGyn Episode No OBEpisode recorded.
[2024-07-07] MEDS: LACTATED RINGERS 1,000 ML 30 ML IV CONT (12:00)
[2024-07-07] MEDS: ACETAMINOPHEN 500 MG TABLET 1000 MG PO (12:15)
[2024-07-07] MEDS: TRANEXAMIC ACID 1,000 MG/10 ML AMPUL 1000 MG IV PUSH (12:15)
[2024-07-07] MEDS: KETOROLAC 15 MG/ML VIAL (*BKC) IV PUSH (12:15)
--- NOTE | 2024-07-07 12:21 | P.PNAN_ITS ---
Anes - Initial Pre Proc Eval Procedure: Operation Date: 07/07/24 13:00 Proposed Procedures p Right Total Knee Manipulation Under Anesthesia with Injection - Dontrell Elizabeth MD Date/Time: 07/07/24 12:21 Surgeon: Dontrell Elizabeth MD Pre Op Diagnosis: stiffness after right total knee Patient Data Age: 74 Gender: F Height: 1.6 m Weight: 69.4 kg Allergies Allergy/AdvReac Type Severity Reaction Status Date / Time No Known Allergies Allergy Verified 07/07/24 12:08 Home Medications ?Medication ?Instructions ?Recorded ?Confirmed ?Type atorvastatin 20 mg tablet 20 mg PO DAILY 12/16/23 07/05/24 History irbesartan 150 mg tablet 150 mg PO QPM 12/16/23 07/05/24 History metoprolol tartrate 50 mg tablet 50 mg PO Q12H 12/16/23 07/07/24 History pantoprazole 40 mg tablet,delayed 40 mg PO DAILY 12/16/23 07/07/24 History release rizatriptan 10 mg tablet 10 mg PO Q2H PRN migraine headache 12/16/23 07/07/24 History coenzyme Q10 100 mg capsule 200 mg PO QPM 02/07/24 07/05/24 History albuterol sulfate 90 mcg/actuation 1 inh inhalation PRN 04/27/24 07/05/24 Hi story aerosol inhaler cetirizine 10 mg capsule (All Day 10 mg PO QPM 04/27/24 07/05/24 History Allergy (cetirizine)) cholecalciferol (vitamin D3) 25 25 mcg PO DAILY 04/27/24 07/05/24 History mcg (1,000 unit) capsule oidcycps-yrm-gbqm-FA-Ca carb-vit K 1 tablet PO DAILY 04/27/24 07/05/24 History 18 mg iron-400 mcg-500 mg tablet triamcinolone acetonide 55 mcg 1 spray intranasal HS 04/27/24 07/05/24 History nasal spray aerosol (24 Hour Nasal Allergy) acetaminophen 325 mg tablet 650 mg (2 x 325 mg) PO Q4H #90 tabs 05/19/24 07/05/24 Rx polyethylene glycol 3350 17 gram 17 g PO QAM #30 ea 05/19/24 07/05/24 Rx oral powder packet (Miralax) oxycodone 5 mg tablet 5 mg PO Q4H PRN pain #40 tabs 06/28/24 07/07/24 Rx prednisone 10 mg tablet 10 mg PO DAILY #60 tabs 06/28/24 07/05/24 Rx alprazolam 0.5 mg tablet 1 mg PO QID PRN anxiety 07/04/24 07/05/24 History Patient hx anesthesia problems: none Family hx anesthesia problems: none Results Review: All pre-operative results and documents have been reviewed as part of the pre- operative evaluation. [facility] Past Medical History Medical History Depression Anxiety Arthritis SVT (supraventricular tachycardia) Palpitations Asthma Anemia GERD (gastroesophageal reflux disease) Migraine Hypertension High cholesterol Surgical History Surgical History History of bilateral cataract extraction History of cholecystectomy History of knee surgery right Family History Family History Mother Hypertension Cancer Social History Social History Smoking packs per day: 0.5 Smoking cigarettes per day: 10.0 Years smoked: 20 Smoking pack-years: 10.00 Smoking status: Former smoker Tobacco type: cigarettes Additional smoking assessment comments: DENIES ANY FORM OF TOBACCO USE Alcohol intake: current Alcohol use details: ONE DRINK PER MONTH Substance use: never Substance use type: painkillers Other substance usage details: Oxycodone as needed Current Housing: Decline to Answer Concerned About Future Housing: Decline to Answer Difficulty Paying Gas/Electric Bills: Decline to Answer Difficulty Paying for Meds: Decline to Answer Currently Unemployed: Decline to Answer Education: Decline to Answer Difficulty w/ Childcare or Family Care: Decline to Answer Living arrangements: alone Spiritual care concerns: No Anes - Eval Final PreProcedure Day of Procedure 07/07/24 12:21 Patient weight: overweight Heart: regular rate and rhythm Lungs: clear to auscultation Airway: Mallampati scale class II Neurological: alert and oriented Last oral intake: >/= 8 hours ASA classification: III Emergent: no Anesthetic plan: proceed Anesthesia type and monitoring: general LMA and standard monitoring Results Review: All pre-operative results and documents have been reviewed as part of the pre- operative evaluation. Informed Consent: The patient's anesthetic plan and its attendant risks and benefits were discussed with the patient/family/POA. Questions were solicited and answers provided to the satisfaction of the patient/family/POA.
--- NOTE | 2024-07-07 12:46 | WPDHPUPDATE1 ---
History and Physical Update Update Date/Time: 07/07/24 12:46 History and Physical has been reviewed, including an updated exam of the patient. There are NO changes in the patient's condition. Risks, benefits, and alternatives have been discussed and questions answered. Patient agrees to proceed with procedure.
[2024-07-07] MEDS: BUPIVACAINE/EPINEPHRINE 0.5% 30 ML VIAL 10 ML INFILTRATE (13:10)
[2024-07-07] MEDS: TRANEXAMIC ACID 1,000MG/ISO100 1,000 MG/100 ML BAG 200 MG IVPB (13:11)
--- NOTE | 2024-07-07 13:16 | W.PM.PROC2 ---
Procedure Note - Detailed Date of Procedure 07/07/24 Pre-op Diagnosis stiffness after right total knee Post-op Diagnosis Same Procedure Performed Manipulation under anesthesia right total knee replacement Surgeon Dontrell Elizabeth MD Anesthesia General Description of Procedure Patient was brought to the operating room and general anesthesia was administered. The right knee was prepped with ChloraPrep and injected with 10 cc of 0.5% Marcaine with epinephrine after withdrawal of the a couple of cc of clear yellow fluid. Short-acting paralyzing agent was administered. With paralysis on board she had gravity flexion the to 90? and about 7? from full extension. Passively the knee would bend to about 100? and with prolonged gentle pressure pushing on the proximal anterior tibia to flex the knee, the a tearing sensation was identified her knee gave another 20? of flexion and with additional along flexion knee flexed to 140?. The knee was extended and with a gentle along the extension pressure the knee passively went to full extension. Under just the weight of gravity there remained about 3 ? of extension. We then assessed stability. I was about 3 mm of anterior posterior drawer at 90? under anesthesia and in extension and opened up 1 mm lateral 2 mm medial to to varus and valgus stress. There were no complications she was transferred postop recovery room in stable condition. She did receive 1 g of TXA preoperatively and 8 mg of Decadron and in preop she received 15 mg IV Toradol. Photographs were taken in all positions described above [facility] Billing Surgery - Charge Forward: Surgery Billing (Manipulation under anesthesia right knee)
== END 2024-07-07 14:57 | disposition home or self-care (01) ==
PROVIDERS: Visit Provider Orthopaedic Surgery
PROC: (CPT 27570; principal; 2024-07-07 13:00)
DX: Z09 Encounter for follow-up examination after completed treatment for conditions other than malignant neoplasm (principal); M25.661 Stiffness of right knee, not elsewhere classified; I10 Essential (primary) hypertension; D64.9 Anemia, unspecified; E78.00 Pure hypercholesterolemia, unspecified; J45.909 Unspecified asthma, uncomplicated; K21.9 Gastro-esophageal reflux disease without esophagitis; F32.A Depression, unspecified; F41.9 Anxiety disorder, unspecified; I47.10 Supraventricular tachycardia, unspecified; R00.2 Palpitations; M19.90 Unspecified osteoarthritis, unspecified site; Z79.51 Long term (current) use of inhaled steroids; Z79.891 Long term (current) use of opiate analgesic; Z79.52 Long term (current) use of systemic steroids; Z98.890 Other specified postprocedural states; Z90.49 Acquired absence of other specified parts of digestive tract; Z96.651 Presence of right artificial knee joint; Z87.891 Personal history of nicotine dependence; Z80.9 Family history of malignant neoplasm, unspecified
CPT/HCPCS: 27570; A9270; J1100; J1885; J2704; J3010; J7120

== ENCOUNTER 2024-07-14 11:50 | Outpatient (CLI) | payer MEDICARE, SELFPAY ==
--- NOTE | 2024-07-14 13:15 | PCPTNOTE ---
Called and canceled PT today. Attempted to contact MD x 2 today to follow up with MD following pts visit today. Unable to get thru to office.([facility] wide internet down.) NATHAN
[2024-07-14 13:28] LABS: Erythrocyte Sedimentation Rate 21 mm/hr (0-20)
[2024-07-14 13:31] LABS: CRP 1.7 mg/dL (<1.0)
--- NOTE | 2024-07-14 13:52 | PCPTNOTE ---
Left mssg with pt today to encourage her to stretch over the weekend. AKS
--- OUTSIDE RECORDS SUMMARY | 2024-07-15 12:59 | XMS_ITS | CONTINUITY OF CARE DOCUMENT ---
Author Name odalys morrow Address Unknown Organization [facility] Address [address] [place] [address] Phone [phone] Care Team Providers Care General Internal Medicine Physician Name Role Phone Celestino Harrington MD Unavailable [phone] LISA SALAS DPM Unavailable [phone] INSURANCE PROVIDERS Payer name Policy type / Coverage type [place] [employer] ID [facility] health [facility] [id number]
--- OUTSIDE RECORDS SUMMARY | 2024-07-15 12:59 | XMS_ITS | Data Portability ---
Author Organization [place] [facility], Main Office Address [address] [place] [address] Care Team Providers Care Pipe Out Worker Name Role Phone EKATERINA NEGRETE Primary Care Provider EKATERINA NEGRETE Referring Provider HANK ALEXANDER Gluing Machine Operator [phone] Assessment Encounter Date Assessment Date Assessment LastModified [...] more than half the time spent in wbht-vy-frrn care. Not available 02/11/2023 14:14:16 02/25/2023 02/25/2023 impression: Naz gatyan has moderately severe medial compartment osteoarthritis right knee. It is not awvm-yy-qhlo. She has not have an insufficiency fracture [...] more than half the time spent in lprv-ss-kxxn care. Not available 02/25/2023 14:25:41 04/07/2023 04/07/2023 [...] rotation as well as abduction. She has fhzw-tx-qlcurbou discomfort with strength testing as well as [...] with more than half of this in xvxo-zx-twbu conversation Not available 04/08/2023 13:20:17 09/24/2023 09/24/2023 The patient has moderate primary osteoarthritis in the medial compartment of the right knee not yet quite qccs-nq-kdph does have significant narrowing. We talked about [...] DO Not Attach Compendium, Do Not Delete/merge, [id number] 12:07:03 injection/a spiration joint/bursa (PROC) - in office procedure, administere d by provider 2023 024 [email or web address] In-Office Order, Internal Use Only DO Not Attach Compendium DO Not Attach Compendium, Do Not Delete/merge, [id number] 4 15:09:23 injection/a spiration joint/bursa (PROC) - in office procedure, administere d by provider 2022 023 In-Office Order, Internal Use Only DO Not Attach Compendium DO Not Attach Compendium, Do Not Delete/merge, [id number] 3 15:40:55 Surgeries None recorded. Imaging XR, knee 2022 023 [facility] [address] [facility], [place], [address], 3 15:03:50 MRI, knee, w/o contrast 2022 023 [facility], [address] [place] [address], [place], [address], 3 18:38:10 XR, knee 2022 023 [facility], [facility] [facility], [place], [address], 3 15:40:55 Medication Orders Marcaine 0.5 % (5 mg/mL) injection solution 2023 024 [email or web address] [facility]/Pharmacy #[id number], [address], [place], [address], 4 14:36:18 Kenalog 10 mg/mL suspension for injection 2023 024 [email or web address] [facility]armacy #[id number], [address], [place], [address], 4 14:36:18 tramadol 50 mg tablet 2023 024 [facility][id number], [address], [place], [address], 4 14:24:04 Kenalog 10 mg/mL suspension for injection 2023 024 [email or web address] r1 [id number], [address], [place], [address], 4 11:40:05 ropivacaine (PF) 5 mg/mL (0.5 %) injection solution 2023 024 [email or web address] r1 [id number], [address], [place], [address], 4 11:40:11 Tylenol Arthritis Pain 650 mg tablet,exte nded release 2022 023 [facility] #[id number], [address], [place], [address], 3 15:03:50 Kenalog 10 mg/mL suspension for injection 2022 023 [email or web address] Not available 4 11:40:05 ropivacaine (PF) 5 mg/mL (0.5 %) injection solution 2022 023 [email or web address] r1 Not available 4 11:40:11 Patient TargetsNo targets recorded. Patient Instructions Encounter Date Encounter Id Patient Instructions Last Modified By Organization Details Last Modified Time 09/24/2023 [id number] viscosupplementa tion treatment* [email or web address] Not available 09/29/2023 11:29:09 Reason for Referral None Reported. Results Created Date Observation Date Name Description Value Unit Range Abnormal Flag Note LastModifiedBy Organization Detail LastModifiedTime 11/06/19 23 XR, knee No observ ation record ed. [facility] [address], [place], [address], 11/05/2022 12:37:42 02/12/20 23 XR, knee No observ ation record ed. [facility] [address], [place], [address], 02/11/2023 14:02:28 02/17/20 23 MRI, knee, w/o contr ast [facility] [address], [place] [address] Patien t Name: ANDRIA CHEN Access ion #: [id number] Sex: F : 1950 6 7 [...] tear involv ing zone 3 of the smoking pipe driller and threader ior horn of the medial menisc us [...] 1. Small thin radial tear at the smoking pipe driller and threader ior horn of the medial menisc us involv ing zone 3. 2. Chondr omalac ia in the medial and patell ofemor al compar tments as descri bed above. Electr onical ly Signed by: Oniel kent at 2022 17:36: 55 PM Page 1 [email or web address] [facility] ([facility]) [address] [place], [address], 02/17/2023 13:01:04 Result Notes None recorded. Problems Name Problem SNOMED Code Status Onset Date Resolution Date Notes Provider Name and Address Organization Details Recorded Time Atrial arrhythmia 35434084 Active Not Available [facility] 3 16:40:19 Asthma 799993870 Active Not Available [facility] 3 16:40:19 Gastroesop hageal reflux disease 191546352 Active Not Available [facility] 3 16:40:19 Osteoarthr itis of knee 907001339 Active Not Available [facility] 3 16:40:19 Current tear of medial cartilage AND/OR meniscus of knee Active Not Available [facility] 3 16:40:19 Pain of right wrist 9516172379315 00 Active 2021 Not Available [facility] 3 16:40:19 Osteoarthr itis 634935343 Active Not Available [facility] 3 16:40:19 Tendinitis of wrist 413831581 Active 2021 Not Available [facility] 3 16:40:19 Tendinitis of extensor carpi ulnaris 406351392 Active 2021 Not Available [facility] 3 16:40:20 Pain of right knee joint 6543576091391 00 Active 2021 Not Available [facility] 3 16:40:20 Allergic rhinitis 27608805 Active Not Available [facility] 3 16:40:20 Postmenopa usal state 40788813 Active Not Available [facility] 3 16:40:20 Osteoarthr itis of right knee joint 6198363734573 00 Active 2022 ALEXUS Lorenzo, [place] - [facility] 3 14:01:56 Pain of left shoulder joint 9711840431054 9109 Active 2022 ALEXUS Lorenzo, [place] [facility] 3 11:57:05 Problem Notes None recorded. Procedures Surgical History None recorded. Imaging Results Imaging Date Name Status LastModified by Organiz ation Details LastModified Time 11/05/2022 XR, knee completed [facility] [address] [facility], [place], [address], 11/05/2022 12:37:42 02/11/2023 XR, knee completed [facility] [address] [facility], [place], [address], 02/11/2023 14:02:28 02/16/2023 MRI, knee, w/o contrast completed [email or web address] [facility] (Imaging) [address] [facility], [place], [address], 02/17/2023 13:01:04 Procedure Notes None recorded. Medical [...] mg by injection route. [address] [facility]: 0003- 0494- 20 Not Available Not [...] mg by injection route. 09/[address] [facility] 37402 -064- 01 Not Available Not Available Not Available metoprolol succ 25 mg-hydrochl orothiazide 12.5 mg tablet,ext. rel 24 hr Take 1 tablet every day by oral route. 10/23 completed Not Available Not Available Not Available Nasacort 55 mcg nasal spray aerosol [place] 2 sprays every day by intranasa l [...] Updated DateTime 11/05/2022 160.02 cm Heavenly Dickens [facility] [employer] [facility] 11/05/2022 11:57:02 Date Recorded Body height Provider Name an d Address Organization Details Last Updated DateTime 02/11/2023 160.02 cm Candis Hollis Umang [facility] [employer] [facility] 02/11/2023 12:05:22 Date Recorded Body height Provider Name an d Address Organization Details Last Updated DateTime 02/25/2023 160.02 cm Candis Hollis [facility] [employer] [facility] 02/25/2023 12:02:52 Date Recorded Body height Provider Name an d Address Organization Details Last Updated DateTime 04/07/2023 160.02 cm Mady Ethel [facility] [employer] [facility] 04/07/2023 15:01:51 Date Recorded Body height Body mass index (BMI) Body weight Provider Name and Address Organization Details Last Updated DateTime 09/24/2023 160.02 cm 24.8 kg/m2 39972.93 g Beba Addisonlily, [facility] [employer] [facility] 09/24/2023 11:39:32 Social History Question Answer Notes LastModified by Organizat ion Details LastModified Time Tobacco Smoking Status Never Smoker Salima Chisholm null, [employer] 04/07/2023 14:51:15 What Is Your Level Of Alcohol Consumption? None [email or web address] Information not available 09/24/2023 What Is Your Occupation? [employer] [email or web address] Information not available 04/07/2023 What Was The Date Of Your Most Recent Tobacco Screening? 05/20/2021 Information not available 04/07/2023 Sex: Unknown Functional Status None recorded. Mental Status None recorded. Family History Relationship Description Onset Age of this Age Resolved Age Notes LastModified by Organization Details LastModified Time Mother Family history of malignant neoplasm [email or web address] Not available 09/23 11:18:07 Mother Heart disease [email or web address] [id number] Not available 05/13/2022 16:39:40 Father Hypertensive disorder [email or web address] [id number] Not available 05/13/2022 16:39:40 Sister Hypertensive disorder [email or web address] Not available 2022 14:16:25 Medical History Condition Response HEART DISEASE/HEART PROBLEMS Y HYPERTENSION Y ANEMIA/BLOOD DISORDER Y Gynecological HistoryNo gynecological history recorded. Obstetrics History GPAL:G 0 P 0 0 0 0 Past Encounters Encounter ID Performer Location Encounter Start Date Encounter Closed Date Diagnosis/Indication Diagnosis SNOMED-CT Code Diagnosis ICD10 Code Diagnosis Note [id number] Oliver Amaya MD [facility] [address] [place] [address] 07/02/2020 00:00:00 07/02/2020 17:03:45 [id number] Oliver Amaya MD [facility] [address] [place] [address] 07/30/2020 00:00:00 07/30/2020 14:36:09 [id number] Oliver Amaya MD [facility] [address] [place] [address] 09/17/2020 00:00:00 09/17/2020 16:31:40 [id number] Oliver Amaya MD [facility] [address] [place] [address] 10/01/2020 00:00:00 10/01/2020 12:30:57 [id number] Oliver Amaya MD [facility] [address] [place] [address] 10/08/2020 00:00:00 10/08/2020 09:00:41 [id number] Oliver Amaya MD [facility] [address] [place] [address] 10/29/2020 00:00:00 10/29/2020 12:17:58 [id number] Oliver Amaya MD [facility] [address] [place] [address] 11/26/2020 00:00:00 11/26/2020 13:06:01 [id number] Oliver Amaya MD [facility] [address] [place] [address] 12/24/2020 00:00:00 12/24/2020 12:34:15 [id number] Oliver Amaya MD [facility] [address] [place] [address] 05/20/2021 00:00:00 05/20/2021 15:52:07 [id number] Oliver Amaya MD [facility] [address] [place] [address] 06/10/2021 00:00:00 06/10/2021 15:38:11 [id number] Oliver Amaya MD [facility] [address] [place] [address] 07/01/2021 00:00:00 07/01/2021 14:35:28 [id number] Oliver Amaya MD [facility] [address] [place] [address] 07/29/2021 00:00:00 07/29/2021 16:57:05 [id number] Oliver Amaya MD [facility] [address] [place] [address] 09/17/2021 00:00:00 09/17/2021 17:49:42 [id number] Oliver Amaya MD [facility] [address] [place] [address] 10/29/2021 00:00:00 10/29/2021 16:49:01 [id number] Oliver Amaya MD [facility] [address] [place] [address] 11/25/2021 00:00:00 11/25/2021 16:27:59 [id number] Oliver Amaya MD [facility] [address] [place] [address] 12/16/2021 00:00:00 12/16/2021 17:26:17 [id number] Dontrell Elizabeth MD [facility] [address] [place] [address] 12/29/2021 00:00:00 12/29/2021 15:40:59 [id number] Dontrell Elizabeth MD [facility] [address] [place] [address] 05/04/2022 00:00:00 05/04/2022 16:35:22 [id number] Dontrell Elizabeth MD [facility] [address] [place] [address] 06/05/2022 14:01:09 06/05/2022 16:06:02 Osteoarthritis 932014518 M17.11 [id number] Dontrell Elizabeth MD [facility] [address] [place] [address] 08/03/2022 13:57:45 08/03/2022 15:45:17 Osteoarthritis of right knee joint 1038961693 56453 M17.11 [id number] Dontrell Elizabeth MD [facility] [address] 08/20/2022 11:46:22 08/20/2022 12:53:57 Pain of left shoulder joint 9557501859 4571132 M25.512 [id number] Dontrell Elizabeth MD [facility] [address] 11/05/2022 11:41:15 11/05/2022 13:09:19 Pain of right knee joint 6201879870 79846 M25.595 [id number] Dontrell Elizabeth MD [place] [address] 02/11/2023 11:42:09 02/11/2023 14:15:21 Osteoarthritis of right knee joint 1232882893 63588 M17.11 [id number] Dontrell Elizabeth MD [address] [address] 02/25/2023 11:57:10 02/25/2023 14:26:11 Osteoarthritis of right knee joint 8467289855 93094 M17.11 [id number] Dontrell Elizabeth MD [facility] [address] [place] [address] 04/07/2023 14:47:52 04/08/2023 13:46:31 Pain of left shoulder joint 6082861039 9621878 M25.091 [id number] Jerardo Rolle MD [facility] [address] [place] [address] 09/24/2023 11:15:49 09/24/2023 12:13:10 Osteoarthritis of right knee joint 0362474946 51979 M17.11 Pain of ri ght knee joint 7612239723 44089 M25.561 Health Concerns Section Related Observation LastModified by Organization Detai ls LastModified Time None Recorded Concern Status LastModified by Organization Details LastModified Time None Recorded Advance Directives Directive None Recorded Payers Encounter Date Sequence Insurance Name Policy Number Policy Real Covered Member ID Real Member ID Guarantor Name 11/05/2022 1 [facility] (MEDICARE REPLACEMENT/A DVANTAGE - PPO) [id number] Andria E Lopez [id number] Andria Lopez 02/11/2023 1 [facility] (MEDICARE REPLACEMENT/A DVANTAGE - PPO) [id number] Andria E Lopez [id number] Andria Lopez 02/25/2023 1 [facility] (MEDICARE REPLACEMENT/A DVANTAGE - PPO) [id number] Nadria E Lopez [id number] Andria Lopez 04/07/2023 1 [facility] (MEDICARE REPLACEMENT/A DVANTAGE - PPO) [id number] Andria E Lopez [id number] Andria Lopez 09/24/2023 1 [facility] (MEDICARE REPLACEMENT/A DVANTAGE - PPO) [id number] Andria E Lopez [id number] Andria Lopez Notes Date Note Type Note [...] bone density for age. 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 Dontrell Elizabeth MD [address] [place] [address], [place] [address], [place], [address], [place] [facility] [email or web address] 02/25/2023 14:25:58 09/24/2023 text/html Patient returns with [...] measures. Eventually she sought another opinion in [place] and on May 04 of this year [...] options if there are any. SAM Tompkins [address] [facility], [facility] [address], [place], [address], [place] [facility] 09/24/2023 14:24:45 OBGyn Episode No OBEpisode recorded.
--- OUTSIDE RECORDS SUMMARY | 2024-07-15 12:59 | XMS_ITS | Referral Summary ---
Author Organization [facility] C Address [address] [facility] [place] [address] Care Team Providers Care Medical Claims Assistant Name Role Phone Romero Meier MD Primary Care Provider + Encounters Date Type Department Care Team Description 05/30/2024 Orders Only [facility] Medical Group Primary Care at [address] [place] [address] Sayra Edwards NP 05/29/2024 3:15 PM CDT Telemedicine [facility] Medical [address] [address] Aislinn Quarles NP Viral upper respiratory infection (Primary Dx) 05/29/2024 Nurse Triage [facility] Medical [facility] Primary Care at [address] [place] [address] Romero Meier MD 05/26/2024 Telephone [facility] Group Primary Care at [address] [place] [address] Romero Meier MD 05/19/2024 Telephone [facility] Primary Care at [address] [place] [address] Romero Meier MD 05/18/2024 Orders Only [facility] Health Information Management [address] [place] [address] Scanning, Provider 05/11/2024 Telephone [facility] Primary Care at [address], [place] [address] oRmero Meier MD 05/08/2024 Telephone [facility] Primary Care at [facility] [address] [place] [address] [place] [address] Romero Meier MD 04/25/2024 9:30 AM CHIEF OF FIELD OPERATIONS Office Visit [facility] Primary Care at [address] [place] [address] Sayra Edwards NP Rash (Primary Dx) 04/24/2024 Nurse Triage [facility] Primary Care at [address] [place] [address] Romero Meier MD from Last 3 [...] nightly 90 tablet 3 024 2024 Discontinued ALPRAZolam (XANAX) 0.5 mg tablet Take 1 [...] 04/25/2024 Assessment & Plan (04/25/2024 9:23 AM CHIEF OF FIELD [employer]PERATIONS): New onset rash on the arm with [...] (09/17/2021): Added automatically from request for surgery [id number] Epigastric abdominal pain 09/17/2021 Overview (09/17/2021): Added automatically from request for surgery [id number] Essential hypertension 03/01/2015 Overview (06/18/2016): Essential hypertension Atopic rhinitis 03/01/2015 Overview (06/18/2016): Allergic rhinitis Asthma 03/01/2015 Overview (06/18/2016): Asthma Anxiety 03/01/2015 Overview (06/18/2016): Anxiety Pure hypercholesterolemia 10/11/2009 S/P cholecystectomy 09/26/2009 Supraventricular tachycardia 01/19/2009 Immunizations Immunization Administration Dates Next Due COVID-19 mRNA (Qingguo) 0.3 m L (30 mcg) vaccine (12 [...] on file Legal Sex Female 8:57 AM [employer]PER[employer] Gender Identity Female 01/13/2021 11:02 AM CDT Sexual Orientation Straight 01/13/2021 11 :02 AM CDT 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 Not on file Last Filed Vital Signs Vital Sign Reading Time Taken Comments Blood Pressure 142/70 04/25/2024 9:07 AM [employer]IEF [employer]ELD [employer]PER[employer] Pulse 78 04/25/2024 9:07 AM [employer]IE[employer] OF [employer]ELD [employer]PER[employer] Temperature 36.8 C (98.3 F) 11/02/2023 2:00 PM CDT Respiratory Rate 16 12/09/2023 12:20 PM CDT Oxygen Saturation 98% 04/25/2024 9:07 AM [employer]IEF [employer]ELD [employer]PER[employer] Inhaled Oxygen Concentration - - Weight 70.3 kg (155 lb) 04/25/2024 9:07 AM [employer]IE[employer]ELD [employer]PER[employer] Height 160 cm (5' 3 ) 04/25/2024 9:07 AM CHIEF OF FIELD OPERATIONS Body Mass Index 27.46 04/25/2024 9:07 AM CHIEF OF FIELD OPERATIONS Plan of Treatment Not on file Procedures Procedure Name Priority Date/Time Associated Diagnosis Comments SCAN - RADIOLOGY/IMAGING 05/18/2024 STRESS TEST FOR DUAL READ Routine 05/10/2024 2:50 PM CHIEF OF FIELD OPERATIONS SCREENING MAMMOGRAM 2D BILATERAL Schedule Routine, Read [...] Test for Myocardial Perfusion (05/10/2024 2:50 PM CHIEF OF FIELD OPERATIONS) Anatomical Region Laterality Modality Other Historical Provider CV STRESS PROCEDURES Jenn l Result * Screening Mammogram 2D Bilateral (12/31/2022) Anatomical Region Laterality Modality Breast Bilateral Mammography Historical Provider MD HAJIG MAMMO PROCEDURES Jenn l Result * Dexa Axial Skeleton Bone Density 1 or 2 Site (08/25/2022) SCRIBED DXA T-SCORE 2.4 Anatomical Region Laterality Modality Body N/A Radiographic Marbella ging Historical Provider IMG DXA PROCEDURES Final Result * COLONOSCOPY (11/06/2021 1:15 PM CDT) Anatomical Region Laterality Modality Other Narrative Procedure Note Eudard Godfrey MD - 11/06/2021 1:15 PM CDT ENDOSCOPY LAB Patient Name: Andria Combs Procedure Date: 11/06/2021 1:15 PM Admit Type: Outpatient Room: [facility] 3 Date of : 1950 Instrument Name: [...] with a HCV Nucleic Acid Amplification test ([id number]). 07/01/2017 11:1 6 AM CDT 07/01/2017 Narrative [facility] - 07/02/2017 10:14 AM CDT Performed at: - [address] [id number] Billet Checker: Wes Taylor PhD, Phone: [phone] Romero Meier MD LAB MICROBIOLOGY - GENER AL ORDERABLES Final Result Performing Organization Address City/State/[facility] Co ne Phone Number [id number] - 01 from Last 3 Months or Most Recently Relevant to Health Maintenance Insurance [facility] MEDICARE ADVANTAGE Advance Directives For more information, please contact: [phone] * Full Code (Latest Code Status on File) Date Activated Date Inactivated Comments 11/06/2021 12:19 PM 11/06/2021 6:36 PM Care Teams Medical Claims Assistant Relationship Specialty Start Date End Date Romero Meier MD [address] [address] [facility] - General 06/12/16
--- OUTSIDE RECORDS SUMMARY | 2024-07-15 12:59 | XMS_ITS | Clinical Summary ---
Author Organization [facility] Building C Address [address] [address] Care Team Providers Care Electrical Line Mechanic Name Role Phone Romero Meier MD [...] 04/25/2024 Assessment & Plan (04/25/2024 9:23 AM CARD GRINDER): New onset rash on the arm with [...] (09/17/2021): Added automatically from request for surgery [id number] Epigastric abdominal pain 09/17/2021 Overview (09/17/2021): Added automatically from request for surgery [id number] Essential hypertension 03/01/2015 Overview (06/18/2016): Essential hypertension Atopic rhinitis 03/01/2015 Overview (06/18/2016): Allergic rhinitis Asthma 03/01/2015 Overview (06/18/2016): Asthma Anxiety 03/01/2015 Overview (06/18/2016): Anxiety Pure hypercholesterolemia 10/11/2009 S/P cholecystectomy 09/26/2009 Supraventricular tachycardia 01/19/2009 Encounters Date Type Department Care Team Description 05/30/2024 Orders Only [facility] Medical [facility] Primary Care at [address] [phone] Sayra Edwards NP 05/29/2024 3:15 PM CDT Telemedicine [facility] Care [address] [place] [phone] Aislinn Quarles NP Viral upper respiratory infection (Primary Dx) 05/29/2024 Nurse Triage [facility] Primary Care at [address] [phone] Romero Meier MD 05/26/2024 Telephone [facility] Primary Care at [address] [phone] Romero Meier MD 05/19/2024 Telephone [facility] Primary Care at [address] [phone] Romero Meier MD 05/18/2024 Orders Only [facility] Health Information Management [address] [place] [address] Scanning, Provider 05/11/2024 Telephone [facility] Primary Care at [address] [phone] Romero Meier MD 05/08/2024 Telephone [facility] Primary Care at [address] [phone] Romero Meier MD 04/25/2024 9:30 AM CARD GRINDER Office Visit [facility] Primary Care at [facility] [address] [address] Sayra Edwards NP Rash (Primary Dx) 04/24/2024 Nurse Triage [facility] Primary Care at [facility] [address] [place] [phone] Romero Meier MD from Last 3 Months Immunizations Immunization Administration Dates Next Due COVID-19 mRNA ([employer]) 0.3 m L (30 mcg) vaccine (12 [...] on file Legal Sex Female 8:57 AM CARD GRINDER Gender Identity Female 01/13/2021 11:02 AM CDT Sexual Orientation Straight 01/13/2021 11 :02 AM CDT 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 Not on file Obstetrics History Last Filed Vital Signs Vital Sign Reading Time Taken Comments Blood Pressure 142/70 04/25/2024 9:07 AM CARD GRINDER Pulse 78 04/25/2024 9:07 AM CARD GRINDER Temperature 36.8 C (98.3 F) 11/02/2023 2:00 PM CDT Respiratory Rate 16 12/09/2023 12:20 PM CDT Oxygen Saturation 98% 04/25/2024 9:07 AM CARD GRINDER Inhaled Oxygen Concentration - - Weight 70.3 kg (155 lb) 04/25/2024 9:07 AM CARD GRINDER Height 160 cm (5' 3 ) 04/25/2024 9:07 AM CARD GRINDER Body Mass Index 27.46 04/25/2024 9:07 AM CARD GRINDER Plan of Treatment Health Maintenance Due Date [...] FOR DUAL READ Routine 05/10/2024 2:50 PM CARD GRINDER SCREENING MAMMOGRAM 2D BILATERAL Schedule Routine, Read [...] Test for Myocardial Perfusion (05/10/2024 2:50 PM CARD GRINDER) Anatomical Region Laterality Modality Other [facility] Provider MD MCGRATH STRESS PROCEDURES Jenn l Result * Screening [...] Laterality Modality Other Narrative Procedure Note Eduard Gofdrey MD - 11/06/2021 1:15 PM CDT ENDOSCOPY LAB Patient Name: Andria Combs Procedure Date: 11/06/2021 1:15 PM Admit Type: Outpatient Room: [facility] 3 Date of : 1950 Instrument Name: [...] with a HCV Nucleic Acid Amplification test ([id number]). 07/01/2017 11:1 6 AM CDT 07/01/2017 Narrative [facility] - 07/02/2017 10:14 AM CDT Performed at: - [address] [id number] Supervisor Record Press: Wes Taylor PhD, Phone: [phone] Romero Meier MD LAB MICROBIOLOGY - GENER AL ORDERABLES Final Result [facility] - 01 from Last 3 Months or Most Recently Relevant to Health Maintenance Insurance [facility] MEDICARE [facility] Address: [address] [address] [place] [address] [employer] MEDICARE [facility] Address: [address] [address] [place] [address] [employer] [facility]ICARE [facility] Address: [address] [address] [place] [address] Advance Directives For more information, please contact: [phone] * Full Code (Latest Code Status on File) Date Activated Date Inactivated Comments 11/06/2021 12:19 PM 11/06/2021 6:36 PM Care Teams Electrical Line Mechanic Relationship Specialty Start Date End Date Romero Meier MD [address] [address] PCP - General 06/12/16
--- OUTSIDE RECORDS SUMMARY | 2024-07-15 12:59 | XMS_ITS | Clinical Summary ---
Author Organization [facility] Address [address] [place] [address] Care Team Providers Care Food Service Team Member Name Role Phone Romero Meier MD Primary Care Provider [phone] Source Comments [facility],non-owned Affiliates and Associated Physician Practices is amultiple site organization consisting of ambulatory clinics and hospital sitesin [place], [place], [place] and [place]. This disclosure is being madepursuant to the Care Everywhere program and may not contain all information available regarding this patient. Last updated 17.[facility] Allergies Active Allergy Reactions Criticality Noted Date [...] (Maxalt) 10 MG tablet 4 Active Creon [id number] units capsule 4 Active methylPREDNISolo ne (Medrol Dosepak) 4 MG tablet 3 Active irbesartan (Avapro) 150 MG tablet Take 1 (one) tablet by mouth 4 Active HYDROcodone-acet aminophen (Toxey) 5-325 MG tablet 4 Active etodolac (Lodine) [...] (08/16/2023): Added automatically from request for surgery [id number] Tendinitis of wrist 09/17/2021 Right wrist pain [...] (08/16/2023): Added automatically from request for surgery [id number] Essential hypertension, benign 01/19/2009 01/19/2009 Immunizations Immunization Administration Dates Next Due INFLUENZA [...] on file Legal Sex Female 6:49 AM CAPTAIN CANNERY TENDER Gender Identity Not on file Sexual Orientation Not on file Last Filed Vital Signs Vital Sign Reading Time Taken Comments Blood Pressure 152/84 05/19/2015 2:51 PM CAPTAIN CANNERY TENDER Pulse 85 05/19/2015 2:51 PM CAPTAIN CANNERY TENDER Temperature 36.8 C (98.3 F) 05/19/2015 2:51 PM CAPTAIN CANNERY TENDER Respiratory Rate 18 05/19/2015 2:51 PM CAPTAIN CANNERY TENDER Oxygen Saturation 96% 05/19/2015 2:51 PM CAPTAIN CANNERY TENDER Inhaled Oxygen Concentration - - Weight 64.9 kg (143 lb) 03/29/2024 10:59 AM CAPTAIN CANNERY TENDER Height 160 cm (5' 3 ) 03/29/2024 10:59 AM CAPTAIN CANNERY TENDER Body Mass Index 25.33 03/29/2024 10:59 AM CAPTAIN CANNERY TENDER Plan of Treatment Health Maintenance Due Date [...] history exists DEPRESSION SCREENING 03/15/2024 12/27/2023 MEDICARE AW CALENDAR YEAR 2024 COLON MONITORING 05/30/2024 05/30/2014 [...] Re sult * ENDOSCOPY, COLON, SCREENING (05/30/2014) us Provider Unknown GI PROCEDURE ORDERABLES Final R esult * HEPATITIS C ANTIBODY (12/06/2012 10:06 AM CDT) Hepatitis C Antibody NON-REACTI VE NON-REACT ELIOT [facility] Signal to Cut-Off 0.02 <1.00 [facility] Comment: REPORT COMMENT: FASTING Test Performed at: [email or web address] [address] [place] [address] RICO DELVALLE DO,MPH Blood specimen (specimen) BLOOD SPECIMEN / Unknown 12/06/2012 10:06 AM CDT 12/06/2012 10:07 AM CDT Romero Meier MD LAB - CHEMISTRY ORDERABLE S Final Result [facility] [address] [place] [address] from Last 3 Months or Most Recently Relevant to Health Maintenance Insurance [facility] MANAGED MEDICARE ADV PAYOR GENERIC Advance Directives * Full Code (Latest Code Status on File) Date Activated Date Inactivated Comments 05/16/2015 5:46 PM 05/19/2015 5:25 PM Care Teams Food Service Team Member Relationship Specialty Start Date End Date Romero Meier MD [address] [phone] PCP - General Internal Medicine 08/18/23
--- OUTSIDE RECORDS SUMMARY | 2024-07-15 12:59 | XMS_ITS | Clinical Summary ---
Author Organization [facility] Address [address] [place] [address] Phone Care Team Providers Care Paint Department Supervisor Name Role Phone Romero Meier MD Primary [...] on file Legal Sex Female 11:52 AM CHIEF PHARMACIST Gender Identity Not on file Sexual Orientation Not on file Last Filed Vital Signs Vital Sign Reading Time Taken Comments Blood Pressure 116/50 04/23/2021 2:19 PM CHIEF PHARMACIST Pulse 66 04/23/2021 12:14 PM CHIEF PHARMACIST Temperature 36.4 C (97.6 F) 04/23/2021 12:14 PM CHIEF PHARMACIST Respiratory Rate 18 04/23/2021 12:14 PM CHIEF PHARMACIST Oxygen Saturation 100% 04/23/2021 12:14 PM CHIEF PHARMACIST Inhaled Oxygen Concentration - - Weight 68 kg (150 lb) 04/23/2021 12:14 PM CHIEF PHARMACIST Height 167.6 cm (5' 6 ) 04/23/2021 12:14 PM CHIEF PHARMACIST Body Mass Index 24.21 04/23/2021 12:14 PM CHIEF PHARMACIST Plan of Treatment Health Maintenance Due Date [...] to complete this topic Insurance MEDICARE C [facility] Care Teams Paint Department Supervisor Relationship Specialty Start Date End Date Romero Meier MD PCP - General Internal Medicine 04/23/21
--- OUTSIDE RECORDS SUMMARY | 2024-07-15 12:59 | XMS_ITS | Clinical Summary ---
Author Organization [facility] Address [address] [place] [address] Care Team Providers Care Asset Protection Representative Name Role Phone Unavailable Primary Care Provider [...]
--- OUTSIDE RECORDS SUMMARY | 2024-07-15 12:59 | XMS_ITS | Clinical Summary ---
Author Organization [facility] Address [address] [place] [address] Care Team Providers Care Radio Antenna Installer Name Role Phone Unavailable Primary Care Provider [...] Lopez Relation to Subscriber:Employee Name:ANDRIA DENSON Address: [place] [address] Payer ID:Not on file Group ID:Not on file Type:Other Address: [address] [place] [id number]
== END 2024-07-14 11:51 | disposition home or self-care (01) ==
PROVIDERS: Visit Provider Orthopaedic Surgery
DX: M25.561 Pain in right knee (principal); Z96.651 Presence of right artificial knee joint
CPT/HCPCS: 36415; 85652; 86140

== ENCOUNTER 2024-08-10 10:00 | Outpatient (RCR) | payer MEDICARE, SELFPAY ==
--- NOTE | 2024-06-15 13:09 | OPREHPOC ---
Outpatient Therapy Plan of Care This is a Multidisciplinary Plan of Care that may contain components documented by all disciplines (PT, OT, and ST.) PT Problem 1 PT Problem #1 Knowledge Deficit PT Goal 1 Goal / Goal Update [place] and consistency with HEP Target Visit 4 PT Goal 2 Goal / Goal Update Report no knee pain greater than 2/10 for 2 consecutive weeks Target Visit 8 PT Problem 2 PT Problem #2 Impaired Range of Motion PT Goal 1 Goal / Goal Update 1. Achieve terminal knee extension of right knee 2. Achieve 120 degrees of right knee flexion Target Visit 8 PT Problem 3 PT Problem #3 Impaired Gait PT Goal 1 Goal / Goal Update Ambulate with single point cane and even terminal stance bilaterally Target Visit 8
--- NOTE | 2024-06-15 13:09 | PTOPEVAL1 ---
Assessment and note entered by Jose Warren, PT Evaluation Information Assessment Status Evaluation Diagnosis Right toal knee arthoplasty ICD-10 Condition Codes (PT) Pain in right knee M25.561 Onset 05/18/24 Subjective Information Reports that she was previously doing therapy but noted increased pain and was not getting treated the way she expected. Reports that she also had a virus limiting her participation in therapy. She followed up with MD and he requested she transfer care to this facility. Reports that she is still having a lot of trouble with bending and extending her knee. She still has pain at night and is taking Oxycodone every 4 hours. Majority of her pain is on the right medial knee. Reported Pain Level Pain Score 6: Self Report Assessment PT Clinical Summary Patient presents with sub-acute knee ROM deficits and dependence on walker following 1 month of therapy at another location. At this time it appears that patient has had some inconsistency with ROM focus and this will be pivotal part of plan of care moving forward to ensure full functional knee extension and flexion with tansition to independent gait. Plan of Care Interventions Gait Training,Manual Therapy,Therapeutic Activities,Therapeutic Exercise PT Services Indicated Yes Treatment Frequency and 2x/week for 8 visits Duration These treatments will address the objective and functional deficits as defined above. The patient will be advanced safely and appropriately in order for the patient to progress towards his/her prior level of function. Additional exercises will be introduced and as well as a comprehensive home exercise program upon discharge, if needed, ?to ensure carryover of functional gains achieved in the clinic. This treatment plan has been reviewed and agreement upon by the patient.
--- NOTE | 2024-07-10 12:23 | OPREHPOC ---
Outpatient Therapy Plan of Care This is a Multidisciplinary Plan of Care that may contain components documented by all disciplines (PT, OT, and ST.) PT Problem 1 PT Problem #1 Knowledge Deficit PT Goal 1 Goal / Goal Update Haskell and consistency with HEP Target Visit 4 Progress Met PT Goal 2 Goal / Goal Update Report no knee pain greater than 2/10 for 2 consecutive weeks -Continues to fluctuate in pain Target Visit 18 Progress Partially Met PT Problem 2 PT Problem #2 Impaired Range of Motion PT Goal 1 Goal / Goal Update 1. Achieve terminal knee extension of right knee 2. Achieve 120 degrees of right knee flexion 07/10 1. Achieve -3 this date 2. Achieved 100 degrees this date Target Visit 18 Progress Partially Met PT Problem 3 PT Problem #3 Impaired Gait PT Goal 1 Goal / Goal Update Ambulate with single point cane and even terminal stance bilaterally 07/10 -Improving, but still lacking full terminal resulting in lean Target Visit 18 Progress Partially Met
--- NOTE | 2024-07-10 12:23 | PTOPPROG ---
Assessment and note entered by Jose Warren, PT Evaluation Information Assessment Status Progress Diagnosis Right toal knee arthoplasty ICD-10 Condition Codes (PT) Pain in right knee M25.561 Onset 05/18/24 Subjective Information Patient reports that she underwent manipulation on 07/07/24. Reports that she is feeling much better afterward. Knee still stiff with motion and after she has been sitting for a while. Reports that she still hasp a lot of tenderness on the medial knee . She has been emphasizing the 2 stretches from her physician, chair flexion stretch and heel prop extension stretch. Assessment PT Clinical Summary Patient overall has seen progress since initial visit. She continues to show limitation in bi- directional knee motion but we are able to push her to near terminal knee extension on table. Patient still guarded and takes encouragement to continue to work into flexion. We have been diligent with encouraging frequency of HEP every hour to continue to promote improved functional knee flexion and extension. After manipulation patient appears to have a quicker transition in gait from sitting position and is demonstrating improved terminal stance of gait pattern. She continues to show significant ROM deficits following closed manipulation and is in a critical window to continue to see ROM improvement. Will need continuation of therapy per MD recommended protocol to achieve technician terminal and repeater ROM goals. Plan of Care Interventions Gait Training,Manual Therapy,Therapeutic Activities,Therapeutic Exercise PT Services Indicated Yes Treatment Frequency and 2-3x/week for 10 visits Duration These treatments will address the objective and functional deficits as defined above. The patient will be advanced safely and appropriately in order for the patient to progress towards his/her prior level of function. Additional exercises will be introduced and as well as a comprehensive home exercise program upon discharge, if needed, ?to ensure carryover of functional gains achieved in the clinic. This treatment plan has been reviewed and agreement upon by the patient.
--- NOTE | 2024-07-12 15:53 | PCPTNOTE ---
Spoke with MD this afternoon with a verbal update on ROM for Ms. Chung. Per MD work on seated chair stretch and cont knee extension. AKS
--- NOTE | 2024-07-27 10:12 | PCPTNOTE ---
Emailed Dr. Elizabeth with update. Pt reports blisters in mouth and difficulty swallowing.Cheeks are flushed but denies fever. Pt stopped taking Celebrex. AKS
--- NOTE | 2024-08-03 12:38 | PCPTNOTE ---
Pt came to appt today however pt became sick to stomachin waiting room and had to leave. I called to check on pt and left a mssg. AKS
--- NOTE | 2024-08-10 11:04 | PTOPDC ---
Assessment and note entered by Jose Warren, PT Evaluation Information Assessment Status Discharge Diagnosis Right total knee arthroplasty ICD-10 Condition Codes (PT) Pain in right knee M25.561 Onset 05/18/24 Subjective Information Reports that she is scheduled to go back to work on 08/14/24. She feels that it will be good for her because she will be more active and get her mind off of the knee. Still feels that she is very apprehensive and self limiting. She does not feel comfortable walker her dog right now which is her biggest hang up. Feels that as she walks the stiffness works its way out. She is requesting discharge at this time to continued self management at home and in preparation for her rotator cuff repair mid August. Reported Pain Level Pain Score 2: Self Report Assessment PT Clinical Summary Heavy emphasis was placed on continued home mobility and stretching program to maximize motion . Patient reported compliance. She was discharged this date secondary to request. She will be undergoing rotator cuff repair in mid August and likely returning to therapy for that which will allow for continued monitoring of knee progress. Plan of Care PT Services Indicated Yes
== END 2024-08-11 13:36 | disposition home or self-care (01) ==
LOC: ANHPT 10:00
PROVIDERS: PCP Internal Medicine Medical Oncology; Visit Provider Physician Assistant Surgical
DX: Z96.651 Presence of right artificial knee joint (principal)
CPT/HCPCS: 97110; 97116; 97140; 97161

== ENCOUNTER 2024-08-25 09:12 | Outpatient (CLI) | payer MEDICARE, SELFPAY ==
--- OUTSIDE RECORDS SUMMARY | 2024-08-25 09:16 | XMS_ITS | Clinical Summary ---
Author Organization [facility] Address [address] [place] [address] Phone Care Team Providers Care Erp Project Manager Name Role Phone Romero Meier MD Primary [...] on file Legal Sex Female 11:52 AM CONTACT LENS MOLDER Gender Identity Not on file Sexual Orientation Not on file Last Filed Vital Signs Vital Sign Reading Time Taken Comments Blood Pressure 116/50 04/23/2021 2:19 PM CONTACT LENS MOLDER Pulse 66 04/23/2021 12:14 PM CONTACT LENS MOLDER Temperature 36.4 C (97.6 F) 04/23/2021 12:14 PM CONTACT LENS MOLDER Respiratory Rate 18 04/23/2021 12:14 PM CONTACT LENS MOLDER Oxygen Saturation 100% 04/23/2021 12:14 PM CONTACT LENS MOLDER Inhaled Oxygen Concentration - - Weight 68 kg (150 lb) 04/23/2021 12:14 PM CONTACT LENS MOLDER Height 167.6 cm (5' 6) 04/23/2021 12:14 PM CONTACT LENS MOLDER Body Mass Index 24.21 04/23/2021 12:14 PM CONTACT LENS MOLDER Plan of Treatment Health Maintenance Due Date Last Done Comments Hepatitis C Virus (HCV) Screening 1950 Colonoscopy 1997 Colorectal Cancer Screening 1997 Cologuard 2002 Immunochemical Fecal Occult Blood 2002 SARS-COV-2 Immunization ( season) 2023 12/23/2020, 05/18/2020, 04/25/2020 Influenza Immunization (Season Ended) 2024 12/13/2020, 12/13/2020, 11/24/2019, Additional history exists Respiratory Syncytial Virus (RSV) Immunization (Adult) (1 - 1-dose 75+ series) 2027 DTaP/Tdap/Td Immunization Discontinued 11/02/2013 TdaP Immunization Completed 11/02/2013 Pneumococcal Immunization (50+ years) Completed 06/30/2017, 09/14/2014, 10/14/2011 Zoster Immunization Completed 08/29/2018, 08/16/2017, 01/05/2016 Hepatitis B Immunization Aged Out No longer eligible based on patient's age to complete this topic Human Papillomavirus (HPV) Immunization Aged Out No longer eligible based on patient's age to complete this topic Meningococcal Immunization (ACWY) Aged Out No longer eligible based on patient's age to complete this topic Rotavirus Immunization Aged Out No lo nger eligible based on patient's age to complete this topic [facility] Care Teams Erp Project Manager Relationship Specialty Start Date End Date Romero Meier MD PCP - General Internal Medicine 04/23/21
--- OUTSIDE RECORDS SUMMARY | 2024-08-25 09:16 | XMS_ITS | Data Portability ---
Author Organization [place] - [facility] [employer], Main Office Address [address] [place] [address] Care Team Providers Care Railway Head Tender Name Role Phone EKATERINA NEGRETE Primary Care Provider EKATERINA NEGRETE Referring Provider [phone] HANK ALEXANDER Molded Goods Inspector Trimmer Assessment Encounter Date Assessment Date Assessment LastModified [...] more than half the time spent in pddp-tf-vsqs care. Not available 02/11/2023 14:14:16 02/25/2023 02/25/2023 impression: Naz gaytan has moderately severe medial compartment osteoarthritis right knee. It is not liof-hc-yeky. She has not have an insufficiency fracture [...] more than half the time spent in gcbq-lg-umzv care. Not available 02/25/2023 14:25:41 04/07/2023 04/07/2023 [...] rotation as well as abduction. She has whfi-jf-rplcavxg discomfort with strength testing as well as [...] with more than half of this in zhih-gl-uldr conversation Not available 04/08/2023 13:20:17 09/24/2023 09/24/2023 The patient has moderate primary osteoarthritis in the medial compartment of the right knee not yet quite azgt-yu-vfmz does have significant narrowing. We talked about [...] DO Not Attach Compendium, Do Not Delete/merge, [id number] 12:07:03 injection/a spiration joint/bursa (PROC) - in office procedure, administere d by provider 2023 024 [email or web address] In-Office Order, Internal Use Only DO Not Attach Compendium DO Not Attach Compendium, Do Not Delete/merge, [id number] 4 15:09:23 injection/a spiration joint/bursa (PROC) - in office procedure, administere d by provider 2022 023 In-Office Order, Internal Use Only DO Not Attach Compendium DO Not Attach Compendium, Do Not Delete/merge, [id number] 3 15:40:55 Surgeries None recorded. Imaging XR, knee 2022 023 [facility] [address] [facility], [place], [address], 3 15:03:50 MRI, knee, w/o contrast 2022 023 [facility], [address] [place] [address], [place], [address], 3 18:38:10 XR, knee 2022 023 [facility], [facility], [place], [address], 3 15:40:55 Medication Orders Marcaine 0.5 % (5 mg/mL) injection solution 2023 024 [email or web address] [facility]/Pharmacy #[id number], [address], [place], [address], 4 14:36:18 Kenalog 10 mg/mL suspension for injection 2023 024 [email or web address] [facility]/Pharmacy #[id number], [address], [place], [address], 4 14:36:18 tramadol 50 mg tablet 2023 024 [facility][id number], [address], [place], [address], 4 14:24:04 Kenalog 10 mg/mL suspension for injection 2023 024 [email or web address] [id number], [address], [place], [address], 4 11:40:05 ropivacaine (PF) 5 mg/mL (0.5 %) injection solution 2023 024 [email or web address] [email or web address] [id number], [address], [place], [address], 4 11:40:11 Tylenol Arthritis Pain 650 mg tablet,exte nded release 2022 023 [facility]/Pharmacy #[id number], [address], [place], [address], 3 15:03:50 Kenalog 10 mg/mL suspension for injection 2022 023 [email or web address] Not available 4 11:40:05 ropivacaine (PF) 5 mg/mL (0.5 %) injection solution 2022 023 [email or web address] Not available 4 11:40:11 Patient TargetsNo targets recorded. Patient Instructions Encounter Date Encounter Id Patient Instructions Last Modified By Organization Details Last Modified Time 09/24/2023 [id number] viscosupplementa tion treatment* [email or web address] Not available 09/29/2023 11:29:09 Reason for Referral None Reported. Results Created Date Observation Date Name Description Value Unit Range Abnormal Flag Note LastModifiedBy Organization Detail LastModifiedTime 11/06/19 23 XR, knee No observ ation record ed. [facility] [address], [place], [address], 11/05/2022 12:37:42 02/12/20 23 XR, knee No observ ation record ed. [facility] [address], [place], [address], 02/11/2023 14:02:28 02/17/20 23 MRI, knee, w/o contr ast [facility] [address], [place] [address] Patien t Name: ANDRIA CHEN Access ion #: [id number] Sex: F : 1950 6 7 [...] tear involv ing zone 3 of the sap bi developer ior horn of the medial menisc us [...] 1. Small thin radial tear at the sap bi developer ior horn of the medial menisc us involv ing zone 3. 2. Chondr omalac ia in the medial and patell ofemor al compar tments as descri bed above. Electr onical ly Signed by: Oniel kent at 2022 17:36: 55 PM Page 1 [email or web address] [facility] (Imaging) [address] [place], [address], 02/17/2023 13:01:04 Result Notes Documentation Provider Name and Address Organization Details Recorded Time Mri, Knee, W/o Contrast : [facility] [address] [place] [address] Patient Name: ANDRIA SANTOS Sex: F : 1950 Dictated By: Clarence Winkler Attending Physician: DONTRELL BENNETT Ordering Physician: DONTRELL BENNETT Exam Date: 02/16/2023 12:37 PM Exam Name: MRI KNEE RT WO Admitting Diagnosis(es): CLINICAL INFORMATION: Right knee pain. No known injury. Symptoms for 6 to 8 weeks. COMPARISON: None. TECHNICAL INFORMATION: Multisequence multiplanar MRI images of the right knee were obtained without contrast. FINDINGS: Cruciate ligaments: ACL and PCL are intact and otherwise unremarkable. Extensor mechanism: Quadriceps mechanism and patellar tendon are intact. Collateral ligaments: Medial and lateral collateral ligaments are intact and otherwise unremarkable. Menisci: Lateral meniscus is intact. Thin radial tear involving zone 3 of the posterior horn of the medial meniscus Cartilage: Chondral thinning, fraying, and moderate fissuring in the weightbearing zone of the medial femoral condyle. Chondral fraying and mild fissuring at the median ridge of the patella near the midpole. Bones: No acute fracture or focal marrow contusion Joint fluid: Small joint effusion. Other: No other significant findings. IMPRESSION: 1. Small thin radial tear at the posterior horn of the medial meniscus involving zone 3. 2. 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 Page 1 ALEXUS Lorenzo, [place] - [facility] 02/17/2023 13:01:04 Problems Name Problem SNOMED Code Status Onset Date Resolution Date Notes Provider Name and Address Organization Details Recorded Time Atrial arrhythmia 55996072 Active Not Available [facility] 3 16:40:19 Asthma 095584197 Active Not Available [facility] 3 16:40:19 Gastroesop hageal reflux disease 279061507 Active Not Available [facility] 3 16:40:19 Osteoarthr itis of knee 568233643 Active Not Available [facility] 3 16:40:19 Current tear of medial cartilage AND/OR meniscus of knee Active Not Available [facility] 3 16:40:19 Pain of right wrist 6407638265716 00 Active 2021 Not Available [facility] 3 16:40:19 Osteoarthr itis 412102323 Active Not Available [facility] 3 16:40:19 Tendinitis of wrist 449681511 Active 2021 Not Available [facility] 3 16:40:19 Tendinitis of extensor carpi ulnaris 265640509 Active 2021 Not Available [facility] 3 16:40:20 Pain of right knee joint 0445761191558 00 Active 2021 Not Available [facility] 3 16:40:20 Allergic rhinitis 88196490 Active Not Available [facility] 3 16:40:20 Postmenopa usal state 10059078 Active Not Available [facility] 3 16:40:20 Osteoarthr itis of right knee joint 5146314526273 00 Active 2022 ALEXUS [place] - [employer] 3 14:01:56 Pain of left shoulder joint 4069450768950 9109 Active 2022 ALEXUS [place] - [facility] 3 11:57:05 Problem Notes None recorded. Medical Equipment None Reported. [...] 20 mg by injection route. 2023 active [facility]: 0003- [phone]- 20 Not Available Not [...] 15 mg by injection route. 09/23 completed [facility] [phone] -[phone]- 01 Not Available Not Available Not Available metoprolol succ 25 mg-hydrochl orothiazide 12.5 mg tablet,ext. rel 24 hr Take 1 tablet every day by oral route. 10/23 completed Not Available Not Available Not Available Nasacort 55 mcg nasal spray aerosol Landers 2 sprays every day by intranasa l route. 05/20 completed Not Available Not Available Not Available Fluvirin 3211-9091 45 mcg (15 mcg x 3)/0.5 mL intramuscul ar suspension active Not Available Not Available N ot Available Fluvirin 1620-2963 45 mcg (15 mcg x 3)/0.5 mL [...] Last Updated DateTime 04/07/2023 160.[address] [facility] 04/07/2023 15:01:51 Date Recorded Body height Body mass index (BMI) Body weight Provider Name and Address Organization Details Last Updated DateTime 09/24/2023 160.02 cm 24.8 kg/m2 77823.93 g eBba Eason, ATC L [facility] 09/24/2023 11:39:32 Date Recorded Body height Provider Name an d Address Organization Details Last Updated DateTime 11/05/2022 160.02 cm Heavenly Dickens, [facility] I [facility] 11/05/2022 11:57:02 Date Recorded Body height Provider Name an d Address Organization Details Last Updated DateTime 02/11/2023 160.02 cm Candis Hollis [facility] 02/11/2023 12:05:22 Date Recorded Body height Provider Name an d Address Organization Details Last Updated DateTime 02/25/2023 160.02 cm [facility] 02/25/2023 12:02:52 Social History Question Answer Notes LastModified by Organizat [employer] Details LastModified Time Tobacco Smoking Status Never Smoker Salima Chisholm null, [facility] 04/07/2023 14:51:15 What Was The Date Of Your Most Recent Tobacco Screening? 05/20/2021 Information not available 04/07/2023 Sex: Unknown Functional Status Question Answer Note LastModified by [employer] Details LastModified Time What is your level of alcohol consumption? None [email or web address] Information not available 09/24/2023 What is your occupation? [employer] [email or web address] Information not available 04/07/2023 Mental Status None recorded. Family History Relationship Description Onset Age of this Age Resolved Age Notes LastModified by Organization Details LastModified Time Mother Family history of malignant neoplasm [email or web address] Not available 09/23 11:18:07 Mother Heart disease [email or web address] [id number] Not available 05/13/2022 16:39:40 Father Hypertensive disorder [email or web address] [id number] Not available 05/13/2022 16:39:40 Sister Hypertensive disorder [email or web address] Not available 2022 14:16:25 Medical History Condition Response HEART DISEASE/HEART PROBLEMS Y HYPERTENSION Y ANEMIA/BLOOD DISORDER Y Gynecological HistoryNo gynecological history recorded. Obstetrics History GPAL:G 0 P 0 0 0 0 Past Encounters Encounter ID Performer Location Encounter Start Date Encounter Closed Date Diagnosis/Indication Diagnosis SNOMED-CT Code Diagnosis ICD10 Code Diagnosis Note [id number] Oliver Amaya MD [facility] [address] [facility] [address] [place], [place] [address] 07/02/2020 00:00:00 07/02/2020 17:03:45 [id number] Oliver Amaya MD [facility] [address] [place] [address] 07/30/2020 00:00:00 07/30/2020 14:36:09 [id number] Oliver Amaya MD [facility] [address] [place] [address] 09/17/2020 00:00:00 09/17/2020 16:31:40 [id number] Oliver Amaya MD [facility] [address] [place] [address] 10/01/2020 00:00:00 10/01/2020 12:30:57 [id number] Oliver Amaya MD [facility] [address] [place] [address] 10/08/2020 00:00:00 10/08/2020 09:00:41 [id number] Oliver Amaya MD [facility] [address] [place] [address] 10/29/2020 00:00:00 10/29/2020 12:17:58 [id number] Oliver Amaya MD [facility] [address] [place] [address] 11/26/2020 00:00:00 11/26/2020 13:06:01 [id number] Oliver Amaya MD [facility] [address] [place] [address] 12/24/2020 00:00:00 12/24/2020 12:34:15 [id number] Oliver Amaya MD [facility] [address] [place] [address] 05/20/2021 00:00:00 05/20/2021 15:52:07 [id number] Oliver Amaya MD [facility] [address] [place] [address] 06/10/2021 00:00:00 06/10/2021 15:38:11 [id number] Oliver Amaya MD [facility] [address] [place] [address] 07/01/2021 00:00:00 07/01/2021 14:35:28 [id number] Oliver Amaya MD [facility] [address] [place] [address] 07/29/2021 00:00:00 07/29/2021 16:57:05 [id number] Oliver Amaya MD [facility] [address] [place] [address] 09/17/2021 00:00:00 09/17/2021 17:49:42 [id number] Oliver Amaya MD [facility] [address] [place] [address] 10/29/2021 00:00:00 10/29/2021 16:49:01 [id number] Oliver Amaya MD [facility] [address] [place] [address] 11/25/2021 00:00:00 11/25/2021 16:27:59 [id number] Oliver Amaya MD [facility] [address] [place] [address] 12/16/2021 00:00:00 12/16/2021 17:26:17 [id number] Dontrell Bennett MD [facility] [address] [place] [address] 12/29/2021 00:00:00 12/29/2021 15:40:59 [id number] Dontrell Bennett MD [facility] [address] [place] [address] 05/04/2022 00:00:00 05/04/2022 16:35:22 [id number] MD ZUHAIR AndersonS[facility] [address] [place] [address] 06/05/2022 14:01:09 06/05/2022 16:06:02 Osteoarthritis 672715596 M17.11 [id number] Dontrell Bennett MD [facility] [address] [place] [address] 08/03/2022 13:57:45 08/03/2022 15:45:17 Osteoarthritis of right knee joint 6743381416 02582 M17.11 [id number] MD KATHY [facility] [address] [address] 08/20/2022 11:46:22 08/20/2022 12:53:57 Pain of left shoulder joint 0577469638 8139770 M25.512 [id number] Dontrell Bennett MD [facility]_[address] [address] 11/05/2022 11:41:15 11/05/2022 13:09:19 Pain of right knee joint 1386585135 69689 M25.146 [id number] Dontrell Bennett MD [facility] [address] [address] 02/11/2023 11:42:09 02/11/2023 14:15:21 Osteoarthritis of right knee joint 1684465283 93365 M17.11 [id number] MD KATHY [facility] [address] [address] 02/25/2023 11:57:10 02/25/2023 14:26:11 Osteoarthritis of right knee joint 9637243507 17653 M17.11 [id number] Dontrell Bennett MD [facility] [address] [place], [place] [address] 04/07/2023 14:47:52 04/08/2023 13:46:31 Pain of left shoulder joint 5898433395 2143638 M25.346 [id number] Jerardo Rolle MD [facility] [address] [place] [address] 09/24/2023 11:15:49 09/24/2023 12:13:10 Osteoarthritis of right knee joint 0349868720 40675 M17.11 Pain of ri ght knee joint 5062332418 91469 M25.561 Health Concerns Section Related Observation LastModified by Organization Detai ls LastModified Time None Recorded Concern Status LastModified by Organization Details LastModified Time None Recorded Advance Directives Directive None Recorded Payers Insurance Date Sequence Insurance Name Policy Number Policy Real Covered Member ID Real Member ID Guarantor Name 09/24/2023 [employer] Andria Santos 09/27/2023 1 [facility] (MEDICARE REPLACEMENT/A DVANTAGE - PPO) [id number] Andria Santos [id number] Andria Santos Notes Date Note Type Note Provider Name [...] than average bone density for age. 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 Dontrell Bennett MD [address] [place] [address], [place] [address], [place], [address], [place] [facility] [employer] [facility] 02/25/2023 14:25:58 09/24/2023 text/html Patient returns with right knee pain. Pain is localized mostly medially. She saw Dr. Bennett in February of 2023, she was told [...] measures. Eventually she sought another opinion in [place] and on May 04 of this year [...] options if there are any. SAM Tompkins [address] [place] [address], [place] [address], [place], [address], [place] [facility] 09/24/2023 14:24:45 OBGyn Episode No OBEpisode recorded.
[2024-08-25 09:59] LABS: CRP 1.5 mg/dL (<1.0)
[2024-08-25 10:10] LABS: Erythrocyte Sedimentation Rate 34 mm/hr (0-20)
== END 2024-08-25 09:13 | disposition home or self-care (01) ==
PROVIDERS: Visit Provider Orthopaedic Surgery
DX: T84.82XD Fibrosis due to internal orthopedic prosthetic devices, implants and grafts, subsequent encounter (principal); M25.561 Pain in right knee
CPT/HCPCS: 36415; 85652; 86140

== ENCOUNTER 2024-08-25 12:25 | Outpatient (CLI) | payer MEDICARE, SELFPAY ==
--- NOTE | ~2024-08-25 | US_ITS ---
EXAMINATION: US knee asp inj w image RT DATE: 08/25/2024 13:33 INDICATION: Right knee pain. 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 TECHNIQUE: The procedure including the risks and benefits was discussed with the patient. Risks discu ssed included bleeding, allergic reaction and infection. The patient understood the risks and agreed to proceed. The skin overlying the lateral suprapatellar pouch of the right knee was prepped and michael ped in usual sterile fashion. Anesthetic was administered with 1% lidocaine subcutaneously. A 20 ga uge final needle was advanced under continuous ultrasound observation into the minimal amount of anec hoic fluid at the suprapatellar pouch. 3 mL of clear german-colored fluid was aspirated and sent to t lab for studies as ordered by the referring physician. The needle was removed and the entry site was cleaned and dressed. Post procedure ultrasound demonstrated no hemorrhage. FINDINGS: Ultrasound images demonstrate needle tip within a very small anechoic fluid collection at [facility] medial aspect of the suprapatellar pouch. IMPRESSION: 1. Successful Ultrasound-guided right knee arthrocentesis yielding 3 mL of clear german-colored fluid. Reviewed, dictated and finalized at location A. IMPRESSION: 1. Successful Ultrasound-guided right knee arthrocentesis yielding 3 mL of augie r german-colored fluid.
--- OUTSIDE RECORDS SUMMARY | 2024-08-25 12:30 | XMS_ITS | Clinical Summary ---
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 CASTING Gender Identity Not on file Sexual Orientation Not on file Last Filed Vital Signs Vital Sign Reading Time Taken Comments Blood Pressure 116/50 04/23/2021 2:19 PM SUPERVISOR DIE CASTING Pulse 66 04/23/2021 12:14 PM SUPERVISOR DIE CASTING Temperature 36.4 C (97.6 F) 04/23/2021 12:14 PM SUPERVISOR DIE CASTING Respiratory Rate 18 04/23/2021 12:14 PM SUPERVISOR DIE CASTING Oxygen Saturation 100% 04/23/2021 12:14 PM SUPERVISOR DIE CASTING Inhaled Oxygen Concentration - - Weight 68 kg (150 lb) 04/23/2021 12:14 PM SUPERVISOR DIE CASTING Height 167.6 cm (5' 6) 04/23/2021 12:14 PM SUPERVISOR DIE CASTING Body Mass Index 24.21 04/23/2021 12:14 PM SUPERVISOR DIE CASTING Plan of Treatment Health Maintenance Due Date [...] to complete this topic Insurance [facility]IC[facility] Care Teams Scrapper Relationship Specialty Start Date End Date Romero Meier MD PCP - General Internal Medicine 04/23/21
--- OUTSIDE RECORDS SUMMARY | 2024-08-25 12:30 | XMS_ITS | Clinical Summary ---
Author Organization [facility] [employer] [facility] Address [address] [place] [address] Care Team Providers Care Daycare Provider Name Role Phone Unavailable Primary Care Provider Unavailabl e Encounters Date Type Department Care Team Description 08/03/2024 External Device Data [facility] ABSTRACTION Provider, Abstract 08/02/2024 External Device Data [facility] ABSTRACTION Provider, Abstract 08/01/2024 External Device Data [facility] ABSTRACTION Provider, Abstract 05/31/2024 External Device Data [facility] ABSTRACTION Provider, [...]
[2024-08-25 14:11] LABS: Crystals Synovial Fluid None Seen (None Seen)
[2024-08-25 15:11] LABS: Appearance Synovial Fluid Cloudy (Clear); Color Synovial Fluid Yellow (Colorless); Source Synovial Fluid Rt Knee Syn Fluid
[2024-08-25 15:12] LABS: Lymphocytes Synovial Fluid 83 %; Neutrophils Synovial Fluid 17 % (0-25)
== END 2024-08-25 12:26 | disposition home or self-care (01) ==
PROVIDERS: PCP Internal Medicine; Visit Provider Orthopaedic Surgery
DX: M25.561 Pain in right knee (principal); T84.82XD Fibrosis due to internal orthopedic prosthetic devices, implants and grafts, subsequent encounter; Z96.651 Presence of right artificial knee joint
CPT/HCPCS: 20611; 87070; 87075; 87205; 89051; 89060

== ENCOUNTER 2024-09-22 10:30 | Outpatient (CLI) | payer MEDICARE, SELFPAY ==
--- NOTE | ~2024-09-22 | US_ITS ---
EXAMINATION: US knee asp inj w image RT DATE: 09/22/2024 11:48 INDICATION: Right knee pain. 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 TECHNIQUE: The procedure including the risks and benefits was discussed with the patient. Risks discu ssed included bleeding, allergic reaction and infection. The patient understood the risks and agreed to proceed. The skin overlying the lateral suprapatellar pouch of the right knee was prepped and michael ped in usual sterile fashion. Anesthetic was administered with 1% lidocaine subcutaneously. A 25 gau ge needle was advanced under continuous ultrasound observation into the minimal amount of anechoic fl uid at the suprapatellar pouch. 2 mL of clear straw-colored fluid was aspirated and sent to the lab for studies as ordered by the referring physician. The needle was removed and the entry site was didi aned and dressed. Post procedure ultrasound demonstrated no hemorrhage. FINDINGS: Ultrasound images demonstrate needle tip within a negligible fluid collection at the medial aspect of the suprapatellar pouch. IMPRESSION: 1. Successful Ultrasound-guided right knee arthrocentesis yielding 2 mL of clear straw-colored fluid. Reviewed, dictated and finalized at location A. IMPRESSION: 1. Successful Ultrasound-guided right knee arthrocentesis yielding 2 mL of augie r straw-colored fluid.
--- OUTSIDE RECORDS SUMMARY | 2024-09-22 10:37 | XMS_ITS | Clinical Summary ---
Author Organization [facility] Address [address] [place] [address] Care Team Providers Care Safe Deposit Clerk Name Role Phone Unavailable Primary Care Provider [...]
--- OUTSIDE RECORDS SUMMARY | 2024-09-22 10:37 | XMS_ITS | Clinical Summary ---
Author Organization [facility] Address [address] [place] [address] Care Team Providers Care Biological Science Technician Name Role Phone Unavailable Primary Care Provider Unavailabl e Encounters Date Type Department Care Team Description 08/30/2024 External Device Data [facility] ABSTRACTION Provider, Abstract 08/29/2024 External Device Data [facility] ABSTRACTION Provider, Abstract 08/03/2024 External Device Data [facility] ABSTRACTION Provider, [...] 2002 OSTEOPOROSIS SCREENING 2017 INFLUENZA VACCINE (#1) 2024 RSV VACCINE (60+ or ) (1 - 1-dose 75+ series) 2027 Insurance [employer] Member Subscriber Plan / Payer (Ef fective 2021-Present) Name:Andria Lopez Relation to Subscriber:Employee Name:ANDRIA DENSON Address: [place] [address] Payer ID:Not on file Group ID:Not on file Type:Other Address: [address] [id number] [place] [id number]
--- OUTSIDE RECORDS SUMMARY | 2024-09-22 10:37 | XMS_ITS | Clinical Summary ---
Author Organization [facility] Address [address] [place] [address] Phone Care Team Providers Care Ancillary Services Manager Therapy Name Role Phone Romero Meier MD Primary [...] on file Legal Sex Female 11:52 AM EDGE CUTTING MACHINE OPERATOR Gender Identity Not on file Sexual Orientation Not on file Last Filed Vital Signs Vital Sign Reading Time Taken Comments Blood Pressure 116/50 04/23/2021 2:19 PM EDGE CUTTING MACHINE OPERATOR Pulse 66 04/23/2021 12:14 PM EDGE CUTTING MACHINE OPERATOR Temperature 36.4 C (97.6 F) 04/23/2021 12:14 PM EDGE CUTTING MACHINE OPERATOR Respiratory Rate 18 04/23/2021 12:14 PM EDGE CUTTING MACHINE OPERATOR Oxygen Saturation 100% 04/23/2021 12:14 PM EDGE CUTTING MACHINE OPERATOR Inhaled Oxygen Concentration - - Weight 68 kg (150 lb) 04/23/2021 12:14 PM EDGE CUTTING MACHINE OPERATOR Height 167.6 cm (5' 6) 04/23/2021 12:14 PM EDGE CUTTING MACHINE OPERATOR Body Mass Index 24.21 04/23/2021 12:14 PM EDGE CUTTING MACHINE OPERATOR Plan of Treatment Health Maintenance Due Date Last Done Comments Hepatitis C Virus (HCV) Screening 1950 Cologuard 1997 Colonoscopy 1997 Colorectal Cancer Screening 1997 Immunochemical Fecal Occult Blood 1997 SARS-COV-2 Immunization ( season) 2023 12/23/2020, 05/18/2020, 04/25/2020 Influenza Immunization (#1) 11/13/202403/2020, 12/13/2020, 11/24/2019, Additional history exists Respiratory Syncytial [...] to complete this topic Insurance [facility] Care Teams Ancillary Services Manager Therapy Relationship Specialty Start Date End Date Romero Meier MD PCP - General Internal Medicine 04/23/21
== END 2024-09-22 10:31 | disposition home or self-care (01) ==
PROVIDERS: PCP Internal Medicine; Visit Provider Orthopaedic Surgery
DX: T84.82XD Fibrosis due to internal orthopedic prosthetic devices, implants and grafts, subsequent encounter (principal); Z96.651 Presence of right artificial knee joint
CPT/HCPCS: 20611

== ENCOUNTER 2024-09-22 12:20 | Outpatient (NON) | payer MEDICARE, SELFPAY ==
--- OUTSIDE RECORDS SUMMARY | 2024-09-22 12:24 | XMS_ITS | Clinical Summary ---
Author Organization [facility] Address [address] [place] [id number] Care Team Providers Care Microfabrication Engineer Manager Name Role Phone Unavailable Primary Care [...]
--- OUTSIDE RECORDS SUMMARY | 2024-09-22 12:24 | XMS_ITS | Clinical Summary ---
Author Organization [facility] Address [address] [place] [address] Care Team Providers Care Coal And Ash Supervisor Name Role Phone Unavailable Primary Care Provider [...] Lopez Relation to Subscriber:Employee Name:ANDRIA DENSON Address: [place] [address] Payer ID:Not on file Group ID:Not on file Type:Other Address: [id number] [place] [id number]
--- OUTSIDE RECORDS SUMMARY | 2024-09-22 12:24 | XMS_ITS | Clinical Summary ---
Author Organization [facility] Address [address] [place] [address] Phone Care Team Providers Care Road Inspector Name Role Phone Romero Meier MD Primary [...] on file Legal Sex Female 11:52 AM MESSENGER OFFICE Gender Identity Not on file Sexual Orientation Not on file Last Filed Vital Signs Vital Sign Reading Time Taken Comments Blood Pressure 116/50 04/23/2021 2:19 PM MESSENGER OFFICE Pulse 66 04/23/2021 12:14 PM MESSENGER OFFICE Temperature 36.4 C (97.6 F) 04/23/2021 12:14 PM MESSENGER OFFICE Respiratory Rate 18 04/23/2021 12:14 PM MESSENGER OFFICE Oxygen Saturation 100% 04/23/2021 12:14 PM MESSENGER OFFICE Inhaled Oxygen Concentration - - Weight 68 kg (150 lb) 04/23/2021 12:14 PM MESSENGER OFFICE Height 167.6 cm (5' 6) 04/23/2021 12:14 PM MESSENGER OFFICE Body Mass Index 24.21 04/23/2021 12:14 PM MESSENGER OFFICE Plan of Treatment Health Maintenance Due Date [...] to complete this topic [facility] Care Teams Road Inspector Relationship Specialty Start Date End Date Romero Meier MD PCP - General Internal Medicine 04/23/21
[2024-09-22 14:49] LABS: Color Synovial Fluid Yellow (Colorless); Nucleated Cell Synovial Fluid 972 /uL (0-200); Source Synovial Fluid Rt Knee Syn Fluid
[2024-09-22 14:53] LABS: Lymphocytes Synovial Fluid 56 %; Macrophages Synovial Fluid 12 %; Monocytes Synovial Fluid 17 %; Neutrophils Synovial Fluid 15 % (0-25); Other Cells Synovial Fluid 2 %; RBC Synovial Fluid 9000 /uL (0-0)
== END 2024-09-22 12:21 | disposition home or self-care (01) ==
PROVIDERS: PCP Internal Medicine; Visit Provider Orthopaedic Surgery
DX: T84.82XD Fibrosis due to internal orthopedic prosthetic devices, implants and grafts, subsequent encounter (principal); Z96.651 Presence of right artificial knee joint
CPT/HCPCS: 87070; 89051

== ENCOUNTER 2024-11-27 13:15 | Outpatient (RCR) | payer OTHER, MEDICARE, SELFPAY ==
--- NOTE | 2024-09-18 14:37 | OPREHPOC ---
Outpatient Therapy Plan of Care This is a Multidisciplinary Plan of Care that may contain components documented by all disciplines (PT, OT, and ST.) PT Problem 1 PT Problem #1 Knowledge Deficit PT Goal 1 Goal / Goal Update Beckham with HEP Target Visit 4 PT Goal 2 Goal / Goal Update No pain greater than 2/10 in shoulder Target Visit 8 PT Problem 2 PT Problem #2 Impaired Range of Motion PT Goal 1 Goal / Goal Update 1. Achieve 165 degrees of left shoulder flexion motion 2. Improve left shoulder external rotation to 80 degrees PT Problem 3 PT Problem #3 Impaired Functional Mobility PT Goal 1 Goal / Goal Update 1. Improve QuickDASH score by 50% to improve gross shoulder function
--- NOTE | 2024-09-18 14:37 | PTOPEVAL1 ---
Assessment and note entered by oJse Warren, PT Evaluation Information Assessment Status Evaluation Diagnosis Tear of left rotator cuff ICD-10 Condition Codes (PT) Pain in left shoulder M25.512 Onset 08/28/24 Subjective Information Reports that since surgery she feels that she is doing a bit better. Still feels a little weak and sore. She is currently taking Oxycodone for pain but doesn't feel hat it helps much. Shoulder is still. Reported Pain Level Pain Score 5: Self Report Assessment PT Clinical Summary Patient presents with shoulder ROM deficits limiting self care and functional mobility. Will benefit form skilled therapy to address these deficits with primary goal of motion rastafarian. She has low pain tolerance todays and is fixated non her left knee. Overall shows good potential for shoulder ROM recovery. Plan of Care Interventions Manual Therapy,Neuro Re-education,Therapeutic Activities,Therapeutic Exercise PT Services Indicated Yes Treatment Frequency and 2x/week for 10 visits Duration These treatments will address the objective and functional deficits as defined above. The patient will be advanced safely and appropriately in order for the patient to progress towards his/her prior level of function. Additional exercises will be introduced and as well as a comprehensive home exercise program upon discharge, if needed, ?to ensure carryover of functional gains achieved in the clinic. This treatment plan has been reviewed and agreement upon by the patient.
--- NOTE | 2024-10-06 09:27 | PCPTNOTE ---
Pt canceled today due to illness.
--- NOTE | 2024-10-11 09:30 | PCPTNOTE ---
No call no show. Called and left mssg to check on patient. AKS
--- NOTE | 2024-10-23 08:59 | PCPTNOTE ---
Cancelled per front office. New puppy. AKS
--- NOTE | 2024-10-26 13:00 | OPREHPOC ---
Outpatient Therapy Plan of Care This is a Multidisciplinary Plan of Care that may contain components documented by all disciplines (PT, OT, and ST.) PT Problem 1 PT Problem #1 Knowledge Deficit PT Goal 1 Goal / Goal Update Ronks with HEP Target Visit 4 Progress Met PT Goal 2 Goal / Goal Update No pain greater than 2/10 in shoulder Target Visit 8 PT Problem 2 PT Problem #2 Impaired Range of Motion PT Goal 1 Goal / Goal Update 1. Achieve 165 degrees of left shoulder flexion motion 2. Improve left shoulder external rotation to 80 degrees 10/26/24: Improved in both areas, but still lacking goals Target Visit 16 Progress Partially Met PT Problem 3 PT Problem #3 Impaired Functional Mobility PT Goal 1 Goal / Goal Update 1. Improve QuickDASH score by 50% to improve gross shoulder function Target Visit 16 Progress Partially Met PT Problem 4 PT Problem #4 Impaired Strength PT Goal 1 Goal / Goal Update Improve gross left shoulder strength to 4/5 to improve functional reach and lifting ability Target Visit 16
--- NOTE | 2024-10-26 13:00 | PTOPPROG ---
Assessment and note entered by Jose Warren, PT Evaluation Information Assessment Status Progress Diagnosis Tear of left rotator cuff ICD-10 Condition Codes (PT) Pain in left shoulder M25.512 Onset 08/28/24 Subjective Information Reports that overall she feels she is seeing improvement in shoulder motion and function. Still has some anterior shoulder pain with reaching activity. Would like to continue to working on functional strength and reaching ability. Feels sleeping has greatly improved. Assessment PT Clinical Summary Patient has seen significant improvement in shoulder ROM at this time. Continues to have some end range deficit affecting function. Upon strength testing this date, Significant weakness is noted, however strengthening was just initiated per protocol and will be a focus moving forward. Patient will continue to benefit form skilled therapy to address functional deficits. Plan of Care Interventions Manual Therapy,Neuro Re-education,Therapeutic Activities,Therapeutic Exercise PT Services Indicated Yes Treatment Frequency and 2x/week for 8 visits Duration These treatments will address the objective and functional deficits as defined above. The patient will be advanced safely and appropriately in order for the patient to progress towards his/her prior level of function. Additional exercises will be introduced and as well as a comprehensive home exercise program upon discharge, if needed, ?to ensure carryover of functional gains achieved in the clinic. This treatment plan has been reviewed and agreement upon by the patient.
--- NOTE | 2024-11-23 12:59 | PCPTNOTE ---
Cancelled d/t headache per front office. AKS
--- NOTE | 2024-11-30 13:10 | PCPTNOTE ---
Called and cx this date. NATHAN
--- NOTE | 2024-12-04 12:57 | PCPTNOTE ---
No call no show this date. NATHAN
--- NOTE | 2024-12-07 14:43 | PCPTNOTE ---
NC NS AKS
--- NOTE | 2025-01-29 13:33 | PCPTNOTE ---
Patient last present for physical therapy on 11/27/24. Patient has not returned and is discharged for therapy at this time. Please refer to last treatment note for discharge status.
== END 2024-12-17 23:59 | disposition home or self-care (01) ==
LOC: ANHPT 13:15
PROVIDERS: PCP Internal Medicine
DX: M75.102 Unspecified rotator cuff tear or rupture of left shoulder, not specified as traumatic (principal)
CPT/HCPCS: 97110; 97140; 97161; 97530

== ENCOUNTER 2025-02-16 08:14 | Emergency (ER) | payer MEDICARE, SELFPAY ==
--- NOTE | ~2025-02-16 | XR_ITS ---
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 Technique: 2 views obtained. Findings: The lungs are clear, no effusion. No pneumothorax. Heart is normal size. Mediastinal and hilar contours are within normal limits. Bony thorax no acute abnormality. Impression: No acute cardiopulmonary abnormality. Reviewed, dictated and finalized at location P. UM CURATOR Impression: No acute cardiopulmonary abnormality.
--- NOTE | 2025-02-16 08:15 | ECG_ITS ---
Test Date: 2025-02-16 08:24:03 Measurements Intervals [place] Rate: 61 P: 49 [place]: 183 QRS: -17 QRSD: 102 T: 53 QT: 407 QTc: 411 Interpretive Statements SINUS RHYTHM VOLTAGE CRITERIA FOR LVH HIGH LATERAL INFARCT, AGE INDETERMINATE ABNORMAL ECG No previous ECG available for comparison Electronically Signed On 02-16-2025 08:38:20 INTERMEDIATE TEACHER by Ron Roper D.O.
[2025-02-16 08:18] VITALS: BP 156/63; PULSE 68; RESP 20; TEMP 36.4; O2SAT 98
[2025-02-16 08:39] LABS: Hematocrit 39.8 % (37.0-47.0); Hemoglobin 12.4 g/dL (12.0-15.0); Immature Granulocyte Percent A 0.5 % (0-0.5); Lymphocytes Absolute Auto 1.33 K/mm3 (0.9-3.2); Mean Corpuscular HGB Conc 31.2 g/dl (32-36); Mean Corpuscular Hemoglobin 27.7 pg (26-34); Mean Corpuscular Volume 89.0 fl (80-100); Nucleated Red Blood Cells Absolute Auto 0.000 K/mm3 (0.0-0.012); Nucleated Red Blood Cells Perc 0.0 % (0.0-0.2); Platelet Count Result 226 k/mm3 (150-375); Red Blood Count 4.47 M/mm3 (4.2-5.4); White Blood Count 6.4 K/mm3 (4.5-10.0)
[2025-02-16 08:48] LABS: Alanine Aminotransferase 26 U/L (6-35); Albumin Level 4.1 g/dL (3.5-5.1); Alkaline Phosphatase 90 U/L (38-126); Anion Gap 3 mmol/L (4-12); Aspartate Amino Transferase 35 U/L (14-36); Bilirubin,Total 0.7 mg/dL (0.2-1.3); Blood Urea Nitrogen 11 mg/dL (7-17); Calcium 10.2 mg/dL (8.4-10.2); Carbon Dioxide 29 mmol/L (22-30); Chloride 105 mmol/L (98-107); Estimated CRCL calculation 51 ml/min; Estimated Glomerular Filt Rate > 60; Glucose 84 mg/dL (65-110); INR 0.9; Lipase 120 U/L (23-300); Potassium 3.8 mmol/L (3.4-5.0); Prothrombin Time 12.6 Seconds (11.1-14.7); Sodium 137 mmol/L (137-145); Total Protein 7.3 g/dL (6.3-8.2)
[2025-02-16 08:49] LABS: Partial Thromboplastin Time 24.8 Seconds (22.3-36.8)
[2025-02-16 08:59] LABS: Troponin I < 0.012 ng/mL (0.000-0.034)
[2025-02-16 09:54] VITALS: BP 153/67; PULSE 58; RESP 19; O2SAT 98
--- NOTE | 2025-02-16 10:50 | ECG_ITS ---
Test Date: 2025-02-16 10:54:35 Measurements Intervals [place] Rate: 55 P: 39 [place]: 170 QRS: -11 QRSD: 114 T: 52 QT: 433 QTc: 416 Interpretive Statements SINUS BRADYCARDIA INTRAVENTRICULAR CONDUCTION DELAY VOLTAGE CRITERIA FOR LVH HIGH LATERAL INFARCT, AGE INDETERMINATE BASELINE ARTIFACT- I, II, III, AVR, AVL, AVF, V1-V6 ABNORMAL ECG Compared to ECG 02/16/2025 08:24:03 Intraventricular conduction delay now present Electronically Signed On 02-16-2025 11:21:39 HOSE HANDLER by Ron Roper D.O.
[2025-02-16 11:09] VITALS: BP 164/73; PULSE 60; RESP 14; O2SAT 98
[2025-02-16 11:28] LABS: Troponin I < 0.012 ng/mL (0.000-0.034)
[2025-02-16 11:51] VITALS: BP 142/69; PULSE 58; RESP 12; O2SAT 100
--- NOTE | 2025-02-16 12:07 | ED.CHESTPAIN ---
HPI - Chest Pain General Chief Complaint: Chest Pain Stated Complaint: chest pain Time Seen by Provider: 02/16/25 08:16 Source: patient Mode of arrival: ambulatory Limitations: no limitations History of Present Illness HPI narrative: 74-year-old with a history of GERD, hypertension, anxiety presents to the ER with a complains of 1 day history of continuous midsternal chest pain. Patient is states that upon arrival to the ER pain resolved. She denies any nausea, vomiting. No history of shortness of breath. No previous history of CAD. He MD complaint: chest pain Onset (ago): day(s) (1) Timing of current episode: constant Onset: during rest Pain location: substernal Pain radiation: none Severity: moderate Quality: aching Relieving factors: nothing Exacerbating factors: nothing Risk Factors Coronary artery disease risk factors: none Related Data Home Medications ?Medication ?Instructions ?Recorded ?Confirmed ?Last Taken ?Type atorvastatin 20 mg tablet 20 mg PO DAILY 12/16/23 11/29/24 05/18/24 History irbesartan 150 mg tablet 150 mg PO QPM 12/16/23 11/29/24 05/17/24 History metoprolol tartrate 50 mg tablet 50 mg PO Q12H 12/16/23 11/29/24 07/07/24 History pantoprazole 40 mg tablet,delayed 40 mg PO DAILY 12/16/23 11/29/24 07/07/24 History release rizatriptan 10 mg tablet 10 mg PO Q2H PRN migraine headache 12/16/23 11/29/24 07/06/24 History coenzyme Q10 100 mg capsule 200 mg PO QPM 02/07/24 11/29/24 05/15/24 History albuterol sulfate 90 mcg/actuation 1 inh inhalation PRN 04/27/24 11/29/24 Unknown History aerosol inhaler cetirizine 10 mg capsule (All Day 10 mg PO QPM 04/27/24 11/29/24 05/17/24 History Allergy (cetirizine)) cholecalciferol (vitamin D3) 25 25 mcg PO DAILY 04/27/24 11/29/24 05/15/24 History mcg (1,000 unit) capsule [id number]-rya-dmpg-FA-Ca carb-vit K 1 tablet PO DAILY 04/27/24 11/29/24 05/15/24 History 18 mg iron-400 mcg-500 mg tablet triamcinolone acetonide 55 mcg 1 spray intranasal HS 04/27/24 11/29/24 05/17/24 History nasal spray aerosol (24 Hour Nasal Allergy) alprazolam 0.5 mg tablet 1 mg PO QID PRN anxiety 07/04/24 11/29/24 Unknown History Held on 07/07/24. Instructions: Hold until no longer taking the oxycodone. Combining these can cause respiratory depression and overdose which can lead to Magic Mouthwash BYMOUTH 07/28/24 11/29/24 Unknown History Allergies Allergy/AdvReac Type Severity Reaction Status Date / Time celecoxib (From Celebrex) AdvReac Unknown sores in Verified 02/16/25 08:22 mouth Review of Systems Review of Systems: All systems reviewed & are unremarkable except as noted in HPI and below Constitutional: Constitutional: Reports no additional constitutional complaints Eyes: Eyes: Reports no additional eye complaints ENT: Reports system reviewed and no additional complaints, except as documented Cardiovascular: Cardiovascular: Reports as per HPI Respiratory: Respiratory: Reports no additional respiratory complaints Gastrointestinal: Gastrointestinal: Reports no additional gastrointestinal complaints Musculoskeletal: Musculoskeletal: Reports no additional musculoskeletal complaints PMFSH Past Medical History Medical History Depression Anxiety Arthritis SVT (supraventricular tachycardia) Palpitations Asthma Anemia GERD (gastroesophageal reflux disease) Migraine Hypertension High cholesterol Surgical History Surgical History History of bilateral cataract extraction History of cholecystectomy History of knee surgery right Family History Family History Mother Hypertension Cancer Social History Social History Smoking packs per day: 0.5 Smoking cigarettes per day: 10.0 Years smoked: 20 Smoking pack-years: 10.00 Smoking status: Former smoker Tobacco type: cigarettes Additional smoking assessment comments: DENIES ANY FORM OF TOBACCO USE Alcohol intake: current Alcohol use details: ONE DRINK PER MONTH Substance use: never Substance use type: painkillers Other substance usage details: Oxycodone as needed Current Housing: Decline to Answer Concerned About Future Housing: Decline to Answer Difficulty Paying Gas/Electric Bills: Decline to Answer Difficulty Paying for Meds: Decline to Answer Currently Unemployed: Decline to Answer Education: Decline to Answer Difficulty w/ Childcare or Family Care: Decline to Answer Living arrangements: alone Spiritual care concerns: No Exam Narrative: GENERAL: Well-appearing, well-nourished, and in no acute distress. HEAD: Normocephalic, atraumatic. EYES: PERRLA and EOMI. ENT: Nares clear, no rhinorrhea or epistaxis. Mucous membranes moist. NECK: Supple. CHEST: Clear to auscultation. No respiratory distress. HEART: Regular rate and rhythm. No murmur heard. Normal peripheral pulses. ABDOMEN: Soft, nontender, nondistended, normal active bowel sounds. EXTREMITIES: Normal range of motion. No edema. SKIN: Warm, dry, no rash. NEURO: No focal deficits. Alert and oriented x3. PSYCH: Normal mood and affect. Course Course Emergency Course: Patient remained asymptomatic while she is here in the ER. Informed her and her about the lab work, EKG and chest x-ray findings. Recommended her to follow-up with her primary doctor for outpatient stress test. She has stated that she has a scheduled appointment to see a primary in 1 week. Vital Signs Vital signs: Vital Signs Temperature 36.4 C 02/16/25 08:18 Pulse Rate 68 02/16/25 08:18 Respiratory Rate 20 02/16/25 08:18 Blood Pressure 156/63 H 02/16/25 08:18 Pulse Oximetry 98 02/16/25 08:18 Oxygen Delivery Room Air 02/16/25 08:18 Temperature 36.4 C 02/16/25 08:18 Pulse Rate 58 L 02/16/25 11:51 Respiratory Rate 12 02/16/25 11:51 Blood Pressure 142/69 H 02/16/25 11:51 Pulse Oximetry 100 02/16/25 11:51 Oxygen Delivery Room Air 02/16/25 08:22 MDM MDM Narrative Medical decision making narrative: 74-year-old with a history of hypertension presents to the ER with a 1 day history of midsternal chest pain which was constant in nature. On her exam is unremarkable so his EKG would do cardio workup and chest x-ray. Differential Diagnosis Differential Diagnosis: ACS, pneumonia, GERD, pancreatitis Medical Records I have reviewed the following patient records and this information was taken into consideration when formulating the assessment and plan.: previous labs and previous ER visits Lab Data MDM Lab Attestation statement: I personally reviewed the patient's lab results. 02/16/25 08:27 02/16/25 08:27 Labs: Lab Results 02/16/25 02/16/25 Range/Units 08:27 10:58 WBC 6.4 (4.5-10.0) K/mm3 RBC 4.47 (4.2-5.4) M/mm3 Hgb 12.4 (12.0-15.0) g/dL Hct 39.8 (37.0-47.0) % MCV 89.0 (80-100) fl MCH 27.7 (26-34) pg MCHC 31.2 L (32-36) g/dl RDW 15.4 H (11.5-14.5) % Plt Count 226 (150-375) k/mm3 MPV 10.3 (7.4-10.4) fl Immature Gran % (Auto) 0.5 (0-0.5) % Neut % (Auto) 62.6 (45.5-73.1) % Lymph % (Auto) 20.7 (18.3-44.2) % Parke % (Auto) 8.4 (2.6-8.5) % Eos % (Auto) 6.7 H (0-4.4) % Baso % (Auto) 1.1 (0.2-1.2) % Lymph # (Auto) 1.33 (0.9-3.2) K/mm3 Parke # (Auto) 0.5 (0.1-0.6) K/mm3 Eos # (Auto) 0.4 H (0-0.3) K/mm3 Baso # (Auto) 0.1 (0.0-0.1) K/mm3 Abs Immat Gran (auto) 0.03 (0.00-0.031) K/mm3 Absolute Neuts (auto) 4.0 (1.3-6.7) K/mm3 Absolute Nucleated RBC 0.000 (0.0-0.012) K/mm3 Nucleated RBC % 0.0 (0.0-0.2) % PT 12.6 (11.1-14.7) Seconds INR 0.9 APTT 24.8 (22.3-36.8) Seconds Sodium 137 (137-145) mmol/L Potassium 3.8 (3.4-5.0) mmol/L Chloride 105 (98-107) mmol/L Carbon Dioxide 29 (22-30) mmol/L Anion Gap 3 L (4-12) mmol/L BUN 11 (7-17) mg/dL Creatinine 0.84 (0.7-1.0) mg/dL Estim Creat Clear Calc 51 ml/min Estimated GFR > 60 (59 - ) Glucose 84 (65-110) mg/dL Calcium 10.2 (8.4-10.2) mg/dL Total Bilirubin 0.7 (0.2-1.3) mg/dL AST 35 (14-36) U/L ALT 26 (6-35) U/L Alkaline Phosphatase 90 (38-126) U/L Troponin I < 0.012 < 0.012 (0.000-0.034) ng/mL Total Protein 7.3 (6.3-8.2) g/dL Albumin 4.1 (3.5-5.1) g/dL Lipase 120 (23-300) U/L Imaging Data Radiologist's impression: ITS Impressions Chest X-Ray 02/16/25 08:45 Impression: No acute cardiopulmonary abnormality. ECG Data EKG #1: ECG completion date: 02/16/25 ECG completion time: 08:24 normal rate (61), sinus rhythm, no ectopy, no ST changes, normal QRS, normal QT and no acute changes EKG #2: ECG completion date: 02/16/25 ECG completion time: 10:54 normal rate (55), sinus rhythm, no ectopy, normal QRS, normal QT and no acute changes Discharge Plan Discharge Clinical Impression: Chest pain Qualifiers: Chest pain type: unspecified Qualified Code(s): R07.9 - Chest pain, unspecified Patient Disposition: Home Condition: Stable Instructions: Chest Pain (ED) Patient Language: Namibian Prescriptions: No Action atorvastatin 20 mg tablet 20 mg PO DAILY rizatriptan 10 mg tablet 10 mg PO Q2H PRN (Reason: migraine headache) pantoprazole 40 mg tablet,delayed release (DR/EC) 40 mg PO DAILY metoprolol tartrate 50 mg tablet 50 mg PO Q12H irbesartan 150 mg tablet 150 mg PO QPM coenzyme Q10 100 mg capsule 200 mg PO QPM Magic Mouthwash BYMOUTH tramadol 50 mg tablet 50 mg PO Q6H PRN (Reason: pain) Qty: 40 0RF All Day Allergy (cetirizine) 10 mg capsule 10 mg PO QPM triamcinolone acetonide [24 Hour Nasal Allergy] 55 mcg aerosol,spray 1 spray intranasal HS Rx Instructions: administer into each nostril [id number]-ymgl-FA-Ca carb-vit K 18 mg iron-400 mcg-500 mg tablet 1 tablet PO DAILY cholecalciferol (vitamin D3) 25 mcg (1,000 unit) capsule 25 mcg PO DAILY albuterol sulfate 90 mcg/actuation HFA aerosol inhaler 1 inh INHALATION PRN Patient Comments: couple weeks ago acetaminophen 325 mg Tablet 650 mg PO Q4H Qty: 90 0RF alprazolam 0.5 mg tablet 1 mg PO QID PRN (Reason: anxiety) polyethylene glycol 3350 [Miralax] 17 gram/dose powder 17 g PO DAILY Qty: 30 0RF Senna Plus 8.6-50 mg capsule 2 tab-cap PO BID PRN (Reason: constipation) Qty: 120 0RF meloxicam 7.5 mg tablet 7.5 mg PO DAILY Qty: 30 2RF Follow-up/Referrals: Hardeep,Romero Alexander MD [Primary Care Provider, Unknown] Time of Disposition: 12:08
== END 2025-02-16 12:19 | disposition home or self-care (01) ==
PROVIDERS: Emergency Provider Family Medicine; PCP Internal Medicine
DX: R07.2 Precordial pain (principal); I10 Essential (primary) hypertension; J45.909 Unspecified asthma, uncomplicated; E78.00 Pure hypercholesterolemia, unspecified; K21.9 Gastro-esophageal reflux disease without esophagitis; M19.90 Unspecified osteoarthritis, unspecified site; F41.9 Anxiety disorder, unspecified; F32.A Depression, unspecified; Z98.42 Cataract extraction status, left eye; Z98.41 Cataract extraction status, right eye; Z90.49 Acquired absence of other specified parts of digestive tract; Z79.899 Other long term (current) drug therapy; R00.1 Bradycardia, unspecified; I45.9 Conduction disorder, unspecified; R94.31 Abnormal electrocardiogram [ECG] [EKG]
CPT/HCPCS: 36415; 71046; 80053; 83690; 84484; 85025; 85610; 85730; 93005; 99284